=== PATIENT | male | born 1945 | race Caucasian/White ===

== ENCOUNTER → 2016-06-09 | Outpatient (CLI) | payer MEDICARE, BC ==
[2016-06-09 10:46] LABS: Basophils % (A) 1 %; CH 29.1; CHCM 32.8; Eosinophils # (A) 0.3 k/uL (0-0.7); Eosinophils % (A) 4 %; HDW 2.63; HGB 15.4 gm/dL (13.0-17.5); Luc # (Auto) 0.25; Luc % (Auto) 3; Lymphocytes # (A) 1.7 k/uL (1.0-4.8); Lymphocytes % (A) 23 %; MCH 29.8 pg (25.0-35.0); MCHC 33.5 g/dL (31.0-37.0); MCV 88.9 fL (80.0-100.0); Mean Platelet Volume 7.1; Monocytes # (A) 0.6 k/uL (0-1.0); Monocytes % (A) 8 %; Neutrophils # (A) 4.6 k/uL (1.3-7.7); Neutrophils % (A) 62 %; RBC 5.18 m/uL (4.30-5.90); RDW 13.2 % (11.5-15.5); WBC 7.5 k/uL (3.8-10.6); WBC (Perox) 7.36
[2016-06-09 11:51] LABS: ALT 25 U/L (21-72); AST 23 U/L (17-59); Alkaline Phosphatase 73 U/L (38-126); Anion Gap 11 mmol/L; Blood Urea Nitrogen 18 mg/dL (9-20); Calcium 9.8 mg/dL (8.4-10.2); Carbon Dioxide 30 mmol/L (22-30); Chloride 100 mmol/L (98-107); Cholesterol 130 mg/dL (<200); Glucose 130 mg/dL (74-99); HDL Cholesterol 42 mg/dL (40-60); Iron 40 ug/dL (49-181); Non-African American GFR(MDRD) >60 (>60 ml/min/1.73 sqM); Potassium 4.8 mmol/L (3.5-5.1); Sodium 141 mmol/L (137-145); Total Bilirubin 1.9 mg/dL (0.2-1.3); Triglycerides 79 mg/dL (<150)
[2016-06-09 12:02] LABS: % Iron Saturation 12.9 % (20-50); Total Iron Binding Capacity 310 ug/dL (261-462)
[2016-06-09 12:22] LABS: Prostate Specific Antigen 0.36 ng/mL (0.00-4.00)
[2016-06-09 12:58] LABS: Vitamin B12 607 pg/mL
== END | disposition home or self-care (01) ==
LOC: LABWHC1 10:13
PROVIDERS: ATTEND Internal Medicine Geriatric Medicine
DX: N40.0 Benign prostatic hyperplasia without lower urinary tract symptoms (principal); D64.9 Anemia, unspecified; N18.1 Chronic kidney disease, stage 1; E11.42 Type 2 diabetes mellitus with diabetic polyneuropathy; E78.00 Pure hypercholesterolemia, unspecified
CPT/HCPCS: 36415; 80053; 80061; 82607; 82746; 83036; 83540; 83550; 84153; 85025

== ENCOUNTER 2016-07-18 12:56 | Inpatient (IN) | payer MEDICARE, BC ==
[2016-07-18] MEDS ORDERED: AMPICILLIN-SULBACTAM 3 GM in SODIUM CHLORIDE 0.9% 100 ML IVPB STA (15:22)
[2016-07-18] MEDS ORDERED: SODIUM CHLORIDE 0.9% 1,000 ML IV STA (15:22)
[2016-07-18] MEDS ORDERED: IV VANCOMYCIN PER PHARMACY 1 EACH MISC MISCELLANE PRN (15:22)
[2016-07-18] MEDS ORDERED: VANCOMYCIN 2,000 MG in SODIUM CHLORIDE 0.9% 500 ML IVPB STA (15:30)
--- NOTE | 2016-07-18 15:35 | ED ---
General Adult HPI - General Chief complaint: Extremity Problem,Nontraumatic Stated complaint: L foot infection Time Seen by Provider: 07/18/16 15:07 Source: patient, RN notes reviewed, old records reviewed Mode of arrival: ambulatory Limitations: no limitations - History of Present Illness Initial comments: This is a 71-year-old male here for evaluation of foot pain, foot smell, left great toe pain and swelling. Patient has history of diabetes if history of amputation of the foot. Patient states he noticed a blister at the foot yesterday in the neck chemo brain and has since been smiling with discharge. No fevers. No significant pain although pain does have nephropathy. Patient denies any other complaints - Related Data Home Medications Medication Instructions Recorded Confirmed Aspirin 81 mg PO HS 12/27/15 01/03/16 Calcium Carbonate/Vitamin D3 1 tab PO AC-BID 12/27/15 01/03/16 [Calcium 600-Vit D3 800 Tab] Cholecalciferol [Vitamin D3] 1,000 unit PO BID 12/27/15 01/03/16 Cyanocobalamin [Vitamin B-12] 1,000 mcg PO AC-BRKFST 12/27/15 01/03/16 Docusate [Colace] 100 mg PO AC-TID 12/27/15 01/03/16 Glucosam/Magen-Msm1/C/Jimi/Bosw 1 tab PO BID 12/27/15 01/03/16 [Glucosamine-Chondroitin Tablet] Lisinopril [Prinivil] 10 mg PO DAILY 12/27/15 01/03/16 Multivitamins, Thera [Multivitamin 1 tab PO AC-BRKFST 12/27/15 01/03/16 (formulary)] [place]-3 Fatty Acids/Fish Oil [Fish 1 cap PO HS 12/27/15 01/03/16 Oil 1,000 mg Softgel] Tadalafil [Cialis] 25 mg PO DAILY PRN 12/27/15 01/03/16 Vitamin E 1,000 unit PO AC-BRKFST 12/27/15 01/03/16 glipiZIDE/METFORMIN HCL 1 tab PO DAILY@1200 12/27/15 01/03/16 [glipiZIDE/METFORMIN HCL 5-500 mg] Hydrocortisone Valerate 1 applic TOPICAL DAILY PRN 01/03/16 01/03/16 Previous Rx's Medication Instructions Recorded HYDROcodone/APAP 5-325MG [[place] 1 tab PO Q4HR PRN #20 tab 12/27/15 5-325] Ciprofloxacin HCl [Cipro] 500 mg PO Q12HR #14 tablet 01/09/16 Insulin Glargine [Lantus] 15 unit SQ HS vial 01/09/16 Insulin Glargine [Lantus] 25 unit SQ QAM vial 01/09/16 Allergies Allergy/AdvReac Type Severity Reaction Status Date / Time codeine AdvReac Hallucinati Verified 07/18/16 13:36 ons Review of Systems ROS Statement: Those systems with pertinent positive or pertinent negative responses have been documented in the HPI. ROS Other: All systems not noted in ROS Statement are negative. Past Medical History Past Medical History: Diabetes Mellitus, Pneumonia Additional Past Medical History / Comment(s): CATARACTS, SHINGLES 11 MONTHS AGO , MILD TREMORS LT HAND History of Any Multi-Drug Resistant Organisms: MRSA Date of last positivie culture/infection: 2009 MDRO Source:: LEFT FOOT Past Surgical History: Orthopedic Surgery, Tonsillectomy Additional Past Surgical History / Comment(s): HAMMER TOE SX LT FOOT, LEFT FOOT SURGERY GREAT TOE AMPUTATION/THEN 2ND SX TO REARRANGE THE BONES IN LT FOOT. right foot samll toe removed Past Anesthesia/Blood Transfusion Reactions: No Reported Reaction Additional Past Anesthesia/Blood Transfusion Reaction / Comment(s): CLAUSTERPHOBIC Past Psychological History: No Psychological Hx Reported Additional Psychological History / Comment(s): HAD SOME DEPRESSION WHEN PASSED WAY 4.5 YEARS AGO-NONE NOW Smoking Status: Former smoker Past Alcohol Use History: Occasional Additional Past Alcohol Use History / Comment(s): patient was a smoker of up- and cigarettes and quit in 1984. He denies any medical marijuana, marijuana, street drug use. He occasional has a glass of wine. 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 He lives alone as his . His daughter lives next door. Past Drug Use History: None Reported - Past Family History Mother Additional Family Medical History / Comment(s): AGE 91 FROM BRAIN HEMORRAGE Father Family Medical History: Cancer Additional Family Medical History / Comment(s): LUNG CANCER /METS TO BRAIN General Exam Limitations: no limitations General appearance: alert, in no apparent distress Head exam: Present: atraumatic, normocephalic, normal inspection Eye exam: Present: normal appearance, PERRL, EOMI. Absent: scleral icterus, conjunctival injection, periorbital swelling ENT exam: Present: normal exam, mucous membranes moist Neck exam: Present: normal inspection. Absent: tenderness, meningismus, lymphadenopathy Respiratory exam: Present: normal lung sounds bilaterally. Absent: respiratory distress, wheezes, rales, rhonchi, stridor Cardiovascular Exam: Present: regular rate, normal rhythm, normal heart sounds. Absent: systolic murmur, diastolic murmur, rubs, gallop, clicks GI/Abdominal exam: Present: soft, normal bowel sounds. Absent: distended, tenderness, guarding, rebound, rigid Extremities exam: Present: normal inspection, full ROM, normal capillary refill , other (Left toe cellulitis midfoot forefoot, large ulcer on the great toe). Absent: tenderness, pedal edema, joint swelling, calf tenderness Back exam: Present: normal inspection Neurological exam: Present: alert, oriented X3, CN II-XII intact Psychiatric exam: Present: normal affect, normal mood Skin exam: Present: warm, dry, intact, normal color. Absent: rash Course Vital Signs 07/18/16 13:33 Temperature 98.1 F Pulse Rate 79 Respiratory 18 Rate Blood Pressure 169/70 O2 Sat by Pulse 99 Oximetry - Reevaluation(s) Reevaluation #1: 07/18/16 15:53 Medical record is reviewed Reevaluation #2: 07/18/16 15:53 Patient's in no distress Medical Decision Making - Medical Decision Making 71 meowed ear with history of diabetes history of gangrene history of amputation coming in with ulcer and cellulitis spreading up the foot, smell, rule out osteomyelitis, patient be admitted for IV antibiotics at this time - Radiology Data Radiology results: report reviewed (X-ray of foot shows no changes, postsurgical ), image reviewed Disposition Clinical Impression: Diabetic ulcer of toe, Gangrene of toe, Cellulitis of left foot Disposition: ADMITTED IP TO THIS [facility] Condition: Fair Referrals: Clay Jones MD [Primary Care Provider] - 1-2 days
[2016-07-18] MEDS ORDERED: SODIUM CHLORIDE 0.9% 1,000 ML IV ONE (15:50)
--- NOTE | 2016-07-18 15:58 | XR ---
EXAMINATION TYPE: XR foot limited LT DATE OF EXAM: 07/18/2016 3:52 PM COMPARISON: NONE HISTORY: Pain TECHNIQUE: 2 views are submitted. FINDINGS: Postsurgical change involving the first digit with soft tissue edema and emphysema correlate for infe ction. Previous amputation noted with no destructive bony changes of the first digit. Calcaneal spurs noted. There are deformities involving the MTP joints of all remaining digits which appear to be chronic may been the basis of previous trauma, infection or fracture. Psoriatic arthritis less likely etiology. IMPRESSION: 1. Extensive soft tissue edema and emphysema correlate for cellulitis with infection. No destructive change of the first digit. 2. Chronic appearing deformities of the MTP joints and distal metatarsals of the second through fourt h digits have been the basis of previous trauma and/or infection. Correlate clinically.
[2016-07-18 16:21] LABS: Basophils % (A) 1 %; CH 29.3; CHCM 33.6; Eosinophils # (A) 0.2 k/uL (0-0.7); Eosinophils % (A) 2 %; HCT 41.9 % (39.0-53.0); HGB 14.1 gm/dL (13.0-17.5); Luc # (Auto) 0.21; Luc % (Auto) 3; Lymphocytes # (A) 1.9 k/uL (1.0-4.8); Lymphocytes % (A) 23 %; MCH 29.5 pg (25.0-35.0); MCHC 33.6 g/dL (31.0-37.0); MCV 87.7 fL (80.0-100.0); Mean Platelet Volume 7.2; Monocytes # (A) 0.5 k/uL (0-1.0); Monocytes % (A) 6 %; Neutrophils # (A) 5.4 k/uL (1.3-7.7); Neutrophils % (A) 66 %; RBC 4.78 m/uL (4.30-5.90); RDW 13.1 % (11.5-15.5); WBC 8.3 k/uL (3.8-10.6); WBC (Perox) 8.05
[2016-07-18 16:27] LABS: Appearance,Urine Clear (Clear); Bilirubin,Urine Negative (Negative); Glucose,Urine (UA) 3+ (Negative); Ketones,Urine Negative (Negative); Leukocyte Esterase,Urine Negative (Negative); Nitrite,Urine Negative (Negative); Protein,Urine Negative (Negative); Specific Gravity,Urine 1.006 (1.001-1.035); UA Billing (MACRO vs. MICRO) CHEM; Urobilinogen,Urine <2.0 mg/dL (<2.0)
[2016-07-18 16:29] LABS: INR 0.9 (<1.1); Partial Thromboplastin Time 24.7 sec (22.0-30.0); Prothrombin Time 9.7 sec (9.0-12.0)
[2016-07-18 16:48] LABS: ALT 24 U/L (21-72); AST 21 U/L (17-59); Alkaline Phosphatase 82 U/L (38-126); Anion Gap 12 mmol/L; Blood Urea Nitrogen 20 mg/dL (9-20); Calcium 9.3 mg/dL (8.4-10.2); Carbon Dioxide 27 mmol/L (22-30); Chloride 100 mmol/L (98-107); Glucose 198 mg/dL (74-99); Magnesium 2.3 mg/dL (1.6-2.3); Non-African American GFR(MDRD) >60 (>60 ml/min/1.73 sqM); Phosphorous 3.5 mg/dL (2.5-4.5); Potassium 4.6 mmol/L (3.5-5.1); Sodium 139 mmol/L (137-145); Total Bilirubin 1.6 mg/dL (0.2-1.3); Total Protein 7.8 g/dL (6.3-8.2)
[2016-07-18 16:53] LABS: Creatine Kinase MB 1.2 ng/mL (0.0-2.4)
[2016-07-18 20:08] LABS: Glucose,Whole Blood 222 mg/dL (75-99)
[2016-07-18] MEDS ORDERED: TADALAFIL PO PRN (21:03)
--- NOTE | 2016-07-18 21:21 | P.HPIM ---
History of Present Illness H&P Date: 07/18/16 Chief Complaint: left big toe stump ulceration drainage this is a 71-year-old male. His primary care physician is Dr. Jones. He has a past medical history of diabetes mellitus, cataracts, shingles, left hand tremor, left foot infection with MRSA status post amputation of the left great toe followed by nonhealing wound and was last admitted at this facility last december 2015. Patient underwent amputation on the left great toe in 2008 and developed wound that was nonhealing for an extended period of time this finally healed few weeks therafter. He followed with Dr. Levin as well as Dr. Quiñones , he has residual callus on the 3rd rgiht toe which is not open, non draining..He Has PAD worse on the right then the left, He present to the Emergency room when he had blister on the base of his left big toe stump that started draining clear fluid initially now collored yellow with increase foul smelling drainage prompting his er evaluation as the stum on the amputated toe is now red and tender and swollen. Patient was started on Ancef and vancomycin and admitted to the [facility] floor and consult requested with Dr. Quiñones and Dr. Levin. Review of Systems Constitutional: Reports as per HPI, Denies anorexia, Denies chills, Denies chronic headaches, Denies chronic pain, Denies daytime sleepiness, Denies fatigue, Denies fever, Denies lethargy, Denies malaise, Denies night sweats, Denies poor appetite, Denies sweats, Denies weakness, Denies weight gain, Denies weight loss Ears, nose, mouth and throat: Reports as per HPI, Denies ant. neck pain, Denies bleeding gums, Denies dental pain, Denies dysphagia, Denies epistaxis, Denies headache, Denies hoarseness, Denies mouth pain, Denies nasal congestion, Denies nasal discharge, Denies neck fullness/pressure, Denies neck lump, Denies nose pain, Denies odynophagia, Denies post-nasal drip, Denies sinus pain, Denies sinus pressure, Denies swelling in mouth, Denies swelling in throat, Denies sore throat, Denies vertigo, Denies voice changes Cardiovascular: Reports as per HPI, Reports leg edema, Denies chest pain, Denies claudication, Denies decreased exercise tolerance, Denies dyspnea on exertion, Denies edema, Denies high blood pressure, Denies irregular heart beat , Denies lightheadedness, Denies orthopnea, Denies palpitations, Denies paroxysmal nocturnal dyspnea, Denies phlebitis, Denies rapid heart beat, Denies shortness of breath, Denies syncope Respiratory: Reports as per HPI, Denies congestion, Denies cough, Denies cough with sputum, Denies dyspnea, Denies excessive sputum, Denies hemoptysis, Denies home oxygen, Denies pain, Denies pain on inspiration, Denies pleurisy, Denies respiratory infections, Denies sleep apnea, Denies snoring, Denies wheezing Gastrointestinal: Reports as per HPI, Denies abdominal pain, Denies belching, Denies bloating, Denies BRBPR, Denies change in bowel habits, Denies coffee ground emesis, Denies constipation, Denies diarrhea, Denies dyspepsia, Denies early satiety, Denies excessive gas, Denies heartburn, Denies hematemesis, Denies hematochezia, Denies indigestion, Denies jaundice, Denies lactose intolerance, Denies loss of appetite, Denies melena, Denies nausea, Denies vomiting Genitourinary: Reports as per HPI, Denies decreased libido, Denies difficulties fathering child, Denies discharge, Denies dysuria, Denies erectile dysfunction, Denies flank pain, Denies genital pain, Denies genital sores, Denies hematuria, Denies impotence, Denies incontinence, Denies kidney stones, Denies nocturia, Denies polyuria, Denies testicular lump, Denies testicular pain, Denies urinary frequency, Denies urinary hesitancy, Denies urinary retention Musculoskeletal: Reports as per HPI, Reports shooting leg pain, Denies arm numbness/tingling, Denies atrophy, Denies fractures, Denies frequent falls, Denies gait dysfunction, Denies hot joints, Denies leg numbness/tingling, Denies limitation of motion, Denies loss of height, Denies low back pain, Denies morning stiffness, Denies muscle cramps, Denies muscle weakness, Denies myalgias, Denies neck pain, Denies neck stiffness, Denies prior amputations, Denies redness of joints, Denies shooting arm pain Integumentary: Reports as per HPI, Reports color changes, Reports lesions, Reports sores, Denies acne, Denies boils, Denies brittle nails, Denies change in hair/nails, Denies darkening of skin, Denies depigmentation, Denies dryness, Denies foot/leg ulcers, Denies growths, Denies hirsutism, Denies onychomycosis, Denies pruritus, Denies rash, Denies striae, Denies unusual bruising, Denies wounds Neurological: Reports as per HPI, Denies aphasia, Denies ataxia, Denies balance difficulties, Denies burning pain, Denies change in mentation, Denies change in smell/taste, Denies change in speech, Denies confusion, Denies convulsions, Denies double vision, Denies gait dysfunction, Denies head injury, Denies headaches, Denies hearing difficulties, Denies lack of coordination, Denies loss of vision, Denies memory loss, Denies migraines, Denies motor disturbance, Denies numbness, Denies paralysis, Denies paresthesias, Denies seizures, Denies sensory deficit, Denies spasticity, Denies syncope, Denies tic, Denies tingling , Denies transient paralysis, Denies tremors, Denies vertigo, Denies weakness, Denies visual changes Psychiatric: Reports as per HPI, Denies anhedonia, Denies anxiety, Denies anxiety attacks, Denies change in appetite, Denies change in libido, Denies change in sleep habits, Denies confusion, Denies depression, Denies difficulty concentrating, Denies disorientation, Denies hallucinations, Denies hopelessness , Denies hypersomnia, Denies insomnia, Denies irritability, Denies memory loss, Denies mood swings, Denies paranoia, Denies sadness/tearfulness, Denies sleep disturbances, Denies suicidal ideation Endocrine: Reports as per HPI, Denies cold intolerance, Denies deepening of the voice, Denies excessive sweating, Denies excessive thirst, Denies fatigue, Denies flushing, Denies heat intolerance, Denies high blood sugars, Denies increase in ring/shoe/hat size, Denies low blood sugars, Denies nocturia, Denies palpitations, Denies polydipsia, Denies polyphagia, Denies polyuria, Denies proptosis, Denies recent glucocorticoid use, Denies thyroid mass, Denies weight change Past Medical History Past Medical History: Diabetes Mellitus, Pneumonia Additional Past Medical History / Comment(s): CATARACTS, SHINGLES 11 MONTHS AGO , MILD TREMORS LT HAND, wet gangrene rt foot 5th toe(had amp done), cyst rt middle finger. History of Any Multi-Drug Resistant Organisms: MRSA Date of last positivie culture/infection: 1992(per pt) MDRO Source:: LEFT FOOT great toe Past Surgical History: Orthopedic Surgery, Tonsillectomy Additional Past Surgical History / Comment(s): HAMMER TOE SX LT FOOT, LEFT FOOT SURGERY GREAT TOE AMPUTATION/THEN 2ND SX TO REARRANGE THE BONES IN LT FOOT.01-03-16 right foot samll toe removed Past Anesthesia/Blood Transfusion Reactions: No Reported Reaction Additional Past Anesthesia/Blood Transfusion Reaction / Comment(s): CLAUSTERPHOBIC Past Psychological History: No Psychological Hx Reported Additional Psychological History / Comment(s): HAD SOME DEPRESSION WHEN PASSED WAY 4 YEARS AGO-sought counseling-NONE NOW. lives alone in own 2 story home(pt stays on 1st level) that has 4 steps to enter.daughter lives next door. Smoking Status: Former smoker Past Alcohol Use History: Occasional Additional Past Alcohol Use History / Comment(s): patient was a smoker of up- and cigarettes and quit in 1984. He denies any medical marijuana, marijuana, street drug use. He occasional has a glass of wine. no service. 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 He lives alone as his . His daughter lives next door. Past Drug Use History: None Reported - Past Family History Mother Additional Family Medical History / Comment(s): AGE 91 FROM BRAIN HEMORRAGE Father Family Medical History: Cancer Additional Family Medical History / Comment(s): LUNG CANCER /METS TO BRAIN Medications and Allergies Home Medications Medication Instructions Recorded Confirmed Type Aspirin 81 mg PO HS 12/27/15 07/18/16 History Calcium Carbonate/Vitamin D3 1 tab PO AC-BID 12/27/15 07/18/16 History [Calcium 600-Vit D3 800 Tab] Cholecalciferol [Vitamin D3] 1,000 unit PO BID 12/27/15 07/18/16 History Cyanocobalamin [Vitamin B-12] 1,000 mcg PO AC-BRKFST 12/27/15 07/18/16 History Docusate [Colace] 100 mg PO AC-TID 12/27/15 07/18/16 History Glucosam/Magen-Msm1/C/Jimi/Bosw 1 tab PO BID 12/27/15 07/18/16 History [Glucosamine-Chondroitin Tablet] Lisinopril [Prinivil] 10 mg PO DAILY 12/27/15 07/18/16 History Multivitamins, Thera [Multivitamin 1 tab PO AC-BRKFST 12/27/15 07/18/16 History (formulary)] [place]-3 Fatty Acids/Fish Oil [Fish 1 cap PO HS 12/27/15 07/18/16 History Oil 1,000 mg Softgel] Tadalafil [Cialis] 25 mg PO DAILY PRN 12/27/15 07/18/16 History Vitamin E 1,000 unit PO AC-BRKFST 12/27/15 07/18/16 History glipiZIDE/METFORMIN HCL 1 tab PO DAILY@1200 12/27/15 07/18/16 History [glipiZIDE/METFORMIN HCL 5-500 mg] Hydrocortisone Valerate 1 applic TOPICAL DAILY PRN 01/03/16 07/18/16 History Insulin Glargine,Hum.rec.anlog 45 units SQ DAILY 07/18/16 07/18/16 History [[place]] Allergies Allergy/AdvReac Type Severity Reaction Status Date / Time adhesive Allergy Itching Verified 07/18/16 19:00 codeine AdvReac Hallucinati Verified 07/18/16 16:13 ons Physical Exam Vitals: Vital Signs Temp Pulse Pulse Resp BP BP Pulse Ox 07/18/16 18:45 98.2 F 62 16 146/76 99 07/18/16 17:33 97.6 F 65 18 158/67 99 07/18/16 16:30 97.1 F L 66 18 153/69 99 07/18/16 13:33 98.1 F 79 18 169/70 99 Intake and Output 07/18/16 07/18/16 07/18/16 06:59 14:59 22:59 Intake Total 118 Balance 118 Intake: Oral 118 Other: Weight 92.986 kg Patient Weight 07/19/16 06:59 Weight 92.986 kg - Constitutional General appearance: cooperative, no acute distress - EENT Eyes: anicteric sclerae, PERRLA, dentition normal, normal appearance ENT: hearing grossly normal, NA/AT, normal oropharynx - Neck Neck: no lymphadenopathy, normal ROM, no other, no rigidity, no stridor, no thyromegaly Thyroid: bilateral: normal size - Respiratory Respiratory: negative: CTA, diminished, dullness, rales, rhonchi, wheezing, prolonged expiration - Cardiovascular Rhythm: regular Heart sounds: normal: S1, S2 Abnormal Heart Sounds: no systolic murmur, no diastolic murmur, no rub, no S3 Gallop, no S4 Gallop, no click, no other - Gastrointestinal General gastrointestinal: normal bowel sounds, soft - Integumentary Integumentary: normal, normal turgor - Neurologic Neurologic: CNII-XII intact - Musculoskeletal Musculoskeletal: gait normal - Psychiatric Psychiatric: A&O x's 3, appropriate affect Results CBC & Chem 7: 07/18/16 16:07 07/18/16 16:07 Labs: Abnormal Lab Results - Last 24 Hours (Table) 07/18/16 07/18/16 07/18/16 Range/Units 16:07 16:18 20:03 Glucose 198 H (74-99) mg/dL POC Glucose (mg/dL) 222 H (75-99) mg/dL Total Bilirubin 1.6 H (0.2-1.3) mg/dL Urine Glucose (UA) 3+ H (Negative) Laboratory Results WBC 8.3 k/uL (3.8-10.6) 07/18/16 16:07 RBC 4.78 m/uL (4.30-5.90) 07/18/16 16:07 Hgb 14.1 gm/dL (13.0-17.5) 07/18/16 16:07 Hct 41.9 % (39.0-53.0) 07/18/16 16:07 MCV 87.7 fL (80.0-100.0) 07/18/16 16:07 MCH 29.5 pg (25.0-35.0) 07/18/16 16:07 MCHC 33.6 g/dL (31.0-37.0) 07/18/16 16:07 RDW 13.1 % (11.5-15.5) 07/18/16 16:07 Plt Count 246 k/uL (150-450) 07/18/16 16:07 Neutrophils % 66 % 07/18/16 16:07 Lymphocytes % 23 % 07/18/16 16:07 Monocytes % 6 % 07/18/16 16:07 Eosinophils % 2 % 07/18/16 16:07 Basophils % 1 % 07/18/16 16:07 Neutrophils # 5.4 k/uL (1.3-7.7) 07/18/16 16:07 Lymphocytes # 1.9 k/uL (1.0-4.8) 07/18/16 16:07 Monocytes # 0.5 k/uL (0-1.0) 07/18/16 16:07 Eosinophils # 0.2 k/uL (0-0.7) 07/18/16 16:07 Basophils # 0.0 k/uL (0-0.2) 07/18/16 16:07 PT 9.7 sec (9.0-12.0) 07/18/16 16:07 INR 0.9 (<1.1) 07/18/16 16:07 APTT 24.7 sec (22.0-30.0) 07/18/16 16:07 Sodium 139 mmol/L (137-145) 07/18/16 16:07 Potassium 4.6 mmol/L (3.5-5.1) 07/18/16 16:07 Chloride 100 mmol/L (98-107) 07/18/16 16:07 Carbon Dioxide 27 mmol/L (22-30) 07/18/16 16:07 Anion Gap 12 mmol/L 07/18/16 16:07 BUN 20 mg/dL (9-20) 07/18/16 16:07 Creatinine 0.94 mg/dL (0.66-1.25) 07/18/16 16:07 Est GFR (MDRD) Af Amer >60 (>60 ml/min/1.73 sqM) 07/18/16 16:07 Est GFR (MDRD) Non-Af >60 (>60 ml/min/1.73 sqM) 07/18/16 16:07 Glucose 198 mg/dL (74-99) H 07/18/16 16:07 POC Glucose (mg/dL) 222 mg/dL (75-99) H 07/18/16 20:03 POC Glu Edi Developer ID Caryl Bush 07/18/16 20:03 Plasma Lactic Acid [place] 1.3 mmol/L (0.7-2.0) 07/18/16 16:07 Calcium 9.3 mg/dL (8.4-10.2) 07/18/16 16:07 Phosphorus 3.5 mg/dL (2.5-4.5) 07/18/16 16:07 Magnesium 2.3 mg/dL (1.6-2.3) 07/18/16 16:07 Total Bilirubin 1.6 mg/dL (0.2-1.3) H 07/18/16 16:07 AST 21 U/L (17-59) 07/18/16 16:07 ALT 24 U/L (21-72) 07/18/16 16:07 Alkaline Phosphatase 82 U/L (38-126) 07/18/16 16:07 Total Creatine Kinase 57 U/L (55-170) 07/18/16 16:07 CK-MB (CK-2) 1.2 ng/mL (0.0-2.4) 07/18/16 16:07 CK-MB (CK-2) Rel Index 2.1 07/18/16 16:07 Total Protein 7.8 g/dL (6.3-8.2) 07/18/16 16:07 Albumin 4.4 g/dL (3.5-5.0) 07/18/16 16:07 Urine Color Light Yellow 07/18/16 16:18 Urine Appearance Clear (Clear) 07/18/16 16:18 Urine pH 6.0 (5.0-8.0) 07/18/16 16:18 Ur Specific [place] 1.006 (1.001-1.035) 07/18/16 16:18 Urine Protein Negative (Negative) 07/18/16 16:18 Urine Glucose (UA) 3+ (Negative) H 07/18/16 16:18 Urine Ketones Negative (Negative) 07/18/16 16:18 Urine Blood Negative (Negative) 07/18/16 16:18 Urine Nitrite Negative (Negative) 05/26/17 16:18 Urine Bilirubin Negative (Negative) 07/18/16 16:18 Urine Urobilinogen <2.0 mg/dL (<2.0) 07/18/16 16:18 Ur Leukocyte Esterase Negative (Negative) 07/18/16 16:18 Assessment and Plan Plan: 1. stump cellulitis involiving left ist distal metatarsal region withknown PAD diabetic wound/ulcer . Patient has been started on vancomycin and unasyn added. Dr. Quiñones and Dr. Levin is on consult for vascular surgery infectious disease. wound cultures obtained. xrays to evaluate for osteomyelitis 2. prior right 5th toe amputation 12/2015 healed 3 Diabetes mellitus insulin requiring. Patient is continued on Tuojeo 45 units twice daily and Humalog scale before meals and at bedtime as well as metformin 500 mg daily' glypizide 5 mg daily. he was running high on his AIC last time it was checked, will acquire an updated aic this visit 4, Right 3rd distal toe chronic callus with dry necrosis/gangrene 4 PAD, will have dr quiñones follow the paitient, arterial doppers will be done 5. Hypertension. Continue lisinopril 10 mg daily. 6. Gastrointestinal prophylaxis. Heparin 5000 units subcu every 8 hours. 7. DVT prophylaxis. Pepcid 20 mg daily. 8. 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
[2016-07-18 21:38] LABS: Hemoglobin A1C 7.1 % (4.2-6.1)
[2016-07-18] MEDS: INSULIN LISPRO (humaLOG) 300 UNIT/3 ML VIAL SQ SCH (22:10)
[2016-07-19] MEDS: VANCOMYCIN 1,500 MG in SODIUM CHLORIDE 0.9% 250 ML IVPB SCH ×2 (05:56→18:07)
[2016-07-19 07:16] LABS: Basophils % (A) 0 %; CH 29.2; Eosinophils # (A) 0.2 k/uL (0-0.7); Eosinophils % (A) 2 %; HCT 40.4 % (39.0-53.0); HDW 2.82; HGB 13.6 gm/dL (13.0-17.5); Luc # (Auto) 0.17; Luc % (Auto) 2; Lymphocytes # (A) 1.3 k/uL (1.0-4.8); Lymphocytes % (A) 18 %; MCHC 33.7 g/dL (31.0-37.0); MCV 86.2 fL (80.0-100.0); Mean Platelet Volume 7.9; Monocytes # (A) 0.4 k/uL (0-1.0); Monocytes % (A) 6 %; Neutrophils # (A) 5.3 k/uL (1.3-7.7); Neutrophils % (A) 72 %; RBC 4.69 m/uL (4.30-5.90); RDW 12.9 % (11.5-15.5); WBC 7.3 k/uL (3.8-10.6); WBC (Perox) 7.25
[2016-07-19 07:23] LABS: Glucose,Whole Blood 73 mg/dL (75-99)
[2016-07-19 07:38] LABS: ALT 28 U/L (21-72); AST 21 U/L (17-59); Alkaline Phosphatase 63 U/L (38-126); Anion Gap 9 mmol/L; Blood Urea Nitrogen 17 mg/dL (9-20); Calcium 8.8 mg/dL (8.4-10.2); Carbon Dioxide 27 mmol/L (22-30); Chloride 106 mmol/L (98-107); Glucose 83 mg/dL (74-99); Non-African American GFR(MDRD) >60 (>60 ml/min/1.73 sqM); Potassium 4.7 mmol/L (3.5-5.1); Sodium 142 mmol/L (137-145); Total Bilirubin 1.6 mg/dL (0.2-1.3); Total Protein 6.9 g/dL (6.3-8.2)
[2016-07-19] MEDS: MULTIVITAMINS, THERA 1 EACH TAB PO SCH (07:48)
[2016-07-19] MEDS: ENOXAPARIN 40 MG/0.4 ML SYRINGE SQ SCH (07:48)
[2016-07-19] MEDS: CYANOCOBALAMIN 500 MCG TAB PO SCH (07:48)
[2016-07-19] MEDS: DOCUSATE 100 MG CAP PO SCH ×3 (07:48→18:06)
[2016-07-19] MEDS: CHOLECALCIFEROL 1,000 UNIT TAB PO SCH ×2 (07:48→20:17)
[2016-07-19] MEDS: LISINOPRIL 10 MG TAB PO SCH (07:48)
[2016-07-19] MEDS: CALCIUM CARB-VIT D 500MG-200UN 1 EACH TAB PO SCH ×2 (07:48→18:07)
[2016-07-19] MEDS: INSULIN LISPRO (humaLOG) 300 UNIT/3 ML VIAL SQ SCH ×4 (07:49→20:17)
[2016-07-19] MEDS: INSULIN GLARGINE 100 UNIT/ML 10 ML VIAL SQ SCH (08:19)
--- NOTE | 2016-07-19 09:48 | P.GSCN ---
History of Present Illness History of present illness: 71-year-old diabetic male, patient came to the emergency room with history of pain and blister formation noted on the left foot stump of the left big toe patient is known to me from the past he had a left big toe amputation done he was doing fine and I have been following him in my office on regular basis he notices this blister few days ago and patient has been put on IV antibiotic vancomycin Medical history history of diabetes Surgical history left big Sommers done in the past Neck examination neck is supple no bruit appreciated chest examination chest is clear first and second sound normal Abdomen soft nontender Vascular examination brachial radial femoral pulses are palpable dorsal pedis is palpable left foot has a callus at the stump site and a blister formation Plan is we will do MRI of the left foot rule out osteo-mellitus and patient and IV vancomycin patient will need wound debridement after reviewing the MRI of the left foot. Follow with you thank you Past Medical History Past Medical History: Diabetes Mellitus, Pneumonia Additional Past Medical History / Comment(s): CATARACTS, SHINGLES 11 MONTHS AGO , MILD TREMORS LT HAND, wet gangrene rt foot 5th toe(had amp done), cyst rt middle finger. History of Any Multi-Drug Resistant Organisms: MRSA Year Discovered:: 1992(per pt) MDRO Source:: LEFT FOOT great toe Past Surgical History: Orthopedic Surgery, Tonsillectomy Additional Past Surgical History / Comment(s): HAMMER TOE SX LT FOOT, LEFT FOOT SURGERY GREAT TOE AMPUTATION/THEN 2ND SX TO REARRANGE THE BONES IN LT FOOT.01-03-16 right foot samll toe removed Past Anesthesia/Blood Transfusion Reactions: No Reported Reaction Additional Past Anesthesia/Blood Transfusion Reaction / Comm: CLAUSTERPHOBIC Past Psychological History: No Psychological Hx Reported Additional Psychological History / Comment(s): HAD SOME DEPRESSION WHEN PASSED WAY 4 YEARS AGO-sought counseling-NONE NOW. lives alone in own 2 story home(pt stays on 1st level) that has 4 steps to enter.daughter lives next door. Smoking Status: Former smoker Past Alcohol Use History: Occasional Additional Past Alcohol Use History / Comment(s): patient was a smoker of up- and cigarettes and quit in 1984. He denies any medical marijuana, marijuana, street drug use. He occasional has a glass of wine. no service. 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 He lives alone as his . His daughter lives next door. Past Drug Use History: None Reported - Past Family History Mother Additional Family Medical History / Comment(s): AGE 91 FROM BRAIN HEMORRAGE Father Family Medical History: Cancer Additional Family Medical History / Comment(s): LUNG CANCER /METS TO BRAIN Medications and Allergies Home Medications Medication Instructions Recorded Confirmed Type Aspirin 81 mg PO HS 12/27/15 07/18/16 History Calcium Carbonate/Vitamin D3 1 tab PO AC-BID 12/27/15 07/18/16 History [Calcium 600-Vit D3 800 Tab] Cholecalciferol [Vitamin D3] 1,000 unit PO BID 12/27/15 07/18/16 History Cyanocobalamin [Vitamin B-12] 1,000 mcg PO AC-BRKFST 12/27/15 07/18/16 History Docusate [Colace] 100 mg PO AC-TID 12/27/15 07/18/16 History Glucosam/Magen-Msm1/C/Jimi/Bosw 1 tab PO BID 12/27/15 07/18/16 History [Glucosamine-Chondroitin Tablet] Lisinopril [Prinivil] 10 mg PO DAILY 12/27/15 07/18/16 History Multivitamins, Thera [Multivitamin 1 tab PO AC-BRKFST 12/27/15 07/18/16 History (formulary)] [place]-3 Fatty Acids/Fish Oil [Fish 1 cap PO HS 12/27/15 07/18/16 History Oil 1,000 mg Softgel] Tadalafil [Cialis] 25 mg PO DAILY PRN 12/27/15 07/18/16 History Vitamin E 1,000 unit PO AC-BRKFST 12/27/15 07/18/16 History glipiZIDE/METFORMIN HCL 1 tab PO DAILY@1200 12/27/15 07/18/16 History [glipiZIDE/METFORMIN HCL 5-500 mg] Hydrocortisone Valerate 1 applic TOPICAL DAILY PRN 01/03/16 07/18/16 History Insulin Glargine,Hum.rec.anlog 45 units SQ DAILY 07/18/16 07/18/16 History [[place]] Allergies Allergy/AdvReac Type Severity Reaction Status Date / Time adhesive Allergy Itching Verified 07/18/16 19:00 codeine AdvReac Hallucinati Verified 07/18/16 16:13 ons Surgical - Exam Vital Signs Temp Pulse Resp BP Pulse Ox 98.1 F 79 18 169/70 99 07/18/16 13:33 07/18/16 13:33 07/18/16 13:33 07/18/16 13:33 07/18/16 13:33 Results - Labs 07/19/16 06:59 07/19/16 06:59 Abnormal Lab Results - Last 24 Hours (Table) 07/18/16 07/18/16 07/18/16 Range/Units 16:07 16:07 16:18 Glucose 198 H (74-99) mg/dL POC Glucose (mg/dL) (75-99) mg/dL Hemoglobin A1c 7.1 H (4.2-6.1) % Total Bilirubin 1.6 H (0.2-1.3) mg/dL Urine Glucose (UA) 3+ H (Negative) 07/18/16 07/19/16 07/19/16 Range/Units 20:03 06:59 07:19 Glucose (74-99) mg/dL POC Glucose (mg/dL) 222 H 73 L (75-99) mg/dL Hemoglobin A1c (4.2-6.1) % Total Bilirubin 1.6 H (0.2-1.3) mg/dL Urine Glucose (UA) (Negative) Microbiology - Last 24 Hours (Table) 07/18/16 16:18 Urine Culture - Preliminary Urine,Clean Catch Diabetes panel 07/18/16 07/18/16 07/19/16 Range/Units 16:07 16:07 06:59 Sodium 139 142 (137-145) mmol/L Potassium 4.6 4.7 (3.5-5.1) mmol/L Chloride 100 106 (98-107) mmol/L Carbon Dioxide 27 27 (22-30) mmol/L BUN 20 17 (9-20) mg/dL Creatinine 0.94 0.84 (0.66-1.25) mg/dL Glucose 198 H 83 (74-99) mg/dL Hemoglobin A1c 7.1 H (4.2-6.1) % Calcium 9.3 8.8 (8.4-10.2) mg/dL AST 21 21 (17-59) U/L ALT 24 28 (21-72) U/L Alkaline Phosphatase 82 63 (38-126) U/L Total Protein 7.8 6.9 (6.3-8.2) g/dL Albumin 4.4 3.8 (3.5-5.0) g/dL Calcium panel 07/18/16 07/19/16 Range/Units 16:07 06:59 Calcium 9.3 8.8 (8.4-10.2) mg/dL Phosphorus 3.5 (2.5-4.5) mg/dL Albumin 4.4 3.8 (3.5-5.0) g/dL Pituitary panel 07/18/16 07/19/16 Range/Units 16:07 06:59 Sodium 139 142 (137-145) mmol/L Potassium 4.6 4.7 (3.5-5.1) mmol/L Chloride 100 106 (98-107) mmol/L Carbon Dioxide 27 27 (22-30) mmol/L BUN 20 17 (9-20) mg/dL Creatinine 0.94 0.84 (0.66-1.25) mg/dL Glucose 198 H 83 (74-99) mg/dL Calcium 9.3 8.8 (8.4-10.2) mg/dL Adrenal panel 07/18/16 07/19/16 Range/Units 16:07 06:59 Sodium 139 142 (137-145) mmol/L Potassium 4.6 4.7 (3.5-5.1) mmol/L Chloride 100 106 (98-107) mmol/L Carbon Dioxide 27 27 (22-30) mmol/L BUN 20 17 (9-20) mg/dL Creatinine 0.94 0.84 (0.66-1.25) mg/dL Glucose 198 H 83 (74-99) mg/dL Calcium 9.3 8.8 (8.4-10.2) mg/dL Total Bilirubin 1.6 H 1.6 H (0.2-1.3) mg/dL AST 21 21 (17-59) U/L ALT 24 28 (21-72) U/L Alkaline Phosphatase 82 63 (38-126) U/L Total Protein 7.8 6.9 (6.3-8.2) g/dL Albumin 4.4 3.8 (3.5-5.0) g/dL
[2016-07-19] MEDS ORDERED: METFORMIN HCL PO SCH (12:00)
[2016-07-19] MEDS ORDERED: GLIPIZIDE PO SCH (12:00)
[2016-07-19 12:18] LABS: Glucose,Whole Blood 161 mg/dL (75-99)
[2016-07-19] MEDS: metFORMIN 500 MG TAB PO SCH (12:39)
[2016-07-19] MEDS: glipiZIDE 5 MG TAB PO SCH (12:39)
[2016-07-19 14:08] LABS: Hemoglobin A1C 7.1 % (4.2-6.1)
--- NOTE | 2016-07-19 14:52 | P.PN ---
Subjective Principal diagnosis: left big toe stump ulceration infection, diabetic foot, severe PAD, diabetes, hypertension, hyperlipidemia, severe neuropathy. this is a 71-year-old male. His primary care physician is Dr. Jones. He has a past medical history of diabetes mellitus, cataracts, shingles, left hand tremor, left foot infection with MRSA status post amputation of the left great toe followed by nonhealing wound and was last admitted at this facility last december 2015. Patient underwent amputation on the left great toe in 2008 and developed wound that was nonhealing for an extended period of time this finally healed few weeks therafter. He followed with Dr. Levin as well as Dr. Souza , he has residual callus on the 3rd rgiht toe which is not open, non draining..He Has PAD worse on the right then the left, He present to the Emergency room when he had blister on the base of his left big toe stump that started draining clear fluid initially now collored yellow with increase foul smelling drainage prompting his er evaluation as the stum on the amputated toe is now red and tender and swollen. Patient was started on Ancef and vancomycin and admitted to the [facility] floor and consult requested with Dr. Souza and Dr. Levin. Patient was seen Dr. Souza who agree with the current antibiotics, has not seen Dr. Levin yet continue Vanco and Ancef till Dr. Levin seen him. Patient was scheduled for bone scan of the left foot for further decision of the length of his treatment. Will order [facility] and local care as well. Objective - Vital Signs Vital signs: Vital Signs Temp 97.8 F 07/19/16 07:00 Pulse 52 L 07/19/16 08:00 Resp 18 07/19/16 08:00 BP 131/72 07/19/16 07:00 Pulse Ox 100 07/19/16 07:00 Intake & Output 07/18/16 07/19/16 07/19/16 18:59 06:59 18:59 Intake Total 1218 Balance 1218 Weight 92.986 kg 92.986 kg Intake: Intake, IV Titration 1100 Amount Sodium Chloride 0.9% 1, 1100 000 ml @ 100 mls/hr IV . Q10H ONE Rx#:[id number] Oral 118 Other: Voiding Method Toilet Toilet # Voids 1 1 - Constitutional General appearance: Present: cooperative, no acute distress. Absent: average body habitus, disheveled, mild distress, morbidly obese, obese, severe distress , thin - EENT Eyes: Present: normal appearance. Absent: abnormal pupil, anicteric sclerae, disc margins sharp, edentulous, EOMI, PERRLA, fundus normal, photophobia, dentition normal, poor dentition, ptosis, scleral icterus ENT: Present: normal oropharynx, pharyngeal erythema. Absent: hard of hearing, hearing grossly normal, NA/AT, other, thrush, tonsillar exudates, tonsillar swelling Ears: bilateral: normal - Neck Neck: Present: normal ROM. Absent: lymphadenopathy, other, rigidity, stridor, thyromegaly Carotids: bilateral: upstroke normal Thyroid: bilateral: normal size - Respiratory Respiratory: bilateral: CTA, diminished - Cardiovascular Rhythm: regular Heart sounds: normal: S1, S2 Abnormal Heart Sounds: Present: systolic murmur, S3 Gallop. Absent: diastolic murmur, rub, S4 Gallop, click, other - Gastrointestinal General gastrointestinal: Present: decreased bowel sounds, soft. Absent: absent bowel sounds, distended, hepatomegaly, hyperactive bowel sounds, normal bowel sounds, organomegaly, rigid, scaphoid, splenomegaly, tenderness, umbilical hernia, ventral hernia - Integumentary Integumentary Comment(s): Right toe has healing of previous ulcerated and infected area. Left side had large toe with the stump had infection and cellulitis spreading to the base of the foot with slight swelling the soft tissue. Integumentary: Present: cellulitis, pale, ulcer. Absent: calor, cyanotic, decreased turgor, flushed, jaundiced, normal, normal turgor, rash - Neurologic Neurologic: Present: CNII-XII intact - Musculoskeletal Musculoskeletal: Present: gait normal, generalized weakness. Absent: strength equal bilaterally, right sided weakness, left sided weakness - Psychiatric Psychiatric: Present: A&O x's 3, appropriate affect - Labs CBC & Chem 7: 07/19/16 06:59 07/19/16 06:59 Labs: Abnormal Lab Results - Last 24 Hours (Table) 07/18/16 07/18/16 07/18/16 Range/Units 16:07 16:07 16:18 Glucose 198 H (74-99) mg/dL POC Glucose (mg/dL) (75-99) mg/dL Hemoglobin A1c 7.1 H (4.2-6.1) % Total Bilirubin 1.6 H (0.2-1.3) mg/dL Urine Glucose (UA) 3+ H (Negative) 07/18/16 07/19/16 07/19/16 Range/Units 20:03 06:59 06:59 Glucose (74-99) mg/dL POC Glucose (mg/dL) 222 H (75-99) mg/dL Hemoglobin A1c 7.1 H (4.2-6.1) % Total Bilirubin 1.6 H (0.2-1.3) mg/dL Urine Glucose (UA) (Negative) 07/19/16 07/19/16 Range/Units 07:19 12:16 Glucose (74-99) mg/dL POC Glucose (mg/dL) 73 L 161 H (75-99) mg/dL Hemoglobin A1c (4.2-6.1) % Total Bilirubin (0.2-1.3) mg/dL Urine Glucose (UA) (Negative) Microbiology - Last 24 Hours (Table) 07/18/16 16:18 Urine Culture - Preliminary Urine,Clean Catch Assessment and Plan Plan: 1. stump cellulitis involiving left 1st distal metatarsal region withknown PAD diabetic wound/ulcer Patient was started on vancomycin and unasyn added. Dr. Souza and Dr. Levin is on consult for vascular surgery infectious disease. wound cultures obtained. xrays to evaluate for osteomyelitis 2. prior right 5th toe amputation 12/2015 healed 3 Diabetes mellitus insulin requiring. Patient is continued on Tuojeo 45 units twice daily and Humalog scale before meals and at bedtime as well as metformin 500 mg daily' glypizide 5 mg daily. he was running high on his AIC last time it was checked, will acquire an updated aic this visit, blood sugars mildly low this morning his glipizide was held continue Lantus and place of surgery will continue Humalog with the slide and scale and if needed will add 2 units before each meals. 4 PAD, will have dr souza follow the paitient, arterial study will be done, Right 3rd distal toe chronic callus with dry necrosis/gangrene had been watch will continue topical care. 5. Hypertension. Continue lisinopril 10 mg daily. 6. Gastrointestinal prophylaxis. Heparin 5000 units subcu every 8 hours. 7. DVT prophylaxis. Pepcid 20 mg daily. 8. diabetic sensory neuropathy: Patient has been symptomatic treatment is limited at this point. 9 GI prophylaxis: We'll continue patient on Pepcid 20 mg daily. 10 DVT prophylaxis: Patient be continue on heparin subcutaneous. CODE STATUS: Full code.
[2016-07-19 17:53] LABS: Glucose,Whole Blood 46 mg/dL (75-99)
[2016-07-19 18:06] LABS: Glucose,Whole Blood 42 mg/dL (75-99)
[2016-07-19 18:37] LABS: Glucose,Whole Blood 66 mg/dL (75-99)
[2016-07-19 18:37] LABS: Glucose,Whole Blood 51 mg/dL (75-99)
[2016-07-19 19:59] LABS: Glucose,Whole Blood 134 mg/dL (75-99)
[2016-07-19] MEDS: ASPIRIN 81 MG CHEW PO SCH (20:17)
[2016-07-19] MEDS ORDERED: NON-FORMULARY DRUG (Omega-3 Fatty Acids/Fish Oil [Fish Oil 1,000 Mg Softgel] 1 CAP) PO SCH (21:00)
[2016-07-20] MEDS: VANCOMYCIN 1,500 MG in SODIUM CHLORIDE 0.9% 250 ML IVPB SCH ×2 (06:01→17:37)
[2016-07-20 07:18] LABS: Basophils % (A) 0 %; CH 28.7; CHCM 32.9; Eosinophils # (A) 0.2 k/uL (0-0.7); Eosinophils % (A) 3 %; HCT 43.6 % (39.0-53.0); HDW 2.69; HGB 14.4 gm/dL (13.0-17.5); Luc # (Auto) 0.19; Luc % (Auto) 3; Lymphocytes # (A) 1.6 k/uL (1.0-4.8); Lymphocytes % (A) 22 %; MCH 28.9 pg (25.0-35.0); MCV 87.7 fL (80.0-100.0); Monocytes # (A) 0.5 k/uL (0-1.0); Monocytes % (A) 6 %; Neutrophils # (A) 4.9 k/uL (1.3-7.7); Neutrophils % (A) 66 %; RBC 4.98 m/uL (4.30-5.90); RDW 13.1 % (11.5-15.5); WBC 7.4 k/uL (3.8-10.6); WBC (Perox) 6.97
[2016-07-20 07:48] LABS: ALT 23 U/L (21-72); AST 20 U/L (17-59); Alkaline Phosphatase 69 U/L (38-126); Anion Gap 8 mmol/L; Blood Urea Nitrogen 17 mg/dL (9-20); Calcium 9.3 mg/dL (8.4-10.2); Carbon Dioxide 30 mmol/L (22-30); Chloride 104 mmol/L (98-107); Glucose 54 mg/dL (74-99); Non-African American GFR(MDRD) >60 (>60 ml/min/1.73 sqM); Potassium 4.6 mmol/L (3.5-5.1); Sodium 142 mmol/L (137-145); Total Bilirubin 1.1 mg/dL (0.2-1.3); Total Protein 7.1 g/dL (6.3-8.2)
[2016-07-20] MEDS ORDERED: DEXTROSE 50%-WATER 50 ML SYRINGE IVP STA (08:13)
[2016-07-20 08:17] LABS: Glucose,Whole Blood 57 mg/dL (75-99)
[2016-07-20 08:33] LABS: Erythrocyte Sedimentation Rate 18 mm/hr (0-15)
[2016-07-20 08:55] LABS: Glucose,Whole Blood 99 mg/dL (75-99)
[2016-07-20 09:42] LABS: Glucose,Whole Blood 86 mg/dL (75-99)
[2016-07-20 10:32] LABS: Glucose,Whole Blood 99 mg/dL (75-99)
[2016-07-20] MEDS ORDERED: IV FLUID CONTINUATION 1,000 ML IV ONE (10:40)
[2016-07-20] MEDS ORDERED: MIDAZOLAM 2 MG/2 ML VIAL ONE (10:40)
[2016-07-20] MEDS ORDERED: PROPOFOL 10 MG/ML 20 ML VIAL IV ONE (10:40)
[2016-07-20] MEDS ORDERED: KETAMINE 10 MG/ML 20 ML VIAL ONE (10:40)
[2016-07-20] MEDS ORDERED: fentaNYL (PF) 50 MCG/ML 2 ML AMP ONE (10:40)
[2016-07-20] MEDS ORDERED: LIDOCAINE 1% INJ 10MG/ML (20 ML MDV) SQ ONE (10:59)
[2016-07-20 11:23] LABS: Glucose,Whole Blood 87 mg/dL (75-99)
[2016-07-20] MEDS: INSULIN GLARGINE 100 UNIT/ML 10 ML VIAL SQ SCH (13:24)
[2016-07-20] MEDS: DOCUSATE 100 MG CAP PO SCH ×2 (13:26→17:36)
[2016-07-20] MEDS: INSULIN LISPRO (humaLOG) 300 UNIT/3 ML VIAL SQ SCH ×4 (13:27→21:16)
[2016-07-20] MEDS: CALCIUM CARB-VIT D 500MG-200UN 1 EACH TAB PO SCH ×2 (13:29→17:37)
[2016-07-20] MEDS: ENOXAPARIN 40 MG/0.4 ML SYRINGE SQ SCH (13:29)
[2016-07-20] MEDS: glipiZIDE 5 MG TAB PO SCH (13:30)
[2016-07-20] MEDS: CYANOCOBALAMIN 500 MCG TAB PO SCH (13:30)
[2016-07-20] MEDS: CHOLECALCIFEROL 1,000 UNIT TAB PO SCH ×2 (13:31→21:15)
[2016-07-20] MEDS: MULTIVITAMINS, THERA 1 EACH TAB PO SCH (13:31)
[2016-07-20] MEDS: metFORMIN 500 MG TAB PO SCH (13:31)
[2016-07-20] MEDS: LISINOPRIL 10 MG TAB PO SCH (13:33)
--- NOTE | 2016-07-20 13:36 | CONS ---
DATE OF CONSULTATION: 07/19/2016. REASON FOR CONSULTATION: Left big toe wound infection. HISTORY OF PRESENT ILLNESS: The patient is a 71 -year-old male who is status post amputation of his left great toe back in 2008. The patient seems to have problems with nonhealing wound at that site, however, that has completely healed. The patient noticed to have swelling and redness and a blister formation to the left big toe area about a week or ten days ago. However, the patient has yet to finish his course with the same. The patient has been treating the area with peroxide and cleaning it up. However, the area becomes more swollen and red. The patient denies significant pain in that area with worsening swelling and redness. The patient presented to the [facility] ER where the patient has been evaluated and diagnosed with cellulitis and has been admitted to the hospital to the floor. ID was consulted for further recommendations regarding antibiotic therapy. Patient has been evaluated by Dr. Quiñones with MRI to further evaluate and to rule out osteomyelitis. Patient denies any high grade fever, rigors or chills though. REVIEW OF SYSTEMS: CONSTITUTIONAL: Positive for weakness, no high grade fever. EYES: No complaint. ENT: No complaint. RESPIRATORY: No complaint. CARDIOVASCULAR: No complaint. GASTROINTESTINAL: No complaint. CARDIOVASCULAR: No complaint. GENITOURINARY: No complaint. MUSCULOSKELETAL: As per HPI. INTEGUMENTARY: as per history of present illness. PSYCHOLOGIC: No complaint. ENDOCRINE: No complaint.. NEUROLOGICAL: No complaint. PAST MEDICAL HISTORY: Diabetes mellitus, pneumonia. Shingles. deformity of the left big toe. history of methicillin-resistant Staphylococcus aureus infection of the left big toe area. PAST SURGICAL HISTORY: Left big toe amputation, cataract surgery, cyst removed from middle finger. SOCIAL HISTORY: Remote history of smoking, socially drinking and no drug use. FAMILY HISTORY: Mother with history of brain hemorrhage at age of 91, father with history of lung cancer with METs to the brain. ALLERGY TO CODEINE. Medications currently include the patient is on: 1. Aspirin. 2. Os-Mario with D. 3. Vitamin B12. 4. Lovenox. 5. Glucotrol. 6. Lantus. 7. Humalog. 8. Zestril. 9. Glucophage. 10. Theragran. 11. Vancomycin. On examination, blood pressure is 139/77. Pulse of 56, temperature 98.2. He is 96% on room air. General description is an elderly male, lying in bed in no distress. No tachypnea. No accessory muscles of respiration use. HEENT examination shows no pallor or scleral icterus. Oral mucous membranes dry. NECK: Trachea central. There is no thyromegaly. LUNGS: Unlabored breathing. Clear to auscultation anteriorly. No wheeze or crackle. HEART: S1, S2. Regular rate and rhythm. ABDOMEN: Soft, no tenderness. No guarding or rigidity. EXTREMITIES: Examination of the left foot he did have swelling and redness at the amputated site with a big callous on the plantar aspect. The area was cleaned and cultures were obtained. NEUROLOGICAL: The patient is awake, alert, oriented x3. Mood and affect normal. LABS: Hemoglobin is 13.3, white count 7.3, BUN of 17, creatinine 0.84. Electrolytes have been normal. Urine has been negative. No culture was obtained. DIAGNOSTIC IMPRESSION AND PLAN: Patient with left big toe infection in a patient who did have previous history of Methicillin-resistant Staph aureus infection, could be more likely gram positive skin maricel with Methicillin-resistant Staph aureus to be top on the list. PLAN: 1. Would culture has been obtained to direct antibiotic therapy. Unfortunately, the patient already received antibiotic, hence doing a blood culture at this time is of no significant use. 2. Dry dressing to the area. 3. Await the MRI. 4. Vancomycin pharmacy to dose with a target of 15. 5. Will follow up on the clinical condition and cultures to further adjust the medication if needed. Thank you for this consultation. We will follow this patient along with you. SHMUEL
--- NOTE | 2016-07-20 13:38 | P.PN ---
Subjective Principal diagnosis: left big toe stump ulceration infection, diabetic foot, severe PAD, diabetes, hypertension, hyperlipidemia, severe neuropathy. this is a 71-year-old male. His primary care physician is Dr. Jones. He has a past medical history of diabetes mellitus, cataracts, shingles, left hand tremor, left foot infection with MRSA status post amputation of the left great toe followed by nonhealing wound and was last admitted at this facility last december 2015. Patient underwent amputation on the left great toe in 2008 and developed wound that was nonhealing for an extended period of time this finally healed few weeks therafter. He followed with Dr. Levin as well as Dr. Souza , he has residual callus on the 3rd rgiht toe which is not open, non draining..He Has PAD worse on the right then the left, He present to the Emergency room when he had blister on the base of his left big toe stump that started draining clear fluid initially now collored yellow with increase foul smelling drainage prompting his er evaluation as the stum on the amputated toe is now red and tender and swollen. Patient was started on Ancef and vancomycin and admitted to the [facility] floor and consult requested with Dr. Souza and Dr. Levin. Patient was seen Dr. Souza who agree with the current antibiotics, has not seen Dr. Levin yet continue Vanco and Ancef till Dr. Levin seen him. Patient was scheduled for bone scan of the left foot for further decision of the length of his treatment. Will order whirlpool and local care as well. Sed rate was done today and was normal. Patient is going to the OR today by Dr. Souza for debridement of the Harsh skin on the surface of the stump of the big toe. Objective - Vital Signs Vital signs: Vital Signs Temp 97 F L 07/20/16 11:15 Pulse 50 L 07/20/16 11:47 Resp 18 07/20/16 11:47 BP 129/69 07/20/16 11:47 Pulse Ox 94 L 07/20/16 11:47 Intake & Output 07/19/16 07/20/16 07/20/16 18:59 06:59 18:59 Intake Total 1150 250 600 Output Total 3 Balance 1150 250 597 Weight 92.986 kg 92.986 kg Intake: IV 600 Intake, IV Titration 750 250 Amount Sodium Chloride 0.9% 1, 750 000 ml @ 100 mls/hr IV . Q10H ONE Rx#:[id number] Vancomycin 1,500 mg In 250 Sodium Chloride 0.9% 250 ml @ 125 mls/hr IVPB Q12H IRAIDA Rx#:[id number] Oral 400 Output: Estimated Blood Loss 3 Other: Voiding Method Toilet Toilet # Voids 3 1 - Constitutional General appearance: Present: cooperative, no acute distress. Absent: average body habitus, disheveled, mild distress, morbidly obese, obese, severe distress , thin - EENT Eyes: Present: normal appearance. Absent: abnormal pupil, anicteric sclerae, disc margins sharp, edentulous, EOMI, PERRLA, fundus normal, photophobia, dentition normal, poor dentition, ptosis, scleral icterus ENT: Present: normal oropharynx. Absent: hard of hearing, hearing grossly normal, NA/AT, other, pharyngeal erythema, thrush, tonsillar exudates, tonsillar swelling - Neck Neck: Present: normal ROM. Absent: lymphadenopathy, other, rigidity, stridor, thyromegaly Carotids: bilateral: upstroke normal Thyroid: bilateral: normal size - Respiratory Respiratory: bilateral: CTA - Cardiovascular Rhythm: regular Heart sounds: normal: S1, S2 Abnormal Heart Sounds: Present: systolic murmur, S3 Gallop - Gastrointestinal General gastrointestinal: Present: decreased bowel sounds, soft. Absent: absent bowel sounds, distended, hepatomegaly, hyperactive bowel sounds, normal bowel sounds, organomegaly, rigid, scaphoid, splenomegaly, tenderness, umbilical hernia, ventral hernia - Integumentary Integumentary Comment(s): Left foot stump is still aching harsh with decreased redness and swelling today. Integumentary: Present: flushed, jaundiced, pale. Absent: calor, cellulitis, cyanotic, decreased turgor, normal, normal turgor, rash, ulcer - Neurologic Neurologic: Present: CNII-XII intact - Musculoskeletal Musculoskeletal: Present: gait normal, generalized weakness, strength equal bilaterally. Absent: right sided weakness, left sided weakness - Psychiatric Psychiatric: Present: A&O x's 3, appropriate affect - Labs CBC & Chem 7: 07/20/16 06:37 07/20/16 06:37 Labs: Abnormal Lab Results - Last 24 Hours (Table) 07/19/16 07/19/16 07/19/16 Range/Units 06:59 17:51 18:04 ESR (0-15) mm/hr Glucose (74-99) mg/dL POC Glucose (mg/dL) 46 L 42 L (75-99) mg/dL Hemoglobin A1c 7.1 H (4.2-6.1) % 07/19/16 07/19/16 07/19/16 Range/Units 18:22 18:35 19:57 ESR (0-15) mm/hr Glucose (74-99) mg/dL POC Glucose (mg/dL) 51 L 66 L 134 H (75-99) mg/dL Hemoglobin A1c (4.2-6.1) % 07/20/16 07/20/16 07/20/16 Range/Units 06:37 06:37 07:57 ESR 18 H (0-15) mm/hr Glucose 54 L (74-99) mg/dL POC Glucose (mg/dL) 57 L (75-99) mg/dL Hemoglobin A1c (4.2-6.1) % Microbiology - Last 24 Hours (Table) 07/19/16 15:35 Gram Stain - Preliminary Toe - Right First Wound Culture - Preliminary 07/18/16 16:18 Urine Culture - Final Urine,Clean Catch Assessment and Plan Plan: 1. stump cellulitis involiving left 1st distal metatarsal region withknown PAD diabetic wound/ulcer Patient was started on vancomycin and unasyn added. Dr. Souza and Dr. Levin is on consult for vascular surgery infectious disease. wound cultures obtained. xrays to evaluate for osteomyelitis. Patient is going to the OR for debridement. Still doing whirlpool and other management when this is recover. 2. prior right 5th toe amputation 12/2015 healed 3 Diabetes mellitus insulin requiring. Patient is continued on Tuojeo 45 units twice daily and Humalog scale before meals and at bedtime as well as metformin 500 mg daily' glypizide 5 mg daily. he was running high on his AIC last time it was checked, will acquire an updated aic this visit, blood sugars mildly low this morning his glipizide was held continue Lantus and place of surgery will continue Humalog with the slide and scale and if needed will add 2 units before each meals. 4 PAD, will have dr souza follow the paitient, arterial study will be done, Right 3rd distal toe chronic callus with dry necrosis/gangrene had been watch will continue topical care. 5. Hypertension. Continue lisinopril 10 mg daily. 6. Gastrointestinal prophylaxis. Heparin 5000 units subcu every 8 hours. 7. DVT prophylaxis. Pepcid 20 mg daily. 8. diabetic sensory neuropathy: Patient has been symptomatic treatment is limited at this point. 9 GI prophylaxis: We'll continue patient on Pepcid 20 mg daily. 10 DVT prophylaxis: Patient be continue on heparin subcutaneous. CODE STATUS: Full code.
[2016-07-20 13:43] VITALS: BMI 23.6
[2016-07-20 16:49] LABS: Glucose,Whole Blood 114 mg/dL (75-99)
[2016-07-20] MEDS ORDERED: oxyCODONE-APAP 5-325MG 1 EACH TAB PO PRN (17:02)
[2016-07-20 20:20] LABS: Glucose,Whole Blood 167 mg/dL (75-99)
[2016-07-20] MEDS: ASPIRIN 81 MG CHEW PO SCH (21:15)
--- NOTE | 2016-07-20 23:03 | OP ---
DATE OF SERVICE: SURGEON: MARIYA LOZADA MD PREOPERATIVE DIAGNOSIS: Infected callus left foot big toe stump. POSTOPERATIVE DIAGNOSIS: Infected callus left foot big toe stump. OPERATION: Selective debridement of left big toe stump. INDICATIONS: This patient had a left big toe be done in the past. He developed infected callus on the plantar aspect of the stump with some cellulitis on the dorsal aspect of the foot. The patient is on IV antibiotics. DESCRIPTION OF PROCEDURE: Patient was taken to the operating room. Under local and IV sedation, we excised the callus. Measurement of the wound is 5 x 4 cm. We excised the callus with sharp knife down into subcutaneous tissue. Some bleeding points were noted which was electrocoagulated. We took some deep culture from the wound. No bleeding was appreciated. Dressing was applied. PLAN: We will use Santyl cream for the wound. The patient is scheduled to have MRSA of left foot.
[2016-07-20 23:59] LABS: Glucose,Whole Blood 74 mg/dL (75-99)
[2016-07-21] MEDS: INSULIN LISPRO (humaLOG) 300 UNIT/3 ML VIAL SQ SCH ×6 (00:20→22:00)
[2016-07-21] MEDS ORDERED: VANCOMYCIN TROUGH DUE 1 EACH MISC MISCELLANE ONE (05:00)
[2016-07-21 05:11] LABS: Basophils # (A) 0.1 k/uL (0-0.2); Basophils % (A) 1 %; CHCM 33.3; Eosinophils # (A) 0.2 k/uL (0-0.7); Eosinophils % (A) 3 %; HCT 45.7 % (39.0-53.0); HDW 2.71; HGB 14.9 gm/dL (13.0-17.5); Luc # (Auto) 0.13; Luc % (Auto) 2; Lymphocytes # (A) 1.6 k/uL (1.0-4.8); Lymphocytes % (A) 21 %; MCH 28.6 pg (25.0-35.0); MCHC 32.7 g/dL (31.0-37.0); MCV 87.5 fL (80.0-100.0); Mean Platelet Volume 7.1; Monocytes # (A) 0.5 k/uL (0-1.0); Monocytes % (A) 7 %; Neutrophils # (A) 4.9 k/uL (1.3-7.7); Neutrophils % (A) 67 %; RBC 5.22 m/uL (4.30-5.90); RDW 13.2 % (11.5-15.5); WBC 7.4 k/uL (3.8-10.6); WBC (Perox) 7.33
[2016-07-21 05:22] LABS: Glucose,Whole Blood 81 mg/dL (75-99)
[2016-07-21] MEDS: VANCOMYCIN 1,500 MG in SODIUM CHLORIDE 0.9% 250 ML IVPB SCH ×2 (06:26→22:00)
[2016-07-21 07:49] LABS: Glucose,Whole Blood 67 mg/dL (75-99)
[2016-07-21 08:10] LABS: Glucose,Whole Blood 117 mg/dL (75-99)
[2016-07-21] MEDS: LISINOPRIL 10 MG TAB PO SCH (08:16)
[2016-07-21] MEDS: CHOLECALCIFEROL 1,000 UNIT TAB PO SCH ×2 (08:16→21:59)
[2016-07-21] MEDS: ENOXAPARIN 40 MG/0.4 ML SYRINGE SQ SCH (08:16)
[2016-07-21] MEDS: DOCUSATE 100 MG CAP PO SCH ×3 (08:16→17:20)
[2016-07-21] MEDS: MULTIVITAMINS, THERA 1 EACH TAB PO SCH (08:16)
[2016-07-21] MEDS: CYANOCOBALAMIN 500 MCG TAB PO SCH (08:16)
[2016-07-21] MEDS: CALCIUM CARB-VIT D 500MG-200UN 1 EACH TAB PO SCH ×2 (08:17→17:20)
[2016-07-21] MEDS: COLLAGENASE 250 UNIT/GM OINTMENT 30 GM TUBE TOPICAL SCH (08:18)
[2016-07-21] MEDS ORDERED: INSULIN GLARGINE 100 UNIT/ML 10 ML VIAL SQ SCH (09:00)
--- NOTE | 2016-07-21 11:23 | PN ---
DATE OF SERVICE: 07/20/2016 Reason for follow-up is left foot infection. INTERVAL HISTORY: The patient is afebrile. Has been taken to the OR by Dr. Quiñones. The patient did have debridement of the callus and necrotic tissue. Deep cultures have been obtained. The patient denies significant pain in the foot area. The patient denies significant chest pain, shortness of breath or cough. No abdominal pain. No diarrhea. On examination, blood pressure 127/76 with a pulse of 57, temperature 98. He is 96% on room air. General description is an elderly male, lying in bed in no distress. RESPIRATORY SYSTEM: Unlabored breathing. Clear to auscultation anteriorly. HEART: S1, S2, regular rate and rhythm. ABDOMEN: Soft, no tenderness. Left foot is currently dressed up. He did have some bloody drainage on the dressing. LABS: Hemoglobin is 14.4, white count 7.4 with a BUN of 17, creatinine 0.98. DIAGNOSTIC IMPRESSION AND PLAN: Patient with diabetic foot infection with infected callus status post debridement. Waiting for deep culture to finalize. The patient is currently on vancomycin which will be continued, adjusting it further on the basis of the culture report. Continue supportive care.
[2016-07-21 11:42] LABS: Glucose,Whole Blood 220 mg/dL (75-99)
[2016-07-21] MEDS: glipiZIDE 5 MG TAB PO SCH (12:48)
[2016-07-21] MEDS: metFORMIN 500 MG TAB PO SCH (12:48)
--- NOTE | 2016-07-21 13:01 | P.PN ---
Subjective Principal diagnosis: left big toe stump ulceration infection, diabetic foot, severe PAD, diabetes, hypertension, hyperlipidemia, severe neuropathy, post left foot debridement. this is a 71-year-old male. His primary care physician is Dr. Jones. He has a past medical history of diabetes mellitus, cataracts, shingles, left hand tremor, left foot infection with MRSA status post amputation of the left great toe followed by nonhealing wound and was last admitted at this facility last december 2015. Patient underwent amputation on the left great toe in 2008 and developed wound that was nonhealing for an extended period of time this finally healed few weeks therafter. He followed with Dr. Levin as well as Dr. Souza , he has residual callus on the 3rd rgiht toe which is not open, non draining..He Has PAD worse on the right then the left, He present to the Emergency room when he had blister on the base of his left big toe stump that started draining clear fluid initially now collored yellow with increase foul smelling drainage prompting his er evaluation as the stum on the amputated toe is now red and tender and swollen. Patient was started on Ancef and vancomycin and admitted to the [facility] floor and consult requested with Dr. Souza and Dr. Levin. Patient was seen Dr. Souza who agree with the current antibiotics, has not seen Dr. Levin yet continue Vanco and Ancef till Dr. Levin seen him. Patient was scheduled for bone scan of the left foot for further decision of the length of his treatment. Will order whirlpool and local care as well. Sed rate was done today and was normal. Patient is going to the OR today by Dr. Souza for debridement of the Harsh skin on the surface of the stump of the big toe. Patient had debridement with Dr. Souza yesterday the area looks better well circulated slight decreased swelling and redness at this point. Would hold off on whirlpool treatment at this point. Objective - Vital Signs Vital signs: Vital Signs Temp 97.8 F 07/21/16 07:00 Pulse 53 L 07/21/16 07:00 Resp 16 07/21/16 07:00 BP 130/66 07/21/16 07:00 Pulse Ox 99 07/21/16 07:00 Intake & Output 07/20/16 07/21/16 07/21/16 18:59 06:59 18:59 Intake Total 600 800 Output Total 103 Balance 497 800 Weight 92.986 kg 93 kg Intake: IV 600 Intake, IV Titration 800 Amount IV Fluid Continuation 1, 800 000 ml As IV .FoxyP2 ONE Rx#:[id number] Output: Urine 100 Estimated Blood Loss 3 Other: Voiding Method Toilet # Voids 1 - Constitutional General appearance: Present: cooperative, no acute distress. Absent: average body habitus, disheveled, mild distress, morbidly obese, obese, severe distress , thin - EENT Eyes: Present: normal appearance. Absent: abnormal pupil, anicteric sclerae, disc margins sharp, edentulous, EOMI, PERRLA, fundus normal, photophobia, dentition normal, poor dentition, ptosis, scleral icterus ENT: Present: normal oropharynx, pharyngeal erythema. Absent: hard of hearing, hearing grossly normal, NA/AT, other, thrush, tonsillar exudates, tonsillar swelling Ears: bilateral: normal - Neck Neck: Present: normal ROM Carotids: bilateral: upstroke normal Thyroid: bilateral: normal size - Respiratory Respiratory: bilateral: CTA, diminished - Cardiovascular Rhythm: regular Heart sounds: normal: S1, S2 Abnormal Heart Sounds: Present: systolic murmur - Gastrointestinal General gastrointestinal: Present: distended, normal bowel sounds, soft. Absent : absent bowel sounds, decreased bowel sounds, hepatomegaly, hyperactive bowel sounds, organomegaly, rigid, scaphoid, splenomegaly, tenderness, umbilical hernia, ventral hernia - Integumentary Integumentary Comment(s): Incision from debridement looks good had slightly bit of bleeding but the area around the scar tissue on the big toe on the left side has decreased swelling and redness able to feel pulses dorsalis pedis. Integumentary: Present: cellulitis, normal, pale, rash. Absent: calor, cyanotic , decreased turgor, flushed, jaundiced, normal turgor, ulcer - Neurologic Neurologic: Present: CNII-XII intact - Musculoskeletal Musculoskeletal: Present: gait normal, generalized weakness, strength equal bilaterally. Absent: right sided weakness, left sided weakness - Psychiatric Psychiatric: Present: A&O x's 3, appropriate affect. Absent: intact judgment & insight - Labs CBC & Chem 7: 07/21/16 05:00 07/20/16 06:37 Labs: Abnormal Lab Results - Last 24 Hours (Table) 07/20/16 07/20/16 07/20/16 Range/Units 16:45 20:18 23:58 POC Glucose (mg/dL) 114 H 167 H 74 L (75-99) mg/dL 07/21/16 07/21/16 07/21/16 Range/Units 07:31 08:08 11:36 POC Glucose (mg/dL) 67 L 117 H 220 H (75-99) mg/dL Microbiology - Last 24 Hours (Table) 07/20/16 11:06 Gram Stain - Preliminary Toe - Left First Wound Culture - Preliminary 07/20/16 11:06 Anaerobic Culture - Preliminary Toe - Left First Assessment and Plan Plan: 1. stump cellulitis involiving left 1st distal metatarsal region withknown PAD diabetic wound/ulcer Patient was started on vancomycin and unasyn added. Dr. Souza and Dr. Levin is on consult for vascular surgery infectious disease. wound cultures obtained. xrays to evaluate for osteomyelitis. Patient is going to the OR for debridement. Was done successfully patient is doing well following surgery continue topical care along with IV antibiotics for now. 2. prior right 5th toe amputation 12/2015 healed 3 Diabetes mellitus insulin requiring. Patient is continued on Tuojeo 45 units twice daily and Humalog scale before meals and at bedtime as well as metformin 500 mg daily' glypizide 5 mg daily. he was running high on his AIC last time it was checked, will acquire an updated aic this visit, blood sugars mildly low this morning his glipizide was held continue Lantus and place of surgery will continue Humalog with the slide and scale and if needed will add 2 units before each meals. 4 PAD, will have dr souza follow the paitient, arterial study will be done, Right 3rd distal toe chronic callus with dry necrosis/gangrene had been watch will continue topical care. 5. Hypertension. Continue lisinopril 10 mg daily. 6. Gastrointestinal prophylaxis. Heparin 5000 units subcu every 8 hours. 7. DVT prophylaxis. Pepcid 20 mg daily. 8. diabetic sensory neuropathy: Patient has been symptomatic treatment is limited at this point. 9 GI prophylaxis: We'll continue patient on Pepcid 20 mg daily. 10 DVT prophylaxis: Patient be continue on heparin subcutaneous. CODE STATUS: Full code.
[2016-07-21 16:13] LABS: Glucose,Whole Blood 112 mg/dL (75-99)
[2016-07-21 17:10] LABS: Glucose,Whole Blood 63 mg/dL (75-99)
[2016-07-21 17:29] LABS: Glucose,Whole Blood 62 mg/dL (75-99)
[2016-07-21 18:02] LABS: Glucose,Whole Blood 85 mg/dL (75-99)
[2016-07-21 19:14] LABS: Glucose,Whole Blood 140 mg/dL (75-99)
[2016-07-21 20:49] LABS: Glucose,Whole Blood 205 mg/dL (75-99)
[2016-07-21] MEDS: ASPIRIN 81 MG CHEW PO SCH (21:59)
[2016-07-22 02:39] LABS: Glucose,Whole Blood 50 mg/dL (75-99)
[2016-07-22 03:10] LABS: Glucose,Whole Blood 70 mg/dL (75-99)
[2016-07-22 03:36] LABS: Glucose,Whole Blood 115 mg/dL (75-99)
[2016-07-22] MEDS: INSULIN LISPRO (humaLOG) 300 UNIT/3 ML VIAL SQ SCH ×6 (03:41→21:36)
[2016-07-22 07:23] LABS: Glucose,Whole Blood 145 mg/dL (75-99)
[2016-07-22] MEDS: CYANOCOBALAMIN 500 MCG TAB PO SCH (07:40)
[2016-07-22] MEDS: MULTIVITAMINS, THERA 1 EACH TAB PO SCH (07:40)
[2016-07-22] MEDS: DOCUSATE 100 MG CAP PO SCH ×3 (07:40→18:03)
[2016-07-22] MEDS: CALCIUM CARB-VIT D 500MG-200UN 1 EACH TAB PO SCH ×2 (07:40→18:03)
[2016-07-22] MEDS: COLLAGENASE 250 UNIT/GM OINTMENT 30 GM TUBE TOPICAL SCH (07:41)
[2016-07-22] MEDS: CHOLECALCIFEROL 1,000 UNIT TAB PO SCH ×2 (07:41→21:04)
[2016-07-22] MEDS: ENOXAPARIN 40 MG/0.4 ML SYRINGE SQ SCH (07:41)
[2016-07-22] MEDS: LISINOPRIL 10 MG TAB PO SCH (07:47)
--- NOTE | 2016-07-22 09:50 | PN ---
DATE OF SERVICE: 07/21/2016 REASON FOR FOLLOW UP: Left foot infection. INTERVAL HISTORY: The patient is afebrile. Currently breathing comfortably. Denies significant pain in the left foot area. The patient denies significant chest pain, shortness of breath or cough. No abdominal pain or any diarrhea. On examination, blood pressure 147/59, pulse of 54, temperature 98.5. He is 95% on room air. GENERAL DESCRIPTION: An elderly male, lying in bed in no distress. RESPIRATORY SYSTEM: Unlabored breathing. Clear to auscultation. HEART: S1, S2. Regular rate and rhythm. ABDOMEN: Soft. No tenderness. EXTREMITIES: Left big toe amputation site wound looks clean after debridement of the callus. Does not seem to be probing down to bone. Did have some bleeding. LABS: Hemoglobin is 14, white count 7.4, BUN of 17, creatinine 0.98. Cultures are currently pending. DIAGNOSTIC IMPRESSION AND PLAN: Patient with left foot infection callus, status post debridement of the same. We are waiting for the cultures to finalize to determine his discharge antibiotics. Clinical suspicion for deep infection. Local wound care with Aquacel Silver, this should control the bleeding as well. Continue supportive care.
[2016-07-22] MEDS: INSULIN GLARGINE 100 UNIT/ML 10 ML VIAL SQ SCH (11:17)
[2016-07-22 11:35] LABS: Glucose,Whole Blood 153 mg/dL (75-99)
[2016-07-22] MEDS: metFORMIN 500 MG TAB PO SCH (13:36)
[2016-07-22] MEDS: glipiZIDE 5 MG TAB PO SCH (13:36)
--- NOTE | 2016-07-22 14:15 | P.PN ---
Progress Note - Text 71-year-old white male, patient had a infected callus left foot patient had a debridement and and we took the culture culture is pending patient is an IV antibiotic we ordered a MRI of the foot which has been done today report is pending dressing is changed we'll continue the local wound care we will wait for the MRI report and continue with local wound care and IV antibiotic
--- NOTE | 2016-07-22 15:36 | MR ---
MR left foot with and without contrast HISTORY: Cellulitis, pain Multiplanar multisequence and postcontrast images obtained through the left foot following 20 cc Mult iHance IV Correlation to prior foot MRI 15 April 2011, plain film 07/18/2016 Patient shows post amputation change to the first digit. Deformity of the distal second through fifth digits is again noted. Soft tissue edema changes are present. Degenerative change present at the tar sometatarsal joint of the fourth digit. Field inhomogeneity is suspected on several sequences and julian ges. Soft tissue enhancement is noted. No significant bone marrow signal changes are present to sharonda magallanes osteomyelitis. IMPRESSION: Findings thought likely represent cellulitis, follow-up as indicated.
[2016-07-22] MEDS: VANCOMYCIN 1,500 MG in SODIUM CHLORIDE 0.9% 250 ML IVPB SCH (15:39)
[2016-07-22 17:32] LABS: Glucose,Whole Blood 80 mg/dL (75-99)
[2016-07-22 21:03] LABS: Glucose,Whole Blood 130 mg/dL (75-99)
[2016-07-22] MEDS: ASPIRIN 81 MG CHEW PO SCH (21:04)
[2016-07-22 23:01] VITALS: RESP 18
--- NOTE | 2016-07-22 23:12 | P.PN ---
Subjective Principal diagnosis: Callus with abscess left foot Girish 71-year-old male with long-standing history of diabetes mellitus type 2 with some complications in the past including the amputation of the left great toe. He has a prosthesis for his shoe which was to be replaced about 6 months ago. 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 He restarted to move ahead and is starting to date which is helpful but also created some stress. He noticed that he was getting a callus on the foot but wasn't until it swelled and became problematic he sought care. As noted he's been seen by Dr. Burleson. Dr. Quiñones assaying the operating room for the incision and drainage. Certainly looking better at this time. The patient's denying fever chills or rigors and sweats. Overall feels better. Objective - Vital Signs Vital signs: Vital Signs Temp 98 F 07/22/16 23:00 Pulse 57 L 07/22/16 23:00 Resp 18 07/22/16 23:00 BP 126/71 07/22/16 23:00 Pulse Ox 99 07/22/16 23:00 Intake & Output 07/22/16 07/22/16 07/23/16 06:59 18:59 06:59 Intake Total 1190 250 Balance 1190 250 Weight 93 kg Intake: Intake, IV Titration 250 250 Amount Vancomycin 1,500 mg In 250 250 Sodium Chloride 0.9% 250 ml @ 125 mls/hr IVPB Q16H [facility] Rx#:[id number] Oral 940 Other: Voiding Method Toilet Toilet # Voids 1 1 - Exam Girish 71-year-old gentleman of a thin and fit build HEENT: Anicteric conjunctiva are pink and moist nasal mucosa grossly intact without significant lesions, there is no thrush. Neck: The neck is supple without significant lymphadenopathy or thyromegaly. Lungs: Good bilateral air entry without significant crackles or wheezing. There is no significant bronchial sounds. There is no egophony or dullness. Heart: Regular rate and rhythm with an audible S1-S2, no S3 no S4. There is no significant murmur click or rub, PMI was nondisplaced. Abdomen: Positive bowel sounds soft and nontender without palpable masses or organomegaly. There was no guarding or rebound. Extremities: The upper extremities have excellent pulses they are symmetric, no significant petechiae or telangiectasia. No splinter hemorrhages were noted. Right lower extremity no abnormalities. Left foot shows evidence of the prior amputation to the left great toe. There is no evidence of the ulceration status post incision and drainage. There is no purulent drainage at this time. No foul odor. Minimal ascending erythema. Neuro: Awake alert oriented to person place and time. There are no acute new gross focal sensory motor deficits. - Labs CBC & Chem 7: 07/21/16 05:00 07/20/16 06:37 Labs: Abnormal Lab Results - Last 24 Hours (Table) 07/22/16 07/22/16 07/22/16 Range/Units 02:35 03:07 03:32 POC Glucose (mg/dL) 50 L 70 L 115 H (75-99) mg/dL 07/22/16 07/22/16 07/22/16 Range/Units 07:20 11:33 21:02 POC Glucose (mg/dL) 145 H 153 H 130 H (75-99) mg/dL Microbiology - Last 24 Hours (Table) 07/20/16 11:06 Gram Stain - Final Toe - Left First Wound Culture - Final Laboratory Results WBC 7.4 k/uL (3.8-10.6) 07/21/16 05:00 RBC 5.22 m/uL (4.30-5.90) 07/21/16 05:00 Hgb 14.9 gm/dL (13.0-17.5) 07/21/16 05:00 Hct 45.7 % (39.0-53.0) 07/21/16 05:00 MCV 87.5 fL (80.0-100.0) 07/21/16 05:00 MCH 28.6 pg (25.0-35.0) 07/21/16 05:00 MCHC 32.7 g/dL (31.0-37.0) 07/21/16 05:00 RDW 13.2 % (11.5-15.5) 07/21/16 05:00 Plt Count 251 k/uL (150-450) 07/21/16 05:00 Neutrophils % 67 % 07/21/16 05:00 Lymphocytes % 21 % 07/21/16 05:00 Monocytes % 7 % 07/21/16 05:00 Eosinophils % 3 % 07/21/16 05:00 Basophils % 1 % 07/21/16 05:00 Neutrophils # 4.9 k/uL (1.3-7.7) 07/21/16 05:00 Lymphocytes # 1.6 k/uL (1.0-4.8) 07/21/16 05:00 Monocytes # 0.5 k/uL (0-1.0) 07/21/16 05:00 Eosinophils # 0.2 k/uL (0-0.7) 07/21/16 05:00 Basophils # 0.1 k/uL (0-0.2) 07/21/16 05:00 ESR 18 mm/hr (0-15) H 07/20/16 06:37 PT 9.7 sec (9.0-12.0) 07/18/16 16:07 INR 0.9 (<1.1) 07/18/16 16:07 APTT 24.7 sec (22.0-30.0) 07/18/16 16:07 Sodium 142 mmol/L (137-145) 07/20/16 06:37 Potassium 4.6 mmol/L (3.5-5.1) 07/20/16 06:37 Chloride 104 mmol/L (98-107) 07/20/16 06:37 Carbon Dioxide 30 mmol/L (22-30) 07/20/16 06:37 Anion Gap 8 mmol/L 07/20/16 06:37 BUN 17 mg/dL (9-20) 07/20/16 06:37 Creatinine 0.98 mg/dL (0.66-1.25) 07/20/16 06:37 Est GFR (MDRD) Af Amer >60 (>60 ml/min/1.73 sqM) 07/20/16 06:37 Est GFR (MDRD) Non-Af >60 (>60 ml/min/1.73 sqM) 07/20/16 06:37 Glucose 54 mg/dL (74-99) L 07/20/16 06:37 POC Glucose (mg/dL) 130 mg/dL (75-99) H 07/22/16 21:02 POC Glu Medical Office Clerk ID 07/22/16 21:[address] Glu mg/dL 157 mg/dL 07/19/16 06:59 Hemoglobin A1c 7.1 % (4.2-6.1) H 07/19/16 06:59 Plasma Lactic Acid Carlos 1.3 mmol/L (0.7-2.0) 07/18/16 16:07 Calcium 9.3 mg/dL (8.4-10.2) 07/20/16 06:37 Phosphorus 3.5 mg/dL (2.5-4.5) 07/18/16 16:07 Magnesium 2.3 mg/dL (1.6-2.3) 07/18/16 16:07 Total Bilirubin 1.1 mg/dL (0.2-1.3) 07/20/16 06:37 AST 20 U/L (17-59) 07/20/16 06:37 ALT 23 U/L (21-72) 07/20/16 06:37 Alkaline Phosphatase 69 U/L (38-126) 07/20/16 06:37 Total Creatine Kinase 57 U/L (55-170) 07/18/16 16:07 CK-MB (CK-2) 1.2 ng/mL (0.0-2.4) 07/18/16 16:07 CK-MB (CK-2) Rel Index 2.1 07/18/16 16:07 Total Protein 7.1 g/dL (6.3-8.2) 07/20/16 06:37 Albumin 3.9 g/dL (3.5-5.0) 07/20/16 06:37 Urine Color Light Yellow 07/18/16 16:18 Urine Appearance Clear (Clear) 07/18/16 16:18 Urine pH 6.0 (5.0-8.0) 07/18/16 16:18 Ur Specific [place] 1.006 (1.001-1.035) 07/18/16 16:18 Urine Protein Negative (Negative) 07/18/16 16:18 Urine Glucose (UA) 3+ (Negative) H 07/18/16 16:18 Urine Ketones Negative (Negative) 07/18/16 16:18 Urine Blood Negative (Negative) 07/18/16 16:18 Urine Nitrite Negative (Negative) 07/18/16 16:18 Urine Bilirubin Negative (Negative) 07/18/16 16:18 Urine Urobilinogen <2.0 mg/dL (<2.0) 07/18/16 16:18 Ur Leukocyte Esterase Negative (Negative) 07/18/16 16:18 Vancomycin Trough 19.9 ug/mL 07/21/16 05:00 Microbiology 07/20/16 11:06 Toe - Left First Gram Stain - Final 07/20/16 11:06 Toe - Left First Wound Culture - Final 07/19/16 15:35 Toe - Right First Gram Stain - Final 07/19/16 15:35 Toe - Right First Wound Culture - Final 07/20/16 11:06 Toe - Left First Anaerobic Culture - Preliminary 07/18/16 16:18 Urine,Clean Catch Urine Culture - Final Assessment and Plan (1) Cellulitis of left foot Status: Acute (2) Diabetic foot ulcer associated with type 2 diabetes mellitus, with fat layer exposed Narrative/Plan: Very pleasant 71-year-old male with a long-standing history of diabetes patti type II who is had the prior diabetic foot infection with the loss of the left great toe. Utilizes an insert into his shoe to help with the fit. It appears that the insert has worn an cause callusing to the foot. The callus finally and had some infection. This is now status post surgical debridement. Cultures are in process. MRI is in process also. There is a possibility of deep underlying infection but seems to be unlikely at this point in time. It is significantly vancomycin therapy for now until we have further data. Local wound care is with the Aquacel Silver. Elevate at rest. Continue with aggressive control of his diabetes. He is concerned because of his history of C. diff and is utilizing probiotic yogurt at this time. We'll monitor. Status: Acute
[2016-07-23 02:15] LABS: Glucose,Whole Blood 163 mg/dL (75-99)
[2016-07-23] MEDS: INSULIN LISPRO (humaLOG) 300 UNIT/3 ML VIAL SQ SCH ×5 (03:14→18:25)
[2016-07-23] MEDS: VANCOMYCIN 1,500 MG in SODIUM CHLORIDE 0.9% 250 ML IVPB SCH (06:16)
[2016-07-23 07:24] LABS: Glucose,Whole Blood 131 mg/dL (75-99)
[2016-07-23] MEDS: DOCUSATE 100 MG CAP PO SCH ×3 (07:35→18:26)
[2016-07-23] MEDS: CYANOCOBALAMIN 500 MCG TAB PO SCH (08:00)
[2016-07-23] MEDS: MULTIVITAMINS, THERA 1 EACH TAB PO SCH (08:00)
[2016-07-23] MEDS: CALCIUM CARB-VIT D 500MG-200UN 1 EACH TAB PO SCH ×2 (08:00→18:25)
[2016-07-23 08:32] LABS: Anion Gap 7 mmol/L; Blood Urea Nitrogen 19 mg/dL (9-20); Calcium 9.4 mg/dL (8.4-10.2); Carbon Dioxide 31 mmol/L (22-30); Chloride 103 mmol/L (98-107); Glucose 124 mg/dL (74-99); Non-African American GFR(MDRD) >60 (>60 ml/min/1.73 sqM); Potassium 4.8 mmol/L (3.5-5.1); Sodium 141 mmol/L (137-145)
[2016-07-23] MEDS: INSULIN GLARGINE 100 UNIT/ML 10 ML VIAL SQ SCH (10:12)
[2016-07-23] MEDS: ENOXAPARIN 40 MG/0.4 ML SYRINGE SQ SCH (10:13)
[2016-07-23] MEDS: CHOLECALCIFEROL 1,000 UNIT TAB PO SCH (10:14)
[2016-07-23] MEDS: LISINOPRIL 10 MG TAB PO SCH (10:16)
[2016-07-23] MEDS: COLLAGENASE 250 UNIT/GM OINTMENT 30 GM TUBE TOPICAL SCH (10:16)
[2016-07-23 10:57] LABS: Glucose,Whole Blood 240 mg/dL (75-99)
[2016-07-23] MEDS: glipiZIDE 5 MG TAB PO SCH (13:05)
[2016-07-23] MEDS: metFORMIN 500 MG TAB PO SCH (13:05)
--- NOTE | 2016-07-23 14:14 | P.PN ---
Subjective this is a 71-year-old male. His primary care physician is Dr. Jones. He has a past medical history of diabetes mellitus, cataracts, shingles, left hand tremor, left foot infection with MRSA status post amputation of the left great toe followed by nonhealing wound and was last admitted at this facility last december 2015. Patient underwent amputation on the left great toe in 2008 and developed wound that was nonhealing for an extended period of time this finally healed few weeks therafter. He followed with Dr. Levin as well as Dr. Quiñones , he has residual callus on the 3rd rgiht toe which is not open, non draining..He Has PAD worse on the right then the left, He present to the Emergency room when he had blister on the base of his left big toe stump that started draining clear fluid initially now collored yellow with increase foul smelling drainage prompting his er evaluation as the stum on the amputated toe is now red and tender and swollen. Patient was started on Ancef and vancomycin and admitted to the [facility] floor and consult requested with Dr. Quiñones and Dr. Levin. Patient was seen Dr. Quiñones who agree with the current antibiotics, has not seen Dr. Levin yet continue Vanco and Ancef till Dr. Levin seen him. Patient was scheduled for bone scan of the left foot for further decision of the length of his treatment. Will order whirlpool and local care as well. Sed rate was done today and was normal. Patient is going to the OR today by Dr. Quiñoens for debridement of the Harsh skin on the surface of the stump of the big toe. Patient had debridement with Dr. Quiñones yesterday the area looks better well circulated slight decreased swelling and redness at this point. Would hold off on whirlpool treatment at this point. 07/22: A Chin is scheduled for MRI of the foot. Dr. Quiñones continues to follow the patient. Dr. Levin is following. Cultures are currently pending. Patient is continued on IV antibiotics. Objective - Vital Signs Vital signs: Vital Signs Temp 97.3 F L 07/22/16 07:00 Pulse 60 07/22/16 08:00 Resp 17 07/22/16 08:00 BP 146/74 07/22/16 07:00 Pulse Ox 96 07/22/16 07:00 Intake & Output 07/21/16 07/22/16 07/22/16 18:59 06:59 18:59 Intake Total 1190 Balance 1190 Intake: Intake, IV Titration 250 Amount Vancomycin 1,500 mg In 250 Sodium Chloride 0.9% 250 ml @ 125 mls/hr IVPB Q16H [facility] Rx#:[id number] Oral 940 Other: Voiding Method Toilet Toilet # Voids 3 1 - Exam General appearance: Present: cooperative, no acute distress. Absent: average body habitus, disheveled, mild distress, morbidly obese, obese, severe distress , thin - EENT Eyes: Present: normal appearance. Absent: abnormal pupil, anicteric sclerae, disc margins sharp, edentulous, EOMI, PERRLA, fundus normal, photophobia, dentition normal, poor dentition, ptosis, scleral icterus ENT: Present: normal oropharynx, pharyngeal erythema. Absent: hard of hearing, hearing grossly normal, NA/AT, other, thrush, tonsillar exudates, tonsillar swelling Ears: bilateral: normal - Neck Neck: Present: normal ROM Carotids: bilateral: upstroke normal Thyroid: bilateral: normal size - Respiratory Respiratory: bilateral: CTA, diminished - Cardiovascular Rhythm: regular Heart sounds: normal: S1, S2 Abnormal Heart Sounds: Present: systolic murmur - Gastrointestinal General gastrointestinal: Present: distended, normal bowel sounds, soft. Absent : absent bowel sounds, decreased bowel sounds, hepatomegaly, hyperactive bowel sounds, organomegaly, rigid, scaphoid, splenomegaly, tenderness, umbilical hernia, ventral hernia - Integumentary Integumentary Comment(s): Incision from debridement looks good had slightly bit of bleeding but the area around the scar tissue on the big toe on the left side has decreased swelling and redness able to feel pulses dorsalis pedis. Integumentary: Present: cellulitis, normal, pale, rash. Absent: calor, cyanotic , decreased turgor, flushed, jaundiced, normal turgor, ulcer - Neurologic Neurologic: Present: CNII-XII intact - Musculoskeletal Musculoskeletal: Present: gait normal, generalized weakness, strength equal bilaterally. Absent: right sided weakness, left sided weakness - Psychiatric Psychiatric: Present: A&O x's 3, appropriate affect. Absent: intact judgment & insight - Labs CBC & Chem 7: 07/21/16 05:00 07/23/16 07:59 Labs: Abnormal Lab Results - Last 24 Hours (Table) 07/21/16 07/21/16 07/21/16 Range/Units 15:48 17:06 17:17 POC Glucose (mg/dL) 112 H 63 L 62 L (75-99) mg/dL 07/21/16 07/21/16 07/22/16 Range/Units 18:53 20:41 02:35 POC Glucose (mg/dL) 140 H 205 H 50 L (75-99) mg/dL 07/22/16 07/22/16 07/22/16 Range/Units 03:07 03:32 07:20 POC Glucose (mg/dL) 70 L 115 H 145 H (75-99) mg/dL 07/22/16 Range/Units 11:33 POC Glucose (mg/dL) 153 H (75-99) mg/dL Microbiology - Last 24 Hours (Table) 07/19/16 15:35 Gram Stain - Final Toe - Right First Wound Culture - Final Assessment and Plan Plan: 1. stump cellulitis involiving left 1st distal metatarsal region withknown PAD diabetic wound/ulcer Patient was started on vancomycin and unasyn added. Dr. Quiñones and Dr. Levin is on consult for vascular surgery infectious disease. wound cultures obtained. xrays to evaluate for osteomyelitis. Patient is going to the OR for debridement. Was done successfully patient is doing well following surgery continue topical care along with IV antibiotics for now. 2. prior right 5th toe amputation 12/2015 healed 3 Diabetes mellitus insulin requiring. Patient is continued on Tuojeo 45 units twice daily and Humalog scale before meals and at bedtime as well as metformin 500 mg daily' glypizide 5 mg daily. he was running high on his AIC last time it was checked, will acquire an updated aic this visit, blood sugars mildly low this morning his glipizide was held continue Lantus and place of surgery will continue Humalog with the slide and scale and if needed will add 2 units before each meals. 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 5. Hypertension. Continue lisinopril 10 mg daily. 6. Gastrointestinal prophylaxis. Heparin 5000 units subcu every 8 hours. 7. DVT prophylaxis. Pepcid 20 mg daily. 8. diabetic sensory neuropathy: Patient has been symptomatic treatment is limited at this point. 9 GI prophylaxis: We'll continue patient on Pepcid 20 mg daily. 10 DVT prophylaxis: Patient be continue on heparin subcutaneous. CODE STATUS: Full code. Discharge plan: Home Impression and plan of care have been directed as dictated by the signing physician. Saba Sun nurse practitioner acting as scribe for signing physician.
--- NOTE | 2016-07-23 14:21 | P.PN ---
Subjective this is a 71-year-old male. His primary care physician is Dr. Jones. He has a past medical history of diabetes mellitus, cataracts, shingles, left hand tremor, left foot infection with MRSA status post amputation of the left great toe followed by nonhealing wound and was last admitted at this facility last december 2015. Patient underwent amputation on the left great toe in 2008 and developed wound that was nonhealing for an extended period of time this finally healed few weeks therafter. He followed with Dr. Levin as well as Dr. Quiñones , he has residual callus on the 3rd rgiht toe which is not open, non draining..He Has PAD worse on the right then the left, He present to the Emergency room when he had blister on the base of his left big toe stump that started draining clear fluid initially now collored yellow with increase foul smelling drainage prompting his er evaluation as the stum on the amputated toe is now red and tender and swollen. Patient was started on Ancef and vancomycin and admitted to the [facility] floor and consult requested with Dr. Quiñones and Dr. Levin. Patient was seen Dr. Quiñones who agree with the current antibiotics, has not seen Dr. Levin yet continue Vanco and Ancef till Dr. Levin seen him. Patient was scheduled for bone scan of the left foot for further decision of the length of his treatment. Will order whirlpool and local care as well. Sed rate was done today and was normal. Patient is going to the OR today by Dr. Quiñones for debridement of the Harsh skin on the surface of the stump of the big toe. Patient had debridement with Dr. Quiñones yesterday the area looks better well circulated slight decreased swelling and redness at this point. Would hold off on whirlpool treatment at this point. 07/22: Patient is scheduled for MRI of the foot. Dr. Quiñones continues to follow the patient. Dr. Levin is following. Cultures are currently pending. Patient is continued on IV antibiotics. 07/23: MRI of the foot shows cellulitis. He is continued on vancomycin until further data is available. Local wound care as Aquasol Silver. Patient is followed by Dr. eLvin. Urine culture was finalized with no growth after 18 hours. Wound culture from July 19 is showing moderate normal skin maricel. Anaerobic wound culture is in progress. Repeat wound culture from July 20 is also showing moderate normal skin maricel. Anticipate discharge home tomorrow. Objective - Vital Signs Vital signs: Vital Signs Temp 98.0 F 07/23/16 07:00 Pulse 84 07/23/16 08:00 Resp 18 07/23/16 08:00 BP 126/81 07/23/16 07:00 Pulse Ox 97 07/23/16 07:00 Intake & Output 07/22/16 07/23/16 07/23/16 18:59 06:59 18:59 Intake Total 250 250 Balance 250 250 Weight 93 kg Intake: IV 250 Vancomycin 1,500 mg In 250 Sodium Chloride 0.9% 250 ml @ 125 mls/hr IVPB Q16H [facility] Rx#:[id number] Intake, IV Titration 250 Amount Vancomycin 1,500 mg In 250 Sodium Chloride 0.9% 250 ml @ 125 mls/hr IVPB Q16H [facility] Rx#:[id number] Other: Voiding Method Toilet Toilet Toilet # Voids 1 1 - Exam General appearance: Present: cooperative, no acute distress. Absent: average body habitus, disheveled, mild distress, morbidly obese, obese, severe distress , thin - EENT Eyes: Present: normal appearance. Absent: abnormal pupil, anicteric sclerae, disc margins sharp, edentulous, EOMI, PERRLA, fundus normal, photophobia, dentition normal, poor dentition, ptosis, scleral icterus ENT: Present: normal oropharynx, pharyngeal erythema. Absent: hard of hearing, hearing grossly normal, NA/AT, other, thrush, tonsillar exudates, tonsillar swelling Ears: bilateral: normal - Neck Neck: Present: normal ROM Carotids: bilateral: upstroke normal Thyroid: bilateral: normal size - Respiratory Respiratory: bilateral: CTA, diminished - Cardiovascular Rhythm: regular Heart sounds: normal: S1, S2 Abnormal Heart Sounds: Present: systolic murmur - Gastrointestinal General gastrointestinal: Present: distended, normal bowel sounds, soft. Absent : absent bowel sounds, decreased bowel sounds, hepatomegaly, hyperactive bowel sounds, organomegaly, rigid, scaphoid, splenomegaly, tenderness, umbilical hernia, ventral hernia - Integumentary Integumentary Comment(s): Incision from debridement looks good had slightly bit of bleeding but the area around the scar tissue on the big toe on the left side has decreased swelling and redness able to feel pulses dorsalis pedis. Integumentary: Present: cellulitis, normal, pale, rash. Absent: calor, cyanotic , decreased turgor, flushed, jaundiced, normal turgor, ulcer - Neurologic Neurologic: Present: CNII-XII intact - Musculoskeletal Musculoskeletal: Present: gait normal, generalized weakness, strength equal bilaterally. Absent: right sided weakness, left sided weakness - Psychiatric Psychiatric: Present: A&O x's 3, appropriate affect. Absent: intact judgment & insight - Labs CBC & Chem 7: 07/21/16 05:00 07/23/16 07:59 Labs: Abnormal Lab Results - Last 24 Hours (Table) 07/22/16 07/23/16 07/23/16 Range/Units 21:02 02:11 07:23 Carbon Dioxide (22-30) mmol/L Glucose (74-99) mg/dL POC Glucose (mg/dL) 130 H 163 H 131 H (75-99) mg/dL 07/23/16 07/23/16 Range/Units 07:59 10:56 Carbon Dioxide 31 H (22-30) mmol/L Glucose 124 H (74-99) mg/dL POC Glucose (mg/dL) 240 H (75-99) mg/dL Microbiology - Last 24 Hours (Table) 07/20/16 11:06 Gram Stain - Final Toe - Left First Wound Culture - Final Assessment and Plan Plan: 1. stump cellulitis involiving left 1st distal metatarsal region with known PAD and diabetic ulcer continue vancomycin. Patient is followed by Dr. Lvein and Dr. Quiñones. 2. prior right 5th toe amputation 12/2015 healed 3 Diabetes mellitus type 2 insulin requiring with hemoglobin A1c of 7.1. He is currently on Lantus 20 units daily, Humalog scale, metformin 500 mg at lunch, glipizide 5 mg daily at noon. 4 PAD, followed by Dr. Quiñones. 5. Hypertension. Continue lisinopril 10 mg daily. 6. Gastrointestinal prophylaxis. Heparin 5000 units subcu every 8 hours. 7. DVT prophylaxis. Pepcid 20 mg daily. 8. diabetic sensory neuropathy: Patient has been symptomatic treatment is limited at this point. 9 GI prophylaxis: We'll continue patient on Pepcid 20 mg daily. 10 DVT prophylaxis: Patient be continue on heparin subcutaneous. CODE STATUS: Full code. Discharge plan: Home Impression and plan of care have been directed as dictated by the signing physician. Saba Sun nurse practitioner acting as scribe for signing physician.
[2016-07-23 15:16] VITALS: BP 127/64; PULSE 56; TEMP 97.6
--- NOTE | 2016-07-23 16:20 | P.PN ---
Progress Note - Text 71-year-old gentleman history of diabetes, history of callus formation infected left foot toe patient had a debridement done patient had a MRI there is no evidence of osteomyelitis patient is growing staph aureus under care of Dr. Levin patient on Sentell cream daily basis Plan is patient can go home on surgical point of view central cream daily and I will follow in the wound clinic on Thursday
[2016-07-23 17:04] LABS: Glucose,Whole Blood 177 mg/dL (75-99)
--- NOTE | 2016-07-23 20:51 | P.PN ---
Subjective Principal diagnosis: Callus with abscess left foot Pleasant 71-year-old male with long-standing history of diabetes mellitus type 2 with some complications in the past including the amputation of the left great toe. He has a prosthesis for his shoe which was to be replaced about 6 months ago. 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 He restarted to move ahead and is starting to date which is helpful but also created some stress. He noticed that he was getting a callus on the foot but wasn't until it swelled and became problematic he sought care. As noted he's been seen by Dr. Burleson. Dr. Quiñones assaying the operating room for the incision and drainage. Certainly looking better at this time. The patient's denying fever chills or rigors and sweats. Overall feels better. MRI is now available. No evidence of any deep bony infection. No evidence of any muscular, tendon or ligamental infection. Only evidence of the cellulitis. Objective - Vital Signs Vital signs: Vital Signs Temp 97.6 F 07/23/16 15:00 Pulse 56 L 07/23/16 16:00 Resp 18 07/23/16 16:00 BP 127/64 07/23/16 15:00 Pulse Ox 99 07/23/16 15:00 Intake & Output 07/23/16 07/23/16 07/24/16 06:59 18:59 06:59 Intake Total 250 Output Total 100 Balance 250 -100 Weight 93 kg Intake: IV 250 Vancomycin 1,500 mg In 250 Sodium Chloride 0.9% 250 ml @ 125 mls/hr IVPB Q16H [facility] Rx#:[id number] Output: Urine 100 Other: Voiding Method Toilet Toilet # Voids 1 16 - Exam Girish 71-year-old gentleman of a thin and fit build HEENT: Anicteric conjunctiva are pink and moist nasal mucosa grossly intact without significant lesions, there is no thrush. Neck: The neck is supple without significant lymphadenopathy or thyromegaly. Lungs: Good bilateral air entry without significant crackles or wheezing. There is no significant bronchial sounds. There is no egophony or dullness. Heart: Regular rate and rhythm with an audible S1-S2, no S3 no S4. There is no significant murmur click or rub, PMI was nondisplaced. Abdomen: Positive bowel sounds soft and nontender without palpable masses or organomegaly. There was no guarding or rebound. Extremities: The upper extremities have excellent pulses they are symmetric, no significant petechiae or telangiectasia. No splinter hemorrhages were noted. Right lower extremity no abnormalities. Left foot shows evidence of the prior amputation to the left great toe. There is no evidence of the ulceration status post incision and drainage. There is no purulent drainage at this time. No foul odor. Minimal ascending erythema. Neuro: Awake alert oriented to person place and time. There are no acute new gross focal sensory motor deficits. - Labs CBC & Chem 7: 07/21/16 05:00 07/23/16 07:59 Labs: Abnormal Lab Results - Last 24 Hours (Table) 07/22/16 07/23/16 07/23/16 Range/Units 21:02 02:11 07:23 Carbon Dioxide (22-30) mmol/L Glucose (74-99) mg/dL POC Glucose (mg/dL) 130 H 163 H 131 H (75-99) mg/dL 07/23/16 07/23/16 07/23/16 Range/Units 07:59 10:56 17:02 Carbon Dioxide 31 H (22-30) mmol/L Glucose 124 H (74-99) mg/dL POC Glucose (mg/dL) 240 H 177 H (75-99) mg/dL Microbiology - Last 24 Hours (Table) 07/20/16 11:06 Anaerobic Culture - Preliminary Toe - Left First Peptostreptococcus species Laboratory Results WBC 7.4 k/uL (3.8-10.6) 07/21/16 05:00 RBC 5.22 m/uL (4.30-5.90) 07/21/16 05:00 Hgb 14.9 gm/dL (13.0-17.5) 07/21/16 05:00 Hct 45.7 % (39.0-53.0) 07/21/16 05:00 MCV 87.5 fL (80.0-100.0) 07/21/16 05:00 MCH 28.6 pg (25.0-35.0) 07/21/16 05:00 MCHC 32.7 g/dL (31.0-37.0) 07/21/16 05:00 RDW 13.2 % (11.5-15.5) 07/21/16 05:00 Plt Count 251 k/uL (150-450) 07/21/16 05:00 Neutrophils % 67 % 07/21/16 05:00 Lymphocytes % 21 % 07/21/16 05:00 Monocytes % 7 % 07/21/16 05:00 Eosinophils % 3 % 07/21/16 05:00 Basophils % 1 % 07/21/16 05:00 Neutrophils # 4.9 k/uL (1.3-7.7) 07/21/16 05:00 Lymphocytes # 1.6 k/uL (1.0-4.8) 07/21/16 05:00 Monocytes # 0.5 k/uL (0-1.0) 07/21/16 05:00 Eosinophils # 0.2 k/uL (0-0.7) 07/21/16 05:00 Basophils # 0.1 k/uL (0-0.2) 07/21/16 05:00 ESR 18 mm/hr (0-15) H 07/20/16 06:37 PT 9.7 sec (9.0-12.0) 07/18/16 16:07 INR 0.9 (<1.1) 07/18/16 16:07 APTT 24.7 sec (22.0-30.0) 07/18/16 16:07 Sodium 141 mmol/L (137-145) 07/23/16 07:59 Potassium 4.8 mmol/L (3.5-5.1) 07/23/16 07:59 Chloride 103 mmol/L (98-107) 07/23/16 07:59 Carbon Dioxide 31 mmol/L (22-30) H 07/23/16 07:59 Anion Gap 7 mmol/L 07/23/16 07:59 BUN 19 mg/dL (9-20) 07/23/16 07:59 Creatinine 1.00 mg/dL (0.66-1.25) 07/23/16 07:59 Est GFR (MDRD) Af Amer >60 (>60 ml/min/1.73 sqM) 07/23/16 07:59 Est GFR (MDRD) Non-Af >60 (>60 ml/min/1.73 sqM) 07/23/16 07:59 Glucose 124 mg/dL (74-99) H 07/23/16 07:59 POC Glucose (mg/dL) 177 mg/dL (75-99) H 07/23/16 17:02 POC Glu Master Technician ID Princess Mccurdy 07/23/16 17:[address] Glu mg/dL 157 mg/dL 07/19/16 06:59 Hemoglobin A1c 7.1 % (4.2-6.1) H 07/19/16 06:59 Plasma Lactic Acid Carlos 1.3 mmol/L (0.7-2.0) 07/18/16 16:07 Calcium 9.4 mg/dL (8.4-10.2) 07/23/16 07:59 Phosphorus 3.5 mg/dL (2.5-4.5) 07/18/16 16:07 Magnesium 2.3 mg/dL (1.6-2.3) 07/18/16 16:07 Total Bilirubin 1.1 mg/dL (0.2-1.3) 07/20/16 06:37 AST 20 U/L (17-59) 07/20/16 06:37 ALT 23 U/L (21-72) 07/20/16 06:37 Alkaline Phosphatase 69 U/L (38-126) 07/20/16 06:37 Total Creatine Kinase 57 U/L (55-170) 07/18/16 16:07 CK-MB (CK-2) 1.2 ng/mL (0.0-2.4) 07/18/16 16:07 CK-MB (CK-2) Rel Index 2.1 07/18/16 16:07 Total Protein 7.1 g/dL (6.3-8.2) 07/20/16 06:37 Albumin 3.9 g/dL (3.5-5.0) 07/20/16 06:37 Urine Color Light Yellow 07/18/16 16:18 Urine Appearance Clear (Clear) 07/18/16 16:18 Urine pH 6.0 (5.0-8.0) 07/18/16 16:18 Ur Specific [place] 1.006 (1.001-1.035) 07/18/16 16:18 Urine Protein Negative (Negative) 05/26/17 16:18 Urine Glucose (UA) 3+ (Negative) H 07/18/16 16:18 Urine Ketones Negative (Negative) 07/18/16 16:18 Urine Blood Negative (Negative) 07/18/16 16:18 Urine Nitrite Negative (Negative) 07/18/16 16:18 Urine Bilirubin Negative (Negative) 07/18/16 16:18 Urine Urobilinogen <2.0 mg/dL (<2.0) 07/18/16 16:18 Ur Leukocyte Esterase Negative (Negative) 07/18/16 16:18 Vancomycin Trough 19.9 ug/mL 07/21/16 05:00 Microbiology 07/20/16 11:06 Toe - Left First Anaerobic Culture - Preliminary Peptostreptococcus species 07/20/16 11:06 Toe - Left First Gram Stain - Final 07/20/16 11:06 Toe - Left First Wound Culture - Final 07/19/16 15:35 Toe - Right First Gram Stain - Final 07/19/16 15:35 Toe - Right First Wound Culture - Final 07/18/16 16:18 Urine,Clean Catch Urine Culture - Final - Imaging and Cardiology MRI of the foot shows evidence of cellulitis without evidence of deep infection. Assessment and Plan (1) Cellulitis of left foot Status: Acute (2) Diabetic foot ulcer associated with type 2 diabetes mellitus, with fat layer exposed Narrative/Plan: Very pleasant 71-year-old male with a long-standing history of diabetes patti type II who is had the prior diabetic foot infection with the loss of the left great toe. Utilizes an insert into his shoe to help with the fit. It appears that the insert has worn an cause callusing to the foot. The callus finally and had some infection. This is now status post surgical debridement. Cultures are in process. MRI is in process also. MRI now available. No evidence of any deep infection. patient constantly is ready for discharge to home. Oral antibiotic therapy with Augmentin 875/125 is given. If the next few weeks. Follow-up in the wound healing center on a weekly basis. Happy to see him on the second visit there. Local wound care is with the Aquacel Silver. Elevate at rest. Continue with aggressive control of his diabetes. He is concerned because of his history of C. diff and is utilizing probiotic yogurt at this time. We'll monitor. Status: Acute
[2016-07-24] MEDS ORDERED: VANCOMYCIN TROUGH DUE 1 EACH MISC MISCELLANE ONE (13:00)
--- NOTE | 2016-08-01 13:52 | P.DS ---
Providers Date of admission: 07/18/16 15:50 Expected date of discharge: 07/23/16 Attending physician: Clay Jones Consults: 07/18/16 15:50 Consult Physician Routine Consulting Provider: Clay Levin Consult Reason/Comments: known Do you want consulting provider notified?: Yes 07/18/16 21:06 Consult Physician Routine Consulting Provider: Charles Quiñones Consult Reason/Comments: PAD, diabetic ulcer Do you want consulting provider notified?: Yes, Notify in am 07/19/16 15:41 Consult Physician Routine Consulting Provider: Mckayla Burleson Consult Reason/Comments: foot ulcer Do you want consulting provider notified?: Already Contacted Primary care physician: [facility] Course: this is a 71-year-old male. His primary care physician is Dr. Jones. He has a past medical history of diabetes mellitus, cataracts, shingles, left hand tremor, left foot infection with MRSA status post amputation of the left great toe followed by nonhealing wound and was last admitted at this facility last december 2015. Patient underwent amputation on the left great toe in 2008 and developed wound that was nonhealing for an extended period of time this finally healed few weeks therafter. He followed with Dr. Levin as well as Dr. Quiñones , he has residual callus on the 3rd rgiht toe which is not open, non draining..He Has PAD worse on the right then the left, He present to the Emergency room when he had blister on the base of his left big toe stump that started draining clear fluid initially now collored yellow with increase foul smelling drainage prompting his er evaluation as the stum on the amputated toe is now red and tender and swollen. Patient was started on Ancef and vancomycin and admitted to the [facility] floor and consult requested with Dr. Quiñones and Dr. Levin. Patient was seen Dr. Quiñones who agree with the current antibiotics, has not seen Dr. Levin yet continue Vanco and Ancef till Dr. Levni seen him. Patient was scheduled for bone scan of the left foot for further decision of the length of his treatment. Will order whirlpool and local care as well. Sed rate was done today and was normal. Patient is going to the OR today by Dr. Quiñones for debridement of the Harsh skin on the surface of the stump of the big toe. Patient had debridement with Dr. Quiñones yesterday the area looks better well circulated slight decreased swelling and redness at this point. Would hold off on whirlpool treatment at this point. 07/22: Patient is scheduled for MRI of the foot. Dr. Quiñones continues to follow the patient. Dr. Levin is following. Cultures are currently pending. Patient is continued on IV antibiotics. 07/23: MRI of the foot shows cellulitis. He is continued on vancomycin until further data is available. Local wound care as Aquasol Silver. Patient is followed by Dr. Levin. Urine culture was finalized with no growth after 18 hours. Wound culture from July 19 is showing moderate normal skin marciel. Anaerobic wound culture is in progress. Repeat wound culture from July 20 is also showing moderate normal skin maricel. Anticipate discharge home tomorrow. Patient has been cleared by Dr. Levin and Dr. Quiñones for discharge. Patient will be discharged home today in stable condition. Discharge diagnoses: 1. stump cellulitis involiving left 1st distal metatarsal region with known PAD and diabetic ulcer continue vancomycin. 2. prior right 5th toe amputation 12/2015 healed 3 Diabetes mellitus type 2 insulin requiring with hemoglobin A1c of 7.1. 4 PAD, followed by Dr. Quiñones. 5. Hypertension. 6. diabetic sensory neuropathy Discharge plan: Home Impression and plan of care have been directed as dictated by the signing physician. Saba Sun nurse practitioner acting as scribe for signing physician. Patient Condition at Discharge: Good Plan - Discharge Summary New Discharge Prescriptions: New Amoxic-Pot Clav 875-125Mg [Augmentin 875-125] 1 tab PO Q12HR #28 tablet No Action glipiZIDE/METFORMIN HCL [glipiZIDE/METFORMIN HCL 5-500 mg] 1 tab PO DAILY@ 1200 Tadalafil [Cialis] 25 mg PO DAILY PRN PRN Reason: Per Protocol Aspirin 81 mg PO HS Calcium Carbonate/Vitamin D3 [Calcium 600-Vit D3 800 Tab] 1 tab PO AC-BID Multivitamins, Thera [Multivitamin (formulary)] 1 tab PO AC-BRKFST Cyanocobalamin [Vitamin B-12] 1,000 mcg PO AC-BRKFST Cholecalciferol [Vitamin D3] 1,000 unit PO BID [place]-3 Fatty Acids/Fish Oil [Fish Oil 1,000 mg Softgel] 1 cap PO HS Glucosam/Magen-Msm1/C/Jimi/Bosw [Glucosamine-Chondroitin Tablet] 1 tab PO BID Docusate [Colace] 100 mg PO AC-TID Vitamin E 1,000 unit PO AC-BRKFST Hydrocortisone Valerate 1 applic TOPICAL DAILY PRN PRN Reason: Itching Insulin Glargine,Hum.rec.anlog [[place]] 45 units SQ DAILY Discharge Medication List Aspirin 81 mg PO HS 12/27/15 [History] Calcium Carbonate/Vitamin D3 [Calcium 600-Vit D3 800 Tab] 1 tab PO AC-BID [History] Cholecalciferol [Vitamin D3] 1,000 unit PO BID 12/27/15 [History] Cyanocobalamin [Vitamin B-12] 1,000 mcg PO AC-BRKFST 12/27/15 [History] Docusate [Colace] 100 mg PO AC-TID 12/27/15 [History] Glucosam/Magen-Msm1/C/Jimi/Bosw [Glucosamine-Chondroitin Tablet] 1 tab PO BID 05/08 [History] Multivitamins, Thera [Multivitamin (formulary)] 1 tab PO AC-BRKFST 12/27/15 [ History] [place]-3 Fatty Acids/Fish Oil [Fish Oil 1,000 mg Softgel] 1 cap PO HS 12/27/15 [ History] Tadalafil [Cialis] 25 mg PO DAILY PRN 12/27/15 [History] Vitamin E 1,000 unit PO AC-BRKFST 12/27/15 [History] glipiZIDE/METFORMIN HCL [glipiZIDE/METFORMIN HCL 5-500 mg] 1 tab PO DAILY@1200 12/27/15 [History] Hydrocortisone Valerate 1 applic TOPICAL DAILY PRN 01/03/16 [History] Insulin Glargine,Hum.rec.anlog [[place]] 45 units SQ DAILY 07/18/16 [ History] Amoxic-Pot Clav 875-125Mg [Augmentin 875-125] 1 tab PO Q12HR #28 tablet [Rx] Follow up Appointment(s)/Referral(s): Clay Jones MD [Primary Care Provider] - [facility] [NON-STAFF] - 07/28/16 1:30 am Patient Instructions/Handouts: Amoxicillin/Clavulanate Potassium (By mouth), Cellulitis (DC), Diabetic Foot Ulcers (DC) Discharge Disposition: HOME SELF-CARE
== END 2016-07-23 19:30 | disposition home or self-care (01) | DRG 464 ==
LOC: EC 12:56 → 5MS5E 15:50
PROVIDERS: ADMIT Internal Medicine Geriatric Medicine; ATTEND Internal Medicine Geriatric Medicine
PROC: 0HBNXZZ Excision of Left Foot Skin, External Approach (ICD-10-PCS; principal; 2016-07-20 09:30)
DX: T87.44 Infection of amputation stump, left lower extremity (principal); E11.52 Type 2 diabetes mellitus with diabetic peripheral angiopathy with gangrene; E11.40 Type 2 diabetes mellitus with diabetic neuropathy, unspecified; L02.612 Cutaneous abscess of left foot; L03.116 Cellulitis of left lower limb; E11.621 Type 2 diabetes mellitus with foot ulcer; E11.628 Type 2 diabetes mellitus with other skin complications; E78.5 Hyperlipidemia, unspecified; I10 Essential (primary) hypertension; L97.529 Non-pressure chronic ulcer of other part of left foot with unspecified severity; Y83.5 Amputation of limb(s) as the cause of abnormal reaction of the patient, or of later complication, without mention of misadventure at the time of the procedure; Z79.4 Long term (current) use of insulin; Z79.82 Long term (current) use of aspirin; Z79.84 Long term (current) use of oral hypoglycemic drugs; Z79.899 Other long term (current) drug therapy; Z86.14 Personal history of Methicillin resistant Staphylococcus aureus infection; Z87.891 Personal history of nicotine dependence; Z89.412 Acquired absence of left great toe; Z89.421 Acquired absence of other right toe(s)
CPT/HCPCS: 80048; 80053; 80202; 81003; 82550; 82553; 83036; 83605; 83735; 84100; 85025; 85610; 85652; 85730; 87070; 87075; 87086; 87205; 93005

== ENCOUNTER → 2016-10-20 | Outpatient (CLI) | payer MEDICARE, BC ==
[2016-10-20 09:16] LABS: Basophils # (A) 0.1 k/uL (0-0.2); Basophils % (A) 1 %; CH 28.8; CHCM 33.3; Eosinophils # (A) 0.2 k/uL (0-0.7); Eosinophils % (A) 2 %; HCT 46.4 % (39.0-53.0); HDW 2.71; HGB 14.6 gm/dL (13.0-17.5); Luc % (Auto) 3; Lymphocytes # (A) 1.7 k/uL (1.0-4.8); Lymphocytes % (A) 21 %; MCH 27.3 pg (25.0-35.0); MCHC 31.4 g/dL (31.0-37.0); MCV 86.7 fL (80.0-100.0); Mean Platelet Volume 7.5; Monocytes # (A) 0.4 k/uL (0-1.0); Monocytes % (A) 5 %; Neutrophils # (A) 5.5 k/uL (1.3-7.7); Neutrophils % (A) 69 %; RBC 5.36 m/uL (4.30-5.90); RDW 14.3 % (11.5-15.5); WBC 7.9 k/uL (3.8-10.6); WBC (Perox) 7.79
[2016-10-20 09:49] LABS: ALT 32 U/L (21-72); AST 24 U/L (17-59); Alkaline Phosphatase 80 U/L (38-126); Anion Gap 10 mmol/L; Blood Urea Nitrogen 16 mg/dL (9-20); Calcium 9.4 mg/dL (8.4-10.2); Carbon Dioxide 30 mmol/L (22-30); Chloride 102 mmol/L (98-107); Cholesterol 125 mg/dL (<200); Glucose 112 mg/dL (74-99); HDL Cholesterol 39 mg/dL (40-60); Non-African American GFR(MDRD) >60 (>60 ml/min/1.73 sqM); Potassium 5.1 mmol/L (3.5-5.1); Sodium 142 mmol/L (137-145); Total Bilirubin 1.2 mg/dL (0.2-1.3); Total Protein 7.7 g/dL (6.3-8.2)
[2016-10-20 11:12] LABS: Erythrocyte Sedimentation Rate 13 mm/hr (0-15)
[2016-10-20 13:41] LABS: Hemoglobin A1C 7.7 % (4.2-6.1)
== END | disposition home or self-care (01) ==
LOC: LABWHC1 08:24
PROVIDERS: ATTEND Internal Medicine Geriatric Medicine
DX: E11.42 Type 2 diabetes mellitus with diabetic polyneuropathy (principal); N18.1 Chronic kidney disease, stage 1; L03.115 Cellulitis of right lower limb
CPT/HCPCS: 36415; 80053; 80061; 83036; 85025; 85652

== ENCOUNTER → 2017-01-13 | Outpatient (CLI) | payer MEDICARE, BC ==
[2017-01-13 08:11] LABS: Basophils % (A) 1 %; CH 28.2; CHCM 32.9; Eosinophils # (A) 0.2 k/uL (0-0.7); Eosinophils % (A) 2 %; HCT 43.8 % (39.0-53.0); HDW 2.84; HGB 14.3 gm/dL (13.0-17.5); Luc # (Auto) 0.17; Luc % (Auto) 3; Lymphocytes # (A) 1.5 k/uL (1.0-4.8); Lymphocytes % (A) 22 %; MCHC 32.5 g/dL (31.0-37.0); Mean Platelet Volume 6.9; Monocytes # (A) 0.4 k/uL (0-1.0); Monocytes % (A) 5 %; Neutrophils # (A) 4.7 k/uL (1.3-7.7); Neutrophils % (A) 68 %; RDW 13.6 % (11.5-15.5); WBC (Perox) 7.29
[2017-01-13 08:25] LABS: ALT 28 U/L (21-72); AST 28 U/L (17-59); Alkaline Phosphatase 76 U/L (38-126); Anion Gap 11 mmol/L; Blood Urea Nitrogen 19 mg/dL (9-20); Calcium 9.8 mg/dL (8.4-10.2); Carbon Dioxide 29 mmol/L (22-30); Chloride 103 mmol/L (98-107); Cholesterol 125 mg/dL (<200); Glucose 55 mg/dL (74-99); HDL Cholesterol 42 mg/dL (40-60); Non-African American GFR(MDRD) >60 (>60 ml/min/1.73 sqM); Potassium 4.3 mmol/L (3.5-5.1); Sodium 143 mmol/L (137-145); Total Bilirubin 1.1 mg/dL (0.2-1.3); Total Protein 7.7 g/dL (6.3-8.2)
== END | disposition home or self-care (01) ==
LOC: LABWHC1 07:02
PROVIDERS: ATTEND Internal Medicine Geriatric Medicine
DX: E78.00 Pure hypercholesterolemia, unspecified (principal); E11.42 Type 2 diabetes mellitus with diabetic polyneuropathy; I10 Essential (primary) hypertension
CPT/HCPCS: 36415; 80053; 80061; 83036; 84439; 84443; 85025

== ENCOUNTER → 2017-02-26 | Outpatient (CLI) | payer MEDICARE, BC ==
--- NOTE | 2017-02-26 23:18 | MR ---
EXAMINATION TYPE: MR foot LT wo/w con DATE OF EXAM: 02/26/2017 COMPARISON: 07/22/2016 HISTORY: Follow up for Left foot Ulcer, Gadavist 10ml, Previous scans on PACS CONTRAST: Standard multiplanar, multisequence MRI departmental protocol utilizing 10 mL intravenous Gadavist ga dolinium contrast. FINDINGS: There is amputation deformity of the big toe at the first MP joint. There is mild increased signal in the soft tissues around the first and second metatarsal heads. There is deformity of the s econd third fourth fifth distal metatarsals consistent with multiple hammertoe deformity and probably some erosion of the metatarsal heads. I see no fracture line. There is some soft tissue swelling and increased fluid signal on the dorsum of the forefoot at the fourth and fifth MP joints. I see no pat hologic enhancement. I do not see bone edema to suggest osteomyelitis. IMPRESSION: There is soft tissue swelling in the forefoot as above consistent with cellulitis. This appears not s ignificantly different than old MR scan of 07/22/2016. No definite sign of osteomyelitis. Soft tissue swelling on the plantar aspect of the first metatarsal is slightly increased.
== END | disposition home or self-care (01) ==
LOC: RADMRIMAIN 18:40
PROVIDERS: ATTEND Surgery Vascular Surgery
DX: M79.89 Other specified soft tissue disorders (principal)
CPT/HCPCS: 82565; 73720; A9581

== ENCOUNTER → 2017-05-19 | Outpatient (CLI) | payer MEDICARE, BC ==
[2017-05-19 07:52] LABS: Basophils # (A) 0.1 k/uL (0-0.2); Basophils % (A) 1 %; Eosinophils # (A) 0.1 k/uL (0-0.7); Eosinophils % (A) 2 %; HCT 42.1 % (39.0-53.0); HGB 14.7 gm/dL (13.0-17.5); Lymphocytes # (A) 1.8 k/uL (1.0-4.8); Lymphocytes % (A) 31 %; Monocytes # (A) 0.4 k/uL (0-1.0); Monocytes % (A) 7 %; Neutrophils # (A) 3.4 k/uL (1.3-7.7); Neutrophils % (A) 57 %; Platelet Count 219 k/uL (150-450); RBC 5.08 m/uL (4.30-5.90); RDW 13.3 % (11.5-15.5)
[2017-05-19 08:27] LABS: Albumin 4.3 g/dL (3.5-5.0); Calcium 9.4 mg/dL (8.4-10.2); Potassium 4.6 mmol/L (3.5-5.1); Total Bilirubin 1.2 mg/dL (0.2-1.3); Total Protein 7.1 g/dL (6.3-8.2)
[2017-05-19 17:54] LABS: Hemoglobin A1C 7.1 % (4.0-6.0)
[2017-05-19 18:10] LABS: Iron Saturation 17.01 (15.00-50.00)
[2017-05-19 19:13] LABS: Folate, Serum >24.0 ng/mL
== END | disposition home or self-care (01) ==
LOC: LABWHC1 07:02
PROVIDERS: ATTEND Internal Medicine Geriatric Medicine
DX: E11.22 Type 2 diabetes mellitus with diabetic chronic kidney disease (principal); N18.1 Chronic kidney disease, stage 1; D64.9 Anemia, unspecified; E11.42 Type 2 diabetes mellitus with diabetic polyneuropathy; E78.00 Pure hypercholesterolemia, unspecified
CPT/HCPCS: 36415; 80053; 80061; 82607; 82746; 83036; 83540; 83550; 85025

== ENCOUNTER → 2017-05-29 | Outpatient (CLI) | payer MEDICARE, BC ==
--- NOTE | 2017-05-29 13:38 | US ---
EXAMINATION TYPE: US venous doppler duplex LE LT DATE OF EXAM: 05/29/2017 12:56 PM COMPARISON: NONE CLINICAL HISTORY: left lower ex, pain and swelling M79.662. SIDE PERFORMED: Left TECHNIQUE: The lower extremity deep venous system is examined utilizing real time linear array sonog danielle with graded compression, doppler sonography and color-flow sonography. VESSELS IMAGED: External Iliac Vein (EIV) Common Femoral Vein Deep Femoral Vein Greater Saphenous Vein * Femoral Vein Popliteal Vein Proximal Calf Veins (* superficial vessels) Left Leg: Negative for DVT IMPRESSION: 1. Left lower extremity by ultrasound is negative for deep venous stenosis
== END | disposition home or self-care (01) ==
LOC: RADUSWWP 12:34
PROVIDERS: ATTEND Orthopaedic Surgery
DX: M79.672 Pain in left foot (principal); M79.662 Pain in left lower leg; E11.621 Type 2 diabetes mellitus with foot ulcer; R60.9 Edema, unspecified; Z48.89 Encounter for other specified surgical aftercare

== ENCOUNTER → 2018-02-12 | Outpatient (CLI) | payer MEDICARE, BC ==
[2018-02-12 08:48] LABS: Basophils % (A) 1 %; Eosinophils # (A) 0.2 k/uL (0-0.7); Eosinophils % (A) 3 %; HCT 44.4 % (39.0-53.0); HGB 14.7 gm/dL (13.0-17.5); Lymphocytes # (A) 1.7 k/uL (1.0-4.8); Lymphocytes % (A) 30 %; MCH 28.7 pg (25.0-35.0); MCHC 33.1 g/dL (31.0-37.0); MCV 86.7 fL (80.0-100.0); Monocytes # (A) 0.4 k/uL (0-1.0); Monocytes % (A) 7 %; Neutrophils # (A) 3.1 k/uL (1.3-7.7); Neutrophils % (A) 55 %; Platelet Count 206 k/uL (150-450); RBC 5.12 m/uL (4.30-5.90); RDW 13.2 % (11.5-15.5); WBC 5.6 k/uL (3.8-10.6)
[2018-02-12 16:14] LABS: Albumin 4.5 g/dL (3.80-4.90); Albumin/Globulin Ratio 1.96 (1.20-2.10); Anion Gap 5.3 mmol/L (4.00-12.00); Calcium 9.5 mg/dL (8.7-10.3); Carbon Dioxide 30.7 mmol/L (21.6-31.8); Globulin 2.3 g/dL (1.6-3.3); LDL Cholesterol,Calculated 68.8 mg/dL (0.0-131.0); Potassium 4.4 mmol/L (3.5-5.5); Total Bilirubin 1.3 mg/dL (0.3-1.2); Total Protein 6.8 g/dL (6.2-8.2); VLDL Calculation 13.2 mg/dL (5.00-40.00)
[2018-02-12 17:46] LABS: Hemoglobin A1C 6.9 % (4.0-6.0)
== END | disposition home or self-care (01) ==
LOC: LABWHC1 07:34
PROVIDERS: ATTEND Internal Medicine Geriatric Medicine
DX: E78.2 Mixed hyperlipidemia (principal); I10 Essential (primary) hypertension; E11.9 Type 2 diabetes mellitus without complications; D64.9 Anemia, unspecified
CPT/HCPCS: 36415; 80053; 80061; 83036; 85025

== ENCOUNTER → 2019-08-10 | Outpatient (CLI) | payer MEDICARE, BC ==
[2019-08-10 09:39] LABS: Basophils % (A) 0 %; Eosinophils # (A) 0.2 k/uL (0-0.7); Eosinophils % (A) 4 %; HGB 14.3 gm/dL (13.0-17.5); Lymphocytes # (A) 1.8 k/uL (1.0-4.8); Lymphocytes % (A) 36 %; MCH 28.8 pg (25.0-35.0); MCHC 33.3 g/dL (31.0-37.0); MCV 86.7 fL (80.0-100.0); Mean Platelet Volume 7.6; Monocytes # (A) 0.4 k/uL (0-1.0); Monocytes % (A) 7 %; Neutrophils # (A) 2.5 k/uL (1.3-7.7); Neutrophils % (A) 50 %; Platelet Count 215 k/uL (150-450); RBC 4.96 m/uL (4.30-5.90); RDW 14.2 % (11.5-15.5)
[2019-08-10 18:32] LABS: African American GFR (CKD) 69.1 (60.0-200.0); Albumin 4.3 g/dL (3.80-4.90); Albumin/Globulin Ratio 1.65 (1.60-3.17); Anion Gap 8.8 mmol/L (4.00-12.00); BUN/Creat Ratio 14.17 Ratio (12.00-20.00); Calcium 9.2 mg/dL (8.7-10.3); Carbon Dioxide 26.2 mmol/L (21.6-31.8); Chol/HDL Ratio 2.98; Globulin 2.6 g/dL (1.6-3.3); LDL Cholesterol,Calculated 75.6 mg/dL (0.0-131.0); Non-African American GFR(CKD) 59.6 (60.0-200.0); Potassium 4.7 mmol/L (3.5-5.5); Total Bilirubin 1.4 mg/dL (0.2-1.2); Total Protein 6.9 g/dL (6.2-8.2); VLDL Calculation 11.4 mg/dL (5.00-40.00)
[2019-08-10 19:18] LABS: Hemoglobin A1C 8.5 % (4.0-6.0)
== END | disposition home or self-care (01) ==
LOC: LABWHC1 08:25
PROVIDERS: ATTEND Internal Medicine Geriatric Medicine
DX: I12.9 Hypertensive chronic kidney disease with stage 1 through stage 4 chronic kidney disease, or unspecified chronic kidney disease (principal); N18.1 Chronic kidney disease, stage 1; E11.22 Type 2 diabetes mellitus with diabetic chronic kidney disease; E11.42 Type 2 diabetes mellitus with diabetic polyneuropathy; E78.2 Mixed hyperlipidemia
CPT/HCPCS: 36415; 80053; 80061; 83036; 84443; 85025

== ENCOUNTER → 2019-11-12 | Outpatient (CLI) | payer MEDICARE, BC ==
--- NOTE | 2019-11-12 14:59 | MR ---
"EXAMINATION TYPE: MR foot LT wo/w con DATE OF EXAM: 11/12/2019 COMPARISON: Prior MRI left foot February 26, 2017. HISTORY: Left foot/plantar aspect, open wound CONTRAST: Standard multiplanar, multisequence MRI departmental protocol utilizing 9.5 mL intravenous Gadavist g adolinium contrast. FINDINGS: Persisting amputation defect at level of first metatarsophalangeal joint right foot. There is new wound or ulceration along the plantar surface first metatarsal head extending to the inferior osseous margin of the first metatarsal head. There is abnormal low T1 and increased T2 signal involvi ng the first metatarsal from the proximal metaphysis through the metatarsal head with asymmetric soft tissue enlargement and surrounding soft tissue edema and enhancement noted. There is relative sparin g of base of first metatarsal. Edema change seen best on STIR axial sequence, for reference image 15. Finding new from 2018 study. There appears to be chronic subluxation at the metatarsophalangeal joints of the smaller toes with ma rked flexion in the toes redemonstrated. No abnormal edema or osseous enhancement at these levels not ed. Midfoot structures redemonstrate mild to moderate narrowing and spurring. Hindfoot structures maintai felicia. Normal sinus tarsi fat is seen. IMPRESSION: There is soft tissue infection or acute cellulitis with additional acute osteomyelitis in volving the majority of the first metatarsal. A Yellow level critical message alert has been initiated for Charles Quiñones MD via the [employer] 36 0 | Critical Results System on 11/12/2019 2:57 PM. This message alert has been sent to Charles Quiñones MD via the preferences provided by the clinician for the receipt of Radiology Critical Findings. [facility] ID [id number]."
== END | disposition home or self-care (01) ==
LOC: RADMRIMAIN 11:21
PROVIDERS: ATTEND Surgery Vascular Surgery
DX: M86.172 Other acute osteomyelitis, left ankle and foot (principal)
CPT/HCPCS: 73720; A9585

== ENCOUNTER → 2020-08-06 | Outpatient (CLI) | payer MEDICARE, BC ==
[2020-08-06 11:23] LABS: Appearance,Urine Clear (Clear); Color,Urine Yellow; Glucose,Urine (UA) Negative (Negative); Protein,Urine Negative (Negative); Specific Gravity,Urine 1.015 (1.001-1.035)
[2020-08-06 11:24] LABS: Bilirubin,Urine Negative (Negative); Blood,Urine Negative (Negative); Ketones,Urine Negative (Negative); Leukocyte Esterase,Urine Negative (Negative); Nitrite,Urine Negative (Negative); Urobilinogen,Urine <2.0 mg/dL (<2.0)
[2020-08-06 14:53] LABS: Basophils # (A) 0.05 X 10*3/uL (0.00-0.10); Basophils % (A) 0.6 %; Eosinophils # (A) 0.15 X 10*3/uL (0.04-0.35); Eosinophils % (A) 1.9 %; Lymphocytes # (A) 1.98 X 10*3/uL (0.90-5.00); Lymphocytes % (A) 25.3 %; MCH 28.2 pg (27.0-32.0); MCHC 32.6 g/dL (32.0-37.0); MCV 86.5 fL (80.0-97.0); Mean Platelet Volume 10.5 fL (9.5-12.2); Monocytes # (A) 0.62 X 10*3/uL (0.20-1.00); Monocytes % (A) 7.9 %; Neutrophils # (A) 5.02 X 10*3/uL (1.80-7.70); Platelet Count 175 X 10*3/uL (140-440); RBC 4.97 X 10*6/uL (4.40-5.60); RDW 13.1 % (11.5-14.5); WBC 7.84 X 10*3/uL (4.50-10.00)
[2020-08-06 15:15] LABS: African American GFR (CKD) 68.6 (60.0-200.0); Albumin 4.5 g/dL (3.80-4.90); Albumin/Globulin Ratio 1.67 (1.60-3.17); Anion Gap 4.1 mmol/L (4.00-12.00); BUN/Creat Ratio 21.67 Ratio (12.00-20.00); Calcium 9.6 mg/dL (8.7-10.3); Carbon Dioxide 29.9 mmol/L (21.6-31.8); Chol/HDL Ratio 3.6; Globulin 2.7 g/dL (1.6-3.3); LDL Cholesterol,Calculated 88.6 mg/dL (0.0-131.0); Non-African American GFR(CKD) 59.2 (60.0-200.0); Potassium 5.3 mmol/L (3.5-5.5); Total Bilirubin 1.1 mg/dL (0.3-1.2); Total Protein 7.2 g/dL (6.2-8.2); VLDL Calculation 15.4 mg/dL (5.00-40.00)
== END | disposition home or self-care (01) ==
LOC: LABWHC1 09:37
PROVIDERS: ATTEND Nurse Practitioner Family
DX: E11.40 Type 2 diabetes mellitus with diabetic neuropathy, unspecified (principal)
CPT/HCPCS: 36415; 80053; 80061; 81003; 82043; 82570; 83036; 84439; 84443; 85025

== ENCOUNTER 2022-08-25 10:46 | Inpatient (IN) | payer BC, MEDICARE ==
[2022-08-25 12:55] LABS: Basophils % (A) 0 %; Eosinophils # (A) 0.1 k/uL (0-0.7); Eosinophils % (A) 2 %; HCT 37.8 % (39.0-53.0); HGB 12.7 gm/dL (13.0-17.5); Lymphocytes # (A) 1.5 k/uL (1.0-4.8); Lymphocytes % (A) 22 %; MCH 29.6 pg (25.0-35.0); MCHC 33.7 g/dL (31.0-37.0); MCV 87.6 fL (80.0-100.0); Mean Platelet Volume 8.2; Monocytes # (A) 0.5 k/uL (0-1.0); Monocytes % (A) 8 %; Neutrophils # (A) 4.5 k/uL (1.3-7.7); Neutrophils % (A) 66 %; Platelet Count 210 k/uL (150-450); RBC 4.31 m/uL (4.30-5.90); WBC 6.8 k/uL (3.8-10.6)
--- NOTE | 2022-08-25 13:07 | ED ---
Wound/Laceration HPI - General Chief Complaint: Wound/Laceration Stated Complaint: R foot infection Time Seen by Provider: 08/25/22 12:17 Source: patient, RN notes reviewed Mode of arrival: ambulatory Limitations: no limitations - History of Present Illness Initial Comments: This is a 77-year-old male who presents to the emergency department for concerns of a right foot infection. States that he noticed a blister around the right 4th toe yesterday (No longer has 5th toe d/t prior amputation from gangrene). He has since started to develop redness and swelling going up the foot. States that this is painful when he walks. He is concerned that this is a diabetic foot ulcer, which he has had before. He has not had any fevers or chills. He has been managed by Dr. Quiñones at wound care before for prior ulcerations on his feet. He does have dark discoloration to the tips of his toes, and states that they have looked like that for a very long time and have not changed recently and are not painful. Denies any fevers, chills, sore throat, cough, dyspnea, chest pain, palpitations, abdominal pain, nausea, vomiting, diarrhea, back pain, or headaches. - Related Data Home Medications Medication Instructions Recorded Confirmed Aspirin 81 mg PO HS 12/27/15 08/25/22 Docusate [Colace] 100 mg PO BID-W/MEALS 12/27/15 08/25/22 Glucosam/Magen-Msm1/C/Jimi/Bosw 1 tab PO PC-BRKFST 12/27/15 08/25/22 [Glucosamine-Chondroitin Tablet] Multivitamins, Thera [Multivitamin 1 tab PO PC-BRKFST 12/27/15 08/25/22 (formulary)] Insulin Glargine,Hum.rec.anlog 32 units SQ AC-BRKFST 07/18/16 08/25/22 [Toujeo Solostar] Baclofen [Lioresal] 10 mg PO BID PRN 10/06/16 08/25/22 lisinopriL [Zestril] 10 mg PO PC-SUPPER 11/15/19 08/25/22 Diclofenac Sodium Gel [Voltaren 3 gm TOPICAL PC-BRKFST 08/25/22 08/25/22 Gel] Fish Oil/Dha/Epa [Fish Oil 1,200 1 cap PO PC-SUPPER 08/25/22 08/25/22 mg Fish Oil] L.acidoph,Paracasei, B.lactis 1 cap PO AC-BRKFST 08/25/22 08/25/22 [Probiotic] Tamsulosin [Flomax] 0.4 mg PO PC-SUPPER 08/25/22 08/25/22 rOPINIRole HCL [Requip] 1 mg PO PC-SUPPER 08/25/22 08/25/22 sitaGLIPtin PHOS/metFORMIN HCL 2 tab PO AC-BRKFST 08/25/22 08/25/22 [Janumet 50-500 mg Tablet] Allergies Allergy/AdvReac Type Severity Reaction Status Date / Time codeine Allergy Hallucinati Verified 08/25/22 14:01 ons/paranoi d adhesive AdvReac Itching/bruna Verified 08/25/22 14:01 h Review of Systems ROS Statement: Those systems with pertinent positive or pertinent negative responses have been documented in the HPI. ROS Other: All systems not noted in ROS Statement are negative. 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), recent high BP-no Rx, bone infection left foot, History of Any Multi-Drug Resistant Organisms: MRSA Date of last positivie culture/infection: 2015 MDRO Source:: foot Past Surgical History: Orthopedic Surgery, Tonsillectomy Additional Past Surgical History / Comment(s): HAMMER TOE SX LACEY FEET, LEFT FOOT SURGERY GREAT TOE AMPUTATION/THEN 2ND SX TO REARRANGE THE BONES IN LT FOOT, right foot little toe amputation, Tendon lengthening left foot, cyst removed from middle finger rt hand Past Anesthesia/Blood Transfusion Reactions: Family History of Problems w/ Anesthesia Additional Past Anesthesia/Blood Transfusion Reaction / Comment(s): father had confusion/loss of memory with anesthesia Past Psychological History: Depression Smoking Status: Former smoker Past Alcohol Use History: None Reported Past Drug Use History: None Reported - Past Family History Mother Additional Family Medical History / Comment(s): AGE 91 FROM BRAIN HEMORRAGE Father Family Medical History: Cancer Additional Family Medical History / Comment(s): LUNG CANCER General Exam Limitations: no limitations General appearance: alert, in no apparent distress Head exam: Present: atraumatic, normocephalic, normal inspection Respiratory exam: Present: normal lung sounds bilaterally. Absent: respiratory distress, wheezes, rales, rhonchi, stridor Cardiovascular Exam: Present: regular rate, normal rhythm, normal heart sounds. Absent: systolic murmur, diastolic murmur, rubs, gallop, clicks Extremities exam: Present: other (Open ulceration to the lateral aspect of the right fourth toe with surrounding maceration. The other toes have dark discoloration to the distal tips.) Neurological exam: Present: alert, oriented X3, CN II-XII intact Psychiatric exam: Present: normal affect, normal mood Course Vital Signs 08/25/22 08/25/22 11:27 16:11 Temperature 97.5 F L 97.7 F Pulse Rate 59 L 53 L Respiratory 16 18 Rate Blood Pressure 138/62 152/64 O2 Sat by Pulse 97 100 Oximetry Medical Decision Making - Medical Decision Making This is a 77-year-old male who presents to the emergency department for concerns of a right toe infection. Was pt. sent in by a medical professional or institution? @ -No Did you speak to anyone other than the patient for history? @ -No Did you review nursing and triage notes? @ -Yes, and I agree, it is accurate with regards to the patient's symptoms. Were old charts reviewed? @ -No Differential Diagnosis? @ -Differential Toe Ulceration: Cellulitis, abscess, osteomyelitis, injury, this is not meant to be an all- inclusive list. EKG interpreted by me (3pts min.)? @ -Not obtained X-rays interpreted by me (1pt min.)? @ -X-ray of the right foot obtained. My interpretation identifies no acute fractures. CT interpreted by me (1pt min.)? @ -Not obtained U/S interpreted by me (1pt. min.)? @ -Not obtained What testing was considered but not performed? (CT, X-rays, U/S, labs)? Why? @ -None What meds were considered but not given? Why? @ -None Did you discuss the management of the patient with other professionals? @ -Yes, Dr. Eckert, who accepts the patient for admission. Did you reconcile home meds? @ -No Was smoking cessation discussed for >3mins.? @ -No Was critical care preformed (if so, how long)? @ -No Were there social determinants of health that impacted care today? How? (Homelessness, low income, unemployed, alcoholism, drug addiction, transportation, low edu. Level, literacy, decrease access to med. care, skilled nursing, rehab)? @ -No Was there de-escalation of care discussed even if they declined? (Discuss DNR or withdrawal of care, Hospice)? @ -No What co-morbidities impacted this encounter? (DM, HTN, Smoking, COPD, CAD, Cancer, CVA, Hep., AIDS, mental health diagnosis, sleep apnea, morbid obesity)? @ -DM, HTN Was patient admitted / discharged? @ -Admitted. Lab work obtained revealing a minor CRP elevation and was otherwise found to be nonactionable. X-ray of the right foot obtained revealing concern for osteomyelitis in the right 4th toe with erosive and destructive change. There is also suspected osteomyelitis to toes 2-3 on the right foot. There does appear to be dark discoloration at the tips of those toes, however the patient states that this is chronic. Patient admitted to medicine for osteomyelitis. He was started on IV vancomycin with blood and wound cultures obtained prior. Consult placed for infectious disease and vascular surgery. Undiagnosed new problem with uncertain prognosis? @ -None Drug Therapy requiring intensive monitoring for toxicity (Heparin, Nitro, Insulin, Cardizem)? @ -None Were any procedures done? @ -None Diagnosis/symptom? @ -Osteomyelitis Acute, or Chronic, or Acute on Chronic? @ -Acute Uncomplicated (without systemic symptoms) or Complicated (systemic symptoms)? @ -Complicated Side effects of treatment? @ -None Exacerbation, Progression, or Severe Exacerbation] @ -Not applicable Poses a threat to life or bodily function? @ -Yes This case was discussed in detail with the attending ED physician, Dr. Shell. Presentation, findings, and treatment plan discussed in detail as well. - Lab Data Result diagrams: 08/25/22 12:39 08/25/22 12:39 Lab Results 08/25/22 08/25/22 08/25/22 Range/Units 12:39 12:39 12:39 WBC 6.8 (3.8-10.6) k/uL RBC 4.31 (4.30-5.90) m/uL Hgb 12.7 L (13.0-17.5) gm/dL Hct 37.8 L (39.0-53.0) % MCV 87.6 (80.0-100.0) fL MCH 29.6 (25.0-35.0) pg MCHC 33.7 (31.0-37.0) g/dL RDW 13.0 (11.5-15.5) % Plt Count 210 (150-450) k/uL MPV 8.2 Neutrophils % 66 % Lymphocytes % 22 % Monocytes % 8 % Eosinophils % 2 % Basophils % 0 % Neutrophils # 4.5 (1.3-7.7) k/uL Lymphocytes # 1.5 (1.0-4.8) k/uL Monocytes # 0.5 (0-1.0) k/uL Eosinophils # 0.1 (0-0.7) k/uL Basophils # 0.0 (0-0.2) k/uL Sodium 138 (137-145) mmol/L Potassium 4.3 (3.5-5.1) mmol/L Chloride 102 (98-107) mmol/L Carbon Dioxide 29 (22-30) mmol/L Anion Gap 7 mmol/L BUN 23 H (9-20) mg/dL Creatinine 1.13 (0.66-1.25) mg/dL Est GFR (CKD-EPI)AfAm 73 (>60 ml/min/1.73 sqM) Est GFR (CKD-EPI)NonAf 63 (>60 ml/min/1.73 sqM) Glucose 59 L (74-99) mg/dL Plasma Lactic Acid Carlos 0.7 (0.7-2.0) mmol/L Calcium 8.9 (8.4-10.2) mg/dL Total Bilirubin 1.1 (0.2-1.3) mg/dL AST 22 (17-59) U/L ALT 18 (4-49) U/L Alkaline Phosphatase 65 (38-126) U/L C-Reactive Protein 3.3 H (<1.0) mg/dL Total Protein 6.9 (6.3-8.2) g/dL Albumin 4.0 (3.5-5.0) g/dL - Radiology Data Radiology results: report reviewed, image reviewed Disposition Clinical Impression: Osteomyelitis of toe of right foot Disposition: ADMITTED IP TO THIS HOSP
[2022-08-25 13:24] LABS: Chloride 102 mmol/L (98-107); Glucose 59 mg/dL (74-99); Total Protein 6.9 g/dL (6.3-8.2)
[2022-08-25 13:29] LABS: ALT 18 U/L (4-49); AST 22 U/L (17-59); African American GFR (CKD) 73 (>60 ml/min/1.73 sqM); Alkaline Phosphatase 65 U/L (38-126); Anion Gap 7 mmol/L; Blood Urea Nitrogen 23 mg/dL (9-20); C Reactive Protein 3.3 mg/dL (<1.0); Calcium 8.9 mg/dL (8.4-10.2); Carbon Dioxide 29 mmol/L (22-30); Non-African American GFR(CKD) 63 (>60 ml/min/1.73 sqM); Potassium 4.3 mmol/L (3.5-5.1); Sodium 138 mmol/L (137-145); Total Bilirubin 1.1 mg/dL (0.2-1.3)
--- NOTE | 2022-08-25 13:34 | XR ---
EXAMINATION TYPE: XR foot complete RT DATE OF EXAM: 08/25/2022 COMPARISON: 01/03/2016 HISTORY: Infection of the foot TECHNIQUE: Three views are submitted. FINDINGS: There is a partial amputation of the fifth digit. There is destructive change involving the tuft dist al phalanx of the fourth digit. Erosive changes involving the tuft distal phalanx of the second and t hird digits. Severe arthropathy with complete loss of first MTP joint space and remodeling of the proximal phalanx and metatarsal head.. Postsurgical change involving the second digit stable. IMPRESSION: 1. Osteomyelitis of the distal phalanx fourth digit with erosive and destructive change. 2. Suspect osteomyelitis distal phalanx tuft second and third digits. 3. Postsurgical changes fifth digit.
[2022-08-25] MEDS ORDERED: VANCOMYCIN IV PER PHARMACY 1 EACH MISC MISCELLANE PRN (13:49)
[2022-08-25] MEDS ORDERED: VANCOMYCIN 1,500 MG in SODIUM CHLORIDE 0.9% 500 ML 500 ML IVPB STA (13:56)
[2022-08-25] MEDS ORDERED: ONDANSETRON 4 MG/2 ML VIAL IVP PRN (15:16)
[2022-08-25] MEDS ORDERED: NALOXONE 0.4 MG/ML 1 ML VIAL IV PRN (15:16)
[2022-08-25] MEDS ORDERED: ACETAMINOPHEN TAB 325 MG TAB PO PRN (15:16)
[2022-08-25] MEDS ORDERED: BACLOFEN 10 MG TAB PO PRN (15:44)
[2022-08-25] MEDS ORDERED: DEXTROSE 50% SYRINGE 50 ML IVP PRN (15:45)
[2022-08-25 16:08] LABS: Glucose,Whole Blood 115 mg/dL (70-110)
[2022-08-25] MEDS ORDERED: PIPERACILLIN-TAZOBACTAM 3.375 GM in SODIUM CHLORIDE 0.9% 100 ML IVPB SCH (16:15)
[2022-08-25] MEDS: INSULIN ASPART (NovoLOG) 100 UNIT/ML VIAL SQ SCH ×2 (18:12→20:32)
[2022-08-25] MEDS: DOCUSATE 100 MG CAP PO SCH (18:15)
[2022-08-25] MEDS: lisinopriL 10 MG TAB PO SCH (18:22)
[2022-08-25] MEDS: TAMSULOSIN 0.4 MG CAP.ER.24H PO SCH (18:23)
--- NOTE | 2022-08-25 19:11 | HP ---
HISTORY AND PHYSICAL CHIEF COMPLAINT: Infection of the right foot. HISTORY OF PRESENT ILLNESS: This is a 77-year-old gentleman with a past medical history of diabetes and hypertension, who was complaining of right foot infection, initially started as a blister, and subsequently, the patient applied some Neosporin with lack of improvement. The patient came to [facility], and an x-ray showed suspicion of osteomyelitis. The patient was admitted for further evaluation and treatment. The patient also had significant pain and also complained some erythema above the foot, which is starting to extent along the lower leg also. There is no history of any fever, rigor, or chills. PAST MEDICAL HISTORY: Reviewed including diabetes mellitus and hypertension. Rest of the history and rest of the chart are also reviewed. HOME MEDICATIONS: Reviewed include Janumet. Doses and rest of the medications are noted. ALLERGIES: Codeine. FAMILY HISTORY: History of cancer. SOCIAL HISTORY: Previous history of smoking. REVIEW OF SYSTEMS: Fourteen-point review is negative except as mentioned earlier. PHYSICAL EXAMINATION: VITAL SIGNS: Pulse is 59, blood pressure 138/60, respirations 16. HEENT: Conjunctivae are normal. NECK: No jugular venous distention. CARDIOVASCULAR: S1 and S2 muffled. RESPIRATORY: Breath sounds diminished at the bases. No rhonchi. No crackles. ABDOMEN: Soft and nontender. LEGS: Significant infection and pain of the right foot present. Cellulitis, foul- smelling also present. NERVOUS SYSTEM: No focal deficits. Some sensory changes present. JOINTS: No active deforming arthropathy. LABORATORY DATA: Reviewed. IMAGING STUDIES: X-ray reviewed personally. ASSESSMENT: 1. Diabetic foot infection on the right with failure of outpatient treatment and as well as possible osteomyelitis of the fourth digit. 2. Diabetes mellitus, type 2. 3. Hypertension. 4. History of shingles. 5. History of methicillin-resistant Staphylococcus aureus. 6. Multiple medical issues. RECOMMENDATIONS AND DISCUSSION: In this 77-year-old gentleman presented with multiple complex medical issues, we will monitor the patient closely. I would recommend to continue the current medications and symptomatic treatment. I would recommend a combination of vancomycin and Zosyn and Infectious Disease evaluation, obtain the cultures, symptomatic treatment. Bone scan to rule out the possibility of osteomyelitis. Vascular Surgery consultation. Prognosis is guarded because of multiple complex medical issues. Further recommendations to follow. See orders for details. MMODL / IJN: [id number] /
[2022-08-25] MEDS: ASPIRIN 81 MG PO SCH (20:33)
[2022-08-25] MEDS: HEPARIN SODIUM,PORCINE/PF 5,000 UNIT/0.5 ML SYRINGE SQ SCH (20:33)
--- NOTE | 2022-08-25 22:21 | P.CONS ---
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 Saenz patient noticed to having a blister around the right fourth toe with the patient has been treating however noticed to have significant swelling and redness and started having drainage patient did have a mild developing pain about 3 out of 10 especially when he walks on it no pain on rest and did have some drainage foul-smelling patient tells did have symptoms but denies high-grade fever with the symptoms the patient was in the hospital on arrival to the ER the patient was afebrile and no fever has been recorded subsequently patient did have normal white count kidney function has been normal liver enzymes are normal CRP was 3.3 patient did have a x-ray of the foot osteomyelitis of the distal phalanx fourth digit with erosive destructive changes and suspect osteomyelitis distal phalanx second and third digits local culture has been obtained patient was started on vancomycin and Zosyn has been added infectious disease was consulted for further management of antibiotic therapy 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), recent high BP-no Rx, bone infection left foot, History of Any Multi-Drug Resistant Organisms: MRSA Year Discovered:: 2016 MDRO Source:: foot Past Surgical History: Orthopedic Surgery, Tonsillectomy Additional Past Surgical History / Comment(s): HAMMER TOE SX LACEY FEET, LEFT FOOT SURGERY GREAT TOE AMPUTATION/THEN 2ND SX TO REARRANGE THE BONES IN LT FOOT, right foot little toe amputation, Tendon lengthening left foot, cyst removed from middle finger rt hand Past Anesthesia/Blood Transfusion Reactions: Family History of Problems w/ Anesthesia Additional Past Anesthesia/Blood Transfusion Reaction / Comm: father had confusion/loss of memory with anesthesia Past Psychological History: Depression Smoking Status: Former smoker Past Alcohol Use History: None Reported Past Drug Use History: None Reported - Past Family History Mother Additional Family Medical History / Comment(s): AGE 91 FROM BRAIN HEMORRAGE Father Family Medical History: Cancer Additional Family Medical History / Comment(s): LUNG CANCER Medications and Allergies Home Medications Medication Instructions Recorded Confirmed Type Aspirin 81 mg PO HS 12/27/15 08/25/22 History Docusate [Colace] 100 mg PO BID-W/MEALS 12/27/15 08/25/22 History Glucosam/Magen-Msm1/C/Jimi/Bosw 1 tab PO PC-BRKFST 12/27/15 08/25/22 History [Glucosamine-Chondroitin Tablet] Multivitamins, Thera [Multivitamin 1 tab PO PC-BRKFST 12/27/15 08/25/22 History (formulary)] Insulin Glargine,Hum.rec.anlog 32 units SQ AC-BRKFST 07/18/16 08/25/22 History [Toujeo Solostar] Baclofen [Lioresal] 10 mg PO BID PRN 10/06/16 08/25/22 History lisinopriL [Zestril] 10 mg PO PC-SUPPER 11/15/19 08/25/22 History Diclofenac Sodium Gel [Voltaren 3 gm TOPICAL PC-BRKFST 08/25/22 08/25/22 History Gel] Fish Oil/Dha/Epa [Fish Oil 1,200 1 cap PO PC-SUPPER 08/25/22 08/25/22 History mg Fish Oil] L.acidoph,Paracasei, B.lactis 1 cap PO AC-BRKFST 08/25/22 08/25/22 History [Probiotic] Tamsulosin [Flomax] 0.4 mg PO PC-SUPPER 08/25/22 08/25/22 History rOPINIRole HCL [Requip] 1 mg PO PC-SUPPER 08/25/22 08/25/22 History sitaGLIPtin PHOS/metFORMIN HCL 2 tab PO AC-BRKFST 08/25/22 08/25/22 History [Janumet 50-500 mg Tablet] Allergies Allergy/AdvReac Type Severity Reaction Status Date / Time codeine Allergy Hallucinati Verified 08/25/22 14:01 ons/paranoi d adhesive AdvReac Itching/bruna Verified 08/25/22 14:01 h Physical Exam Vitals: Vital Signs Temp Pulse Resp BP Pulse Ox 08/25/22 11:27 97.5 F L 59 L 16 138/62 97 Intake and Output 07/03/23 07/03/23 07/03/23 06:59 14:59 22:59 Other: Weight 92.986 kg Results CBC & Chem 7: 08/25/22 12:39 08/25/22 12:39 Labs: Abnormal Lab Results - Last 24 Hours (Table) 08/25/22 08/25/22 Range/Units 12:39 12:39 Hgb 12.7 L (13.0-17.5) gm/dL Hct 37.8 L (39.0-53.0) % BUN 23 H (9-20) mg/dL Glucose 59 L (74-99) mg/dL C-Reactive Protein 3.3 H (<1.0) mg/dL Assessment and Plan Plan: 1patient was hospitalized diabetic foot infection in this patient with an ulcer to the right fourth toe with a previous history of right fifth toe amputation with abnormality on the plain x-ray suggestive of bony destruction and possible osteomyelitis we will need to cover for the polymicrobial maricel usually associated with diabetic foot infection. 2patient to continue with the vancomycin however switch Zosyn to Unasyn to decrease risk of nephrotoxicity 3-check inflammatory markers 4-await vascular surgery valuation possible debridement versus amputation We will follow on clinical condition and cultures to further adjust medication if needed Thank you for this consultation we will follow the patient along with you Time with Patient: Greater than 30
[2022-08-25] MEDS: AMPICILLIN-SULBACTAM 3 GM in SODIUM CHLORIDE 0.9% 100 ML IVPB SCH (23:28)
[2022-08-26] MEDS ORDERED: VANCOMYCIN 1,500 MG in SODIUM CHLORIDE 0.9% 500 ML 500 ML IVPB SCH (06:00)
[2022-08-26] MEDS: AMPICILLIN-SULBACTAM 3 GM in SODIUM CHLORIDE 0.9% 100 ML IVPB SCH ×4 (06:11→23:10)
[2022-08-26] MEDS: INSULIN DETEMIR (LEVEMIR) 100 UNIT/ML SYR SQ SCH (06:56)
[2022-08-26 08:30] LABS: Glucose,Whole Blood 88 mg/dL (70-110)
--- NOTE | 2022-08-26 09:51 | P.GSCN ---
History of Present Illness History of present illness: 77-year-old gentleman well known to me from the past patient has history of diabetes hypertension patient had a an position the left big toe in the past by me patient has been admitted with history of 4 blister formation and right foot fifth toe open wound. Drainage and the there is some distended changes noted due to osteo-mellitus. Eschen is an IV antibiotic under care of infectious d sp. Medical history history of diabetes hypertension controlled with medication Neck examination neck is supple and graft chest examination chest is clear good and both lungs first second sound present Abdomen soft nontender Vascular femorals are 1+ bilateral PTDP not palpable there by present by Doppler Right foot fifth toe has a open wound with distal distraction for changes bone is exposed with the and drainage of pus and is amputation of the right fifth toe. The patient nothing by mouth and consent wound right foot fifth toe amputation 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), recent high BP-no Rx, bone infection left foot, History of Any Multi-Drug Resistant Organisms: MRSA Year Discovered:: 2016 MDRO Source:: foot Past Surgical History: Orthopedic Surgery, Tonsillectomy Additional Past Surgical History / Comment(s): HAMMER TOE SX LACEY FEET, LEFT FOOT SURGERY GREAT TOE AMPUTATION/THEN 2ND SX TO REARRANGE THE BONES IN LT FOOT, right foot little toe amputation, Tendon lengthening left foot, cyst removed from middle finger rt hand Past Anesthesia/Blood Transfusion Reactions: Family History of Problems w/ Anes thesia Additional Past Anesthesia/Blood Transfusion Reaction / Comm: father had confusion/loss of memory with anesthesia Past Psychological History: Depression Smoking Status: Former smoker Past Alcohol Use History: None Reported Past Drug Use History: None Reported - Past Family History Mother Additional Family Medical History / Comment(s): AGE 91 FROM BRAIN HEMORRAGE Father Family Medical History: Cancer Additional Family Medical History / Comment(s): LUNG CANCER Medications and Allergies Home Medications Medication Instructions Recorded Confirmed Type Aspirin 81 mg PO HS 12/27/15 08/25/22 History Docusate [Colace] 100 mg PO BID-W/MEALS 12/27/15 08/25/22 History Glucosam/Magen-Msm1/C/Jimi/Bosw 1 tab PO PC-BRKFST 12/27/15 08/25/22 History [Glucosamine-Chondroitin Tablet] Multivitamins, Thera [Multivitamin 1 tab PO PC-BRKFST 12/27/15 08/25/22 History (formulary)] Insulin Glargine,Hum.rec.anlog 32 units SQ AC-BRKFST 07/18/16 08/25/22 History [Toujeo Solostar] Baclofen [Lioresal] 10 mg PO BID PRN 10/06/16 08/25/22 History lisinopriL [Zestril] 10 mg PO PC-SUPPER 11/15/19 08/25/22 History Diclofenac Sodium Gel [Voltaren 3 gm TOPICAL PC-BRKFST 08/25/22 08/25/22 History Gel] Fish Oil/Dha/Epa [Fish Oil 1,200 1 cap PO PC-SUPPER 08/25/22 08/25/22 History mg Fish Oil] L.acidoph,Paracasei, B.lactis 1 cap PO AC-BRKFST 08/25/22 08/25/22 History [Probiotic] Tamsulosin [Flomax] 0.4 mg PO PC-SUPPER 08/25/22 08/25/22 History rOPINIRole HCL [Requip] 1 mg PO PC-SUPPER 08/25/22 08/25/22 History sitaGLIPtin PHOS/metFORMIN HCL 2 tab PO AC-BRKFST 08/25/22 08/25/22 History [Janumet 50-500 mg Tablet] Allergies Allergy/AdvReac Type Severity Reaction Status Date / Time codeine Allergy Hallucinati Verified 08/25/22 14:01 ons/paranoi d adhesive AdvReac Itching/bruna Verified 08/25/22 14:01 h Surgical - Exam Vital Signs Temp Pulse Resp BP Pulse Ox 97.5 F L 59 L 16 138/62 97 08/25/22 11:27 08/25/22 11:27 08/25/22 11:27 08/25/22 11:27 08/25/22 11:27 Results - Labs 08/25/22 12:39 08/25/22 12:39 Abnormal Lab Results - Last 24 Hours (Table) 08/25/22 08/25/22 08/25/22 Range/Units 12:39 12:39 16:05 Hgb 12.7 L (13.0-17.5) gm/dL Hct 37.8 L (39.0-53.0) % BUN 23 H (9-20) mg/dL Glucose 59 L (74-99) mg/dL POC Glucose (mg/dL) 115 H (70-110) mg/dL C-Reactive Protein 3.3 H (<1.0) mg/dL Microbiology - Last 24 Hours (Table) 08/25/22 14:09 Gram Stain - Preliminary Toe - Right Fifth Diabetes panel 08/25/22 Range/Units 12:39 Sodium 138 (137-145) mmol/L Potassium 4.3 (3.5-5.1) mmol/L Chloride 102 (98-107) mmol/L Carbon Dioxide 29 (22-30) mmol/L BUN 23 H (9-20) mg/dL Creatinine 1.13 (0.66-1.25) mg/dL Glucose 59 L (74-99) mg/dL Calcium 8.9 (8.4-10.2) mg/dL AST 22 (17-59) U/L ALT 18 (4-49) U/L Alkaline Phosphatase 65 (38-126) U/L Total Protein 6.9 (6.3-8.2) g/dL Albumin 4.0 (3.5-5.0) g/dL Calcium panel 08/25/22 Range/Units 12:39 Calcium 8.9 (8.4-10.2) mg/dL Albumin 4.0 (3.5-5.0) g/dL Pituitary panel 08/25/22 Range/Units 12:39 Sodium 138 (137-145) mmol/L Potassium 4.3 (3.5-5.1) mmol/L Chloride 102 (98-107) mmol/L Carbon Dioxide 29 (22-30) mmol/L BUN 23 H (9-20) mg/dL Creatinine 1.13 (0.66-1.25) mg/dL Glucose 59 L (74-99) mg/dL Calcium 8.9 (8.4-10.2) mg/dL Adrenal panel 08/25/22 Range/Units 12:39 Sodium 138 (137-145) mmol/L Potassium 4.3 (3.5-5.1) mmol/L Chloride 102 (98-107) mmol/L Carbon Dioxide 29 (22-30) mmol/L BUN 23 H (9-20) mg/dL Creatinine 1.13 (0.66-1.25) mg/dL Glucose 59 L (74-99) mg/dL Calcium 8.9 (8.4-10.2) mg/dL Total Bilirubin 1.1 (0.2-1.3) mg/dL AST 22 (17-59) U/L ALT 18 (4-49) U/L Alkaline Phosphatase 65 (38-126) U/L Total Protein 6.9 (6.3-8.2) g/dL Albumin 4.0 (3.5-5.0) g/dL
[2022-08-26] MEDS: DOCUSATE 100 MG CAP PO SCH ×2 (10:00→17:41)
[2022-08-26] MEDS: MULTIVITAMINS, THERA 1 EACH TAB PO SCH (10:01)
[2022-08-26] MEDS: INSULIN ASPART (NovoLOG) 100 UNIT/ML VIAL SQ SCH ×4 (10:01→22:26)
[2022-08-26] MEDS: metFORMIN 500 MG TAB PO SCH (10:02)
[2022-08-26] MEDS: HEPARIN SODIUM,PORCINE/PF 5,000 UNIT/0.5 ML SYRINGE SQ SCH ×2 (10:02→22:25)
[2022-08-26] MEDS: LACTOBACILLUS ACIDOPHILUS/PECT 1 EACH CAPSULE PO SCH (10:02)
[2022-08-26] MEDS: LINAGLIPTIN 5 MG TABLET PO SCH (10:02)
[2022-08-26 11:34] LABS: African American GFR (CKD) >90 (>60 ml/min/1.73 sqM); Anion Gap 9 mmol/L; Blood Urea Nitrogen 16 mg/dL (9-20); C Reactive Protein 3.9 mg/dL (<1.0); Calcium 8.9 mg/dL (8.4-10.2); Carbon Dioxide 25 mmol/L (22-30); Chloride 103 mmol/L (98-107); Glucose 234 mg/dL (74-99); Non-African American GFR(CKD) 81 (>60 ml/min/1.73 sqM); Potassium 4.5 mmol/L (3.5-5.1); Sodium 137 mmol/L (137-145)
[2022-08-26 12:05] LABS: Glucose,Whole Blood 171 mg/dL (70-110)
--- NOTE | 2022-08-26 12:51 | PN ---
PROGRESS NOTE DATE OF SERVICE: 08/26/2022 SUBJECTIVE: This is a 77-year-old gentleman who was admitted with diabetic foot infection, also had osteomyelitis of 4th digit. Dr. Quiñones is planning a surgery today. No chest pain, no palpitations, no fever. PHYSICAL EXAMINATION: VITAL SIGNS: Pulse is 73, blood pressure 135/60, respirations 16. CHEST: Few scattered rhonchi. ABDOMEN: Soft. NERVOUS SYSTEM: Nonfocal. LABORATORY DATA: Reviewed. ASSESSMENT: 1. Acute right diabetic foot infection with failure of outpatient treatment as well as possible osteomyelitis of the 4th digit. 2. Hypertension. 3. History of shingles. 4. History of MRSA. 5. Multiple medical issues. RECOMMENDATIONS: Recommended to continue current management and continue symptomatic treatment. Continue with antibiotics. Follow closely with Infectious Disease and also Dr. Quiñones. Guarded prognosis. Further recommendations to follow. MMODL / IJN: [id number] /
[2022-08-26 14:05] LABS: Glucose,Whole Blood 64 mg/dL (70-110)
[2022-08-26] MEDS: DEXTROSE 50% SYRINGE 50 ML IVP PRN ×2 (14:05→16:15)
[2022-08-26 14:38] LABS: Glucose,Whole Blood 79 mg/dL (70-110)
[2022-08-26] MEDS ORDERED: PROPOFOL 10 MG/ML 20 ML VIAL IV ONE (15:00)
[2022-08-26] MEDS ORDERED: DEXTROSE 50% SYRINGE 50 ML IVP ONE (15:00)
[2022-08-26] MEDS ORDERED: MIDAZOLAM 2 MG/2 ML VIAL ONE (15:00)
[2022-08-26] MEDS ORDERED: KETAMINE 10 MG/ML 20 ML VIAL ONE (15:00)
[2022-08-26] MEDS ORDERED: fentaNYL (PF) 50 MCG/ML 2 ML AMP ONE (15:00)
[2022-08-26] MEDS ORDERED: IV FLUID CONTINUATION 1,000 ML IV ONE ×2 (15:02→16:18)
[2022-08-26] MEDS ORDERED: LIDOCAINE 1% INJ 10MG/ML (20 ML MDV) SQ ONE (15:10)
--- NOTE | 2022-08-26 15:33 | P.PN ---
Subjective Progress Note Date: 08/26/22 Principal diagnosis: Right diabetic foot infection Patient is a 77-year-old male with a past medical history significant for diabetes mellitus patient did have a previous history of right fifth toe diabetic foot infection status post amputation patient did have a deformity to the right fourth toe and is being managed in the outpatient setting by his personal care service provider, presented to hospital with increasing swelling and drainage to the right fourth toe patient did have abnormal x-ray suggestive of osteomyelitis. on today's evaluation that is 08/26/2022, the patient denies having any fever or any chills patient is breathing comfortably no chest pain shortness of breath or cough no nausea no vomiting no abdominal pain or any worsening pain to the right fourth toe Objective - Vital Signs Vital signs: Vital Signs Temp 98.1 F 08/26/22 11:20 Pulse 51 L 08/26/22 11:20 Resp 16 08/26/22 11:20 BP 119/71 08/26/22 11:20 Pulse Ox 100 08/26/22 11:20 FiO2 Intake & Output 08/25/22 08/26/22 08/26/22 18:59 06:59 18:59 Intake Total 222 Balance 222 Weight 92.986 kg Intake: Oral 222 Other: # Voids 0 # Bowel Movements 0 - Exam GENERAL DESCRIPTION: An elderly male lying in bed in no distress RESPIRATORY SYSTEM: Unlabored breathing , decreased breath sounds at bases HEART: S1 S2 regular rate and rhythm , ABDOMEN: Soft , no tenderness EXTREMITIES: Right foot is currently dressed no drainage on the dressing - Labs CBC & Chem 7: 08/25/22 12:39 08/26/22 10:32 Labs: Abnormal Lab Results - Last 24 Hours (Table) 08/25/22 08/26/22 08/26/22 Range/Units 16:05 10:32 12:00 Glucose 234 H (74-99) mg/dL POC Glucose (mg/dL) 115 H 171 H (70-110) mg/dL C-Reactive Protein 3.9 H (<1.0) mg/dL 08/26/22 Range/Units 14:02 Glucose (74-99) mg/dL POC Glucose (mg/dL) 64 L (70-110) mg/dL C-Reactive Protein (<1.0) mg/dL Microbiology - Last 24 Hours (Table) 08/25/22 14:09 Gram Stain - Preliminary Toe - Right Fifth Assessment and Plan (1) Osteomyelitis of toe of right foot Current Visit: Yes Status: Acute Code(s): M86.9 - OSTEOMYELITIS, UNSPECIFIED SNOMED Code(s): 291674558 (2) Diabetic ulcer of toe Current Visit: No Status: Acute Code(s): E11.621 - TYPE 2 DIABETES MELLITUS WITH FOOT ULCER; L97.509 - NON-PRESSURE CHRONIC ULCER OTH PRT UNSP FOOT W UNSP SEVERITY SNOMED Code(s): 270567028 Plan: 1patient was hospitalized diabetic foot infection in this patient with an ulcer to the right fourth toe with a previous history of right fifth toe amputation with abnormality on the plain x-ray suggestive of bony destruction and possible osteomyelitis we will need to cover for the polymicrobial maricel usually associated with diabetic foot infection. 2patient has been evaluated by vascular surgery and possible amputation of the right fourth and this afternoon 3-patient to continue with the vancomycin and Unasyn Time with Patient: Less than 30
[2022-08-26 16:18] LABS: Glucose,Whole Blood 52 mg/dL (70-110)
[2022-08-26 17:34] LABS: Glucose,Whole Blood 114 mg/dL (70-110)
[2022-08-26] MEDS: lisinopriL 10 MG TAB PO SCH (17:47)
[2022-08-26] MEDS: TAMSULOSIN 0.4 MG CAP.ER.24H PO SCH (17:47)
[2022-08-26] MEDS: VANCOMYCIN 1,500 MG in SODIUM CHLORIDE 0.9% 500 ML 500 ML IVPB SCH (18:35)
[2022-08-26 20:33] LABS: Glucose,Whole Blood 116 mg/dL (70-110)
--- NOTE | 2022-08-26 22:03 | OP ---
OPERATIVE REPORT DATE OF SERVICE : PREOPERATIVE DIAGNOSIS: Infected and wet gangrene of the right foot fifth toe. POSTOPERATIVE DIAGNOSIS: Infected and wet gangrene of the right foot fifth toe. ANESTHESIA: Local and IV sedation. PROCEDURE PERFORMED: Amputation of the right foot fifth toe at metatarsophalangeal joint. DESCRIPTION OF PROCEDURE: This patient has a history of an infected open wound on the right foot fifth toe with drainage of pus and with exposed bone. An elliptical incision was made on the dorsal aspect of the foot, deepened through skin, fat, and fascia. The incision was extended down to the plantar aspect. Tendons were divided on the plantar and dorsal aspects of the foot. There was some bleeding point, which was electrocoagulated. The fifth toe was sent for deep culture. The wound was irrigated with hydrogen peroxide and saline. The incision was closed in 2 layers using 3-0 Vicryl with an interrupted suture and 3-0 nylon with an interrupted suture. Dressing was applied. The patient was transferred to recovery room in satisfactory condition. BLOOD LOSS: Less than 10 mL. MMODL / IJN: [id number] /
[2022-08-26] MEDS: ASPIRIN 81 MG PO SCH (22:25)
[2022-08-27] MEDS: AMPICILLIN-SULBACTAM 3 GM in SODIUM CHLORIDE 0.9% 100 ML IVPB SCH ×3 (06:26→17:57)
[2022-08-27] MEDS: VANCOMYCIN 1,500 MG in SODIUM CHLORIDE 0.9% 500 ML 500 ML IVPB SCH ×2 (06:59→18:47)
[2022-08-27 07:27] LABS: Glucose,Whole Blood 192 mg/dL (70-110)
[2022-08-27 07:45] LABS: African American GFR (CKD) 89 (>60 ml/min/1.73 sqM); Non-African American GFR(CKD) 77 (>60 ml/min/1.73 sqM)
[2022-08-27] MEDS: INSULIN DETEMIR (LEVEMIR) 100 UNIT/ML SYR SQ SCH (09:11)
[2022-08-27] MEDS: LINAGLIPTIN 5 MG TABLET PO SCH (09:17)
[2022-08-27] MEDS: DOCUSATE 100 MG CAP PO SCH ×2 (09:17→17:57)
[2022-08-27] MEDS: metFORMIN 500 MG TAB PO SCH (09:17)
[2022-08-27] MEDS: INSULIN ASPART (NovoLOG) 100 UNIT/ML VIAL SQ SCH ×4 (09:17→20:44)
[2022-08-27] MEDS: LACTOBACILLUS ACIDOPHILUS/PECT 1 EACH CAPSULE PO SCH (09:17)
[2022-08-27] MEDS: HEPARIN SODIUM,PORCINE/PF 5,000 UNIT/0.5 ML SYRINGE SQ SCH ×2 (09:18→20:44)
[2022-08-27] MEDS: MULTIVITAMINS, THERA 1 EACH TAB PO SCH (09:18)
[2022-08-27] MEDS: KETOROLAC 15 MG/ML 1 ML VIAL IVP PRN ×2 (09:26→16:26)
[2022-08-27 12:09] LABS: Glucose,Whole Blood 83 mg/dL (70-110)
[2022-08-27 13:38] VITALS: BMI 23.6
--- NOTE | 2022-08-27 15:00 | NM ---
EXAMINATION TYPE: NM bone 3 phase DATE OF EXAM: 08/27/2022 COMPARISON: X-ray 08/25/2022 CLINICAL INDICATION: Male, 77 years old with history of osteo rt foot; Triple phase bone scintigraphy was performed following the injection of 23.2 mCi Tc 99m MDP. Immedia te images and 5.5 hours post injection images acquired. FINDINGS: There is increased perfusion to the right foot. There is increased soft tissue uptake in the right foot. There is abnormal uptake involving the first MTP which is likely post arthritic. There is faint abnor mal uptake involving the distal phalanx second, third and fourth digits compatible with osteomyelitis . There is bilateral tarsal metatarsal uptake likely post arthritic. IMPRESSION: Cellulitis with findings compatible with osteomyelitis of the distal phalanx second, third and fourth digits.
--- NOTE | 2022-08-27 16:15 | P.PN ---
Progress Note - Text 77-year-old white male, patient had a left big toe amputation done yesterday toe sent for deep culture. Show up and Gram-Positive Bacilli Patient IV Antibiotic under Care Of Infectious Disease. Patient Has History of Diabetes Controlled with Medication. We've Changed the Dressing Today Incision Site Is Clean and His Stitches Are Intact Continue with IV Antibiotic and Nonweightbearing We'll Change Her Dressing on Thursday
[2022-08-27 17:06] LABS: Glucose,Whole Blood 141 mg/dL (70-110)
[2022-08-27] MEDS: lisinopriL 10 MG TAB PO SCH (17:57)
[2022-08-27] MEDS: TAMSULOSIN 0.4 MG CAP.ER.24H PO SCH (17:57)
[2022-08-27 20:19] LABS: Glucose,Whole Blood 166 mg/dL (70-110)
[2022-08-27] MEDS: ASPIRIN 81 MG PO SCH (20:45)
--- NOTE | 2022-08-27 21:39 | PN ---
PROGRESS NOTE DATE OF SERVICE: 08/27/2022 SUBJECTIVE: This is a 77-year-old gentleman who was admitted with acute right diabetic foot infection, had amputation of the right fifth toe at metatarsophalangeal joint by Dr. Quiñones. No chest pain. No palpitation. OBJECTIVE: VITAL SIGNS: Pulse is 52, blood pressure 159/73, respirations 18. CHEST: Clear to auscultation. CARDIOVASCULAR: S1, S2. ABDOMEN: Soft. MUSCULOSKELETAL: Foot, status post surgery. LABORATORY DATA: Labs are reviewed. ASSESSMENT: 1. Acute right diabetic foot infection with failure of outpatient treatment as well as possible osteomyelitis of fourth digit, status post amputation. 2. Osteomyelitis of the fifth toe, status post amputation. 3. Hypertension. 4. History of shingles. 5. History of MRSA. 6. Multiple medical issues. RECOMMENDATIONS: Recommend to continue current management. Continue symptomatic treatment. Otherwise, continue with antibiotics. Full bone scan report is awaited. Guarded prognosis. Further recommendations to follow. MMODL / IJN: [id number] /
--- NOTE | 2022-08-27 23:18 | P.PN ---
Subjective Progress Note Date: 08/27/22 Principal diagnosis: Right diabetic foot infection Patient is a 77-year-old male with a past medical history significant for diabetes mellitus patient did have a previous history of right fifth toe diabetic foot infection status post amputation patient did have a deformity to the right fourth toe and is being managed in the outpatient setting by his operating system designer, presented to hospital with increasing swelling and drainage to the right fourth toe patient did have abnormal x-ray suggestive of osteomyelitis.Patient is status post amputation of the right fourth toe by v ascular surgery on 08/26/2022. On today's evaluation that is 08/27/2022, the patient denies having any fever or any chills patient is breathing comfortably no chest pain shortness of the cough no nausea vomiting abdominal pain pain to right foot to amputation site is currently controlled Objective - Vital Signs Vital signs: Vital Signs Temp 98.0 F 08/27/22 11:40 Pulse 52 L 08/27/22 11:40 Resp 18 08/27/22 11:40 BP 159/73 08/27/22 11:40 Pulse Ox 99 08/27/22 11:40 FiO2 Intake & Output 08/26/22 08/27/22 08/27/22 18:59 06:59 18:59 Intake Total 900 Output Total 3 Balance 897 Intake: IV 300 Intake, IV Titration 600 Amount Ampicillin-Sulbactam 3 gm 100 In Sodium Chloride 0.9% 100 ml @ 200 mls/hr IVPB Q6HR IRA[facility] Rx#:[id number] Vancomycin 1,500 mg In 500 Sodium Chloride 0.9% 500 ml 500 ml @ 167 mls/hr IVPB Q12H [facility] Rx#: [id number] Output: Estimated Blood Loss 3 Other: # Voids 2 # Bowel Movements 1 - Exam GENERAL DESCRIPTION: An elderly male lying in bed in no distress RESPIRATORY SYSTEM: Unlabored breathing , decreased breath sounds at bases HEART: S1 S2 regular rate and rhythm , ABDOMEN: Soft , no tenderness EXTREMITIES: Right foot is currently dressed no drainage on the dressing - Labs CBC & Chem 7: 08/25/22 12:39 08/27/22 07:01 Labs: Abnormal Lab Results - Last 24 Hours (Table) 08/26/22 08/26/22 08/26/22 Range/Units 10:32 14:02 16:10 POC Glucose (mg/dL) 64 L 52 L (70-110) mg/dL Hemoglobin A1c 6.3 H (<=6.0) % 08/26/22 08/26/22 08/27/22 Range/Units 17:30 20:30 07:19 POC Glucose (mg/dL) 114 H 116 H 192 H (70-110) mg/dL Hemoglobin A1c (<=6.0) % Microbiology - Last 24 Hours (Table) 08/25/22 14:00 Blood Culture - Preliminary Blood 08/25/22 14:15 Blood Culture - Preliminary Blood 08/25/22 14:09 Gram Stain - Preliminary Toe - Right Fifth Wound Culture - Preliminary Gram Neg Bacilli Assessment and Plan (1) Osteomyelitis of toe of right foot Current Visit: Yes Status: Acute Code(s): M86.9 - OSTEOMYELITIS, UNSPECIFIED SNOMED Code(s): 268550772 (2) Diabetic ulcer of toe Current Visit: No Status: Acute Code(s): E11.621 - TYPE 2 DIABETES MELLITUS WITH FOOT ULCER; L97.509 - NON-PRESSURE CHRONIC ULCER OTH PRT UNSP FOOT W UNSP SEVERITY SNOMED Code(s): 153205842 Plan: 1patient was hospitalized diabetic foot infection in this patient with an ulcer to the right fourth toe with a previous history of right fifth toe amputation with abnormality on the plain x-ray suggestive of bony destruction and possible osteomyelitis we will need to cover for the polymicrobial maricel usually associated with diabetic foot infection. 2patient has been evaluated by vascular surgery and s/p amputation of the right fourth toe 3-Local cultures currently growing Morganella we will discontinue vancomycin and Unasyn start patient on Zosyn and monitor clinical course closely Time with Patient: Less than 30
[2022-08-28] MEDS: KETOROLAC 15 MG/ML 1 ML VIAL IVP PRN (00:26)
[2022-08-28] MEDS: PIPERACILLIN-TAZOBACTAM 3.375 GM in SODIUM CHLORIDE 0.9% 100 ML IVPB SCH ×4 (00:27→23:27)
[2022-08-28] MEDS ORDERED: VANCOMYCIN TROUGH DUE 1 EACH MISC MISCELLANE ONE (05:00)
[2022-08-28 06:13] LABS: African American GFR (CKD) 75 (>60 ml/min/1.73 sqM); Non-African American GFR(CKD) 65 (>60 ml/min/1.73 sqM)
[2022-08-28 07:43] LABS: Glucose,Whole Blood 178 mg/dL (70-110)
[2022-08-28] MEDS: INSULIN ASPART (NovoLOG) 100 UNIT/ML VIAL SQ SCH ×4 (08:43→22:04)
[2022-08-28] MEDS: INSULIN DETEMIR (LEVEMIR) 100 UNIT/ML SYR SQ SCH (08:47)
[2022-08-28] MEDS: DOCUSATE 100 MG CAP PO SCH ×2 (09:38→17:49)
[2022-08-28] MEDS: MULTIVITAMINS, THERA 1 EACH TAB PO SCH (09:38)
[2022-08-28] MEDS: LACTOBACILLUS ACIDOPHILUS/PECT 1 EACH CAPSULE PO SCH (09:38)
[2022-08-28] MEDS: metFORMIN 500 MG TAB PO SCH (09:38)
[2022-08-28] MEDS: LINAGLIPTIN 5 MG TABLET PO SCH (09:38)
[2022-08-28] MEDS: HEPARIN SODIUM,PORCINE/PF 5,000 UNIT/0.5 ML SYRINGE SQ SCH ×2 (09:38→20:24)
[2022-08-28 11:53] LABS: Glucose,Whole Blood 193 mg/dL (70-110)
[2022-08-28 13:11] LABS: Basophils % (A) 0 %; Eosinophils # (A) 0.3 k/uL (0-0.7); Eosinophils % (A) 5 %; HCT 35.4 % (39.0-53.0); HGB 11.5 gm/dL (13.0-17.5); Lymphocytes # (A) 1.1 k/uL (1.0-4.8); Lymphocytes % (A) 22 %; MCH 29.4 pg (25.0-35.0); MCHC 32.6 g/dL (31.0-37.0); MCV 90.3 fL (80.0-100.0); Mean Platelet Volume 8.9; Monocytes # (A) 0.5 k/uL (0-1.0); Monocytes % (A) 9 %; Neutrophils # (A) 3.2 k/uL (1.3-7.7); Neutrophils % (A) 63 %; Platelet Count 193 k/uL (150-450); RBC 3.92 m/uL (4.30-5.90); RDW 12.6 % (11.5-15.5); WBC 5.1 k/uL (3.8-10.6)
[2022-08-28 14:32] LABS: Erythrocyte Sedimentation Rate 11 mm/hr (0-15)
--- NOTE | 2022-08-28 15:55 | P.PN ---
Progress Note - Text Patient is post fifth toe amputation for chronic wound and exposed bone culture came [place] patient is on Unasyn dressing has been changed today incision site looks going Kiteva goes home tomorrow I'll follow-up in my office on Thursday
[2022-08-28 17:14] LABS: Glucose,Whole Blood 96 mg/dL (70-110)
[2022-08-28] MEDS: TAMSULOSIN 0.4 MG CAP.ER.24H PO SCH (17:49)
[2022-08-28] MEDS: lisinopriL 10 MG TAB PO SCH (17:49)
[2022-08-28 19:56] LABS: Glucose,Whole Blood 109 mg/dL (70-110)
[2022-08-28] MEDS: ASPIRIN 81 MG PO SCH (20:24)
[2022-08-29 00:04] LABS: Glucose,Whole Blood 73 mg/dL (70-110)
--- NOTE | 2022-08-29 06:17 | P.PN ---
Subjective Progress Note Date: 08/28/22 This is a very pleasant 77-year-old male who came in with worsening right foot pain and infection with failure of outpatient treatment. Patient is a known diabetic insulin-dependent and has had previous amputations. Patient is status post fifth toe amputation with Dr. Quiñones and maintained on antibiotics. Culture showing Morganella Wyatt I and will discuss further with infectious disease about discharge planning. Will likely go home on oral antibiotics and continue local wound care. Recommend close outpatient follow-up and likely seem to control. Patient is currently afebrile with no reports of chest pain or shortness of breath. Patient is tolerating diet with no reported nausea or vomi ting noted. Review of systems: Constitutional: No reports of fatigue, fever, or chills Cardiovascular: No reports of chest pain or palpitations Respiratory: No reports of shortness of breath or cough GI: no reports of nausea, no reports of vomiting, No diarrhea : No reports of dysuria or retention Neurovascular: reports of generalized weakness,Reports no right foot pain today All medications have been reviewed PHYSICAL EXAMINATION: GENERAL: The patient is alert and oriented x4, Well developed, well nourished. HEENT: Pupils are round and equally reacting to light. EOMI. no scleral icterus. No conjunctival pallor. Normocephalic, atraumatic. No pharyngeal erythema. No thyromegaly. CARDIOVASCULAR: S1 and S2 muffled PULMONARY: diminished breath sounds bilaterally with no wheezing or rhonchi noted. ABDOMEN: soft. Nontender on exam. obese. non-distended, normoactive bowel so unds. No palpable organomegaly. MUSCULOSKELETAL: No joint swelling or deformity. EXTREMITIES: No cyanosis, clubbing, or pedal edema. Right foot currently dressed with surgical dressing and dry and intact NEUROLOGICAL: Gross neurological examination did not reveal any focal deficits. Diffuse weakness SKIN: No rashes. Assessment: Acute right diabetic foot infection with failure of outpatient treatment as well as osteomyelitis of the fourth digit, status post amputation Osteomyelitis of the fifth digit, status post amputation on 08/27/2022 Hypertension history History of shingles History of MRSA previously Diabetes mellitus, type II, insulin-dependent GI prophylaxis DVT prophylaxis Full code Plan: Recommend to continue with current medications and management with vascular surgery and infectious disease following Patient is maintained on IV antibiotics in the form of Zosyn which has been transitioned an initial culture showing Morganella morganii and will likely discharge on oral antibiotics per ID recommendations Patient is status post amputation of the fifth toe on the right with Dr. Quiñones vascular surgery recommending monitoring another 24 hours with dressing changes and close outpatient follow-up on Thursday in the clinic. Recommend continue with Accu-Cheks before meals and at bedtime and close monitoring blood sugars and will continue with current regimen Recommend follow-up labs in the a.m. Possible discharge next 24-48 hours The impression and plan of care has been dictated by Yesenia Ward, nurse practitioner as directed. Dr. Toño JAVED I have performed a history and examination and MDM of this patient, discussed the same with the dictator, and agree with the dictator's assessment and plan as written ,documented as a scribe. Based on total visit time, I have performed more than 50% of the visit. Any additional findings or plans will be noted. Objective - Vital Signs Vital signs: Vital Signs Temp 97.7 F 08/28/22 07:30 Pulse 72 08/28/22 07:30 Resp 16 08/28/22 07:30 BP 137/67 08/28/22 07:30 Pulse Ox 96 08/28/22 07:25 FiO2 Intake & Output 08/27/22 08/28/22 08/28/22 18:59 06:59 18:59 Intake Total 700 Output Total 950 Balance 700 -950 Weight 92.986 kg Intake: Intake, IV Titration 700 Amount Ampicillin-Sulbactam 3 gm 200 In Sodium Chloride 0.9% 100 ml @ 200 mls/hr IVPB Q6HR IRAIDA Rx#:[id number] Vancomycin 1,500 mg In 500 Sodium Chloride 0.9% 500 ml 500 ml @ 167 mls/hr IVPB Q12H IRAIDA Rx#: [id number] Output: Urine 950 - Labs CBC & Chem 7: 08/28/22 05:39 08/28/22 05:39 Labs: Abnormal Lab Results - Last 24 Hours (Table) 08/27/22 08/27/22 08/28/22 Range/Units 17:04 20:17 07:42 POC Glucose (mg/dL) 141 H 166 H 178 H (70-110) mg/dL Microbiology - Last 24 Hours (Table) 08/26/22 15:15 Gram Stain - Preliminary Toe - Left Fourth 08/25/22 14:00 Blood Culture - Preliminary Blood 08/25/22 14:15 Blood Culture - Preliminary Blood 08/25/22 14:09 Gram Stain - Final Toe - Right Fifth Wound Culture - Final Morganella morganii
[2022-08-29 07:11] LABS: Glucose,Whole Blood 126 mg/dL (70-110)
[2022-08-29 08:51] LABS: Basophils # (A) 0.04 X 10*3/uL (0.00-0.10); Basophils % (A) 0.7 %; Eosinophils # (A) 0.28 X 10*3/uL (0.04-0.35); Eosinophils % (A) 4.6 %; HCT 38.7 % (39.6-50.0); HGB 12.9 d/dL (12.0-15.0); Lymphocytes # (A) 1.76 X 10*3/uL (0.90-5.00); Lymphocytes % (A) 28.7 %; MCHC 33.3 d/dL (32.0-37.0); Mean Platelet Volume 10.1 FL (9.5-12.2); Monocytes # (A) 0.56 X 10*3/uL (0.20-1.00); Monocytes % (A) 9.1 %; NRBC Per 100 WBC 0 X 10*3/uL (0.00-0.01); Neutrophils # (A) 3.47 X 10*3/uL (1.80-7.70); Neutrophils % (A) 56.6 %; Platelet Count 255 X 10*3/uL (140-440); RBC 4.45 X 10*6/uL (4.40-5.60); RDW 12.3 % (11.5-14.5); WBC 6.13 X 10*3/uL (4.50-10.00)
[2022-08-29] MEDS: INSULIN DETEMIR (LEVEMIR) 100 UNIT/ML SYR SQ SCH (09:09)
[2022-08-29] MEDS: HEPARIN SODIUM,PORCINE/PF 5,000 UNIT/0.5 ML SYRINGE SQ SCH ×2 (09:10→09:21)
[2022-08-29] MEDS: LACTOBACILLUS ACIDOPHILUS/PECT 1 EACH CAPSULE PO SCH (09:11)
[2022-08-29] MEDS: MULTIVITAMINS, THERA 1 EACH TAB PO SCH (09:11)
[2022-08-29] MEDS: DOCUSATE 100 MG CAP PO SCH (09:11)
[2022-08-29] MEDS: LINAGLIPTIN 5 MG TABLET PO SCH (09:11)
[2022-08-29] MEDS: metFORMIN 500 MG TAB PO SCH (09:11)
[2022-08-29] MEDS: INSULIN ASPART (NovoLOG) 100 UNIT/ML VIAL SQ SCH ×2 (09:39→14:54)
[2022-08-29 09:53] LABS: BUN/Creat Ratio 14.08 Ratio (12.00-20.00); Blood Urea Nitrogen 16.9 mg/dL (9.0-27.0); Carbon Dioxide 24.8 mmol/L (21.6-31.8); Chloride 106 mmol/L (96-109); Glucose 131 mg/dL (70-110); Potassium 4.6 mmol/L (3.5-5.5); Sodium 140 mmol/L (135-145)
[2022-08-29] MEDS: PIPERACILLIN-TAZOBACTAM 3.375 GM in SODIUM CHLORIDE 0.9% 100 ML IVPB SCH (10:24)
[2022-08-29 11:47] LABS: Glucose,Whole Blood 188 mg/dL (70-110)
[2022-08-29 13:29] VITALS: BP 146/56; PULSE 63; RESP 17; TEMP 98
--- NOTE | 2022-09-01 14:00 | P.DS ---
Providers Date of admission: 08/25/22 14:49 Expected date of discharge: 08/29/22 Attending physician: Hill Eckert Consults: 08/25/22 15:16 Consult Physician Urgent Consulting Provider: Charles Quiñones Consult Reason/Comments: Osteomyelitis of right toe Do you want consulting provider notified?: Yes Consult Physician Urgent Consulting Provider: Mckayla Burleson Consult Reason/Comments: Osteomyelitis right toe Do you want consulting provider notified?: Yes Primary care physician: Clay Jones [facility] Course: Final diagnosis Acute right diabetic foot infection with failure of outpatient treatment as well as osteomyelitis of the fourth digit, status post amputation Osteomyelitis of the fifth digit, status post amputation on 08/27/2022 Hypertension history History of shingles History of MRSA previously Diabetes mellitus, type II, insulin-dependent GI prophylaxis DVT prophylaxis Full code Discharge disposition Patient is being discharged in a stable condition with guarded prognosis to home. Patient will follow-up with Dr. Jones in the outpatient setting upon discharge. Patient is to continue with oral antibiotics and close outpatient follow-up with Dr. Quiñones vascular surgery as well as infectious disease as scheduled. Total time taken is greater than 35 minutes. Hospital course This is a 77-year-old male who was recently admitted with right diabetic foot infection with failure of outpatient treatment with osteomyelitis status post amputation of that fifth digit with Drs. Quiñones vascular surgery. Cultures growing MRSA and will continue on oral antibiotics with close outpatient follow- up with infectious disease. Patient to follow-up with vascular surgery this week Thursday as scheduled. Patient has been cleared by consultations. Please refer to consultation notes for further HPI. Currently no reports of chest pain, shortness of breath, or palpitations. Patient is afebrile. No reports of nausea or vomiting and patient is tolerating diet. Patient will be discharged home today. Physical exam: Gen: This is a 77-year-old male who is awake, alert and oriented 3, well- developed, well-nourished HEENT: Head is atraumatic, normocephalic. Pupils equal, round. Sclerae is anicteric. NECK: Supple. No JVD. No lymphadenopathy. No thyromegaly. LUNGS: Clear to auscultation. No wheezes or rhonchi. No intercostal retractions. HEART: Regular rate and rhythm. No murmur. ABDOMEN: Soft. Bowel sounds are present. No masses. No tenderness. EXTREMITIES: No pedal edema. No calf tenderness. Surgical site on the right foot is dry and intact and dressing was exchanged today. NEUROLOGICAL: Patient is awake, alert and oriented x3. Cranial nerves 2 through 12 are grossly intact. Please refer to medication reconciliation sheet for a list of medications. The impression and plan of care has been dictated by Yesenia Ward, Nurse Practitioner as directed. Dr. Toño MD I have performed a history and examination and MDM of this patient, discussed the same with the dictator, and agree with the dictator's assessment and plan as written ,documented as a scribe. Based on total visit time, I have performed more than 50% of the visit. Patient Condition at Discharge: Stable Plan - Discharge Summary Discharge Rx Participant: No New Discharge Prescriptions: New Ciprofloxacin HCl [Cipro] 500 mg PO Q12HR 10 Days #20 tab metroNIDAZOLE [Flagyl] 500 mg PO TID #30 tab Continue Aspirin 81 mg PO HS Multivitamins, Thera [Multivitamin (formulary)] 1 tab PO PC-BRKFST Glucosam/Magen-Msm1/C/Jimi/Bosw [Glucosamine-Chondroitin Tablet] 1 tab PO PC- BRKFST Docusate [Colace] 100 mg PO BID-W/MEALS Insulin Glargine,Hum.rec.anlog [Toujeo Solostar] 32 units SQ AC-BRKFST Baclofen [Lioresal] 10 mg PO BID PRN PRN Reason: leg cramps lisinopriL [Zestril] 10 mg PO PC-SUPPER sitaGLIPtin PHOS/metFORMIN HCL [Janumet 50-500 mg Tablet] 2 tab PO AC-BRKFST L.acidoph,Paracasei, B.lactis [Probiotic] 1 cap PO AC-BRKFST Diclofenac Sodium Gel [Voltaren Gel] 3 gm TOPICAL PC-BRKFST Fish Oil/Dha/Epa [Fish Oil 1,200 mg Fish Oil] 1 cap PO PC-SUPPER rOPINIRole HCL [Requip] 1 mg PO PC-SUPPER Tamsulosin [Flomax] 0.4 mg PO PC-SUPPER Discharge Medication List Aspirin 81 mg PO HS 12/27/15 [History] Docusate [Colace] 100 mg PO BID-W/MEALS 12/27/15 [History] Glucosam/Magen-Msm1/C/Jimi/Bosw [Glucosamine-Chondroitin Tablet] 1 tab PO PC- BRKFST 12/27/15 [History] Multivitamins, Thera [Multivitamin (formulary)] 1 tab PO PC-BRKFST 12/27/15 [History] Insulin Glargine,Hum.rec.anlog [Toujeo Solostar] 32 units SQ AC-BRKFST 07/18/16 [History] Baclofen [Lioresal] 10 mg PO BID PRN 10/06/16 [History] lisinopriL [Zestril] 10 mg PO PC-SUPPER 11/15/19 [History] Diclofenac Sodium Gel [Voltaren Gel] 3 gm TOPICAL PC-BRKFST 08/25/22 [History] Fish Oil/Dha/Epa [Fish Oil 1,200 mg Fish Oil] 1 cap PO PC-SUPPER 08/25/22 [History] L.acidoph,Paracasei, B.lactis [Probiotic] 1 cap PO AC-BRKFST 08/25/22 [History] Tamsulosin [Flomax] 0.4 mg PO PC-SUPPER 08/25/22 [History] rOPINIRole HCL [Requip] 1 mg PO PC-SUPPER 08/25/22 [History] sitaGLIPtin PHOS/metFORMIN HCL [Janumet 50-500 mg Tablet] 2 tab PO AC-BRKFST 08/25/22 [History] Ciprofloxacin HCl [Cipro] 500 mg PO Q12HR 10 Days #20 tab 08/29/22 [Rx] metroNIDAZOLE [Flagyl] 500 mg PO TID #30 tab 08/29/22 [Rx] Follow up Appointment(s)/Referral(s): Clay Jones MD [Primary Care Provider] - 09/03/22 11:45 am (Appointment with Meagan Guerrero NP) Charles Quiñones MD [STAFF PHYSICIAN] - 09/01/22 11:00 am (Call to make an appointment) Mckayla Burleson MD [STAFF PHYSICIAN] - 1 Week (Please call to schedule a follow up appointment. [phone]) Activity/Diet/Wound Care/Special Instructions: Activity Limited until follow-up Follow-up with primary care provider on discharge Follow-up with infectious disease in 1-2 weeks Follow-up with Dr. Quiñones this week Continue with local wound care as instructed Continue with antibiotics until finished Discharge Disposition: HOME SELF-CARE
== END 2022-08-29 15:15 | disposition home or self-care (01) | DRG 617 ==
LOC: EC 10:46 → 5NMEDONC 14:49
PROVIDERS: ADMIT Hospitalist; ATTEND Hospitalist
PROC: 0Y6X0Z0 Detachment at Right 5th Toe, Complete, Open Approach (ICD-10-PCS; principal; 2022-08-26 16:00)
DX: E11.69 Type 2 diabetes mellitus with other specified complication (principal); E11.52 Type 2 diabetes mellitus with diabetic peripheral angiopathy with gangrene; M86.9 Osteomyelitis, unspecified; L03.115 Cellulitis of right lower limb; E11.621 Type 2 diabetes mellitus with foot ulcer; E11.628 Type 2 diabetes mellitus with other skin complications; I10 Essential (primary) hypertension; L97.519 Non-pressure chronic ulcer of other part of right foot with unspecified severity; Z79.4 Long term (current) use of insulin; Z79.82 Long term (current) use of aspirin; Z86.14 Personal history of Methicillin resistant Staphylococcus aureus infection; Z86.19 Personal history of other infectious and parasitic diseases; Z87.891 Personal history of nicotine dependence; Z89.412 Acquired absence of left great toe; Z89.421 Acquired absence of other right toe(s); Z71.3 Dietary counseling and surveillance; Z88.5 Allergy status to narcotic agent; Z79.84 Long term (current) use of oral hypoglycemic drugs; Z79.899 Other long term (current) drug therapy
CPT/HCPCS: 36415; 78315; 80048; 80053; 80202; 82565; 83036; 83605; 85025; 85652; 86140; 87040; 87070; 87075; 87077; 87186; 87205; 96365; 96366; 99285

== ENCOUNTER 2022-10-20 10:22 | Observation (INO) | payer MEDICARE ==
[2022-10-20] MEDS ORDERED: SODIUM CHLORIDE 0.9% 500 ML 500 ML IV STA (10:30)
[2022-10-20 10:44] LABS: Glucose,Whole Blood 237 mg/dL (70-110)
--- NOTE | 2022-10-20 10:44 | ED ---
General Adult HPI - General Chief complaint: Weakness Stated complaint: Altered Mental Status Time Seen by Provider: 10/20/22 10:23 Source: patient, EMS, RN notes reviewed, old records reviewed Mode of arrival: EMS Limitations: no limitations - History of Present Illness Initial comments: 77-year-old male presenting for evaluation of confusion and hyperglycemia. Patient is alert and oriented 4. He states that paramedics had been called because he was more confused than normal. He denies headache. Denies focal numbness or weakness. Denies chest pain or abdominal pain. No fever. No vomiting. Patient believes he is here because of elevated blood sugar as well. - Related Data Home Medications Medication Instructions Recorded Confirmed Aspirin 81 mg PO HS 12/27/15 08/25/22 Docusate [Colace] 100 mg PO BID-W/MEALS 12/27/15 08/25/22 Glucosam/Magen-Msm1/C/Jimi/Bosw 1 tab PO PC-BRKFST 12/27/15 08/25/22 [Glucosamine-Chondroitin Tablet] Multivitamins, Thera [Multivitamin 1 tab PO PC-BRKFST 12/27/15 08/25/22 (formulary)] Insulin Glargine,Hum.rec.anlog 32 units SQ AC-BRKFST 07/18/16 08/25/22 [Toujeo Solostar] Baclofen [Lioresal] 10 mg PO BID PRN 10/06/16 08/25/22 lisinopriL [Zestril] 10 mg PO PC-SUPPER 11/15/19 08/25/22 Diclofenac Sodium Gel [Voltaren 3 gm TOPICAL PC-BRKFST 08/25/22 08/25/22 Gel] Fish Oil/Dha/Epa [Fish Oil 1,200 1 cap PO PC-SUPPER 08/25/22 08/25/22 mg Fish Oil] L.acidoph,Paracasei, B.lactis 1 cap PO AC-BRKFST 08/25/22 08/25/22 [Probiotic] Tamsulosin [Flomax] 0.4 mg PO PC-SUPPER 08/25/22 08/25/22 rOPINIRole HCL [Requip] 1 mg PO PC-SUPPER 08/25/22 08/25/22 sitaGLIPtin PHOS/metFORMIN HCL 2 tab PO AC-BRKFST 08/25/22 08/25/22 [Janumet 50-500 mg Tablet] Previous Rx's Medication Instructions Recorded Ciprofloxacin HCl [Cipro] 500 mg PO Q12HR 10 Days #20 tab 08/29/22 metroNIDAZOLE [Flagyl] 500 mg PO TID #30 tab 08/29/22 Allergies Allergy/AdvReac Type Severity Reaction Status Date / Time codeine Allergy Hallucinati Verified 10/20/22 10:30 ons/paranoi d adhesive AdvReac Itching/bruna Verified 10/20/22 10:30 h Review of Systems ROS Statement: Those systems with pertinent positive or pertinent negative responses have been documented in the HPI. ROS Other: All systems not noted in ROS Statement are negative. 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), recent high BP-no Rx, bone infection left foot, History of Any Multi-Drug Resistant Organisms: MRSA Date of last positivie culture/infection: 2015 MDRO Source:: foot Past Surgical History: Orthopedic Surgery, Tonsillectomy Additional Past Surgical History / Comment(s): HAMMER TOE SX LACEY FEET, LEFT FOOT SURGERY GREAT TOE AMPUTATION/THEN 2ND SX TO REARRANGE THE BONES IN LT FOOT, right foot little toe amputation, Tendon lengthening left foot, cyst removed from middle finger rt hand Past Anesthesia/Blood Transfusion Reactions: Family History of Problems w/ Anesthesia Additional Past Anesthesia/Blood Transfusion Reaction / Comment(s): father had confusion/loss of memory with anesthesia Past Psychological History: Depression Smoking Status: Former smoker Past Alcohol Use History: None Reported Past Drug Use History: None Reported - Past Family History Mother Additional Family Medical History / Comment(s): AGE 91 FROM BRAIN HEMORRAGE Father Family Medical History: Cancer Additional Family Medical History / Comment(s): LUNG CANCER General Exam Limitations: no limitations General appearance: alert, in no apparent distress Head exam: Present: atraumatic, normocephalic Eye exam: Present: normal appearance, PERRL Neck exam: Present: normal inspection. Absent: tenderness, meningismus Respiratory exam: Present: normal lung sounds bilaterally. Absent: respiratory distress, wheezes Cardiovascular Exam: Present: regular rate, normal rhythm GI/Abdominal exam: Present: soft. Absent: distended, tenderness Extremities exam: Present: normal inspection, normal capillary refill. Absent: pedal edema Neurological exam: Present: alert, oriented X3, CN II-XII intact. Absent: motor sensory deficit Psychiatric exam: Present: normal affect, normal mood Skin exam: Present: warm, dry, intact. Absent: cyanosis, diaphoretic Course Vital Signs 10/20/22 10/20/22 10/20/22 10:27 11:05 11:51 Temperature 97.3 F L Pulse Rate 69 67 Respiratory 18 18 18 Rate Blood Pressure 125/58 127/59 O2 Sat by Pulse 99 96 Oximetry Medical Decision Making - Medical Decision Making Was pt. sent in by a medical professional or institution (, PA, FIBER DESIGN ENGINEER, urgent care, hospital, or assisted...) When possible be specific @ -No Did you speak to anyone other than the patient for history (EMS, parent, family, police, friend...)? What history was obtained from this source @ -No Did you review nursing and triage notes (agree or disagree)? Why? @ -I reviewed and agree with nursing and triage notes Were old charts reviewed (outside hosp., previous admission, EMS record, old EKG, old radiological studies, urgent care reports/EKG's, assisted records)? Report findings @ -No old charts were reviewed Differential Diagnosis (chest pain, altered mental status, abdominal pain women, abdominal pain men, vaginal bleeding, weakness, fever, dyspnea, syncope, headache, dizziness, GI bleed, back pain, seizure, CVA, palpatations, mental health, musculoskeletal)? @ -[ Differential altered mental status EKG interpreted by me (3pts min.). @Sinus bradycardia with first-degree AV block, rate 49, DC interval 224, QRS duration 169, QTC 451, no ST segment elevation, left anterior fascicular block, right bundle branch block X-rays interpreted by me (1pt min.). @ -[No acute cardio port findings CT interpreted by me (1pt min.). @ -No intracranial hemorrhage on head CT U/S interpreted by me (1pt. min.). @ -None done What testing was considered but not performed or refused? (CT, X-rays, U/S, labs)? Why? @ -None What meds were considered but not given or refused? Why? @ -None Did you discuss the management of the patient with other professionals (miquel pricefessjessica i.e. , PA, FIBER DESIGN ENGINEER, lab, RT, psych nurse, social service liaison, elevator constructor electric, teacher, bomb squad officer, manager case management)? Give summary @ -[Dr. Jacobson Was smoking cessation discussed for >3mins.? @ -No Was critical care preformed (if so, how long)? @ -No Were there social determinants of health that impacted care today? How? (Homelessness, low income, unemployed, alcoholism, drug addiction, tr ansportation, low edu. Level, literacy, decrease access to med. care, intermediate, rehab)? @ -No Was there de-escalation of care discussed even if they declined (Discuss DNR or withdrawal of care, Hospice)? DNR status @ -No What co-morbidities impacted this encounter? (DM, HTN, Smoking, COPD, CAD, Cancer, CVA, ARF, Chemo, Hep., AIDS, mental health diagnosis, sleep apnea, morbid obesity)? @ -Diabetes, hypertension Was patient admitted / discharged? Hospital course, mention meds given and r oute, prescriptions, significant lab abnormalities, going to OR and other pertinent info. @ -77-year-old with some mild confusion, stable vitals, nonfocal neurologic exam. Patient does appear somewhat dehydrated, creatinine and BUN are mildly elevated. His potassium 5.5. Imaging is unremarkable. Patient will be observed overnight for IV hydration Undiagnosed new problem with uncertain prognosis? @ -No Drug Therapy requiring intensive monitoring for toxicity (Heparin, Nitro, Insulin, Cardizem)? @ -No Were any procedures done? @ -No Diagnosis/symptom? @ -[Confusion, HUONG, dehydration Acute, or Chronic, or Acute on Chronic? @ -Acute Uncomplicated (without systemic symptoms) or Complicated (systemic symptoms)? @ -default Side effects of treatment? @ -No Exacerbation, Progression, or Severe Exacerbation? @ -No Poses a threat to life or bodily function? How? (Chest pain, USA, OR, pneumonia, PE, COPD, DKA, ARF, appy, cholecystitis, CVA, Diverticulitis, Homicidal, Suicidal, threat to staff... and all critical care pts) @ -Low risk at this time - Lab Data Result diagrams: 10/20/22 10:39 10/20/22 10:39 Lab Results 10/20/22 10/20/22 10/20/22 Range/Units 10:39 10:39 10:39 WBC 10.0 (3.8-10.6) k/uL RBC 4.94 (4.30-5.90) m/uL Hgb 14.4 (13.0-17.5) gm/dL Hct 43.9 (39.0-53.0) % MCV 88.9 (80.0-100.0) fL MCH 29.2 (25.0-35.0) pg MCHC 32.8 (31.0-37.0) g/dL RDW 13.4 (11.5-15.5) % Plt Count 199 (150-450) k/uL MPV 7.8 Neutrophils % 86 % Lymphocytes % 9 % Monocytes % 3 % Eosinophils % 1 % Basophils % 0 % Neutrophils # 8.6 H (1.3-7.7) k/uL Lymphocytes # 0.9 L (1.0-4.8) k/uL Monocytes # 0.3 (0-1.0) k/uL Eosinophils # 0.1 (0-0.7) k/uL Basophils # 0.0 (0-0.2) k/uL PT 10.1 (9.0-12.0) sec INR 1.0 (<1.2) APTT 22.9 (22.0-30.0) sec Sodium 134 L (137-145) mmol/L Potassium 5.5 H (3.5-5.1) mmol/L Chloride 101 (98-107) mmol/L Carbon Dioxide 25 (22-30) mmol/L Anion Gap 8 mmol/L BUN 26 H (9-20) mg/dL Creatinine 1.46 H (0.66-1.25) mg/dL Est GFR (CKD-EPI)AfAm 53 (>60 ml/min/1.73 sqM) Est GFR (CKD-EPI)NonAf 46 (>60 ml/min/1.73 sqM) Glucose 268 H (74-99) mg/dL POC Glucose (mg/dL) (70-110) mg/dL POC Glu Generator Repairer ID Plasma Lactic Acid Carlos (0.7-2.0) mmol/L Calcium 9.2 (8.4-10.2) mg/dL Magnesium 2.4 H (1.6-2.3) mg/dL Total Bilirubin 1.5 H (0.2-1.3) mg/dL AST 28 (17-59) U/L ALT 20 (4-49) U/L Alkaline Phosphatase 68 (38-126) U/L Troponin I (0.000-0.034) ng/mL Total Protein 7.5 (6.3-8.2) g/dL Albumin 4.4 (3.5-5.0) g/dL 10/20/22 10/20/22 10/20/22 Range/Units 10:39 10:39 10:43 WBC (3.8-10.6) k/uL RBC (4.30-5.90) m/uL Hgb (13.0-17.5) gm/dL Hct (39.0-53.0) % MCV (80.0-100.0) fL MCH (25.0-35.0) pg MCHC (31.0-37.0) g/dL RDW (11.5-15.5) % Plt Count (150-450) k/uL MPV Neutrophils % % Lymphocytes % % Monocytes % % Eosinophils % % Basophils % % Neutrophils # (1.3-7.7) k/uL Lymphocytes # (1.0-4.8) k/uL Monocytes # (0-1.0) k/uL Eosinophils # (0-0.7) k/uL Basophils # (0-0.2) k/uL PT (9.0-12.0) sec INR (<1.2) APTT (22.0-30.0) sec Sodium (137-145) mmol/L Potassium (3.5-5.1) mmol/L Chloride (98-107) mmol/L Carbon Dioxide (22-30) mmol/L Anion Gap mmol/L BUN (9-20) mg/dL Creatinine (0.66-1.25) mg/dL Est GFR (CKD-EPI)AfAm (>60 ml/min/1.73 sqM) Est GFR (CKD-EPI)NonAf (>60 ml/min/1.73 sqM) Glucose (74-99) mg/dL POC Glucose (mg/dL) 237 H (70-110) mg/dL POC Glu Generator Repairer ID Clay Torre Plasma Lactic Acid Carlos 1.2 (0.7-2.0) mmol/L Calcium (8.4-10.2) mg/dL Magnesium (1.6-2.3) mg/dL Total Bilirubin (0.2-1.3) mg/dL AST (17-59) U/L ALT (4-49) U/L Alkaline Phosphatase (38-126) U/L Troponin I <0.012 (0.000-0.034) ng/mL Total Protein (6.3-8.2) g/dL Albumin (3.5-5.0) g/dL Disposition Clinical Impression: Dehydration, HUONG (acute kidney injury), AMS (altered mental status) Disposition: ADMITTED IP TO THIS [facility] Condition: Stable Is patient prescribed a controlled substance at d/c from ED?: No Referrals: Clay Jones MD [Primary Care Provider] - 1-2 days Time of Disposition: 12:36
--- NOTE | 2022-10-20 10:46 | XR ---
EXAMINATION TYPE: XR chest 2V DATE OF EXAM: 10/20/2022 10:42 AM COMPARISON: Chest radiographs from 09/03/2014. TECHNIQUE: XR chest 2V Frontal and lateral views of the chest. CLINICAL INDICATION:Male, 77 years old with history of Weakness; FINDINGS: Lungs/Pleura: There is no evidence of pleural effusion, focal consolidation, or pneumothorax. Pulmonary vascularity: Unremarkable. Heart/mediastinum: Cardiomediastinal silhouette is unremarkable. Musculoskeletal: No acute osseous pathology. IMPRESSION: No acute cardiopulmonary disease/process.
[2022-10-20 10:59] LABS: Basophils % (A) 0 %; Eosinophils # (A) 0.1 k/uL (0-0.7); Eosinophils % (A) 1 %; HCT 43.9 % (39.0-53.0); HGB 14.4 gm/dL (13.0-17.5); Lymphocytes # (A) 0.9 k/uL (1.0-4.8); Lymphocytes % (A) 9 %; MCH 29.2 pg (25.0-35.0); MCHC 32.8 g/dL (31.0-37.0); MCV 88.9 fL (80.0-100.0); Mean Platelet Volume 7.8; Monocytes # (A) 0.3 k/uL (0-1.0); Monocytes % (A) 3 %; Neutrophils # (A) 8.6 k/uL (1.3-7.7); Neutrophils % (A) 86 %; Platelet Count 199 k/uL (150-450); RBC 4.94 m/uL (4.30-5.90); RDW 13.4 % (11.5-15.5)
[2022-10-20 11:09] LABS: African American GFR (CKD) 53 (>60 ml/min/1.73 sqM); Albumin 4.4 g/dL (3.5-5.0); Anion Gap 8 mmol/L; Blood Urea Nitrogen 26 mg/dL (9-20); Calcium 9.2 mg/dL (8.4-10.2); Carbon Dioxide 25 mmol/L (22-30); Chloride 101 mmol/L (98-107); Glucose 268 mg/dL (74-99); Non-African American GFR(CKD) 46 (>60 ml/min/1.73 sqM); Potassium 5.5 mmol/L (3.5-5.1); Sodium 134 mmol/L (137-145); Total Protein 7.5 g/dL (6.3-8.2)
[2022-10-20 11:10] LABS: ALT 20 U/L (4-49); AST 28 U/L (17-59); Alkaline Phosphatase 68 U/L (38-126); Magnesium 2.4 mg/dL (1.6-2.3); Total Bilirubin 1.5 mg/dL (0.2-1.3)
[2022-10-20 11:32] LABS: Partial Thromboplastin Time 22.9 sec (22.0-30.0); Prothrombin Time 10.1 sec (9.0-12.0)
--- NOTE | 2022-10-20 11:46 | CT ---
EXAMINATION TYPE: CT brain wo con DATE OF EXAM: 10/20/2022 COMPARISON: None HISTORY: Weakness and altered mental status. CT DLP: 1150.4 mGycm Automated exposure control for dose reduction was used. FINDINGS: Mild generalized degenerative change with prominent CSF spaces along the frontal lobes bilaterally ma y represent asymmetric atrophy. Tiny subdural chronic hematoma or hygroma not excluded. Intracranial atherosclerotic changes. Orbits are symmetric. There is a nasal septal deviation. Changes of chronic sinusitis. No midline shift, mass effect or acute hemorrhage. IMPRESSION: 1. NO EVIDENCE OF ACUTE HEMORRHAGE OR MASS EFFECT. GENERALIZED DEGENERATIVE CHANGES ARE SEEN. NOTE D ABOVE PROMINENT CSF SPACES ALONG BOTH FRONTAL CEREBRAL CONVEXITIES MEASURING A MAXIMAL THICKNESS OF 7 MM MAY BE RELATED TO ASYMMETRIC ATROPHY. CHRONIC SMALL SUBDURAL HYGROMA OR HEMATOMA IN THE DIFFERE NTIAL DIAGNOSIS.
[2022-10-20] MEDS ORDERED: NALOXONE 0.4 MG/ML 1 ML VIAL IV PRN ×2 (12:32→14:43)
[2022-10-20] MEDS ORDERED: ACETAMINOPHEN TAB 325 MG TAB PO PRN (12:32)
[2022-10-20] MEDS: SODIUM CHLORIDE 0.9% 1,000 ML IV SCH (13:15)
[2022-10-20] MEDS ORDERED: MAG HYDROX/AL HYDROX/SIMETH 30 ML CUP PO PRN (14:43)
[2022-10-20] MEDS ORDERED: ONDANSETRON 4 MG/2 ML VIAL IVP PRN (14:43)
[2022-10-20] MEDS ORDERED: MELATONIN 3 MG TABLET PO PRN (14:43)
[2022-10-20] MEDS ORDERED: DEXTROSE 50% SYRINGE 50 ML IVP PRN ×2 (14:45)
--- NOTE | 2022-10-20 14:46 | P.HPIM ---
History of Present Illness H&P Date: 10/20/22 History of present illness; patient 77-year-old gentleman with past medical hist ory significant for diabetes mellitus who presented to The ER because of confusion. Patient daughter was at the bedside and according to her patient has been all right till this morning, when he noticed that the patient was more confused than normal. Patient's speech was also abnormal and they were not able to make any sense. They did not notice any weakness of any extremity. Denied any recent fever or chills. Denied any recent falls. There was any facial droop. patient blood sugars have been elevated in the outpatient setting for which he's was being managed by her pcp. Because of confusion, patient came to ER Initial lab work done in the ER showed WBC 10, hemoglobin 14.4, platelet count 19 and, sodium 134, potassium 5.5 BUN 26, bili 1.46, glucose 268, bilirubin 1.5, CT head done showed no evidence of acute hemorrhage or mass effect. Generalized degenerative changes are seen. Prominent CSF spaces along both frontal cerebral convexities Chest x-ray done in the ER showed no acute cardiopulmonary process Patient admitted to medicine service REVIEW OF SYSTEMS: CONSTITUTIONAL: No fever, no malaise, no fatigue. HEENT: No recent visual problems or hearing problems. Denied any sore throat. CARDIOVASCULAR: No chest pain, orthopnea, PND, no palpitations, no syncope. PULMONARY: No shortness of breath, no cough, no hemoptysis. GASTROINTESTINAL: No diarrhea, no nausea, no vomiting, no abdominal pain. NEUROLOGICAL: As mentioned in HPI HEMATOLOGICAL: Denies any bleeding or petechiae. GENITOURINARY: Denies any burning micturition, frequency, or urgency. MUSCULOSKELETAL/RHEUMATOLOGICAL: Denies any joint pain, swelling, or any muscle pain. ENDOCRINE: Denies any polyuria or polydipsia. The rest of the 14-point review of systems is negative. PHYSICAL EXAMINATION: GENERAL: The patient is alert and oriented x3, not in any acute distress. Well developed, well nourished. HEENT: Pupils are round and equally reacting to light. EOMI. No scleral icterus. No conjunctival pallor. Normocephalic, atraumatic. No pharyngeal erythema. No thyromegaly. CARDIOVASCULAR: S1 and S2 present. No murmurs, rubs, or gallops. PULMONARY: Chest is clear to auscultation, no wheezing or crackles. ABDOMEN: Soft, nontender, nondistended, normoactive bowel sounds. No palpable organomegaly. MUSCULOSKELETAL: No joint swelling or deformity. EXTREMITIES: No cyanosis, clubbing, or pedal edema. NEUROLOGICAL: Gross neurological examination did not reveal any focal deficits. SKIN: No rashes. Assessment and plan Acute metabolic encephalopathy Acute kidney injury Hyperkalemia Hypoglycemia Hyperbilirubinemia Insulin-dependent diabetes mellitus Monitor vital signs Monitor CBC Monitor CMP Continue telemetry monitoring Continue antiemetics Continue IV fluids Ordered orthostatics Ordered ultrasound of carotids Consult PT Consult OT Consult neurology Labs and medication were reviewed.. Continue same treatment. Continue with symptomatic treatment. Resume home medication. Monitor labs and vitals. DVT and GI prophylaxis. Further recommendations as per clinical course of the patient Dictation was produced using [employer] dictation software. please excuse any grammatical, word or spelling errors. 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), recent high BP-no Rx, bone infection left foot, History of Any Multi-Drug Resistant Organisms: MRSA Date of last positivie culture/infection: 2015 MDRO Source:: foot Past Surgical History: Orthopedic Surgery, Tonsillectomy Additional Past Surgical History / Comment(s): HAMMER TOE SX LACEY FEET, LEFT FOOT SURGERY GREAT TOE AMPUTATION/THEN 2ND SX TO REARRANGE THE BONES IN LT FOOT, right foot little toe amputation, Tendon lengthening left foot, cyst removed from middle finger rt hand Past Anesthesia/Blood Transfusion Reactions: Family History of Problems w/ Anesthesia Additional Past Anesthesia/Blood Transfusion Reaction / Comment(s): father had confusion/loss of memory with anesthesia Past Psychological History: Depression Smoking Status: Former smoker Past Alcohol Use History: None Reported Past Drug Use History: None Reported - Past Family History Mother Additional Family Medical History / Comment(s): AGE 91 FROM BRAIN HEMORRAGE Father Family Medical History: Cancer Additional Family Medical History / Comment(s): LUNG CANCER Medications and Allergies Home Medications Medication Instructions Recorded Confirmed Type Aspirin 81 mg PO HS 12/27/15 08/25/22 History Docusate [Colace] 100 mg PO BID-W/MEALS 12/27/15 08/25/22 History Glucosam/Magen-Msm1/C/Jimi/Bosw 1 tab PO PC-BRKFST 12/27/15 08/25/22 History [Glucosamine-Chondroitin Tablet] Multivitamins, Thera [Multivitamin 1 tab PO PC-BRKFST 12/27/15 08/25/22 History (formulary)] Insulin Glargine,Hum.rec.anlog 32 units SQ AC-BRKFST 07/18/16 08/25/22 History [Toujeo Solostar] Baclofen [Lioresal] 10 mg PO BID PRN 10/06/16 08/25/22 History lisinopriL [Zestril] 10 mg PO PC-SUPPER 11/15/19 08/25/22 History Diclofenac Sodium Gel [Voltaren 3 gm TOPICAL PC-BRKFST 08/25/22 08/25/22 History Gel] Fish Oil/Dha/Epa [Fish Oil 1,200 1 cap PO PC-SUPPER 08/25/22 08/25/22 History mg Fish Oil] L.acidoph,Paracasei, B.lactis 1 cap PO AC-BRKFST 08/25/22 08/25/22 History [Probiotic] Tamsulosin [Flomax] 0.4 mg PO PC-SUPPER 08/25/22 08/25/22 History rOPINIRole HCL [Requip] 1 mg PO PC-SUPPER 08/25/22 08/25/22 History sitaGLIPtin PHOS/metFORMIN HCL 2 tab PO AC-BRKFST 08/25/22 08/25/22 History [Janumet 50-500 mg Tablet] Ciprofloxacin HCl [Cipro] 500 mg PO Q12HR 10 Days #20 tab 08/29/22 Rx metroNIDAZOLE [Flagyl] 500 mg PO TID #30 tab 08/29/22 Rx Allergies Allergy/AdvReac Type Severity Reaction Status Date / Time codeine Allergy Hallucinati Verified 10/20/22 10:30 ons/paranoi d adhesive AdvReac Itching/bruna Verified 10/20/22 10:30 h Physical Exam Vitals: Vital Signs Temp Pulse Resp BP Pulse Ox 10/20/22 13:18 67 18 111/70 99 10/20/22 11:51 67 18 127/59 96 10/20/22 11:05 18 10/20/22 10:27 97.3 F L 69 18 125/58 99 Intake and Output 10/19/22 10/20/22 10/20/22 22:59 06:59 14:59 Other: Weight 90.718 kg Results CBC & Chem 7: 10/20/22 10:39 10/20/22 10:39 Labs: Abnormal Lab Results - Last 24 Hours (Table) 10/20/22 10/20/22 10/20/22 Range/Units 10:39 10:39 10:43 Neutrophils # 8.6 H (1.3-7.7) k/uL Lymphocytes # 0.9 L (1.0-4.8) k/uL Sodium 134 L (137-145) mmol/L Potassium 5.5 H (3.5-5.1) mmol/L BUN 26 H (9-20) mg/dL Creatinine 1.46 H (0.66-1.25) mg/dL Glucose 268 H (74-99) mg/dL POC Glucose (mg/dL) 237 H (70-110) mg/dL Magnesium 2.4 H (1.6-2.3) mg/dL Total Bilirubin 1.5 H (0.2-1.3) mg/dL
[2022-10-20 16:12] LABS: Appearance,Urine Clear (Clear); Bilirubin,Urine Negative (Negative); Blood,Urine Negative (Negative); Color,Urine Light Yellow; Glucose,Urine (UA) 1+ (Negative); Ketones,Urine 1+ (Negative); PH, Urine 6.5 (5.0-8.0); Protein,Urine Negative (Negative); Specific Gravity,Urine 1.015 (1.001-1.035)
[2022-10-20 16:13] LABS: Leukocyte Esterase,Urine Negative (Negative); Nitrite,Urine Negative (Negative); Urobilinogen,Urine <2.0 mg/dL (<2.0)
--- NOTE | 2022-10-20 16:22 | US ---
EXAMINATION TYPE: US carotid duplex BILAT DATE OF EXAM: 10/20/2022 COMPARISON: NONE CLINICAL INDICATION: Male, 77 years old with history of Slurred speech; TECHNIQUE: Carotid duplex ultrasound examination. Indirect Doppler criteria was utilized. FINDINGS: EXAM MEASUREMENTS: RIGHT: Peak Systolic Velocity (PSV) cm/sec ----- Right CCA: 71.4 ----- Right ICA: 114.0 ----- Right ECA: 110.0 ICA/CCA ratio: 1.6 RIGHT: End Diastole cm/sec ----- Right CCA: 7.0 ----- Right ICA: 18.5 ----- Right ECA: 0.6 LEFT: Peak Systolic Velocity (PSV) cm/sec ----- Left CCA: 99.5 ----- Left ICA: 97.4 ----- Left ECA: 131.0 ICA/CCA ratio: 1.0 LEFT: End Diastole cm/sec ----- Left CCA: 17.5 ----- Left ICA: 25.1 ----- Left ECA: 1.6 VERTEBRALS (direction of flow): Right Vertebral: Antegrade Left Vertebral: Antegrade Rhythm: Normal No significant stenosis IMPRESSION: No ultrasound evidence for hemodynamically significant stenosis of the visualized bilateral carotid a rterial systems. Criteria for Assigning % of Stenosis / Diameter reduction (Estimation based on the indirect measurements of the internal carotid artery velocities (ICA PSV). 1. Normal (no stenosis)=ICA PSV < 125 cm/s: ratio < 2.0: ICA EDV<40 cm/s. 2. Less than 50% stenosis=ICA PSV < 125 cm/s: ratio < 2.0: ICA EDV<40 cm/s. 3. 50 to 69% stenosis=ICA PSV of 125 to 230 cm/s: ration 2.0 ? 4.0: ICA EDV 40-100 cm/s. 4. Greater than 70% stenosis to near occlusion= ICA PSV > 230 cm/s: ratio > 4.0: ICA EDV > 100 cm/s. 5. Near occlusion= ICA PSV velocities may be low or undetectable: variable ratio and ICA EDV. 6. Total occlusion=unable to detect flow.
[2022-10-20 17:36] LABS: Glucose,Whole Blood 219 mg/dL (70-110)
[2022-10-20] MEDS: INSULIN ASPART (NovoLOG) 100 UNIT/ML VIAL SQ SCH ×2 (19:01→20:49)
[2022-10-20 20:48] LABS: Glucose,Whole Blood 194 mg/dL (70-110)
[2022-10-21] MEDS: SODIUM CHLORIDE 0.9% 1,000 ML IV SCH (03:02)
[2022-10-21 05:53] LABS: Glucose,Whole Blood 108 mg/dL (70-110)
[2022-10-21] MEDS: INSULIN ASPART (NovoLOG) 100 UNIT/ML VIAL SQ SCH ×4 (06:11→23:12)
[2022-10-21] MEDS ORDERED: BACLOFEN 10 MG TAB PO PRN (10:20)
[2022-10-21] MEDS ORDERED: DEXTROSE 50% SYRINGE 50 ML IVP PRN ×2 (10:21)
--- NOTE | 2022-10-21 11:00 | P.CNNES ---
History of Present Illness Consult date: 10/21/22 Requesting physician: Steve Jacobson Reason for Consult: altered mental status with abnormal CT History of Present Illness: This is a 77-year-old gentleman with medical history of DM, hypertension who presents to the emergency department because of altered mental status. He stated yesterday he was with his friend and he had breakfast in the morning then was told he was unresponsiveness and episode lasted for couple hours. He stated he was told his eyes were closed. Unsure if he had shaking of extremities. He denies any urinary or bowel incontinence or tongue bite. Denies history of seizures or any prior episodes like this. Denies syncopal episodes in the past. Denies any recent sick contacts. Denies any falls, headache, focal weakness, numbness. Denies history of stroke. Denies any history of brain bleed. Some of the work-up during this hospital visit consisted of. CT head is reported as no evidence of acute hemorrhage or mass effect. generalized changes are seen. Prominent CSF space along both fronal cerebral convexities measuring maximal thickness of 7mm maybe related to asymmetric atrophy. Chronic subdural hygroma or hematoma in the differential diagnosis. I personally reviewed it and felt possible hygroma predominately over the right than left. Carotid duplex: No ultrasound evidence for hemodynamically signficant stenosis of the visualized bilateral carotid arterial system. Review of Systems 10 point system is reviewed and the pertinent positive and negative as per HPI. 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), recent high BP-no Rx, bone infection left foot, History of Any Multi-Drug Resistant Organisms: MRSA Date of last positivie culture/infection: 2015 MDRO Source:: foot Past Surgical History: Orthopedic Surgery, Tonsillectomy Additional Past Surgical History / Comment(s): HAMMER TOE SX LACEY FEET, LEFT VESNA T SURGERY GREAT TOE AMPUTATION/THEN 2ND SX TO REARRANGE THE BONES IN LT FOOT, right foot little toe amputation, Tendon lengthening left foot, cyst removed from middle finger rt hand Past Anesthesia/Blood Transfusion Reactions: Family History of Problems w/ Anesthesia Additional Past Anesthesia/Blood Transfusion Reaction / Comment(s): father had confusion/loss of memory with anesthesia Past Psychological History: Depression Smoking Status: Former smoker Past Alcohol Use History: None Reported Past Drug Use History: None Reported - Past Family History Mother Additional Family Medical History / Comment(s): AGE 91 FROM BRAIN HEMORRAGE Father Family Medical History: Cancer Additional Family Medical History / Comment(s): LUNG CANCER Medications and Allergies Home Medications Medication Instructions Recorded Confirmed Type Aspirin 81 mg PO HS 12/27/15 10/20/22 History Docusate [Colace] 100 mg PO BID-W/MEALS 12/27/15 10/20/22 History Glucosam/Magen-Msm1/C/Jimi/Bosw 1 tab PO PC-BRKFST 12/27/15 10/20/22 History [Glucosamine-Chondroitin Tablet] Multivitamins, Thera [Multivitamin 1 tab PO PC-BRKFST 12/27/15 10/20/22 History (formulary)] Insulin Glargine,Hum.rec.anlog 28 units SQ AC-BRKFST 07/18/16 10/20/22 History [Toujeo Solostar] Baclofen [Lioresal] 10 mg PO BID PRN 10/06/16 10/20/22 History lisinopriL [Zestril] 10 mg PO PC-SUPPER 11/15/19 10/20/22 History Diclofenac Sodium Gel [Voltaren 3 gm TOPICAL PC-BRKFST 08/25/22 10/20/22 History Gel] Fish Oil/Dha/Epa [Fish Oil 1,200 1 cap PO PC-SUPPER 08/25/22 10/20/22 History mg Fish Oil] L.acidoph,Paracasei, B.lactis 1 cap PO AC-BRKFST 08/25/22 10/20/22 History [Probiotic] Tamsulosin [Flomax] 0.4 mg PO PC-SUPPER 08/25/22 10/20/22 History rOPINIRole HCL [Requip] 1 mg PO PC-SUPPER 08/25/22 10/20/22 History sitaGLIPtin PHOS/metFORMIN HCL 2 tab PO AC-BRKFST 08/25/22 10/20/22 History [Janumet 50-500 mg Tablet] rOPINIRole HCL [Requip] 0.5 mg PO DAILY PRN 10/20/22 10/20/22 History Allergies Allergy/AdvReac Type Severity Reaction Status Date / Time adhesive Allergy Itching/rbuna Verified 10/20/22 15:31 h codeine AdvReac Hallucinati Verified 10/20/22 15:31 ons/paranoi d Physical Examination - Vital Signs Vital Signs: Vital Signs Temp Pulse Pulse Resp BP BP Pulse Ox 10/21/22 07:00 97.6 F 61 16 113/73 100 10/21/22 03:05 97.9 F 46 L 16 135/68 100 10/20/22 19:28 97.4 F L 56 L 18 146/67 98 10/20/22 18:44 64 18 129/80 99 10/20/22 13:18 67 18 111/70 99 10/20/22 11:51 67 18 127/59 96 10/20/22 11:05 18 Intake and Output 10/20/22 10/21/22 10/21/22 22:59 06:59 14:59 Intake Total 118 Balance 118 Intake: Oral 118 Other: # Voids 1 2 General: The patient is sitting in a recliner chair and is not in acute distress. Neuro: The patient is awake, alert, oriented to self, place and time. Is following s imple commands. No aphasia or neglect. Pupils are round, equal and reactive to light. Pupils are 3mm bilaterally. Visual bhatt are full to confrontation throughout. EOM is intact and no nystagmus is noted. Normal facial sensation to touch. No facial weakness. No dysarthria. Tongue is midline and moves side to side without difficulty. Motor: Gait is normal. Strength is 5/5 throughout. Sensation is normal to touch. Cerebellar: Finger to nose is normal bilaterally. Results - Laboratory Findings CBC and BMP: 10/20/22 10:39 10/20/22 10:39 Abnormal Lab Findings: Abnormal Labs 10/20/22 10/20/22 10/20/22 10:39 10:39 10:39 Neutrophils # 8.6 H Lymphocytes # 0.9 L Sodium 134 L Potassium 5.5 H BUN 26 H Creatinine 1.46 H Glucose 268 H POC Glucose (mg/dL) Hemoglobin A1c Magnesium 2.4 H Total Bilirubin 1.5 H Urine Glucose (UA) 1+ H Urine Ketones 1+ H 10/20/22 10/20/22 10/20/22 10:43 17:35 20:46 Neutrophils # Lymphocytes # Sodium Potassium BUN Creatinine Glucose POC Glucose (mg/dL) 237 H 219 H 194 H Hemoglobin A1c Magnesium Total Bilirubin Urine Glucose (UA) Urine Ketones 10/21/22 05:52 Neutrophils # Lymphocytes # Sodium Potassium BUN Creatinine Glucose POC Glucose (mg/dL) Hemoglobin A1c 6.8 H Magnesium Total Bilirubin Urine Glucose (UA) Urine Ketones Assessment and Plan Assessment: This is a 77-year-old gentleman who presented because of witnessed unresponsiveness yesterday in the morning and lasted couple hours. CT head showed possible hygroma and I feel right > left. Patient denies any head trauma, falls. Denies history of seizures. Unresponsiveness with likely hygroma predominately right . Rule out seizure. DM Hypertension HUONG Hyperkalemia Plan: I ordered routine EEG. I ordered MRI Brain w/o and w/o seizure protocol. If patient has abnormality in above or any further clinical seizures then will start on antiepileptic drugs. Will defer the rest of medical management to the primary team. Upon discharge, recommend patient to follow-up with neurologist within 1-2 weeks. The plan is discussed with his nurse. Thank you for the consultation. Time with Patient: Greater than 30
[2022-10-21 11:47] LABS: HCT 44.6 % (39.0-53.0); HGB 14.8 gm/dL (13.0-17.5); MCH 29.3 pg (25.0-35.0); MCHC 33.1 g/dL (31.0-37.0); MCV 88.6 fL (80.0-100.0); Mean Platelet Volume 7.7; Platelet Count 209 k/uL (150-450); RBC 5.03 m/uL (4.30-5.90); RDW 13.5 % (11.5-15.5); WBC 6.8 k/uL (3.8-10.6)
[2022-10-21 12:00] LABS: ALT 20 U/L (4-49); AST 24 U/L (17-59); African American GFR (CKD) 79 (>60 ml/min/1.73 sqM); Albumin 4.5 g/dL (3.5-5.0); Albumin/Globulin Ratio 1.4; Alkaline Phosphatase 54 U/L (38-126); Anion Gap 9 mmol/L; Blood Urea Nitrogen 21 mg/dL (9-20); Calcium 9.4 mg/dL (8.4-10.2); Carbon Dioxide 30 mmol/L (22-30); Chloride 99 mmol/L (98-107); Globulin 3.2 g/dL; Glucose 202 mg/dL (74-99); Non-African American GFR(CKD) 68 (>60 ml/min/1.73 sqM); Potassium 4.6 mmol/L (3.5-5.1); Sodium 138 mmol/L (137-145); Total Bilirubin 1.8 mg/dL (0.2-1.3); Total Protein 7.7 g/dL (6.3-8.2)
[2022-10-21 13:47] LABS: Glucose,Whole Blood 184 mg/dL (70-110)
--- NOTE | 2022-10-21 14:26 | P.PN ---
Subjective Progress Note Date: 10/21/22 patient 77-year-old gentleman with past medical history significant for diabetes mellitus who presented to The ER because of confusion. Patient daughter was at the bedside and according to her patient has been all right till this morning, when he noticed that the patient was more confused than normal. Patient's speech was also abnormal and they were not able to make any sense. They did not notice any weakness of any extremity. Denied any recent fever or chills. Denied any recent falls. There was any facial droop. patient blood sugars have been elevated in the outpatient setting for which he's was being managed by her pcp. Because of confusion, patient came to ER Initial lab work done in the ER showed WBC 10, hemoglobin 14.4, platelet count 19 and, sodium 134, potassium 5.5 BUN 26, bili 1.46, glucose 268, bilirubin 1.5, CT head done showed no evidence of acute hemorrhage or mass effect. Generalized degenerative changes are seen. Prominent CSF spaces along both frontal cerebral convexities Chest x-ray done in the ER showed no acute cardiopulmonary process Patient admitted to medicine service 10/21. Patient seen and examined. States dizziness is improved. REVIEW OF SYSTEMS: CONSTITUTIONAL: No fever, no malaise,. CARDIOVASCULAR: No chest pain, no palpitations, no syncope. PULMONARY: No shortness of breath, no cough, GASTROINTESTINAL: No diarrhea, no nausea, no vomiting, no abdominal pain. NEUROLOGICAL: No headaches, no weakness, PHYSICAL EXAMINATION: GENERAL: The patient is alert and oriented x3, not in any acute distress. Well developed, well nourished. HEENT: Pupils are round and equally reacting to light. EOMI. No scleral icterus. No conjunctival pallor. Normocephalic, atraumatic. No pharyngeal erythema. No thyromegaly. CARDIOVASCULAR: S1 and S2 present. No murmurs, rubs, or gallops. PULMONARY: Chest is clear to auscultation, no wheezing or crackles. ABDOMEN: Soft, nontender, nondistended, normoactive bowel sounds. No palpable organomegaly. MUSCULOSKELETAL: No joint swelling or deformity. EXTREMITIES: No cyanosis, clubbing, or pedal edema. NEUROLOGICAL: Gross neurological examination did not reveal any focal deficits. SKIN: No rashes. Assessment and plan Acute metabolic encephalopathy Acute kidney injury Hyperkalemia Hypoglycemia Hyperbilirubinemia Insulin-dependent diabetes mellitus Monitor vital signs Monitor CBC Monitor CMP Continue telemetry monitoring Monitor blood sugar levels Ultrasound of carotids negative for any significant stenosis Resume home meds MRI brain ordered EEG ordered Neurology following Labs and medication were reviewed.. Continue same treatment. Continue with symptomatic treatment. Resume home medication. Monitor labs and vitals. DVT and GI prophylaxis. Further recommendations as per clinical course of the patient Dictation was produced using [employer] dictation software. please excuse any grammatical, word or spelling errors. Objective - Vital Signs Vital signs: Vital Signs Temp 97.6 F 10/21/22 07:00 Pulse 61 10/21/22 07:00 Resp 16 10/21/22 07:00 BP 113/73 10/21/22 07:00 Pulse Ox 100 10/21/22 07:00 FiO2 Intake & Output 10/20/22 10/21/22 10/21/22 18:59 06:59 18:59 Intake Total 118 Balance 118 Weight 90.718 kg Intake: Oral 118 Other: # Voids 2 - Labs CBC & Chem 7: 10/21/22 11:29 10/21/22 11:29 Labs: Abnormal Lab Results - Last 24 Hours (Table) 10/20/22 10/20/22 10/20/22 Range/Units 10:39 10:39 10:39 Neutrophils # 8.6 H (1.3-7.7) k/uL Lymphocytes # 0.9 L (1.0-4.8) k/uL Sodium 134 L (137-145) mmol/L Potassium 5.5 H (3.5-5.1) mmol/L BUN 26 H (9-20) mg/dL Creatinine 1.46 H (0.66-1.25) mg/dL Glucose 268 H (74-99) mg/dL POC Glucose (mg/dL) (70-110) mg/dL Hemoglobin A1c (<=6.0) % Magnesium 2.4 H (1.6-2.3) mg/dL Total Bilirubin 1.5 H (0.2-1.3) mg/dL Urine Glucose (UA) 1+ H (Negative) Urine Ketones 1+ H (Negative) 10/20/22 10/20/22 10/20/22 Range/Units 10:43 17:35 20:46 Neutrophils # (1.3-7.7) k/uL Lymphocytes # (1.0-4.8) k/uL Sodium (137-145) mmol/L Potassium (3.5-5.1) mmol/L BUN (9-20) mg/dL Creatinine (0.66-1.25) mg/dL Glucose (74-99) mg/dL POC Glucose (mg/dL) 237 H 219 H 194 H (70-110) mg/dL Hemoglobin A1c (<=6.0) % Magnesium (1.6-2.3) mg/dL Total Bilirubin (0.2-1.3) mg/dL Urine Glucose (UA) (Negative) Urine Ketones (Negative) 10/21/22 Range/Units 05:52 Neutrophils # (1.3-7.7) k/uL Lymphocytes # (1.0-4.8) k/uL Sodium (137-145) mmol/L Potassium (3.5-5.1) mmol/L BUN (9-20) mg/dL Creatinine (0.66-1.25) mg/dL Glucose (74-99) mg/dL POC Glucose (mg/dL) (70-110) mg/dL Hemoglobin A1c 6.8 H (<=6.0) % Magnesium (1.6-2.3) mg/dL Total Bilirubin (0.2-1.3) mg/dL Urine Glucose (UA) (Negative) Urine Ketones (Negative)
[2022-10-21 17:08] LABS: Glucose,Whole Blood 142 mg/dL (70-110)
[2022-10-21] MEDS ORDERED: lisinopriL 10 MG TAB PO SCH (18:30)
[2022-10-21] MEDS ORDERED: TAMSULOSIN 0.4 MG CAP.ER.24H PO SCH (18:30)
[2022-10-21] MEDS ORDERED: ASPIRIN 81 MG PO SCH (21:00)
--- NOTE | 2022-10-21 21:57 | MR ---
EXAMINATION TYPE: MR brain wo/w con DATE OF EXAM: 10/21/2022 9:51 PM COMPARISON: NONE HISTORY: Seizure CONTRAST: Patient received 9 mL intravenous Gadavist gadolinium contrast. Multiplanar and multispin-echo imaging of the brain was performed . Pre and post contrast enhanced i mages are obtained. The ventricles, basal cisterns and sulci overlying the cerebral convexities are mildly to moderately enlarged. There is evidence of mild periventricular white matter ischemic demyelination. Remote deep white matter insults are also noted. No acute edema is seen on diffusion weighted imaging. There is no evidence for midline shift or mass effect. Acute intracranial hemorrhage or extra-axial collection is not evident. No enhancing lesions are seen. The paranasal sinuses and mastoid air cells are well-aerated. Chronic pansinusitis. IMPRESSION: Age-related atrophic and chronic small vessel ischemic change. No acute intracranial process at this time. No enhancing lesions are seen.
[2022-10-21 23:08] LABS: Glucose,Whole Blood 208 mg/dL (70-110)
[2022-10-22] MEDS ORDERED: INSULIN DETEMIR (LEVEMIR) 100 UNIT/ML SYR SQ SCH (07:30)
[2022-10-22 07:43] LABS: Glucose,Whole Blood 147 mg/dL (70-110)
[2022-10-22] MEDS: INSULIN ASPART (NovoLOG) 100 UNIT/ML VIAL SQ SCH ×2 (08:26→12:37)
[2022-10-22 09:04] VITALS: BP 120/74; PULSE 80; RESP 16; TEMP 97.9
[2022-10-22 11:58] LABS: Glucose,Whole Blood 231 mg/dL (70-110)
--- NOTE | 2022-10-22 12:20 | P.DS ---
Providers Date of admission: 10/20/22 12:33 Expected date of discharge: 10/22/22 Attending physician: Hill Eckert Consults: 10/20/22 14:37 Consult Physician Routine Consulting Provider: Kota Delvalle Consult Reason/Comments: Altered mental status, abnormal CT head Do you want consulting provider notified?: Yes Primary care physician: [facility] Course: Discharge diagnoses; Acute metabolic encephalopathy Acute kidney injury Hyperkalemia Hypoglycemia Hyperbilirubinemia Insulin-dependent diabetes mellitus Hospital course; patient 77-year-old gentleman with past medical history significant for diabetes mellitus who presented to The ER because of confusion. Patient daughter was at the bedside and according to her patient has been all right till this morning, when he noticed that the patient was more confused than normal. Patient's speech was also abnormal and they were not able to make any sense. They did not notice any weakness of any extremity. Denied any recent fever or chills. Denied any recent falls. There was any facial droop. patient blood sugars have been elevated in the outpatient setting for which he's was being managed by her pcp. Because of confusion, patient came to ER Initial lab work done in the ER showed WBC 10, hemoglobin 14.4, platelet count 19 and, sodium 134, potassium 5.5 BUN 26, bili 1.46, glucose 268, bilirubin 1.5, CT head done showed no evidence of acute hemorrhage or mass effect. Generalized degenerative changes are seen. Prominent CSF spaces along both frontal cerebral convexities Chest x-ray done in the ER showed no acute cardiopulmonary process Patient admitted to medicine service 10/21. Patient seen and examined. States dizziness is improved. 10/22. Patient seen and examined. MRI brain negative for any acute intrarenal process. EEG also negative for any seizure-like activity. Neurology cleared the patient for discharge PHYSICAL EXAMINATION: GENERAL: The patient is alert and oriented x3, not in any acute distress. Well developed, well nourished. HEENT: Pupils are round and equally reacting to light. EOMI. No scleral icterus. No conjunctival pallor. Normocephalic, atraumatic. No pharyngeal erythema. No thyromegaly. CARDIOVASCULAR: S1 and S2 present. No murmurs, rubs, or gallops. PULMONARY: Chest is clear to auscultation, no wheezing or crackles. ABDOMEN: Soft, nontender, nondistended, normoactive bowel sounds. No palpable organomegaly. MUSCULOSKELETAL: No joint swelling or deformity. EXTREMITIES: No cyanosis, clubbing, or pedal edema. NEUROLOGICAL: Gross neurological examination did not reveal any focal deficits. SKIN: No rashes. Dictation was produced using [employer] dictation software. please excuse any grammatical, word or spelling errors. Patient Condition at Discharge: Stable Plan - Discharge Summary Discharge Rx Participant: No New Discharge Prescriptions: Continue Aspirin 81 mg PO HS Multivitamins, Thera [Multivitamin (formulary)] 1 tab PO PC-BRKFST Glucosam/Magen-Msm1/C/Jimi/Bosw [Glucosamine-Chondroitin Tablet] 1 tab PO PC- BRKFST Docusate [Colace] 100 mg PO BID-W/MEALS Insulin Glargine,Hum.rec.anlog [[place]] 28 units SQ AC-BRKFST Baclofen [Lioresal] 10 mg PO BID PRN PRN Reason: leg cramps lisinopriL [Zestril] 10 mg PO PC-SUPPER sitaGLIPtin PHOS/metFORMIN HCL [Janumet 50-500 mg Tablet] 2 tab PO AC-BRKFST rOPINIRole HCL [Requip] 0.5 mg PO DAILY PRN PRN Reason: RLS L.acidoph,Paracasei, B.lactis [Probiotic] 1 cap PO AC-BRKFST Diclofenac Sodium Gel [Voltaren Gel] 3 gm TOPICAL PC-BRKFST Fish Oil/Dha/Epa [Fish Oil 1,200 mg Fish Oil] 1 cap PO PC-SUPPER rOPINIRole HCL [Requip] 1 mg PO PC-SUPPER Tamsulosin [Flomax] 0.4 mg PO PC-SUPPER Discharge Medication List Aspirin 81 mg PO HS 12/27/15 [History] Docusate [Colace] 100 mg PO BID-W/MEALS 12/27/15 [History] Glucosam/Magen-Msm1/C/Jimi/Bosw [Glucosamine-Chondroitin Tablet] 1 tab PO PC- BRKFST 12/27/15 [History] Multivitamins, Thera [Multivitamin (formulary)] 1 tab PO PC-BRKFST 12/27/15 [History] Insulin Glargine,Hum.rec.anlog [May Marshostar] 28 units SQ AC-BRKFST 07/18/16 [History] Baclofen [Lioresal] 10 mg PO BID PRN 10/06/16 [History] lisinopriL [Zestril] 10 mg PO PC-SUPPER 11/15/19 [History] Diclofenac Sodium Gel [Voltaren Gel] 3 gm TOPICAL PC-BRKFST 08/25/22 [History] Fish Oil/Dha/Epa [Fish Oil 1,200 mg Fish Oil] 1 cap PO PC-SUPPER 08/25/22 [History] L.acidoph,Paracasei, B.lactis [Probiotic] 1 cap PO AC-BRKFST 08/25/22 [History] Tamsulosin [Flomax] 0.4 mg PO PC-SUPPER 08/25/22 [History] rOPINIRole HCL [Requip] 1 mg PO PC-SUPPER 08/25/22 [History] sitaGLIPtin PHOS/metFORMIN HCL [Janumet 50-500 mg Tablet] 2 tab PO AC-BRKFST 08/25/22 [History] rOPINIRole HCL [Requip] 0.5 mg PO DAILY PRN 10/20/22 [History] Follow up Appointment(s)/Referral(s): Clay Jones MD [Primary Care Provider] - 1-2 days Kota Coello MD [STAFF PHYSICIAN] - 1 Week Discharge Disposition: HOME SELF-CARE
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
--- NOTE | 2022-10-23 09:43 | EEG ---
ELECTROENCEPHALOGRAM REPORT CLINICAL HISTORY: This is a 77-year-old gentleman with a syncopal episode. The video EEG is obtained to evaluate for seizure epileptiform activity. EEG TYPE: A routine 21-channel EEG with video using the 10/20 electrode placement system. DESCRIPTION: Wakefulness and drowsiness are obtained. During awake state, the posterior- dominant rhythm consists of [id number] voltage of 9-10 hertz activity. There is no physiological stage 2 sleep architecture. There is no focal slowing. Interictal and ictal is none. ACTIVATION PROCEDURE: Photic stimulation did not evoke a posterior driving response. There is no abnormality during the photic stimulation. Hyperventilation is not performed. CLINICAL INTERPRETATION: This is a normal routine EEG. There is no focal slowing, epileptiform discharge, or seizure on the EEG. A normal routine EEG does not rule out underlying epilepsy. Clinical correlation is recommended. BRENDON / [place]: [id number] / MTDD
== END 2022-10-22 13:37 | disposition home or self-care (01) ==
LOC: EC 10:22 → 6NMEDSUR 12:33
PROVIDERS: ADMIT Hospitalist; ATTEND Hospitalist
DX: G93.41 Metabolic encephalopathy (principal); D18.1 Lymphangioma, any site; I10 Essential (primary) hypertension; E86.0 Dehydration; E87.5 Hyperkalemia; E11.649 Type 2 diabetes mellitus with hypoglycemia without coma; N17.9 Acute kidney failure, unspecified
CPT/HCPCS: 96360; 99285; 36415; 95819; 93005; 97161; 97165; 80053 ×2; 83605; 83735; 84484; 85025; 85027; 85610; 85730; 81003; 83036 ×2; 71046; 93880; 70450; 70553; G0378 ×3; A9585; 96361

== ENCOUNTER 2023-04-29 21:41 | Emergency (ER) | payer MEDICARE ==
[2023-04-29 21:58] VITALS: BP 149/84; PULSE 70; RESP 16; TEMP 97.6
--- NOTE | 2023-04-29 22:04 | ED ---
Extremity Problem HPI - General Chief complaint: Extremity Problem,Nontraumatic Stated complaint: bleeding Time Seen by Provider: 04/29/23 21:51 Source: patient, EMS, RN notes reviewed, old records reviewed Mode of arrival: EMS Limitations: no limitations - History of Present Illness Initial comments: This is a 77-year-old male to the ER for evaluation today. Patient [place] for evaluation of bleeding varicosity, bleeding varicose vein. Patient has significant bandage placed by EMS and presents by EMS for evaluation. Patient is on blood thinners and was concerned for amount of bleeding he is not lightheaded dizzy or weak and has no other complaints MD Complaint: other (Bleeding of left foot varicose vein) Location: left History of Same: Yes Radiation: none Severity scale (1-10): 1 Consistency: constant Improves with: nothing Worsens with: nothing Associated Symptoms: denies other symptoms - Related Data Home Medications Medication Instructions Recorded Confirmed Aspirin 81 mg PO HS 12/27/15 10/20/22 Docusate [Colace] 100 mg PO BID-W/MEALS 12/27/15 10/20/22 Glucosam/Magen-Msm1/C/Jimi/Bosw 1 tab PO PC-BRKFST 12/27/15 10/20/22 [Glucosamine-Chondroitin Tablet] Multivitamins, Thera [Multivitamin 1 tab PO PC-BRKFST 12/27/15 10/20/22 (formulary)] Insulin Glargine,Hum.rec.anlog 28 units SQ AC-BRKFST 07/18/16 10/20/22 [Toujeo Solostar] Baclofen [Lioresal] 10 mg PO BID PRN 10/06/16 10/20/22 lisinopriL [Zestril] 10 mg PO PC-SUPPER 11/15/19 10/20/22 Diclofenac Sodium Gel [Voltaren 1% 3 gm TOPICAL PC-BRKFST 08/25/22 10/20/22 Gel] Fish Oil/Dha/Epa [Fish Oil 1,200 1 cap PO PC-SUPPER 08/25/22 10/20/22 mg Fish Oil] L.acidoph,Paracasei, B.lactis 1 cap PO AC-BRKFST 08/25/22 10/20/22 [Probiotic] Tamsulosin [Flomax] 0.4 mg PO PC-SUPPER 08/25/22 10/20/22 rOPINIRole HCL [Requip] 1 mg PO PC-SUPPER 08/25/22 10/20/22 sitaGLIPtin PHOS/metFORMIN HCL 2 tab PO AC-BRKFST 08/25/22 10/20/22 [Janumet 50-500 mg Tablet] rOPINIRole HCL [Requip] 0.5 mg PO DAILY PRN 10/20/22 10/20/22 Allergies Allergy/AdvReac Type Severity Reaction Status Date / Time adhesive Allergy Itching/bruna Verified 10/20/22 15:31 h codeine AdvReac Hallucinati Verified 10/20/22 15:31 ons/paranoi d Review of Systems ROS Statement: Those systems with pertinent positive or pertinent negative responses have been documented in the HPI. ROS Other: All systems not noted in ROS Statement are negative. 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), recent high BP-no Rx, bone infection left foot, History of Any Multi-Drug Resistant Organisms: MRSA Date of last positivie culture/infection: 2015 MDRO Source:: foot Past Surgical History: Orthopedic Surgery, Tonsillectomy Additional Past Surgical History / Comment(s): HAMMER TOE SX LACEY FEET, LEFT FOOT SURGERY GREAT TOE AMPUTATION/THEN 2ND SX TO REARRANGE THE BONES IN LT FOOT, right foot little toe amputation, Tendon lengthening left foot, cyst removed from middle finger rt hand Past Anesthesia/Blood Transfusion Reactions: Family History of Problems w/ Anesthesia Additional Past Anesthesia/Blood Transfusion Reaction / Comment(s): father had confusion/loss of memory with anesthesia Past Psychological History: Depression Smoking Status: Former smoker Past Alcohol Use History: None Reported Past Drug Use History: None Reported - Past Family History Mother Additional Family Medical History / Comment(s): AGE 91 FROM BRAIN HEMORRAGE Father Family Medical History: Cancer Additional Family Medical History / Comment(s): LUNG CANCER General Exam - General Exam Comments Initial Comments: 1 cm bleeding varicose vein, puncture wound Limitations: no limitations General appearance: alert, in no apparent distress Head exam: Present: atraumatic, normocephalic, normal inspection Eye exam: Present: normal appearance, PERRL, EOMI. Absent: scleral icterus, conjunctival injection, periorbital swelling ENT exam: Present: normal exam, mucous membranes moist Neck exam: Present: normal inspection. Absent: tenderness, meningismus, lymphadenopathy Respiratory exam: Present: normal lung sounds bilaterally. Absent: respiratory distress, wheezes, rales, rhonchi, stridor Cardiovascular Exam: Present: regular rate, normal rhythm, normal heart sounds. Absent: systolic murmur, diastolic murmur, rubs, gallop, clicks GI/Abdominal exam: Present: soft, normal bowel sounds. Absent: distended, tenderness, guarding, rebound, rigid Extremities exam: Present: normal inspection, full ROM, normal capillary refill. Absent: tenderness, pedal edema, joint swelling, calf tenderness Back exam: Present: normal inspection Neurological exam: Present: alert, oriented X3, CN II-XII intact Psychiatric exam: Present: normal affect, normal mood Skin exam: Present: warm, dry, intact, normal color. Absent: rash Course Vital Signs 04/29/23 21:44 Temperature 97.6 F Pulse Rate 70 Respiratory 16 Rate Blood Pressure 149/84 O2 Sat by Pulse 97 Oximetry - Reevaluation(s) Reevaluation #1: Medical records reviewed Reevaluation #2: Patient symptoms resolved Reevaluation #3: Patient informed of results questions answered Reevaluation #4: 05/07/23 01:00 Was pt. sent in by a medical professional or institution (, PA, GENERATOR WORKER, urgent care, hospital, or halfway...) When possible be specific @ -no Did you speak to anyone other than the patient for history (EMS, parent, family, police, friend...)? What history was obtained from this source @ -no Did you review nursing and triage notes (agree or disagree)? Why? @ -agree Are old charts reviewed (outside hosp., previous admission, EMS record, old EKG, old radiological studies, urgent care reports/EKG's, halfway records)? Report findings @ -yes Differential Diagnosis (chest pain, altered mental status, abdominal pain women, abdominal pain men, vaginal bleeding, weakness, fever, dyspnea, syncope, headache, dizziness, GI bleed, back pain, seizure, CVA, palpatations, mental health, musculoskeletal)? @ -prior EKG interpreted by me (3pts min.). @ -no X-rays interpreted by me (1pt min.). @ -no CT interpreted by me (1pt min.). @ -no U/S interpreted by me (1pt. min.). @ -no What testing was considered but not performed or refused? (CT, X-rays, U/S, labs)? Why? @ -none What meds were considered but not given or refused? Why? @ -none Did you discuss the management of the patient with other professionals (professionals i.e. , PA, GENERATOR WORKER, lab, RT, psych nurse, group social worker, powder core tester, teacher, special weapons unit officer, manager rn case)? Give summary @ -no Was smoking cessation discussed for >3mins.? @ -no Was critical care preformed (if so, how long)? @ -no Were there social determinants of health that impacted care today? How? (Homelessness, low income, unemployed, alcoholism, drug addiction, transportation, low edu. Level, literacy, decrease access to med. care, penitentiary, rehab)? @ -none Was there de-escalation of care discussed even if they declined (Discuss DNR or withdrawal of care, Hospice)? DNR status @ -no What co-morbidities impacted this encounter? (DM, HTN, Smoking, COPD, CAD, Cancer, CVA, ARF, Chemo, Hep., AIDS, mental health diagnosis, sleep apnea, morbid obesity)? @ -none Was patient admitted / discharged? Hospital course, mention meds given and route, prescriptions, significant lab abnormalities, going to OR and other pertinent info. @ - 77 male to ER for evaluation of left bleeding varicose vein which was re paired here in the ER, patient has no active bleeding currently and can be discharged home feels well Undiagnosed new problem with uncertain prognosis? @ -no Drug Therapy requiring intensive monitoring for toxicity (Heparin, Nitro, Insulin, Cardizem)? @ -no Were any procedures done? @ -Yes [id number] suture for bleeding varicosity Diagnosis/symptom? @ -Bleeding varicose vein, puncture wound Acute, or Chronic, or Acute on Chronic? @ -Acute Uncomplicated (without systemic symptoms) or Complicated (systemic symptoms)? @ -Complicated Side effects of treatment? @ -no Exacerbation, Progression, or Severe Exacerbation? @ -exacerbation Poses a threat to life or bodily function? How? (Chest pain, [place], [place], pneumonia, PE, COPD, DKA, ARF, appy, cholecystitis, CVA, Diverticulitis, Homicidal, Suicidal, threat to staff... and all critical care pts) @ -yes bleeding on blood thinners Procedures - Laceration Laceration #1 Consent Obtained: verbal consent Indication: laceration Site: lower extremity Size (cm): 1 Description: linear Size of Sutures: 5-0 Technique: simple, interrupted (Figure 8) Complications: pain Patient Tolerated Procedure: well Medical Decision Making - Medical Decision Making 77 male to ER for evaluation of left bleeding varicose vein which was repaired here in the ER, patient has no active bleeding currently and can be discharged home feels well Disposition Clinical Impression: Bleeding from varicose veins of left lower extremity Disposition: HOME SELF-CARE Condition: Good Instructions (If sedation given, give patient instructions): Puncture Wound (ED) Is patient prescribed a controlled substance at d/c from ED?: No Referrals: Clay Jones MD [Primary Care Provider] - 1-2 days Time of Disposition: 22:00
== END 2023-04-29 22:27 | disposition home or self-care (01) ==
LOC: EC 21:41
DX: I83.892 Varicose veins of left lower extremity with other complications (principal); E11.9 Type 2 diabetes mellitus without complications; I10 Essential (primary) hypertension; Z86.59 Personal history of other mental and behavioral disorders; Z87.891 Personal history of nicotine dependence; Z79.82 Long term (current) use of aspirin; Z79.4 Long term (current) use of insulin; Z79.84 Long term (current) use of oral hypoglycemic drugs; Z79.899 Other long term (current) drug therapy; Z91.09 Other allergy status, other than to drugs and biological substances; Z88.5 Allergy status to narcotic agent
CPT/HCPCS: 12001; 99284

== ENCOUNTER 2023-08-11 16:56 | Emergency (ER) | payer MEDICARE ==
--- NOTE | 2023-08-11 17:15 | ED ---
General Adult HPI - General Source: patient, RN notes reviewed Limitations: no limitations <Sujatha Francis - Last Filed: 08/11/23 17:12> <Eldon Willis - Last Filed: 08/11/23 19:54> - General Chief complaint: Wound/Laceration Stated complaint: Abcess on L Foot Time Seen by Provider: 08/11/23 17:00 - History of Present Illness Initial comments: Quick note: 78-year-old male presents to the emergency department for evaluation of diabetic foot ulcer. He states that he first noticed this 2 days ago. He reports that it is on his fifth toe of the left foot. Denies fever. (Sujatha Francis) 78-year-old male with past medical history significant for type 2 diabetes requiring prior amputations of digits due to infections presenting to the ED with complaint of left toe infection. Reports 2 days ago started to notice pain and swelling of his fifth left toe. Since then reports symptoms have worsened. No fever or chills. No difficulties ambulating secondary to the pain. No chest pain shortness of breath. No other complaints at this time. (Eldon Willis) - Related Data Home Medications Medication Instructions Recorded Confirmed Aspirin 81 mg PO HS 12/27/15 10/20/22 Docusate [Colace] 100 mg PO BID-W/MEALS 12/27/15 10/20/22 Glucosam/Magen-Msm1/C/Jimi/Bosw 1 tab PO PC-BRKFST 12/27/15 10/20/22 [Glucosamine-Chondroitin Tablet] Multivitamins, Thera [Multivitamin 1 tab PO PC-BRKFST 12/27/15 10/20/22 (formulary)] Insulin Glargine,Hum.rec.anlog 28 units SQ AC-BRKFST 07/18/16 10/20/22 [Toujeo Solostar] Baclofen [Lioresal] 10 mg PO BID PRN 10/06/16 10/20/22 lisinopriL [Zestril] 10 mg PO PC-SUPPER 11/15/19 10/20/22 Diclofenac Sodium Gel [Voltaren 1% 3 gm TOPICAL PC-BRKFST 08/25/22 10/20/22 Gel] Fish Oil/Dha/Epa [Fish Oil 1,200 1 cap PO PC-SUPPER 08/25/22 10/20/22 mg Fish Oil] L.acidoph,Paracasei, B.lactis 1 cap PO AC-BRKFST 08/25/22 10/20/22 [Probiotic] Tamsulosin [Flomax] 0.4 mg PO PC-SUPPER 08/25/22 10/20/22 rOPINIRole HCL [Requip] 1 mg PO PC-SUPPER 08/25/22 10/20/22 sitaGLIPtin PHOS/metFORMIN HCL 2 tab PO AC-BRKFST 08/25/22 10/20/22 [Janumet 50-500 mg Tablet] rOPINIRole HCL [Requip] 0.5 mg PO DAILY PRN 10/20/22 10/20/22 Previous Rx's Medication Instructions Recorded Clindamycin [Cleocin] 450 mg PO Q6H #63 capsule 08/11/23 Allergies Allergy/AdvReac Type Severity Reaction Status Date / Time adhesive Allergy Itching/bruna Verified 08/11/23 17:00 h codeine AdvReac Hallucinati Verified 08/11/23 17:00 ons/paranoi d Review of Systems ROS Other: All systems not noted in ROS Statement are negative. <Sujatha Francis - Last Filed: 08/11/23 17:12> ROS Other: All systems not noted in ROS Statement are negative. <Eldon Willis - Last Filed: 08/11/23 19:54> ROS Statement: Those systems with pertinent positive or pertinent negative responses have been documented in the HPI. 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), recent high BP-no Rx, bone infection left foot, History of Any Multi-Drug Resistant Organisms: MRSA Date of last positivie culture/infection: 2015 MDRO Source:: foot Past Surgical History: Orthopedic Surgery, Tonsillectomy Additional Past Surgical History / Comment(s): HAMMER TOE SX LACEY FEET, LEFT FOOT SURGERY GREAT TOE AMPUTATION/THEN 2ND SX TO REARRANGE THE BONES IN LT FOOT, right foot little toe amputation, Tendon lengthening left foot, cyst removed from middle finger rt hand Past Anesthesia/Blood Transfusion Reactions: Family History of Problems w/ Anesthesia Additional Past Anesthesia/Blood Transfusion Reaction / Comment(s): father had confusion/loss of memory with anesthesia Past Psychological History: Depression Smoking Status: Former smoker Past Alcohol Use History: None Reported Past Drug Use History: None Reported - Past Family History Mother Additional Family Medical History / Comment(s): AGE 91 FROM BRAIN HEMORRAGE Father Family Medical History: Cancer Additional Family Medical History / Comment(s): LUNG CANCER <Sujatha Francis - Last Filed: 08/11/23 17:12> General Exam Limitations: no limitations <Sujatha Francis - Last Filed: 08/11/23 17:12> General appearance: alert, in no apparent distress Eye exam: Present: normal appearance Neck exam: Present: normal inspection Respiratory exam: Present: normal lung sounds bilaterally Cardiovascular Exam: Present: regular rate GI/Abdominal exam: Present: soft, normal bowel sounds. Absent: distended, tenderness, guarding, rebound, rigid Extremities exam: Present: other (Amputation of the left first toe. Left fifth toe does show some ulceration on the medial aspect with purulent drainage. On the lateral aspect of the left fourth toe there is minimal ulceration. Left fifth toe shows some minimal surrounding warmth and erythema however no ascending erythema.) Neurological exam: Present: alert, oriented X3 <Eldon Willis - Last Filed: 08/11/23 19:54> - General Exam Comments Initial Comments: Visual Physical Exam Vital signs reviewed General: Well-appearing, nontoxic, no acute distress. Head: Normocephalic, atraumatic Eyes: PERRLA, EOMI ENT: Airway patent Chest: Nonlabored breathing Skin: No visual rash, normal skin tone Neuro: Alert and oriented 3 Musculoskeletal: No gross abnormalities (Sujatha Francis) Course Vital Signs 08/11/23 16:58 Temperature 98.2 F Pulse Rate 77 Respiratory 16 Rate Blood Pressure 137/58 O2 Sat by Pulse 95 Oximetry Medical Decision Making <Sujatha Francis - Last Filed: 08/11/23 17:12> - Lab Data Result diagrams: 08/11/23 18:12 08/11/23 18:12 <Eldon Willis - Last Filed: 08/11/23 19:54> - Medical Decision Making Quick note preformed and electronically signed by Sujatha Francis PA-C (Sujatha Francis) Was pt. sent in by a medical professional or institution (GIANLUCA Godoy, LITERATURE TEACHER, urgent care, hospital, or residential...) When possible be specific @ -No Did you speak to anyone other than the patient for history (EMS, parent, family, police, friend...)? What history was obtained from this source @ -No Did you review nursing and triage notes (agree or disagree)? Why? @ -I reviewed and agree with nursing and triage notes Were old charts reviewed (outside hosp., previous admission, EMS record, old EKG, old radiological studies, urgent care reports/EKG's, residential records)? Report findings @ -No old charts were reviewed Differential Diagnosis (chest pain, altered mental status, abdominal pain women, abdominal pain men, vaginal bleeding, weakness, fever, dyspnea, syncope, headache, dizziness, GI bleed, back pain, seizure, CVA, palpatations, mental health, musculoskeletal)? @ -Differential Musculoskeletal Muscular strain, contusion, ligament sprain, fracture, arthritis, septic arthritis, bursitis, cellulitis, muscle spasm, nerve compression, DVT, arterial occlusion, herpes zoster, electrolyte abnormality, tumor.... This is not meant to be in all inclusive list EKG interpreted by me (3pts min.). @ -None X-rays interpreted by me (1pt min.). @ -X-ray interpreted me which reveals no evidence of osteomyelitis or other acute finding. CT interpreted by me (1pt min.). @ -None done U/S interpreted by me (1pt. min.). @ -None done What testing was considered but not performed or refused? (CT, X-rays, U/S, labs)? Why? @ -None What meds were considered but not given or refused? Why? @ -None Did you discuss the management of the patient with other professionals (professionals i.e. GIANLUCA Godoy, LITERATURE TEACHER, lab, RT, psych nurse, manager social responsibility, client care specialist, teacher, classification officer, patient case coordinator)? Give summary @ -No Was smoking cessation discussed for >3mins.? @ -No Was critical care preformed (if so, how long)? @ -No Were there social determinants of health that impacted care today? How? (H omelessness, low income, unemployed, alcoholism, drug addiction, transportation, low edu. Level, literacy, decrease access to med. care, longterm, rehab)? @ -No Was there de-escalation of care discussed even if they declined (Discuss DNR or withdrawal of care, Hospice)? DNR status @ -No What co-morbidities impacted this encounter? (DM, HTN, Smoking, COPD, CAD, Cancer, CVA, ARF, Chemo, Hep., AIDS, mental health diagnosis, sleep apnea, morbid obesity)? @ -Type 2 diabetes Was patient admitted / discharged? Hospital course, mention meds given and route, prescriptions, significant lab abnormalities, going to OR and other pertinent info. @ -Discharge 78-year-old male with past medical history significant for type 2 diabetes presenting to the ED with a chief complaint of left fifth digit wound. Noticed this 2 days ago. On examination there is some ulceration on the medial aspect of the left fifth toe with some purulent drainage. Culture was obtained. Laboratory studies reviewed. Labs clean CBC CMP largely unremarkable with no elevation white blood cell count. Vital stable, afebrile. Imaging shows no evidence of osteomyelitis. Patient provided dose of clindamycin here and discharged home with clindamycin. Advise close follow-up with his PCP. Discussed return precautions with patient who verbalized agreement. Undiagnosed new problem with uncertain prognosis? @ -No Drug Therapy requiring intensive monitoring for toxicity (Heparin, Nitro, Insulin, Cardizem)? @ -No Were any procedures done? @ -No Diagnosis/symptom? @ -Left fifth toe infection/wound Acute, or Chronic, or Acute on Chronic? @ -Acute Uncomplicated (without systemic symptoms) or Complicated (systemic symptoms)? @ -Uncomplicated Side effects of treatment? @ -No Exacerbation, Progression, or Severe Exacerbation? @ -No Poses a threat to life or bodily function? How? (Chest pain, [place], [place], pneumonia, PE, COPD, DKA, ARF, appy, cholecystitis, CVA, Diverticulitis, Homicidal, Suici vasile, threat to staff... and all critical care pts) @ -Possibly, however likely at this time. (Eldon Willis) - Lab Data Lab Results 08/11/23 08/11/23 08/11/23 Range/Units 18:12 18:12 18:12 WBC 7.1 (3.8-10.6) k/uL RBC 4.60 (4.30-5.90) m/uL Hgb 13.7 (13.0-17.5) gm/dL Hct 40.2 (39.0-53.0) % MCV 87.4 (80.0-100.0) fL MCH 29.9 (25.0-35.0) pg MCHC 34.2 (31.0-37.0) g/dL RDW 13.2 (11.5-15.5) % Plt Count 215 (150-450) k/uL MPV 7.7 Neutrophils % 63 % Lymphocytes % 24 % Monocytes % 7 % Eosinophils % 2 % Basophils % 1 % Neutrophils # 4.4 (1.3-7.7) k/uL Lymphocytes # 1.7 (1.0-4.8) k/uL Monocytes # 0.5 (0-1.0) k/uL Eosinophils # 0.2 (0-0.7) k/uL Basophils # 0.1 (0-0.2) k/uL Sodium 136 L (137-145) mmol/L Potassium 4.4 (3.5-5.1) mmol/L Chloride 101 (98-107) mmol/L Carbon Dioxide 26 (22-30) mmol/L Anion Gap 9 mmol/L BUN 38 H (9-20) mg/dL Creatinine 1.26 H (0.66-1.25) mg/dL Est GFR (CKD-EPI)AfAm 63 (>60 ml/min/1.73 sqM) Est GFR (CKD-EPI)NonAf 55 (>60 ml/min/1.73 sqM) Glucose 107 H (74-99) mg/dL Plasma Lactic Acid Carlos 0.7 (0.7-2.0) mmol/L Calcium 9.4 (8.4-10.2) mg/dL Total Bilirubin 1.5 H (0.2-1.3) mg/dL AST 27 (17-59) U/L ALT 22 (4-49) U/L Alkaline Phosphatase 71 (38-126) U/L Total Protein 7.1 (6.3-8.2) g/dL Albumin 4.4 (3.5-5.0) g/dL Disposition <Sujatha Francis - Last Filed: 08/11/23 17:12> Is patient prescribed a controlled substance at d/c from ED?: No Time of Disposition: 19:54 <Eldon Willis - Last Filed: 08/11/23 19:54> Clinical Impression: Toe infection Disposition: HOME SELF-CARE Condition: Good Instructions (If sedation given, give patient instructions): Cellulitis (ED) Additional Instructions: Please return to the Emergency Department if symptoms worsen or any other concerns. Please take antibiotics as prescribed. Follow-up with your primary care provider. Prescriptions: Clindamycin [Cleocin] 450 mg PO Q6H #63 capsule Referrals: Clay Jones MD [Primary Care Provider] - 1-2 days
[2023-08-11 18:32] LABS: Basophils # (A) 0.1 k/uL (0-0.2); Basophils % (A) 1 %; Eosinophils # (A) 0.2 k/uL (0-0.7); Eosinophils % (A) 2 %; HCT 40.2 % (39.0-53.0); HGB 13.7 gm/dL (13.0-17.5); Lymphocytes # (A) 1.7 k/uL (1.0-4.8); Lymphocytes % (A) 24 %; MCH 29.9 pg (25.0-35.0); MCHC 34.2 g/dL (31.0-37.0); MCV 87.4 fL (80.0-100.0); Mean Platelet Volume 7.7; Monocytes # (A) 0.5 k/uL (0-1.0); Monocytes % (A) 7 %; Neutrophils # (A) 4.4 k/uL (1.3-7.7); Neutrophils % (A) 63 %; Platelet Count 215 k/uL (150-450); RDW 13.2 % (11.5-15.5); WBC 7.1 k/uL (3.8-10.6)
[2023-08-11 18:41] LABS: ALT 22 U/L (4-49); AST 27 U/L (17-59); African American GFR (CKD) 63 (>60 ml/min/1.73 sqM); Albumin 4.4 g/dL (3.5-5.0); Alkaline Phosphatase 71 U/L (38-126); Anion Gap 9 mmol/L; Blood Urea Nitrogen 38 mg/dL (9-20); Calcium 9.4 mg/dL (8.4-10.2); Carbon Dioxide 26 mmol/L (22-30); Chloride 101 mmol/L (98-107); Glucose 107 mg/dL (74-99); Non-African American GFR(CKD) 55 (>60 ml/min/1.73 sqM); Potassium 4.4 mmol/L (3.5-5.1); Sodium 136 mmol/L (137-145); Total Bilirubin 1.5 mg/dL (0.2-1.3); Total Protein 7.1 g/dL (6.3-8.2)
--- NOTE | 2023-08-11 18:46 | XR ---
EXAMINATION TYPE: XR toes LT DATE OF EXAM: 08/11/2023 COMPARISON: 07/18/2016 HISTORY: Open wound TECHNIQUE: 3 view left fifth digit FINDINGS: Advanced degenerative changes at distal metatarsals at the junction with the proximal phala nges. No acute fractures are evident. There is preservation of the cortex. No suspicious cortical ero stacy identified. IMPRESSION: 1. No suspicious changes to suggest acute osteomyelitis radiographically apparent. Three-phase bone scan could be performed for sufficient clinical suspicion. 2. Advanced degenerative changes at the metatarsophalangeal joint spaces.
[2023-08-11] MEDS: CLINDAMYCIN 150 MG CAP PO STA (20:05)
[2023-08-11 20:16] VITALS: BP 130/68; PULSE 53; RESP 19; TEMP 97.6
== END 2023-08-11 20:15 | disposition home or self-care (01) ==
LOC: EC 16:56
DX: L08.9 Local infection of the skin and subcutaneous tissue, unspecified (principal); E11.9 Type 2 diabetes mellitus without complications; Z79.4 Long term (current) use of insulin; Z88.5 Allergy status to narcotic agent; Z91.048 Other nonmedicinal substance allergy status; Z87.891 Personal history of nicotine dependence
CPT/HCPCS: 36415; 80053; 83605; 85025; 87070; 87205; 99283

== ENCOUNTER 2023-11-28 14:52 | Inpatient (IN) | payer MEDICARE ==
--- NOTE | 2023-11-28 15:23 | ED ---
Skin/Abscess/FB HPI - General Chief complaint: Skin/Abscess/Foreign Body Stated complaint: foot infection Time Seen by Provider: 11/28/23 15:03 Source: patient, RN notes reviewed, old records reviewed Mode of arrival: ambulatory Limitations: no limitations - History of Present Illness Initial comments: 78 year old male presents to the emergency department with chief complaint of 2nd right toe infection that started 2 weeks ago. He states that he was visiting a friend in the hospital two weeks ago that he could not break away from when the infection started. His history is significant for multiple toe amputations including his left great toe, and his right fifth toe with Dr. Quiñones He also reports a long history of type 2 diabetes mellitus with most recent A1C of 6.2. He denies paresthesias outside of the usual bilaterally, does report warmth, drainage, and odor. Denies shortness of breath, chest pain, fevers, nausea, and vomiting. He reports that his personal glucose monitor is reading 190 at this time. - Related Data Home Medications Medication Instructions Recorded Confirmed Aspirin 81 mg PO HS 12/27/15 10/20/22 Docusate [Colace] 100 mg PO BID-W/MEALS 12/27/15 10/20/22 Glucosam/Magen-Msm1/C/Jimi/Bosw 1 tab PO PC-BRKFST 12/27/15 10/20/22 [Glucosamine-Chondroitin Tablet] Multivitamins, Thera [Multivitamin 1 tab PO PC-BRKFST 12/27/15 10/20/22 (formulary)] Insulin Glargine,Hum.rec.anlog 28 units SQ AC-BRKFST 07/18/16 10/20/22 [Toujeo Solostar] Baclofen [Lioresal] 10 mg PO BID PRN 10/06/16 10/20/22 lisinopriL [Zestril] 10 mg PO PC-SUPPER 11/15/19 10/20/22 Diclofenac Sodium Gel [Voltaren 1% 3 gm TOPICAL PC-BRKFST 08/25/22 10/20/22 Gel] Fish Oil/Dha/Epa [Fish Oil 1,200 1 cap PO PC-SUPPER 08/25/22 10/20/22 mg Fish Oil] L.acidoph,Paracasei, B.lactis 1 cap PO AC-BRKFST 08/25/22 10/20/22 [Probiotic] Tamsulosin [Flomax] 0.4 mg PO PC-SUPPER 08/25/22 10/20/22 rOPINIRole HCL [Requip] 1 mg PO PC-SUPPER 08/25/22 10/20/22 sitaGLIPtin PHOS/metFORMIN HCL 2 tab PO AC-BRKFST 08/25/22 10/20/22 [Janumet 50-500 mg Tablet] rOPINIRole HCL [Requip] 0.5 mg PO DAILY PRN 10/20/22 10/20/22 Previous Rx's Medication Instructions Recorded Clindamycin [Cleocin] 450 mg PO Q6H #63 capsule 08/11/23 Allergies Allergy/AdvReac Type Severity Reaction Status Date / Time adhesive Allergy Itching/bruna Verified 11/28/23 15:00 h codeine AdvReac Hallucinati Verified 11/28/23 15:00 ons/paranoi d Review of Systems ROS Statement: Those systems with pertinent positive or pertinent negative responses have been documented in the HPI. ROS Other: All systems not noted in ROS Statement are negative. 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), recent high BP-no Rx, bone infection left foot, History of Any Multi-Drug Resistant Organisms: MRSA Date of last positivie culture/infection: 2015 MDRO Source:: foot Past Surgical History: Orthopedic Surgery, Tonsillectomy Additional Past Surgical History / Comment(s): HAMMER TOE SX LACEY FEET, LEFT FOOT SURGERY GREAT TOE AMPUTATION/THEN 2ND SX TO REARRANGE THE BONES IN LT FOOT, right foot little toe amputation, Tendon lengthening left foot, cyst removed from middle finger rt hand Past Anesthesia/Blood Transfusion Reactions: Family History of Problems w/ Anesthesia Additional Past Anesthesia/Blood Transfusion Reaction / Comment(s): father had confusion/loss of memory with anesthesia Past Psychological History: Depression Smoking Status: Former smoker Past Alcohol Use History: None Reported Past Drug Use History: None Reported - Past Family History Mother Additional Family Medical History / Comment(s): AGE 91 FROM BRAIN HEMORRAGE Father Family Medical History: Cancer Additional Family Medical History / Comment(s): LUNG CANCER General Exam Limitations: no limitations General appearance: alert, in no apparent distress Head exam: Present: atraumatic, normocephalic, normal inspection Eye exam: Present: normal appearance, PERRL, EOMI. Absent: scleral icterus, conjunctival injection, periorbital swelling ENT exam: Present: normal exam, mucous membranes moist Neck exam: Present: normal inspection. Absent: tenderness, meningismus, lymphadenopathy Respiratory exam: Present: normal lung sounds bilaterally. Absent: respiratory distress, wheezes, rales, rhonchi, stridor Cardiovascular Exam: Present: regular rate, normal rhythm, normal heart sounds. Absent: systolic murmur, diastolic murmur, rubs, gallop, clicks GI/Abdominal exam: Present: soft, normal bowel sounds. Absent: distended, tenderness, guarding, rebound, rigid Extremities exam: Present: normal inspection, full ROM, normal capillary refill. Absent: tenderness, pedal edema, joint swelling, calf tenderness Left Foot/Toe exam: Present: tenderness, swelling, deformity (Right 2nd toe is pale and green with pungent odor, without drainage. Full ROM noted to toe and ankle, with redness to dorsum) Back exam: Present: normal inspection Neurological exam: Present: alert, oriented X3, CN II-XII intact Psychiatric exam: Present: normal affect, normal mood Skin exam: Present: warm, dry, intact, normal color. Absent: rash Course Vital Signs 11/28/23 11/28/23 14:56 15:25 Temperature 98.3 F Pulse Rate 75 70 Respiratory 18 20 Rate Blood Pressure 144/63 123/55 O2 Sat by Pulse 87 L 100 Oximetry Medical Decision Making - Medical Decision Making Was pt. sent in by a medical professional or institution (, PA, EPIC CADENCE ANALYST, urgent care, hospital, or alf...) When possible be specific @ -No Did you speak to anyone other than the patient for history (EMS, parent, family, police, friend...)? What history was obtained from this source @ -No Did you review nursing and triage notes (agree or disagree)? Why? @ -I reviewed and agree with nursing and triage notes Were old charts reviewed (outside hosp., previous admission, EMS record, old EKG, old radiological studies, urgent care reports/EKG's, alf records)? Report findings @ -No old charts were reviewed Differential Diagnosis (chest pain, altered mental status, abdominal pain women, abdominal pain men, vaginal bleeding, weakness, fever, dyspnea, syncope, headache, dizziness, GI bleed, back pain, seizure, CVA, palpatations, mental health, musculoskeletal)? @ -Cellulitis, osteomyelitis, diabetic foot infection EKG interpreted by me (3pts min.). @ -None X-rays interpreted by me (1pt min.). @ -X-ray right toes showing soft tissue swelling, osteomyelitis, old surgical changes CT interpreted by me (1pt min.). @ -None done U/S interpreted by me (1pt. min.). @ -None done What testing was considered but not performed or refused? (CT, X-rays, U/S, labs)? Why? @ -None What meds were considered but not given or refused? Why? @ -None Did you discuss the management of the patient with other professionals (professionals i.e. , PA, EPIC CADENCE ANALYST, lab, RT, psych nurse, psychiatric social worker, immigration lawyer, teacher, special technical operations officer, employment case manager)? Give summary @ -Dr. Jones for admission with consult to Dr. Quiñones Was smoking cessation discussed for >3mins.? @ -No Was critical care preformed (if so, how long)? @ -No Were there social determinants of health that impacted care today? How? (Homelessness, low income, unemployed, alcoholism, drug addiction, transportation, low edu. Level, literacy, decrease access to med. care, [place] [facility], rehab)? @ -No Was there de-escalation of care discussed even if they declined (Discuss DNR or withdrawal of care, Hospice)? DNR status @ -No What co-morbidities impacted this encounter? (DM, HTN, Smoking, COPD, CAD, Cancer, CVA, ARF, Chemo, Hep., AIDS, mental health diagnosis, sleep apnea, mo rbid obesity)? @ -Diabetes Was patient admitted / discharged? Hospital course, mention meds given and route, prescriptions, significant lab abnormalities, going to OR and other pertinent info. @ -Admitted Undiagnosed new problem with uncertain prognosis? @ -No Drug Therapy requiring intensive monitoring for toxicity (Heparin, Nitro, Insulin, Cardizem)? @ -No Were any procedures done? @ -No Diagnosis/symptom? @ -Diabetic foot infection osteomyelitis Acute, or Chronic, or Acute on Chronic? @ -Acute Uncomplicated (without systemic symptoms) or Complicated (systemic symptoms)? @ -Complicated Side effects of treatment? @ -No Exacerbation, Progression, or Severe Exacerbation? @ -No Poses a threat to life or bodily function? How? (Chest pain, [place], [place], pneumonia, PE, COPD, DKA, ARF, appy, cholecystitis, CVA, Diverticulitis, Homicidal, Suicidal, threat to staff... and all critical care pts) @ -[Yes sepsis, endorgan failure - Lab Data Result diagrams: 11/28/23 15:52 11/28/23 15:52 Lab Results 11/28/23 11/28/23 11/28/23 Range/Units 15:52 15:52 15:52 WBC 10.8 H (3.8-10.6) k/uL RBC 3.91 L (4.30-5.90) m/uL Hgb 11.7 L (13.0-17.5) gm/dL Hct 34.9 L (39.0-53.0) % MCV 89.1 (80.0-100.0) fL MCH 29.8 (25.0-35.0) pg MCHC 33.4 (31.0-37.0) g/dL RDW 12.2 (11.5-15.5) % Plt Count 308 (150-450) k/uL MPV 7.4 Neutrophils % 85 % Lymphocytes % 8 % Monocytes % 5 % Eosinophils % 1 % Basophils % 0 % Neutrophils # 9.2 H (1.3-7.7) k/uL Lymphocytes # 0.9 L (1.0-4.8) k/uL Monocytes # 0.5 (0-1.0) k/uL Eosinophils # 0.1 (0-0.7) k/uL Basophils # 0.0 (0-0.2) k/uL ESR Cancelled Sodium 133 L (137-145) mmol/L Potassium 4.7 (3.5-5.1) mmol/L Chloride 99 (98-107) mmol/L Carbon Dioxide 25 (22-30) mmol/L Anion Gap 9 mmol/L BUN 33 H (9-20) mg/dL Creatinine 1.27 H (0.66-1.25) mg/dL Est GFR (CKD-EPI)AfAm 63 (>60 ml/min/1.73 sqM) Est GFR (CKD-EPI)NonAf 54 (>60 ml/min/1.73 sqM) Glucose 252 H (74-99) mg/dL Plasma Lactic Acid Carlos 1.2 (0.7-2.0) mmol/L Calcium 9.0 (8.4-10.2) mg/dL Total Bilirubin 1.4 H (0.2-1.3) mg/dL AST 26 (17-59) U/L ALT 22 (4-49) U/L Alkaline Phosphatase 65 (38-126) U/L Total Protein 6.7 (6.3-8.2) g/dL Albumin 3.7 (3.5-5.0) g/dL Disposition Clinical Impression: Cellulitis of right foot, Diabetic infection of right foot, Osteomyelitis Disposition: ADMITTED IP TO THIS HOSP Condition: Fair Referrals: Clay Jones MD [Primary Care Provider] - 1-2 days Time of Disposition: 15:46
[2023-11-28] MEDS ORDERED: VANCOMYCIN IV PER PHARMACY 1 EACH MISC MISCELLANE PRN (15:44)
[2023-11-28 16:11] LABS: Basophils % (A) 0 %; Eosinophils # (A) 0.1 k/uL (0-0.7); Eosinophils % (A) 1 %; HCT 34.9 % (39.0-53.0); HGB 11.7 gm/dL (13.0-17.5); Lymphocytes # (A) 0.9 k/uL (1.0-4.8); Lymphocytes % (A) 8 %; MCH 29.8 pg (25.0-35.0); MCHC 33.4 g/dL (31.0-37.0); MCV 89.1 fL (80.0-100.0); Mean Platelet Volume 7.4; Monocytes # (A) 0.5 k/uL (0-1.0); Monocytes % (A) 5 %; Neutrophils # (A) 9.2 k/uL (1.3-7.7); Neutrophils % (A) 85 %; Platelet Count 308 k/uL (150-450); RBC 3.91 m/uL (4.30-5.90); RDW 12.2 % (11.5-15.5); WBC 10.8 k/uL (3.8-10.6)
[2023-11-28 16:13] LABS: ALT 22 U/L (4-49); AST 26 U/L (17-59); African American GFR (CKD) 63 (>60 ml/min/1.73 sqM); Albumin 3.7 g/dL (3.5-5.0); Alkaline Phosphatase 65 U/L (38-126); Anion Gap 9 mmol/L; Blood Urea Nitrogen 33 mg/dL (9-20); Carbon Dioxide 25 mmol/L (22-30); Chloride 99 mmol/L (98-107); Glucose 252 mg/dL (74-99); Non-African American GFR(CKD) 54 (>60 ml/min/1.73 sqM); Potassium 4.7 mmol/L (3.5-5.1); Sodium 133 mmol/L (137-145); Total Bilirubin 1.4 mg/dL (0.2-1.3); Total Protein 6.7 g/dL (6.3-8.2)
[2023-11-28] MEDS: PIPERACILLIN-TAZOBACTAM 3.375 GM in SODIUM CHLORIDE 0.9% 100 ML IVPB SCH (16:14)
[2023-11-28] MEDS ORDERED: ONDANSETRON 4 MG/2 ML VIAL IVP PRN (16:27)
[2023-11-28] MEDS ORDERED: NALOXONE 0.4 MG/ML 1 ML VIAL IV PRN (16:27)
[2023-11-28] MEDS ORDERED: HYDROcodone/APAP 5-325MG 1 EACH TAB PO PRN (16:27)
--- NOTE | 2023-11-28 16:31 | XR ---
EXAMINATION TYPE: XR toes RT DATE OF EXAM: 11/28/2023 3:55 PM CLINICAL INDICATION: Male, 78 years old with history of infection; COMPARISON: 08/26/2023 TECHNIQUE: XR toes RT examined in the AP, oblique, and lateral projections. FINDINGS/IMPRESSION: 1. Abnormal appearance of the second digit with middle and distal phalanx poorly visualized soft tis sabiha wound present correlate for osteomyelitis 2. Postsurgical changes of the foot involving the amputation at the fifth metatarsal. Amputation at the metatarsophalangeal joint of the fourth digit. 3. Severe degeneration changes of the first digit metatarsophalangeal joint with joints returning os teophyte formation. 4. Metallic linear body in the area of the second metatarsal head. Additional type density present n ear the fourth metatarsal head. [facility], Workstation: [id number], 11/28/2023 4:29 PM
[2023-11-28 17:05] LABS: C Reactive Protein 18.4 mg/dL (<1.0)
[2023-11-28] MEDS: VANCOMYCIN 1,500 MG in SODIUM CHLORIDE 0.9% 500 ML 500 ML IVPB STA (17:37)
--- NOTE | 2023-11-28 18:26 | P.GSCN ---
History of Present Illness History of present illness: 78-year-old gentleman well known to me from the past and had a right big toe amputation done by me in the past and left foot fifth toe amputation in the past he's been coming to the office on regular basis he developed right foot second toe wet gangrene according to patient possible couple of weeks he was wearing shoes attending his friend in the hospital Medical history history of diabetes hypertension Personal history nonsmoker ALLERGY to latex and and tape Neck examination no bruit appreciated Chest is clear good and both lungs first and second sound present graft abdomen soft nontender Vascular femorals are 1+ bilateral PTDP by the Doppler lright foot second toe wet gangrene possible involvement of the third and big toe changes on IV antibiotic Plan is improvement night consent for right foot second toe amputation possible third toe. With IV antibiotic 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), recent high BP-no Rx, bone infection left foot, History of Any Multi-Drug Resistant Organisms: MRSA Year Discovered:: 2016 MDRO Source:: foot Past Surgical History: Orthopedic Surgery, Tonsillectomy Additional Past Surgical History / Comment(s): HAMMER TOE SX LACEY FEET, LEFT FOOT SURGERY GREAT TOE AMPUTATION/THEN 2ND SX TO REARRANGE THE BONES IN LT FOOT, right foot little toe amputation, Tendon lengthening left foot, cyst removed f rom middle finger rt hand Past Anesthesia/Blood Transfusion Reactions: Family History of Problems w/ Anesthesia Additional Past Anesthesia/Blood Transfusion Reaction / Comm: father had confusion/loss of memory with anesthesia Past Psychological History: Depression Smoking Status: Former smoker Past Alcohol Use History: None Reported Past Drug Use History: None Reported - Past Family History Mother Additional Family Medical History / Comment(s): AGE 91 FROM BRAIN HEMORRAGE Father Family Medical History: Cancer Additional Family Medical History / Comment(s): LUNG CANCER Medications and Allergies Home Medications Medication Instructions Recorded Confirmed Type Aspirin 81 mg PO PC-SUPPER 12/27/15 11/28/23 History Multivitamins, Thera [Multivitamin 1 tab PO PC-BRKFST 12/27/15 11/28/23 History (formulary)] Insulin Glargine,Hum.rec.anlog 34 units SQ PC-BRKFST 07/18/16 11/28/23 History [[place]] Baclofen [Lioresal] 10 mg PO PC-SUPPER 10/06/16 11/28/23 History lisinopriL [Zestril] 10 mg PO PC-SUPPER 11/15/19 11/28/23 History Fish Oil/Dha/Epa [Fish Oil 1,200 1 cap PO PC-SUPPER 08/25/22 11/28/23 History mg Fish Oil] Tamsulosin [Flomax] 0.4 mg PO PC-SUPPER 08/25/22 11/28/23 History rOPINIRole HCL [Requip] 3 mg PO PC-SUPPER 08/25/22 11/28/23 History sitaGLIPtin PHOS/metFORMIN HCL 2 tab PO PC-BRKFST 08/25/22 11/28/23 History [Janumet 50-500 mg Tablet] Albuterol Sulfate [Albuterol 1 - 2 puff PO RT-Q6H PRN 11/28/23 11/28/23 History Sulfate Hfa] Calcium Phos/D3/Magnesium/Zinc 1 tab PO PC-BRKFST 11/28/23 11/28/23 History [Fytyhui-Scr-Emem-Vitamin D3] rOPINIRole HCL [Requip] 1 mg PO PC-BRKFST 11/28/23 11/28/23 History traZODone HCL [Desyrel] 50 mg PO PC-SUPPER 11/28/23 11/28/23 History Allergies Allergy/AdvReac Type Severity Reaction Status Date / Time adhesive Allergy Itching/bruna Verified 11/28/23 16:37 h codeine AdvReac Hallucinati Verified 11/28/23 16:37 ons/paranoi d Surgical - Exam Vital Signs Temp Pulse Resp BP Pulse Ox 98.3 F 75 18 144/63 87 L 11/28/23 14:56 11/28/23 14:56 11/28/23 14:56 11/28/23 14:56 11/28/23 14:56 Results - Labs 11/28/23 15:52 11/28/23 15:52 Abnormal Lab Results - Last 24 Hours (Table) 11/28/23 11/28/23 Range/Units 15:52 15:52 WBC 10.8 H (3.8-10.6) k/uL RBC 3.91 L (4.30-5.90) m/uL Hgb 11.7 L (13.0-17.5) gm/dL Hct 34.9 L (39.0-53.0) % Neutrophils # 9.2 H (1.3-7.7) k/uL Lymphocytes # 0.9 L (1.0-4.8) k/uL Sodium 133 L (137-145) mmol/L BUN 33 H (9-20) mg/dL Creatinine 1.27 H (0.66-1.25) mg/dL Glucose 252 H (74-99) mg/dL Total Bilirubin 1.4 H (0.2-1.3) mg/dL C-Reactive Protein 18.4 H (<1.0) mg/dL Diabetes panel 11/28/23 Range/Units 15:52 Sodium 133 L (137-145) mmol/L Potassium 4.7 (3.5-5.1) mmol/L Chloride 99 (98-107) mmol/L Carbon Dioxide 25 (22-30) mmol/L BUN 33 H (9-20) mg/dL Creatinine 1.27 H (0.66-1.25) mg/dL Glucose 252 H (74-99) mg/dL Calcium 9.0 (8.4-10.2) mg/dL AST 26 (17-59) U/L ALT 22 (4-49) U/L Alkaline Phosphatase 65 (38-126) U/L Total Protein 6.7 (6.3-8.2) g/dL Albumin 3.7 (3.5-5.0) g/dL Calcium panel 11/28/23 Range/Units 15:52 Calcium 9.0 (8.4-10.2) mg/dL Albumin 3.7 (3.5-5.0) g/dL Pituitary panel 11/28/23 Range/Units 15:52 Sodium 133 L (137-145) mmol/L Potassium 4.7 (3.5-5.1) mmol/L Chloride 99 (98-107) mmol/L Carbon Dioxide 25 (22-30) mmol/L BUN 33 H (9-20) mg/dL Creatinine 1.27 H (0.66-1.25) mg/dL Glucose 252 H (74-99) mg/dL Calcium 9.0 (8.4-10.2) mg/dL Adrenal panel 11/28/23 Range/Units 15:52 Sodium 133 L (137-145) mmol/L Potassium 4.7 (3.5-5.1) mmol/L Chloride 99 (98-107) mmol/L Carbon Dioxide 25 (22-30) mmol/L BUN 33 H (9-20) mg/dL Creatinine 1.27 H (0.66-1.25) mg/dL Glucose 252 H (74-99) mg/dL Calcium 9.0 (8.4-10.2) mg/dL Total Bilirubin 1.4 H (0.2-1.3) mg/dL AST 26 (17-59) U/L ALT 22 (4-49) U/L Alkaline Phosphatase 65 (38-126) U/L Total Protein 6.7 (6.3-8.2) g/dL Albumin 3.7 (3.5-5.0) g/dL
[2023-11-28] MEDS ORDERED: LIDOCAINE 1% (10MG/ML) FOR IV START INTRADERMA PRN (20:05)
[2023-11-28 20:12] LABS: Glucose,Whole Blood 141 mg/dL (70-110)
[2023-11-28] MEDS ORDERED: ALBUTEROL NEBULIZED 2.5 MG/3 ML INHALATION PRN (22:01)
[2023-11-28] MEDS: LACTATED RINGERS 1,000 ML IV SCH (22:15)
[2023-11-28 23:00] LABS: Glucose,Whole Blood 150 mg/dL (70-110)
[2023-11-29] MEDS ORDERED: ONDANSETRON 4 MG/2 ML VIAL IVP PRN (07:00)
[2023-11-29] MEDS ORDERED: HYDROmorphone 0.5 MG/0.5 ML SYRINGE IVP PRN (07:00)
[2023-11-29 07:23] LABS: Glucose,Whole Blood 87 mg/dL (70-110)
[2023-11-29] MEDS ORDERED: INSULIN ASPART (NovoLOG) 100 UNIT/ML VIAL SQ SCH (07:30)
[2023-11-29] MEDS: INSULIN DETEMIR (LEVEMIR) 100 UNIT/ML SYR SQ SCH (08:27)
[2023-11-29] MEDS: INSULIN ASPART (NovoLOG) 100 UNIT/ML VIAL SQ SCH (08:27)
[2023-11-29] MEDS: NON FORMULARY DRUG (Calcium Phos/D3/Magnesium/Zinc [Calcium-Mag-Zinc-Vitamin D3] 1 EACH Ta PO SCH (08:28)
[2023-11-29] MEDS: metFORMIN 500 MG TAB PO SCH (08:32)
[2023-11-29] MEDS: MULTIVITAMINS, THERA 1 EACH TAB PO SCH (08:33)
[2023-11-29] MEDS: LINAGLIPTIN 5 MG TABLET PO SCH (08:33)
[2023-11-29] MEDS ORDERED: VANCOMYCIN 1,500 MG in SODIUM CHLORIDE 0.9% 500 ML 500 ML IVPB SCH (10:00)
[2023-11-29] MEDS: PANTOPRAZOLE 40 MG TABLET PO SCH (10:22)
--- NOTE | 2023-11-29 10:27 | P.HPIM ---
History of Present Illness H&P Date: 11/29/23 HISTORY OF PRESENT ILLNESS: 78-year-old with active medical history of recurrent osteomyelitis post amputation of the left foot second toe with debridement right foot little toe as well and had many time concern with open sore area and diabetic foot has been dealing with it for a long time, he seen infectious disease on more regular basis. The patient has been or office patient for the last 20 years extremely compliant with medical management medication and instruction is known to have type 2 diabetes more brittle type up-and-down with his A1c is still around 7.0, known to have history of chronic kidney disease, acute kidney injury on and off, hypertension, chronic neuropathy, chronic depression, mild BPH, and again previous history of gangrenous change of the left foot require fifth toe amputation along with great toe amputation and some debridement on the right side as well with history of MRSA in the past. Patient was diagnosed with an open sore recently in the office seen vascular and ended up going wound care in the area had healed well with no complication. He has been taking care of his significant other lately apparently has been wearing his foot for longer time not watching it more carefully he developed to have significant right foot second toe wet gangrene according to him for the last 2 weeks become much worse ended up coming to the emergency department at [facility] where was seen and evaluated, his white blood cell was 10,800 left shifted creatinine 1.27 close to his baseline glucose was 252 his C-reactive protein was 18.4. X-ray of the toe shows abnormal appearing of second digit with middle and distal phalanx poorly visualized soft tissue wound present correlate with osteomyelitis. Also had postsurgical change of the foot involving the amputated site of the left fifth metatarsal amputation of the metatarsal phalangeal joint with joint returning osteophyte formation and there is a metallic liner body on the second metatarsal head. He was started on Zosyn and giving 1 dose of vancomycin eventually switched to daptomycin will be seen infectious disease along with vascular patient will be admitted to the hospital for intense medical management of his diabetes as well this osteomyelitis. REVIEW OF SYSTEMS: CONSTITUTIONAL: Well-developed no acute respiratory distress. EYES: No icterus sclerae, no conjunctivitis. EARS, NOSE, MOUTH, THROAT, and FACE: No sore throat, lymphadenopathy, carotid bruits or deformity. RESPIRATORY: No SOB cough or wheezes. CARDIOVASCULAR: No CP, Palpitation, PND, Orthopnea, or angina. GASTROINTESTINAL: No Abd pain, Nausea or vomiting, no Diarrhea or constipation, No GI Bleed, no distention or masses. GENITOURINARY: Negative for Hematuria or UTI, no kidney stones. INTEGUMENT/BREAST: Mild arthritis in the right foot second toe gangrenous change. HEMATOLOGIC/LYMPHATIC: Negative for bleed or purpura. MUSCULOSKELTAL: Arthralgia and myalgia with infection of the second toe and the right side NEURLOGICAL: No LOC, Sz or syncope, blurred vision dizziness or abnormality.. BEHAVIORAL/PSYCH: Negative. ENDOCRINE: Negative. PHYSICAL EXAMINATION: General Appearance: Alert, cooperative, no distress, appears stated age. Neck HEENT: Supple, no lymphadenopathy, no thyroid enlargement, no carotid bruits. Lungs: Clear to auscultation without crackles or wheezes no rhonchi, no deformity. Chest Wall: Chest wall normal expansion with deep inspiration no tenderness and no deformity was found on exam, no costochondral pain or discomfort. Heart: Regular rate and rhythm, S1, S2 normal, no murmur, rub or gallop. Back: Symmetric, no curvature, ROM normal, no CVA tenderness. Abdomen: Soft, non-tender, bowel sounds active all four quadrants, no masses, no organomegaly. Extremities: Mild arthritis in both knees. Right foot second toe has wet gangrenous change more involve in the toe than before with an open area decreased pulse in the dorsalis pedis and posterior tibial on both the right and the left. Left side has no change he had a previous amputation of the first and the third toe remain the same Pulses: 2+ and symmetric. Skin: Skin color, texture, tugor normal, no rashes or lesions. Neurologic: Alert oriented x3 cranial nerves II through XII intact, no motor deficit, no abnormal balance or gait. ASSESSMENT AND PLAN: _Osteomyelitis of the right second toe: Patient was started on Vanco and Zosyn switched to daptomycin and Zosyn will consult infectious disease and vascular probably patient will need some surgical debridement possibly amputation of the second toe. _Chronic recurrent osteomyelitis and diabetic foot both side has been doing well up till now patient seen vascular and wound care on more regular basis has been doing very well with diabetic shoes and orthotic he watch his feet. On more regular basis lately with his significant other been sick and has not been home regularly created more problem with his severe neuropathy make the possibility of having open area is much higher than expected. _Brittle type 2 diabetes: Will resume current medication he is on Toujeo 34 units, NovoLog per sliding scales, Janumet 50/500 twice a day and is on Tradjenta 10 mg a day. His last A1c has been around 7.1 we will continue aggressive management. _Acute kidney injury on chronic kidney disease with slight decline in GFR, he is remain on ZINA inhibitor for kidney prevention, continue hydration and treat infection for better management of chronic kidney disease. _Hypertension: Has been doing very well on lisinopril titrate dose higher if needed. _Hyperlipidemia: He is on statin to my knowledge atorvastatin 20 mg a day resume medication. _BPH: Watch for any urinary retention still on Flomax. _Severe GERD: Remain on pantoprazole 40 mg a day. _Mild depression: Continue trazodone 50 mg at bedtime will titrate dose higher if needed. _Restless leg syndrome: Remain on ropinirole 1 mg in the morning and 3 mg at bedtime. _GI prophylaxis: Remain on pantoprazole. _DVT prophylaxis: Will start patient on Lovenox 40 mg subcutaneous daily. CODE STATUS: Full code. Admit patient to the inpatient service for more than 2 night stay. 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), recent high BP-no Rx, bone infection left foot, History of Any Multi-Drug Resistant Organisms: MRSA Date of last positivie culture/infection: 2015 MDRO Source:: foot Past Surgical History: Orthopedic Surgery, Tonsillectomy Additional Past Surgical History / Comment(s): HAMMER TOE SX LACEY FEET, LEFT FOOT SURGERY GREAT TOE AMPUTATION/THEN 2ND SX TO REARRANGE THE BONES IN LT FOOT, right foot little toe amputation, Tendon lengthening left foot, cyst removed fr om middle finger rt hand Past Anesthesia/Blood Transfusion Reactions: Family History of Problems w/ Anesthesia Additional Past Anesthesia/Blood Transfusion Reaction / Comment(s): father had confusion/loss of memory with anesthesia Past Psychological History: Depression Smoking Status: Former smoker Past Alcohol Use History: None Reported Past Drug Use History: None Reported - Past Family History Mother Additional Family Medical History / Comment(s): AGE 91 FROM BRAIN HEMORRAGE Father Family Medical History: Cancer Additional Family Medical History / Comment(s): LUNG CANCER Medications and Allergies Home Medications Medication Instructions Recorded Confirmed Type Aspirin 81 mg PO PC-SUPPER 12/27/15 11/28/23 History Multivitamins, Thera [Multivitamin 1 tab PO PC-BRKFST 12/27/15 11/28/23 History (formulary)] Insulin Glargine,Hum.rec.anlog 34 units SQ PC-BRKFST 07/18/16 11/28/23 History [Toujeo Solostar] Baclofen [Lioresal] 10 mg PO PC-SUPPER 10/06/16 11/28/23 History lisinopriL [Zestril] 10 mg PO PC-SUPPER 11/15/19 11/28/23 History Fish Oil/Dha/Epa [Fish Oil 1,200 1 cap PO PC-SUPPER 08/25/22 11/28/23 History mg Fish Oil] Tamsulosin [Flomax] 0.4 mg PO PC-SUPPER 08/25/22 11/28/23 History rOPINIRole HCL [Requip] 3 mg PO PC-SUPPER 08/25/22 11/28/23 History sitaGLIPtin PHOS/metFORMIN HCL 2 tab PO PC-BRKFST 08/25/22 11/28/23 History [Janumet 50-500 mg Tablet] Albuterol Sulfate [Albuterol 1 - 2 puff PO RT-Q6H PRN 11/28/23 11/28/23 History Sulfate Hfa] Calcium Phos/D3/Magnesium/Zinc 1 tab PO PC-BRKFST 11/28/23 11/28/23 History [Bsvvogu-Yzg-Cfyv-Vitamin D3] rOPINIRole HCL [Requip] 1 mg PO PC-BRKFST 11/28/23 11/28/23 History traZODone HCL [Desyrel] 50 mg PO PC-SUPPER 11/28/23 11/28/23 History Allergies Allergy/AdvReac Type Severity Reaction Status Date / Time adhesive Allergy Itching/bruna Verified 11/28/23 16:37 h codeine AdvReac Hallucinati Verified 11/28/23 16:37 ons/paranoi d Physical Exam Vitals: Vital Signs Temp Pulse Pulse Resp BP BP Pulse Ox 11/28/23 19:29 97.8 F 59 L 12 127/69 98 11/28/23 18:26 65 18 118/73 99 11/28/23 17:31 98.5 F 61 20 132/70 100 11/28/23 15:25 70 20 123/55 100 11/28/23 14:56 98.3 F 75 18 144/63 87 L Intake and Output 11/28/23 11/28/23 11/28/23 06:59 14:59 22:59 Other: Weight 78.925 kg 78.925 kg Results CBC & Chem 7: 11/28/23 15:52 11/28/23 15:52 Labs: Abnormal Lab Results - Last 24 Hours (Table) 11/28/23 11/28/23 11/28/23 Range/Units 15:52 15:52 20:10 WBC 10.8 H (3.8-10.6) k/uL RBC 3.91 L (4.30-5.90) m/uL Hgb 11.7 L (13.0-17.5) gm/dL Hct 34.9 L (39.0-53.0) % Neutrophils # 9.2 H (1.3-7.7) k/uL Lymphocytes # 0.9 L (1.0-4.8) k/uL Sodium 133 L (137-145) mmol/L BUN 33 H (9-20) mg/dL Creatinine 1.27 H (0.66-1.25) mg/dL Glucose 252 H (74-99) mg/dL POC Glucose (mg/dL) 141 H (70-110) mg/dL Total Bilirubin 1.4 H (0.2-1.3) mg/dL C-Reactive Protein 18.4 H (<1.0) mg/dL Thrombosis Risk Factor Assmnt - Choose All That Apply Each Risk Factor Represents 3 Points: Age 75 years or older Thrombosis Risk Factor Assessment Total Risk Factor Score: 3 Thrombosis Risk Factor Assessment Level: Moderate Risk
[2023-11-29] MEDS: DAPTOmycin 500 MG in SODIUM CHLORIDE 0.9% 50 ML IVPB SCH (10:55)
[2023-11-29 12:26] LABS: Glucose,Whole Blood 77 mg/dL (70-110)
[2023-11-29] MEDS: IV FLUID CONTINUATION 1,000 ML IV ONE (14:15)
[2023-11-29] MEDS ORDERED: MIDAZOLAM 2 MG/2 ML VIAL ONE (14:37)
[2023-11-29] MEDS ORDERED: SODIUM CHLORIDE 0.9% (PF) 10 ML VIAL ONE (14:37)
[2023-11-29] MEDS ORDERED: KETAMINE HCL IN 0.9 % NACL 50 MG/5 ML SYRINGE ONE (14:37)
[2023-11-29] MEDS ORDERED: DEXAMETHASONE SOD PHOSPHATE 4 MG/ML 1 ML VIAL ONE (14:37)
[2023-11-29] MEDS ORDERED: fentaNYL (PF) 50 MCG/ML 2 ML AMP ONE (14:37)
[2023-11-29] MEDS ORDERED: PROPOFOL 10 MG/ML 20 ML VIAL IV ONE (14:37)
--- NOTE | 2023-11-29 14:49 | P.ANPRN ---
Procedure Note - Anesthesia - Nerve Block Performed Right Adductor Canal Single Time Out Performed: Yes Date of Procedure: 11/29/23 Procedure Start Time: 14:30 Procedure Stop Time: 14:35 Location of Patient: PreOp Indication: Acute Post-Operative Pain, Requested by Surgeon Sedation Type: Sedate with meaningful contact maintained Preparation: Sterile Prep, Sterile Dressing Position: Supine Catheter: None Needle Types: Facet Needle Gauge: 21 Ultrasound used to visualize needle placement: Yes Ultrasound used to observe medication spread: Yes Injectate: 0.5% Ropivacaine (see comment for volume) (10 ml + decadron 1 mg) Blood Aspirated: No Pain Paresthesia on Injection Noted: No Resistance on Injection: Normal Image Stored and Saved: Yes Events: Uneventful and Well Tolerated Right Popliteal Single Time Out Performed: Yes Date of Procedure: 11/29/23 Procedure Start Time: 14:36 Procedure Stop Time: 14:40 Location of Patient: PreOp Indication: Acute Post-Operative Pain, Requested by Surgeon Sedation Type: Sedate with meaningful contact maintained Preparation: Sterile Prep, Sterile Dressing Position: Left Lateral Catheter: None Needle Types: Facet Needle Gauge: 21 Ultrasound used to visualize needle placement: Yes Ultrasound used to observe medication spread: Yes Injectate: 0.5% Ropivacaine (see comment for volume) (20 ml + decadron 3 mg) Blood Aspirated: No Pain Paresthesia on Injection Noted: No Resistance on Injection: Normal Image Stored and Saved: Yes Events: Uneventful and Well Tolerated
[2023-11-29] MEDS: LIDOCAINE 1% INJ 10MG/ML (20 ML MDV) SQ ONE ×2 (14:52)
[2023-11-29] MEDS: NON FORMULARY DRUG (Fish Oil/Dha/Epa [Fish Oil 1,200 Mg Fish Oil] 1 EACH Capsule) PO SCH (16:27)
[2023-11-29 17:11] LABS: Glucose,Whole Blood 72 mg/dL (70-110)
[2023-11-29] MEDS: traZODone HCL 50 MG TAB PO SCH (17:39)
[2023-11-29] MEDS: BACLOFEN 10 MG TAB PO SCH (17:39)
[2023-11-29] MEDS: ASPIRIN 81 MG PO SCH (17:39)
[2023-11-29] MEDS: lisinopriL 10 MG TAB PO SCH (17:39)
[2023-11-29] MEDS: TAMSULOSIN 0.4 MG CAP.ER.24H PO SCH (17:39)
[2023-11-29 20:24] LABS: Glucose,Whole Blood 181 mg/dL (70-110)
--- NOTE | 2023-11-29 22:16 | OP ---
OPERATIVE REPORT DATE OF SERVICE : PREOPERATIVE DIAGNOSIS: Gangrene of the right foot second toe necrotic involving the second toe base. POSTOPERATIVE DIAGNOSIS: Gangrene of the right foot second toe necrotic involving the second toe base. PROCEDURE: Amputation of right foot second and third toe at the metatarsophalangeal joint. The second toe was necrotic. DESCRIPTION OF PROCEDURE: Incision was made on the dorsal aspect of the foot, deepened through skin, fat and fascia to reach the metatarsophalangeal joint. Then the incision extended on the plantar aspect, deepened through skin, fat, fascia and tendon on the plantar aspect were divided. The second and third toe were removed. There was a digital vessel which were suture ligated and wound was copiously irrigated with hydrogen peroxide and saline. Hemostasis was well controlled and we placed a wound VAC. Dressing applied. Patient tolerated the procedure well. MMODL / IJN: [id number] /
--- NOTE | 2023-11-29 22:21 | P.CONS ---
History of Present Illness - Reason for Consult Consult date: 11/29/23 Osteomyelitis Requesting physician: Clay Jones - Chief Complaint Right second toe swelling redness and pain x days - History of Present Illness Patient is a 78-year-old male with a past medical history significant for diabetes mellitus hypertension previous history of diabetic foot infection requiring amputation of the toe patient presenting to the hospital concerning for right second toe swelling redness and discoloration that apparently has been getting worse over the last 1 week patient denies any history of any trauma currently has been wearing his regular shoes for long time without checking on his feet and toes, patient denies high-grade fever or any chills he was complaining of pain to the right second toe which is swollen red and did have some bloodstained drainage pain was about 6 out of 10 sharp throbbing and is down to about 3 out of 10 with the pain medication patient on presentation to the hospital was afebrile and no fever have been recorded subsequently patient was not tachycardic hypotensive or hypoxic patient did have a white count of 10.8 BUN and creatinine has been mildly elevated liver enzymes are normal patient did have x-ray of the foot which did shows abnormal appearance of the second digit with middle and distal phalanx poorly visualized soft tissue correlate for osteomyelitis patient has been evaluated by vascular surgery planning for amputation of the toe he was started on vancomycin and Zosyn infectious disease was consulted for further management of antibiotic therapy Review of Systems Positive point and negatives has been mentioned in the HPI, complete review of systems was performed and all other systems are negative 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), recent high BP-no Rx, bone infection left foot, History of Any Multi-Drug Resistant Organisms: MRSA Year Discovered:: 2016 MDRO Source:: foot Past Surgical History: Orthopedic Surgery, Tonsillectomy Additional Past Surgical History / Comment(s): HAMMER TOE SX LACEY FEET, LEFT FOOT SURGERY GREAT TOE AMPUTATION/THEN 2ND SX TO REARRANGE THE BONES IN LT FOOT, right foot little toe amputation, Tendon lengthening left foot, cyst removed from middle finger rt hand Past Anesthesia/Blood Transfusion Reactions: Family History of Problems w/ Anesthesia Additional Past Anesthesia/Blood Transfusion Reaction / Comm: father had confusion/loss of memory with anesthesia Past Psychological History: Depression Smoking Status: Former smoker Past Alcohol Use History: None Reported Past Drug Use History: None Reported - Past Family History Mother Additional Family Medical History / Comment(s): AGE 91 FROM BRAIN HEMORRAGE Father Family Medical History: Cancer Additional Family Medical History / Comment(s): LUNG CANCER Medications and Allergies Home Medications Medication Instructions Recorded Confirmed Type Aspirin 81 mg PO PC-SUPPER 12/27/15 11/28/23 History Multivitamins, Thera [Multivitamin 1 tab PO PC-BRKFST 12/27/15 11/28/23 History (formulary)] Insulin Glargine,Hum.rec.anlog 34 units SQ PC-BRKFST 07/18/16 11/28/23 History [Toujanetto Solostar] Baclofen [Lioresal] 10 mg PO PC-SUPPER 10/06/16 11/28/23 History lisinopriL [Zestril] 10 mg PO PC-SUPPER 11/15/19 11/28/23 History Fish Oil/Dha/Epa [Fish Oil 1,200 1 cap PO PC-SUPPER 08/25/22 11/28/23 History mg Fish Oil] Tamsulosin [Flomax] 0.4 mg PO PC-SUPPER 08/25/22 11/28/23 History rOPINIRole HCL [Requip] 3 mg PO PC-SUPPER 08/25/22 11/28/23 History sitaGLIPtin PHOS/metFORMIN HCL 2 tab PO PC-BRKFST 08/25/22 11/28/23 History [Janumet 50-500 mg Tablet] Albuterol Sulfate [Albuterol 1 - 2 puff PO RT-Q6H PRN 11/28/23 11/28/23 History Sulfate Hfa] Calcium Phos/D3/Magnesium/Zinc 1 tab PO PC-BRKFST 11/28/23 11/28/23 History [Kwufulq-Dxy-Vkdr-Vitamin D3] rOPINIRole HCL [Requip] 1 mg PO PC-BRKFST 11/28/23 11/28/23 History traZODone HCL [Desyrel] 50 mg PO PC-SUPPER 11/28/23 11/28/23 History Allergies Allergy/AdvReac Type Severity Reaction Status Date / Time adhesive Allergy Itching/bruna Verified 11/28/23 16:37 h codeine AdvReac Hallucinati Verified 11/28/23 16:37 ons/paranoi d Physical Exam Vitals: Vital Signs Temp Pulse Pulse Resp BP BP Pulse Ox 11/29/23 07:54 98.7 F 63 18 127/64 95 11/29/23 02:00 98.8 F 64 12 129/67 99 11/28/23 19:29 97.8 F 59 L 12 127/69 98 11/28/23 18:26 65 18 118/73 99 11/28/23 17:31 98.5 F 61 20 132/70 100 11/28/23 15:25 70 20 123/55 100 11/28/23 14:56 98.3 F 75 18 144/63 87 L Intake and Output 11/28/23 11/29/23 11/29/23 22:59 06:59 14:59 Intake Total 440 Output Total 600 1100 Balance -600 -660 Intake: Intake, IV Titration 200 Amount Lactated Ringers 1,000 ml 100 @ 20 mls/hr IV .Q24H [facility] Rx#:[id number] Piperacillin-Tazobactam 3 100 .375 gm In Sodium Chloride 0.9% 100 ml @ 25 mls/hr IVPB Q8HR [facility] Rx# :[id number] Oral 240 Output: Urine 600 1100 Other: Voiding Method Urinal Weight 78.925 kg GENERAL DESCRIPTION: Elderly male lying in bed, no distress. No tachypnea or accessory muscle of respiration use. HEENT: Shows Pallor , no scleral icterus. Oral mucous membrane is dry. No pharyngeal erythema or thrush NECK: Trachea central, no thyromegaly. LUNGS: Unlabored breathing. Clear to auscultation anteriorly. No wheeze or crackle. HEART: S1, S2, regular rate and rhythm. No loud murmur ABDOMEN: Soft, no tenderness , guarding or rigidity, no organomegaly EXTREMITIES: Right second toe with significant swelling discoloration and bloodstained drainage SKIN: No rash, no masses palpable. NEUROLOGICAL: The patient is awake, alert, oriented x3, mood and affect normal. Results CBC & Chem 7: 11/28/23 15:52 11/28/23 15:52 Labs: Abnormal Lab Results - Last 24 Hours (Table) 11/28/23 11/28/23 11/28/23 Range/Units 15:52 15:52 16:25 WBC 10.8 H (3.8-10.6) k/uL RBC 3.91 L (4.30-5.90) m/uL Hgb 11.7 L (13.0-17.5) gm/dL Hct 34.9 L (39.0-53.0) % Neutrophils # 9.2 H (1.3-7.7) k/uL Lymphocytes # 0.9 L (1.0-4.8) k/uL ESR 74 H (0-20) mm/Hr Sodium 133 L (137-145) mmol/L BUN 33 H (9-20) mg/dL Creatinine 1.27 H (0.66-1.25) mg/dL Glucose 252 H (74-99) mg/dL POC Glucose (mg/dL) (70-110) mg/dL Total Bilirubin 1.4 H (0.2-1.3) mg/dL C-Reactive Protein 18.4 H (<1.0) mg/dL 11/28/23 11/28/23 Range/Units 20:10 22:57 WBC (3.8-10.6) k/uL RBC (4.30-5.90) m/uL Hgb (13.0-17.5) gm/dL Hct (39.0-53.0) % Neutrophils # (1.3-7.7) k/uL Lymphocytes # (1.0-4.8) k/uL ESR (0-20) mm/Hr Sodium (137-145) mmol/L BUN (9-20) mg/dL Creatinine (0.66-1.25) mg/dL Glucose (74-99) mg/dL POC Glucose (mg/dL) 141 H 150 H (70-110) mg/dL Total Bilirubin (0.2-1.3) mg/dL C-Reactive Protein (<1.0) mg/dL Assessment and Plan (1) Osteomyelitis of second toe of right foot Current Visit: Yes Status: Acute Code(s): M86.9 - OSTEOMYELITIS, UNSPECIFIED SNOMED Code(s): 468173293 (2) Diabetic infection of right foot Current Visit: Yes Status: Acute Code(s): E11.628 - TYPE 2 DIABETES MELLITUS WITH OTHER SKIN COMPLICATIONS; L08.9 - LOCAL INFECTION OF THE SKIN AND SUBCUTANEOUS TISSUE, UNSP SNOMED Code(s): 618115487 Plan: 1patient presented to hospital with right second toe discoloration ulceration as well as bloodstained drainage with abnormal x-ray suggestive of osteomyelitis concerning for wet gangrene of the right second toe in this patient with underlying diabetes and diabetic foot infection. 2patient did have borderline kidney function high risk of nephrotoxicity from vancomycin. 3we will continue patient on Zosyn however switch vancomycin to daptomycin to decrease risk of nephrotoxicity 4-discussed with the vascular surgeon who is planning for possible amputation to obtain deep culture to guide further antibiotic therapy We will follow on clinical condition and cultures to further adjust medication if needed Thank you for this consultation we will follow the patient along with you Dictation was produced using [employer] dictation software. please excuse any grammatical, word or spelling errors. Time with Patient: Greater than 30
[2023-11-30 06:43] LABS: ALT 16 U/L (4-49); AST 17 U/L (17-59); African American GFR (CKD) 74 (>60 ml/min/1.73 sqM); Albumin/Globulin Ratio 1.1; Alkaline Phosphatase 60 U/L (38-126); Anion Gap 9 mmol/L; Blood Urea Nitrogen 20 mg/dL (9-20); Calcium 8.7 mg/dL (8.4-10.2); Carbon Dioxide 22 mmol/L (22-30); Chloride 103 mmol/L (98-107); Globulin 2.7 g/dL; Glucose 218 mg/dL (74-99); Non-African American GFR(CKD) 64 (>60 ml/min/1.73 sqM); Potassium 4.7 mmol/L (3.5-5.1); Sodium 134 mmol/L (137-145); Total Bilirubin 1.1 mg/dL (0.2-1.3); Total Protein 5.7 g/dL (6.3-8.2)
[2023-11-30 07:25] LABS: Glucose,Whole Blood 234 mg/dL (70-110)
[2023-11-30] MEDS: INSULIN DETEMIR (LEVEMIR) 100 UNIT/ML SYR SQ SCH (07:40)
[2023-11-30] MEDS: MEGESTROL 400 MG/10 ML CUP PO SCH (07:40)
[2023-11-30 08:43] LABS: HCT 34.5 % (39.6-50.0); HGB 11.4 g/dL (13.0-17.0); MCH 28.9 pg (27.0-32.0); MCV 87.6 FL (80.0-97.0); Mean Platelet Volume 10.1 FL (9.5-12.2); NRBC Per 100 WBC 0 X 10*3/uL (0.00-0.01); Platelet Count 303 X 10*3/uL (140-440); RBC 3.94 X 10*6/uL (4.40-5.60); RDW 12.2 % (11.5-14.5); WBC 10.49 X 10*3/uL (4.50-10.00)
--- NOTE | 2023-11-30 12:12 | P.PN ---
Subjective Progress Note Date: 11/30/23 Principal diagnosis: Reason for follow-up is right diabetic foot infection with gangrene and osteomyelitis Patient is a 78-year-old male with a past medical history significant for diabetes mellitus hypertension previous history of diabetic foot infection requiring amputation of the toes presented to hospital with right gangrene of the right second toe and this patient who is status post right second and third toe amputation completed on 11/29/2023. On today's evaluation that is 11/30/2023,the patient remains to be afebrile, patient is on room air not requiring supplemental oxygen and denies any shortness of breath no chest pain or cough.Patient denies having any nausea or vomiting, no abdominal pain and no diarrhea has been reported, denies any worsening pain to the right foot 12 rotation side. Patient white count is 10.49, creatinine is 1.11 cultures are currently pending Objective - Vital Signs Vital signs: Vital Signs Temp 97.5 F L 11/30/23 08:00 Pulse 66 11/30/23 08:00 Resp 18 11/30/23 08:00 BP 106/71 11/30/23 08:00 Pulse Ox 100 11/30/23 08:00 FiO2 Intake & Output 11/29/23 11/30/23 11/30/23 18:59 06:59 18:59 Intake Total 740 780 Output Total 20 1825 Balance 720 -1045 Weight 78.925 kg Intake: IV 200 Intake, IV Titration 240 Amount IV Fluid Continuation 1, 140 000 ml @ 0 mls/hr IV .STK -[facility] Rx#:[id number] Piperacillin-Tazobactam 3 100 .375 gm In Sodium Chloride 0.9% 100 ml @ 25 mls/hr IVPB Q8HR [facility] Rx# :[id number] Oral 540 540 Output: Urine 1825 Estimated Blood Loss 20 Other: Voiding Method Urinal Urinal - Exam GENERAL DESCRIPTION: An elderly male lying in bed in no distress RESPIRATORY SYSTEM: Unlabored breathing , decreased breath sounds at bases HEART: S1 S2 regular rate and rhythm , ABDOMEN: Soft , no tenderness EXTREMITIES: Right second third toe amputation site wound is covered with a wound VAC - Labs CBC & Chem 7: 11/30/23 05:38 11/30/23 05:38 Labs: Abnormal Lab Results - Last 24 Hours (Table) 1011/30/23 11/30/23 Range/Units 20:22 05:38 05:38 WBC 10.49 H (4.50-10.00) X 10*3/uL RBC 3.94 L (4.40-5.60) X 10*6/uL Hgb 11.4 L (13.0-17.0) g/dL Hct 34.5 L (39.6-50.0) % Sodium 134 L (137-145) mmol/L Glucose 218 H (74-99) mg/dL POC Glucose (mg/dL) 181 H (70-110) mg/dL Total Protein 5.7 L (6.3-8.2) g/dL Albumin 3.0 L (3.5-5.0) g/dL 11/30/23 Range/Units 07:08 WBC (4.50-10.00) X 10*3/uL RBC (4.40-5.60) X 10*6/uL Hgb (13.0-17.0) g/dL Hct (39.6-50.0) % Sodium (137-145) mmol/L Glucose (74-99) mg/dL POC Glucose (mg/dL) 234 H (70-110) mg/dL Total Protein (6.3-8.2) g/dL Albumin (3.5-5.0) g/dL Microbiology - Last 24 Hours (Table) 11/28/23 15:52 Blood Culture - Preliminary Blood Assessment and Plan (1) Osteomyelitis of second toe of right foot Current Visit: Yes Status: Acute Code(s): M86.9 - OSTEOMYELITIS, UNSPECIFIED SNOMED Code(s): 147503739 (2) Diabetic infection of right foot Current Visit: Yes Status: Acute Code(s): E11.628 - TYPE 2 DIABETES MELLITUS WITH OTHER SKIN COMPLICATIONS; L08.9 - LOCAL INFECTION OF THE SKIN AND SUBCUTANEOUS TISSUE, UNSP SNOMED Code(s): 683898303 Plan: 1patient presented to hospital with right second toe discoloration ulceration as well as bloodstained drainage with abnormal x-ray suggestive of osteomyelitis concerning for wet gangrene of the right second toe in this patient with underlying diabetes and diabetic foot infection. 2patient did have borderline kidney function high risk of nephrotoxicity from vancomycin. 3patient is status post amputation of the right second and third toe open wound with a wound VAC application deep cultures are currently pending 4patient is currently being treated with Zosyn and daptomycin with the discharge antibiotic on the basis of final culture he will need a PICC line for outpatient IV antibiotics Dictation was produced using [employer] dictation software. please excuse any grammatical, word or spelling errors. Time with Patient: Less than 30
[2023-11-30 12:39] LABS: Glucose,Whole Blood 285 mg/dL (70-110)
--- NOTE | 2023-11-30 12:47 | P.PN ---
Progress Note - Text 78-year-old diabetic male patient had a right foot second and third toe ray amputation for wet gangrene of this of the toe patient is an IV antibiotic under care of infectious disease on VAC which is functioning tomorrow we will change the wound VAC and measurement of the wound Margareth has no fever or chill
[2023-11-30 17:23] LABS: Glucose,Whole Blood 199 mg/dL (70-110)
[2023-11-30 20:04] LABS: Glucose,Whole Blood 282 mg/dL (70-110)
--- NOTE | 2023-12-01 06:25 | P.PN ---
Subjective Progress Note Date: 11/30/23 HISTORY OF PRESENT ILLNESS: 78-year-old with active medical history of recurrent osteomyelitis post amputation of the left foot second toe with debridement right foot little toe as well and had many time concern with open sore area and diabetic foot has been dealing with it for a long time, he seen infectious disease on more regular basis. The patient has been or office patient for the last 20 years extremely compliant with medical management medication and instruction is known to have type 2 diabetes more brittle type up-and-down with his A1c is still around 7.0, known to have history of chronic kidney disease, acute kidney injury on and off, hypertension, chronic neuropathy, chronic depression, mild BPH, and again previous history of gangrenous change of the left foot require fifth toe amputation along with great toe amputation and some debridement on the right side as well with history of MRSA in the past. Patient was diagnosed with an open sore recently in the office seen vascular and ended up going wound care in the area had healed well with no complication. He has been taking care of his significant other lately apparently has been wearing his foot for longer time not watching it more carefully he developed to have significant right foot second toe wet gangrene according to him for the last 2 weeks become much worse ended up coming to the emergency department at [facility] where was seen and evaluated, his white blood cell was 10,800 left shifted creatinine 1.27 close to his baseline glucose was 252 his C-reactive protein was 18.4. X-ray of the toe shows abnormal appearing of second digit with middle and distal phalanx poorly visualized soft tissue wound present correlate with osteomyelitis. Also had postsurgical change of the foot involving the amputated site of the left fifth metatarsal amputation of the metatarsal phalangeal joint with joint returning osteophyte formation and there is a metallic liner body on the second metatarsal head. He was started on Zosyn and giving 1 dose of vancomycin eventually switched to daptomycin will be seen infectious disease along with vascular patient will be admitted to the hospital for intense medical management of his diabetes as well this osteomyelitis. 11/30/2023: Patient ended up going to the OR with Dr. Quiñones for amputation of the right second and third toe at the metatarsophalangeal joint second toe is necrotic. Had nerve block and did well with anesthesia. Also patient was seen infectious disease with Dr. Benjy who decided to switch vancomycin to daptomycin and continue Zosyn and agree with the surgical intervention patient had will continue wound care at this point and from here on will be probably just healing from the surgery and make a decision with the culture done from the surgical site how long IV antibiotic will need to be done. Patient pain management has been better so far blood sugar has been running in the low 100s had couple episode of slightly hypoglycemia we will try to adjust the long-acting insulin no more time. REVIEW OF SYSTEMS: CONSTITUTIONAL: Well-developed no acute respiratory distress. EYES: No icterus sclerae, no conjunctivitis. EARS, NOSE, MOUTH, THROAT, and FACE: No sore throat, lymphadenopathy, carotid bruits or deformity. RESPIRATORY: No SOB cough or wheezes. CARDIOVASCULAR: No CP, Palpitation, PND, Orthopnea, or angina. GASTROINTESTINAL: No Abd pain, Nausea or vomiting, no Diarrhea or constipation, No GI Bleed, no distention or masses. GENITOURINARY: Negative for Hematuria or UTI, no kidney stones. INTEGUMENT/BREAST: Mild arthritis in the right foot second toe gangrenous change. HEMATOLOGIC/LYMPHATIC: Negative for bleed or purpura. MUSCULOSKELTAL: Arthralgia and myalgia with infection of the second toe and the right side NEURLOGICAL: No LOC, Sz or syncope, blurred vision dizziness or abnormality.. BEHAVIORAL/PSYCH: Negative. ENDOCRINE: Negative. PHYSICAL EXAMINATION: General Appearance: Alert, cooperative, no distress, appears stated age. Neck HEENT: Supple, no lymphadenopathy, no thyroid enlargement, no carotid bruits. Lungs: Clear to auscultation without crackles or wheezes no rhonchi, no deformity. Chest Wall: Chest wall normal expansion with deep inspiration no tenderness and no deformity was found on exam, no costochondral pain or discomfort. Heart: Regular rate and rhythm, S1, S2 normal, no murmur, rub or gallop. Back: Symmetric, no curvature, ROM normal, no CVA tenderness. Abdomen: Soft, non-tender, bowel sounds active all four quadrants, no masses, no organomegaly. Extremities: Mild arthritis in both knees. Right foot second toe has wet gangrenous change more involve in the toe than before with an open area decre ased pulse in the dorsalis pedis and posterior tibial on both the right and the left. Left side has no change he had a previous amputation of the first and the third toe remain the same Pulses: 2+ and symmetric. Skin: Skin color, texture, tugor normal, no rashes or lesions. Neurologic: Alert oriented x3 cranial nerves II through XII intact, no motor deficit, no abnormal balance or gait. ASSESSMENT AND PLAN: _Osteomyelitis of the right second and third toes: Remain on Zosyn and daptomycin patient ended up going for surgical intervention for amputation of both right second and third toe. _Chronic recurrent osteomyelitis and diabetic foot both side has been doing well up till now he was on his feet for days taking care of his significant other with his neuropathy is probably aggravated the site of his second toe and the right side and made the area more open and more obvious for infection which is created osteomyelitis. _Brittle type 2 diabetes: History running slightly below sometimes his Toujeo was reduced to 25. But he still hypoglycemic today will probably reduce it again to 20 units today continue sliding scales continue Tradjenta one of the idea will be to cut down his Janumet 50/500 mg once a day instead of twice a day. Patient normally does continue glucose monitor and manage it well at home specially with his nutrition been increased. _Significant weight loss, patient had lost over the last 6-month close to 10 pounds plus most likely from being physically active and nutrition been decreased agreed to be on Megace his workup for finding any significant inflammation or cancer has been negative so far. _Acute kidney injury on chronic kidney disease with slight decline in GFR, he is remain on ZINA inhibitor for kidney prevention, continue hydration and treat infection for better management of chronic kidney disease. _Hypertension: Has been doing very well on lisinopril titrate dose higher if needed. _Hyperlipidemia: He is on statin to my knowledge atorvastatin 20 mg a day resume medication. _BPH: Watch for any urinary retention still on Flomax. _Severe GERD: Remain on pantoprazole 40 mg a day. _Mild depression: Continue trazodone 50 mg at bedtime will titrate dose higher if needed. _Restless leg syndrome: Remain on ropinirole 1 mg in the morning and 3 mg at bedtime. _Pain management: Will continue smaller dose of Dilaudid and hydrocodone in the next 24 hours and prepare for switching him to oral hydrocodone only within 24 hours. Discussion: Post surgery, still on IV antibiotic will continue management patient probably expected for discharge sometime late this week. Objective - Vital Signs Vital signs: Vital Signs Temp 98.7 F 11/29/23 07:54 Pulse 63 11/29/23 07:54 Resp 18 11/29/23 07:54 BP 127/64 11/29/23 07:54 Pulse Ox 95 11/29/23 07:54 FiO2 Intake & Output 11/28/23 11/29/23 11/29/23 18:59 06:59 18:59 Intake Total 440 Output Total 1700 Balance -1260 Weight 78.925 kg Intake: Intake, IV Titration 200 Amount Lactated Ringers 1,000 ml 100 @ 20 mls/hr IV .Q24H [facility] Rx#:[id number] Piperacillin-Tazobactam 3 100 .375 gm In Sodium Chloride 0.9% 100 ml @ 25 mls/hr IVPB Q8HR [facility] Rx# :[id number] Oral 240 Output: Urine 1700 Other: Voiding Method Urinal - Labs CBC & Chem 7: 11/28/23 15:52 11/28/23 15:52 Labs: Abnormal Lab Results - Last 24 Hours (Table) 11/28/23 11/28/23 11/28/23 Range/Units 15:52 15:52 16:25 WBC 10.8 H (3.8-10.6) k/uL RBC 3.91 L (4.30-5.90) m/uL Hgb 11.7 L (13.0-17.5) gm/dL Hct 34.9 L (39.0-53.0) % Neutrophils # 9.2 H (1.3-7.7) k/uL Lymphocytes # 0.9 L (1.0-4.8) k/uL ESR 74 H (0-20) mm/Hr Sodium 133 L (137-145) mmol/L BUN 33 H (9-20) mg/dL Creatinine 1.27 H (0.66-1.25) mg/dL Glucose 252 H (74-99) mg/dL POC Glucose (mg/dL) (70-110) mg/dL Total Bilirubin 1.4 H (0.2-1.3) mg/dL C-Reactive Protein 18.4 H (<1.0) mg/dL 11/28/23 11/28/23 Range/Units 20:10 22:57 WBC (3.8-10.6) k/uL RBC (4.30-5.90) m/uL Hgb (13.0-17.5) gm/dL Hct (39.0-53.0) % Neutrophils # (1.3-7.7) k/uL Lymphocytes # (1.0-4.8) k/uL ESR (0-20) mm/Hr Sodium (137-145) mmol/L BUN (9-20) mg/dL Creatinine (0.66-1.25) mg/dL Glucose (74-99) mg/dL POC Glucose (mg/dL) 141 H 150 H (70-110) mg/dL Total Bilirubin (0.2-1.3) mg/dL C-Reactive Protein (<1.0) mg/dL
[2023-12-01 07:39] LABS: Glucose,Whole Blood 227 mg/dL (70-110)
[2023-12-01 12:12] LABS: Glucose,Whole Blood 162 mg/dL (70-110)
--- NOTE | 2023-12-01 14:16 | P.PN ---
Subjective Progress Note Date: 12/01/23 Principal diagnosis: Reason for follow-up is right diabetic foot infection with gangrene and osteomyelitis Patient is a 78-year-old male with a past medical history significant for diabetes mellitus hypertension previous history of diabetic foot infection requiring amputation of the toes presented to hospital with right gangrene of the right second toe and this patient who is status post right second and third toe amputation completed on 11/29/2023. On today's evaluation that is 12/01/2023, the patient continues to be afebrile, the patient is on room air and breathing comfortably, the Pt denies having any chest pain or cough, the patient denies having any abdominal pain no vomiting or any diarrhea denies pain to the right foot wound area. No new lab has been obtained today local culture currently growing E. coli haemophilus and coagulase-negative staph with sensitivities pending Objective - Vital Signs Vital signs: Vital Signs Temp 98.1 F 12/01/23 07:55 Pulse 51 L 12/01/23 07:55 Resp 18 12/01/23 07:55 BP 134/66 12/01/23 07:55 Pulse Ox 99 12/01/23 07:55 FiO2 Intake & Output 11/30/23 12/01/23 12/01/23 18:59 06:59 18:59 Intake Total 1080 780 Output Total 1400 525 Balance -320 255 Intake: Intake, IV Titration 240 Amount IV Fluid Continuation 1, 140 000 ml @ 0 mls/hr IV .STK -[facility] ONE Rx#:[id number] Piperacillin-Tazobactam 3 100 .375 gm In Sodium Chloride 0.9% 100 ml @ 25 mls/hr IVPB Q8HR [facility] Rx# :[id number] Oral 1080 540 Output: Urine 1400 525 Other: Voiding Method Urinal Urinal - Exam GENERAL DESCRIPTION: An elderly male lying in bed in no distress RESPIRATORY SYSTEM: Unlabored breathing , decreased breath sounds at bases HEART: S1 S2 regular rate and rhythm , ABDOMEN: Soft , no tenderness EXTREMITIES: Right second third toe amputation site wound is covered with a wound VAC - Labs CBC & Chem 7: 11/30/23 05:38 11/30/23 05:38 Labs: Abnormal Lab Results - Last 24 Hours (Table) 11/30/23 11/30/23 12/01/23 Range/Units 17:13 20:03 07:28 POC Glucose (mg/dL) 199 H 282 H 227 H (70-110) mg/dL 12/01/23 Range/Units 12:00 POC Glucose (mg/dL) 162 H (70-110) mg/dL Microbiology - Last 24 Hours (Table) 11/28/23 15:52 Blood Culture - Preliminary Blood 11/29/23 15:30 Gram Stain - Preliminary Toe - Right Second Tissue Culture - Preliminary Escherichia coli Haemophilus parainfluenzae Coagulase Negative Staph Assessment and Plan (1) Osteomyelitis of second toe of right foot Current Visit: Yes Status: Acute Code(s): M86.9 - OSTEOMYELITIS, UNSPECIFIED SNOMED Code(s): 223407578 (2) Diabetic infection of right foot Current Visit: Yes Status: Acute Code(s): E11.628 - TYPE 2 DIABETES MELLITUS WITH OTHER SKIN COMPLICATIONS; L08.9 - LOCAL INFECTION OF THE SKIN AND SUBCUTANEOUS TISSUE, UNSP SNOMED Code(s): 822944161 Plan: 1patient presented to hospital with right second toe discoloration ulceration as well as bloodstained drainage with abnormal x-ray suggestive of osteomyelitis concerning for wet gangrene of the right second toe in this patient with underlying diabetes and diabetic foot infection. 2patient did have borderline kidney function high risk of nephrotoxicity from vancomycin. 3patient is status post amputation of the right second and third toe open wound with a wound VAC application deep cultures are currently growing E. coli haemophilus and coagulase-negative staph with sensitivities pending 4patient is currently being treated with Zosyn and daptomycin awaiting finalization of the cultures to determine discharge antibiotics PICC line will be ordered Dictation was produced using [employer] dictation software. please excuse any grammatical, word or spelling errors. Time with Patient: Less than 30
--- NOTE | 2023-12-01 16:24 | CDI ---
Documentation Clarification Form Date: 12/01/2023 04:01:44 PM From: Qiana Santos RN, CCDS Phone: [phone] Admit Date: 11/28/2023 06:09:00 PM Patient Name: Dwight Gilman Visit Number: [id number] Discharge Date: ATTENTION: The Clinical Documentation Specialists (CDI) and [facility] Coding Staff appreciate your assistance in clarifying documentation. Please respond to the clarification below the line at the bottom and electronically sign. The CDI & [facility] Coding staff will review the response and follow-up if needed. Please note: Queries are made part of the Legal Health Record. If you have any questions, please contact the author of this message via ITS. Doctor/Provider: Clay Jones Unspecified CKD is documented in the H/P and subsequent progress notes. Additional clarification regarding the stage of CKD is requested. History/Risk Factors: type 2 diabetes mellitus with most recent A1C of 6.2, Hypertension, Former smoker, prior amputation of toes, chronic kidney disease Patients Historical 08/25/22 BUN 23, Creatinine 1.13, GFR 63 11/28/23 BUN 33 Creatinine 1.27 GFR 54 Current: 11/30/23 BUN 20 Creatinine 1.11 GFR 64 Clinical Indicators: 78-year-old with active medical history of recurrent osteomyelitis post amputation of the left foot second toe with debridement right foot little toe as well. He has type 2 diabetes and history of chronic kidney disease, acute kidney injury on and off. Treatment: Lisinopril 10 MG PO PC-Supper Monitor renal function per orders Please clarify the stage of the CKD, if known: [ ] CKD Stage 1 [ XX ] CKD Stage 2 [ ] CKD Stage 3 [ ] CKD Stage 3a [ ] CKD Stage 3b [ ] CKD Stage 4 [ ] Other, please specify [ ] Unable to determine Reference: National [employer] Stage 1 eGFR = 90 and kidney damage for =3 months Stage 2 eGFR 60-89 and kidney damage for =3 months Stage 3a eGFR 45-59 and kidney damage for =3 months Stage 3b eGFR 30-44 and kidney damage for =3 months Stage 4 eGFR 15-29 r and kidney damage for =3 months Stage 5 eGFR <15 and kidney damage for =3 months (Template Last revised: February 2023) MTDD
[2023-12-01 17:23] LABS: Glucose,Whole Blood 107 mg/dL (70-110)
[2023-12-01 20:25] LABS: Glucose,Whole Blood 176 mg/dL (70-110)
--- NOTE | 2023-12-02 02:23 | PN ---
PROGRESS NOTE This is a 78-year-old gentleman who has history of gangrene of right foot 2nd toe. The patient had a ray amputation done and we placed a wound VAC. The patient is under care of Infectious Disease for IV antibiotic. Today, we have changed the wound VAC and the patient also had a PICC line for long-term antibiotic. The patient has no fever or chills. Wound VAC is working well. The patient is on Zosyn and daptomycin. MMODL / IJN: [id number] /
--- NOTE | 2023-12-02 06:24 | P.PN ---
Subjective Progress Note Date: 12/01/23 HISTORY OF PRESENT ILLNESS: 78-year-old with active medical history of recurrent osteomyelitis post amputation of the left foot second toe with debridement right foot little toe as well and had many time concern with open sore area and diabetic foot has been dealing with it for a long time, he seen infectious disease on more regular basis. The patient has been or office patient for the last 20 years extremely compliant with medical management medication and instruction is known to have type 2 diabetes more brittle type up-and-down with his A1c is still around 7.0, known to have history of chronic kidney disease, acute kidney injury on and off, hypertension, chronic neuropathy, chronic depression, mild BPH, and again previous history of gangrenous change of the left foot require fifth toe amputation along with great toe amputation and some debridement on the right side as well with history of MRSA in the past. Patient was diagnosed with an open sore recently in the office seen vascular and ended up going wound care in the area had healed well with no complication. He has been taking care of his significant other lately apparently has been wearing his foot for longer time not watching it more carefully he developed to have significant right foot second toe wet gangrene according to him for the last 2 weeks become much worse ended up coming to the emergency department at [facility] where was seen and evaluated, his white blood cell was 10,800 left shifted creatinine 1.27 close to his baseline glucose was 252 his C-reactive protein was 18.4. X-ray of the toe shows abnormal appearing of second digit with middle and distal phalanx poorly visualized soft tissue wound present correlate with osteomyelitis. Also had postsurgical change of the foot involving the amputated site of the left fifth metatarsal amputation of the metatarsal phalangeal joint with joint returning osteophyte formation and there is a metallic liner body on the second metatarsal head. He was started on Zosyn and giving 1 dose of vancomycin eventually switched to daptomycin will be seen infectious disease along with vascular patient will be admitted to the hospital for intense medical management of his diabetes as well this osteomyelitis. 11/30/2023: Patient ended up going to the OR with Dr. Quiñones for amputation of the right second and third toe at the metatarsophalangeal joint second toe is necrotic. Had nerve block and did well with anesthesia. Also patient was seen infectious disease with Dr. Benjy who decided to switch vancomycin to daptomycin and continue Zosyn and agree with the surgical intervention patient had will continue wound care at this point and from here on will be probably just healing from the surgery and make a decision with the culture done from the surgical site how long IV antibiotic will need to be done. Patient pain management has been better so far blood sugar has been running in the low 100s had couple episode of slightly hypoglycemia we will try to adjust the long-acting insulin no more time. 12/01/2023: Doing quite well vitals are stable at this point, pain is under control, microbiology from the culture showed E. coli and haemophilus parainfluenza coag negative staph. Running this by infectious disease received the need to change antibiotic patient remain on Zosyn and daptomycin which I believe is giving him good coverage at this point. Wound care continue with wound VAC at this point will be starting probably at the wound clinic by Dr. Quiñones after his discharge. The patient require to stay on IV antibiotic for little longer might require PICC line or midline to initiate this process and prepare hopefully for discharge in the next few days. REVIEW OF SYSTEMS: CONSTITUTIONAL: Well-developed no acute respiratory distress. EYES: No icterus sclerae, no conjunctivitis. EARS, NOSE, MOUTH, THROAT, and FACE: No sore throat, lymphadenopathy, carotid bruits or deformity. RESPIRATORY: No SOB cough or wheezes. CARDIOVASCULAR: No CP, Palpitation, PND, Orthopnea, or angina. GASTROINTESTINAL: No Abd pain, Nausea or vomiting, no Diarrhea or constipation, No GI Bleed, no distention or masses. GENITOURINARY: Negative for Hematuria or UTI, no kidney stones. INTEGUMENT/BREAST: Mild arthritis in the right foot second toe gangrenous change. HEMATOLOGIC/LYMPHATIC: Negative for bleed or purpura. MUSCULOSKELTAL: Arthralgia and myalgia with infection of the second toe and the right side NEURLOGICAL: No LOC, Sz or syncope, blurred vision dizziness or abnormality.. BEHAVIORAL/PSYCH: Negative. ENDOCRINE: Negative. PHYSICAL EXAMINATION: General Appearance: Alert, cooperative, no distress, appears stated age. Neck HEENT: Supple, no lymphadenopathy, no thyroid enlargement, no carotid bruits. Lungs: Clear to auscultation without crackles or wheezes no rhonchi, no deformity. Chest Wall: Chest wall normal expansion with deep inspiration no tenderness and no deformity was found on exam, no costochondral pain or discomfort. Heart: Regular rate and rhythm, S1, S2 normal, no murmur, rub or gallop. Back: Symmetric, no curvature, ROM normal, no CVA tenderness. Abdomen: Soft, non-tender, bowel sounds active all four quadrants, no masses, no organomegaly. Extremities: Mild arthritis in both knees. Right foot second toe has wet gangrenous change more involve in the toe than before with an open area decreased pulse in the dorsalis pedis and posterior tibial on both the right and the left. Left side has no change he had a previous amputation of the first and the third toe remain the same Pulses: 2+ and symmetric. Skin: Skin color, texture, tugor normal, no rashes or lesions. Neurologic: Alert oriented x3 cranial nerves II through XII intact, no motor deficit, no abnormal balance or gait. ASSESSMENT AND PLAN: _Osteomyelitis of the right second and third toes, post amputation, Remain on Zosyn and daptomycin culture was positive for haemophilus parainfluenza and E. coli which being covered with antibiotic currently. _Wound care post amputation of right second and third toe will continue wound VAC at this point continue topical care will require to go to the wound clinic afterward. _Chronic recurrent osteomyelitis and diabetic foot had affected the second and third toe on the right side post amputation with positive culture will continue topical and IV antibiotic for now. _Brittle type 2 diabetes: History running slightly below sometimes his Toujeo was reduced to 25. But he still hypoglycemic today will probably reduce it again to 20 units today continue sliding scales continue Tradjenta one of the idea will be to cut down his Janumet 50/500 mg once a day instead of twice a day. Patient normally does continue glucose monitor and manage it well at home specially with his nutrition been increased. _Significant weight loss, patient had lost over the last 6-month close to 10 pounds plus most likely from being physically active and nutrition been decreased agreed to be on Megace his workup for finding any significant inflammation or cancer has been negative so far. _Acute kidney injury on chronic kidney disease with slight decline in GFR, he is remain on ZINA inhibitor for kidney prevention, continue hydration and treat infection for better management of chronic kidney disease. _Hypertension: Has been doing very well on lisinopril titrate dose higher if needed. _Hyperlipidemia: He is on statin to my knowledge atorvastatin 20 mg a day resume medication. _BPH: Watch for any urinary retention still on Flomax. _Severe GERD: Remain on pantoprazole 40 mg a day. _Mild depression: Continue trazodone 50 mg at bedtime will titrate dose higher if needed. _Restless leg syndrome: Remain on ropinirole 1 mg in the morning and 3 mg at bedtime. _Pain management: Will continue smaller dose of Dilaudid and hydrocodone in the next 24 hours and prepare for switching him to oral hydrocodone only within 24 hours. Discussion: Continue IV antibiotic, continue wound care at this point, mobility still limited patient is better rested at this point will allow patient to start physical therapy and put pressure on the foot as soon as ID and vascular allows. Objective - Vital Signs Vital signs: Vital Signs Temp 97.7 F 12/01/23 01:52 Pulse 63 12/01/23 01:52 Resp 14 12/01/23 01:52 BP 122/51 12/01/23 01:52 Pulse Ox 96 12/01/23 01:52 FiO2 Intake & Output 11/30/23 11/30/23 12/01/23 06:59 18:59 06:59 Intake Total 780 1080 780 Output Total 1825 1400 525 Balance -1045 -320 255 Intake: Intake, IV Titration 240 240 Amount IV Fluid Continuation 1, 140 140 000 ml @ 0 mls/hr IV .STK -[facility] Rx#:[id number] Piperacillin-Tazobactam 3 100 100 .375 gm In Sodium Chloride 0.9% 100 ml @ 25 mls/hr IVPB Q8HR [facility] Rx# :[id number] Oral 540 1080 540 Output: Urine 1825 1400 525 Other: Voiding Method Urinal Urinal - Labs CBC & Chem 7: 11/30/23 05:38 11/30/23 05:38 Labs: Abnormal Lab Results - Last 24 Hours (Table) 11/30/23 11/30/23 11/30/23 Range/Units 05:38 05:38 07:08 WBC 10.49 H (4.50-10.00) X 10*3/uL RBC 3.94 L (4.40-5.60) X 10*6/uL Hgb 11.4 L (13.0-17.0) g/dL Hct 34.5 L (39.6-50.0) % Sodium 134 L (137-145) mmol/L Glucose 218 H (74-99) mg/dL POC Glucose (mg/dL) 234 H (70-110) mg/dL Total Protein 5.7 L (6.3-8.2) g/dL Albumin 3.0 L (3.5-5.0) g/dL 11/30/23 11/30/23 11/30/23 Range/Units 12:25 17:13 20:03 WBC (4.50-10.00) X 10*3/uL RBC (4.40-5.60) X 10*6/uL Hgb (13.0-17.0) g/dL Hct (39.6-50.0) % Sodium (137-145) mmol/L Glucose (74-99) mg/dL POC Glucose (mg/dL) 285 H 199 H 282 H (70-110) mg/dL Total Protein (6.3-8.2) g/dL Albumin (3.5-5.0) g/dL Microbiology - Last 24 Hours (Table) 11/28/23 15:52 Blood Culture - Preliminary Blood 11/29/23 15:30 Gram Stain - Preliminary Toe - Right Second Tissue Culture - Preliminary Escherichia coli Haemophilus parainfluenzae Coagulase Negative Staph
[2023-12-02 07:45] LABS: Glucose,Whole Blood 179 mg/dL (70-110)
[2023-12-02 12:39] LABS: Glucose,Whole Blood 188 mg/dL (70-110)
[2023-12-02 17:22] LABS: Glucose,Whole Blood 136 mg/dL (70-110)
[2023-12-02 20:01] LABS: Glucose,Whole Blood 200 mg/dL (70-110)
[2023-12-02 21:30] VITALS: RESP 16
[2023-12-03 07:12] LABS: Glucose,Whole Blood 245 mg/dL (70-110)
[2023-12-03] MEDS: ACETAMINOPHEN TAB 325 MG TAB PO PRN (08:20)
--- NOTE | 2023-12-03 09:09 | P.PN ---
Subjective Progress Note Date: 12/02/23 Principal diagnosis: Reason for follow-up is right diabetic foot infection with gangrene and osteomyelitis Patient is a 78-year-old male with a past medical history significant for diabetes mellitus hypertension previous history of diabetic foot infection requiring amputation of the toes presented to hospital with right gangrene of the right second toe and this patient who is status post right second and third toe amputation completed on 11/29/2023. On today's evaluation that is 12/02/2023, Patient is afebrile patient is currently on room air and denies having any shortness of breath, the patient denies any chest pain or cough, the patient denies any nausea vomiting did not have any abdominal pain and no diarrhea denies any worsening pain to the right foot. No new lab has been obtained today cultures with multiple pathogen sensitivities currently pending Objective - Vital Signs Vital signs: Vital Signs Temp 97.7 F 12/02/23 12:44 Pulse 61 12/02/23 12:44 Resp 17 12/02/23 12:44 BP 129/59 12/02/23 12:44 Pulse Ox 100 12/02/23 12:44 FiO2 Intake & Output 12/01/23 12/02/23 12/02/23 18:59 06:59 18:59 Intake Total 1200 540 Output Total 500 Balance 1200 40 Intake: Oral 1200 540 Output: Urine 500 Other: Voiding Method Urinal Toilet Toilet # Voids 3 - Exam GENERAL DESCRIPTION: An elderly male lying in bed in no distress RESPIRATORY SYSTEM: Unlabored breathing , decreased breath sounds at bases HEART: S1 S2 regular rate and rhythm , ABDOMEN: Soft , no tenderness EXTREMITIES: Right second third toe amputation site wound is covered with a wound VAC - Labs CBC & Chem 7: 11/30/23 05:38 11/30/23 05:38 Labs: Abnormal Lab Results - Last 24 Hours (Table) 12/01/23 12/02/23 12/02/23 Range/Units 20:24 07:43 12:38 POC Glucose (mg/dL) 176 H 179 H 188 H (70-110) mg/dL Microbiology - Last 24 Hours (Table) 11/28/23 15:52 Blood Culture - Preliminary Blood 11/29/23 15:30 Anaerobic Culture - Preliminary Toe - Right Second 11/29/23 15:30 Gram Stain - Preliminary Toe - Right Second Tissue Culture - Preliminary Escherichia coli Haemophilus parainfluenzae Staphylococcus epidermidis Morganella morganii Assessment and Plan (1) Osteomyelitis of second toe of right foot Current Visit: Yes Status: Acute Code(s): M86.9 - OSTEOMYELITIS, UNSPECIFIED SNOMED Code(s): 528515415 (2) Diabetic infection of right foot Current Visit: Yes Status: Acute Code(s): E11.628 - TYPE 2 DIABETES MELLITUS WITH OTHER SKIN COMPLICATIONS; L08.9 - LOCAL INFECTION OF THE SKIN AND SUBCUTANEOUS TISSUE, UNSP SNOMED Code(s): 632882383 Plan: 1patient presented to hospital with right second toe discoloration ulceration as well as bloodstained drainage with abnormal x-ray suggestive of osteomyelitis concerning for wet gangrene of the right second toe in this patient with underlying diabetes and diabetic foot infection. 2patient did have borderline kidney function high risk of nephrotoxicity from vancomycin. 3patient is status post amputation of the right second and third toe open wound with a wound VAC application deep cultures are currently growing E. coli haemophilus and coagulase-negative staph with sensitivities still pending 4patient is currently being treated with Zosyn and daptomycin while waiting for the culture to finalize determine discharge antibiotics Dictation was produced using [employer] dictation software. please excuse any grammatical, word or spelling errors. Time with Patient: Less than 30
[2023-12-03 12:27] LABS: Glucose,Whole Blood 242 mg/dL (70-110)
--- NOTE | 2023-12-03 14:55 | P.PN ---
Subjective Progress Note Date: 12/03/23 Principal diagnosis: Reason for follow-up is right diabetic foot infection with gangrene and osteomyelitis Patient is a 78-year-old male with a past medical history significant for diabetes mellitus hypertension previous history of diabetic foot infection requiring amputation of the toes presented to hospital with right gangrene of the right second toe and this patient who is status post right second and third toe amputation completed on 11/29/2023. On today's evaluation that is 12/03/2023, patient has been afebrile, patient is breathing comfortably and is currently on room air, patient denies having any significant cough no chest pain, patient denies nausea vomiting or diarrhea and no abdominal pain denies pain to the right foot wound area. No new lab was obtained today sensitivity on Morganella and another gram- negative still pending Objective - Vital Signs Vital signs: Vital Signs Temp 97.5 F L 12/03/23 07:06 Pulse 62 12/03/23 07:06 Resp 16 12/03/23 07:06 BP 122/70 12/03/23 07:06 Pulse Ox 100 12/03/23 07:06 FiO2 Intake & Output 12/02/23 12/03/23 12/03/23 18:59 06:59 18:59 Other: Voiding Method Toilet Toilet # Voids 2 3 - Exam GENERAL DESCRIPTION: An elderly male lying in bed in no distress RESPIRATORY SYSTEM: Unlabored breathing , decreased breath sounds at bases HEART: S1 S2 regular rate and rhythm , ABDOMEN: Soft , no tenderness EXTREMITIES: Right second third toe amputation site wound is covered with a wound VAC - Labs CBC & Chem 7: 11/30/23 05:38 11/30/23 05:38 Labs: Abnormal Lab Results - Last 24 Hours (Table) 12/02/23 12/02/23 12/02/23 Range/Units 12:38 17:21 19:59 POC Glucose (mg/dL) 188 H 136 H 200 H (70-110) mg/dL 12/03/23 Range/Units 07:11 POC Glucose (mg/dL) 245 H (70-110) mg/dL Microbiology - Last 24 Hours (Table) 11/29/23 15:30 Anaerobic Culture - Final Toe - Right Second Anaerobic Gram Positive Cocci Anaerobic Gram Positive Cocci#2 11/29/23 15:30 Gram Stain - Preliminary Toe - Right Second Tissue Culture - Preliminary Escherichia coli Haemophilus parainfluenzae Staphylococcus epidermidis Morganella morganii Gram Neg Bacilli Assessment and Plan (1) Osteomyelitis of second toe of right foot Current Visit: Yes Status: Acute Code(s): M86.9 - OSTEOMYELITIS, UNSPECIFIED SNOMED Code(s): 142672661 (2) Diabetic infection of right foot Current Visit: Yes Status: Acute Code(s): E11.628 - TYPE 2 DIABETES MELLITUS WITH OTHER SKIN COMPLICATIONS; L08.9 - LOCAL INFECTION OF THE SKIN AND SUBCUTANEOUS TISSUE, UNSP SNOMED Code(s): 393733022 Plan: 1patient presented to hospital with right second toe discoloration ulceration as well as bloodstained drainage with abnormal x-ray suggestive of osteomyelitis concerning for wet gangrene of the right second toe in this patient with underlying diabetes and diabetic foot infection. 2patient did have borderline kidney function high risk of nephrotoxicity from vancomycin. 3patient is status post amputation of the right second and third toe open wound with a wound VAC application deep cultures are currently growing E. coli haemophilus and coagulase-negative staph with sensitivities still pending on 2 gram-negative's 4patient is currently being treated with Zosyn and daptomycin still waiting on the final sensitivity on 2 gram-negative determine his discharge antibiotics Dictation was produced using [employer] dictation software. please excuse any gram matical, word or spelling errors. Time with Patient: Less than 30
[2023-12-03 17:17] LABS: Glucose,Whole Blood 217 mg/dL (70-110)
[2023-12-03 20:24] LABS: Glucose,Whole Blood 187 mg/dL (70-110)
[2023-12-04 07:15] LABS: Glucose,Whole Blood 302 mg/dL (70-110)
[2023-12-04 08:01] VITALS: BP 142/69; PULSE 49; TEMP 98.1
[2023-12-04 12:14] LABS: Glucose,Whole Blood 220 mg/dL (70-110)
--- NOTE | 2023-12-04 15:37 | P.PN ---
Subjective Progress Note Date: 12/04/23 Principal diagnosis: Reason for follow-up is right diabetic foot infection with gangrene and osteomyelitis Patient is a 78-year-old male with a past medical history significant for diabetes mellitus hypertension previous history of diabetic foot infection requiring amputation of the toes presented to hospital with right gangrene of the right second toe and this patient who is status post right second and third toe amputation completed on 11/29/2023. On today's evaluation that is 12/04/2023, Patient is afebrile this morning patient denies having any chest pain shortness of breath or cough, the patient is currently on room air, patient denies any abdominal pain no diarrhea no nausea no vomiting, denies pain to the right foot. No new lab has been obtained today culture has been finalized growing multiple pathogen including E. coli haemophilus Morganella providentia and Proteus along with anaerobes and staph epi Objective - Vital Signs Vital signs: Vital Signs Temp 98.1 F 12/04/23 07:16 Pulse 49 L 12/04/23 07:16 Resp 16 12/04/23 07:16 BP 142/69 12/04/23 07:16 Pulse Ox 100 12/04/23 07:16 FiO2 Intake & Output 12/03/23 12/04/23 12/04/23 18:59 06:59 18:59 Weight 78.925 kg Other: Voiding Method Toilet # Voids 2 3 - Exam GENERAL DESCRIPTION: An elderly male lying in bed in no distress RESPIRATORY SYSTEM: Unlabored breathing , decreased breath sounds at bases HEART: S1 S2 regular rate and rhythm , ABDOMEN: Soft , no tenderness EXTREMITIES: Right second third toe amputation site wound is covered with a wound VAC - Labs CBC & Chem 7: 11/30/23 05:38 11/30/23 05:38 Labs: Abnormal Lab Results - Last 24 Hours (Table) 12/03/23 12/03/23 12/03/23 Range/Units 12:26 17:16 20:22 POC Glucose (mg/dL) 242 H 217 H 187 H (70-110) mg/dL 12/04/23 Range/Units 07:14 POC Glucose (mg/dL) 302 H (70-110) mg/dL Microbiology - Last 24 Hours (Table) 11/28/23 15:52 Blood Culture - Final Blood 11/29/23 15:30 Gram Stain - Final Toe - Right Second Tissue Culture - Final Escherichia coli Haemophilus parainfluenzae Staphylococcus epidermidis Morganella morganii Providencia rettgeri Proteus mirabilis Assessment and Plan (1) Osteomyelitis of second toe of right foot Current Visit: Yes Status: Acute Code(s): M86.9 - OSTEOMYELITIS, UNSPECIFIED SNOMED Code(s): 914134441 (2) Diabetic infection of right foot Current Visit: Yes Status: Acute Code(s): E11.628 - TYPE 2 DIABETES MELLITUS WITH OTHER SKIN COMPLICATIONS; L08.9 - LOCAL INFECTION OF THE SKIN AND SUBCUTANEOUS TISSUE, UNSP SNOMED Code(s): 476723769 Plan: 1patient presented to hospital with right second toe discoloration ulceration as well as bloodstained drainage with abnormal x-ray suggestive of osteomyelitis concerning for wet gangrene of the right second toe in this patient with underl aaron diabetes and diabetic foot infection. 2patient did have borderline kidney function high risk of nephrotoxicity from vancomycin. 3patient is status post amputation of the right second and third toe open wound with a wound VAC application deep cultures are currently growing E. coli haemophilus and coagulase-negative staph 4on the basis of sensitivities patient has been advised Rocephin 2 g daily and daptomycin 6 mg per daily daily along with oral Flagyl to finish 6-week course of therapy and a close outpatient follow-up prescription has been provided Dictation was produced using [employer] software. please excuse any grammatical, word or spelling errors. Time with Patient: Less than 30
--- NOTE | 2023-12-04 22:40 | P.PN ---
Subjective Progress Note Date: 12/02/23 HISTORY OF PRESENT ILLNESS: 78-year-old with active medical history of recurrent osteomyelitis post amputation of the left foot second toe with debridement right foot little toe as well and had many time concern with open sore area and diabetic foot has been dealing with it for a long time, he seen infectious disease on more regular basis. The patient has been or office patient for the last 20 years extremely compliant with medical management medication and instruction is known to have type 2 diabetes more brittle type up-and-down with his A1c is still around 7.0, known to have history of chronic kidney disease, acute kidney injury on and off, hypertension, chronic neuropathy, chronic depression, mild BPH, and again previous history of gangrenous change of the left foot require fifth toe amputation along with great toe amputation and some debridement on the right side as well with history of MRSA in the past. Patient was diagnosed with an open sore recently in the office seen vascular and ended up going wound care in the area had healed well with no complication. He has been taking care of his significant other lately apparently has been wearing his foot for longer time not watching it more carefully he developed to have significant right foot second toe wet gangrene according to him for the last 2 weeks become much worse ended up coming to the emergency department at [facility] where was seen and evaluated, his white blood cell was 10,800 left shifted creatinine 1.27 close to his baseline glucose was 252 his C-reactive protein was 18.4. X-ray of the toe shows abnormal appearing of second digit with middle and distal phalanx poorly visualized soft tissue wound present correlate with osteomyelitis. Also had postsurgical change of the foot involving the amputated site of the left fifth metatarsal amputation of the metatarsal phalangeal joint with joint returning osteophyte formation and there is a metallic liner body on the second metatarsal head. He was started on Zosyn and giving 1 dose of vancomycin eventually switched to daptomycin will be seen infectious disease along with vascular patient will be admitted to the hospital for intense medical management of his diabetes as well this osteomyelitis. 11/30/2023: Patient ended up going to the OR with Dr. Quiñones for amputation of the right second and third toe at the metatarsophalangeal joint second toe is necrotic. Had nerve block and did well with anesthesia. Also patient was seen infectious disease with Dr. Benjy who decided to switch vancomycin to daptomycin and continue Zosyn and agree with the surgical intervention patient had will continue wound care at this point and from here on will be probably just healing from the surgery and make a decision with the culture done from the surgical site how long IV antibiotic will need to be done. Patient pain management has been better so far blood sugar has been running in the low 100s had couple episode of slightly hypoglycemia we will try to adjust the long-acting insulin no more time. 12/01/2023: Doing quite well vitals are stable at this point, pain is under control, microbiology from the culture showed E. coli and haemophilus parainfluenza coag negative staph. Running this by infectious disease received the need to change antibiotic patient remain on Zosyn and daptomycin which I believe is giving him good coverage at this point. Wound care continue with wound VAC at this point will be starting probably at the wound clinic by Dr. Quiñones after his discharge. The patient require to stay on IV antibiotic for little longer might require PICC line or midline to initiate this process and prepare hopefully for discharge in the next few days. 12/02/2023: Amputation side of the osteomyelitis gangrenous toes for right second and third looking much better still have wound VAC around it try to finalize the culture with 2 bacteria 1 is E. coli and the other 1 haemophilus parainfluenza but still have Staphylococcus epidermis and more bacteria has not been finalized yet according to the lab. Infectious disease decide to wait on the final antibiotic plan to any the lab to finalize the susceptibility to antibiotics. Still manageable probably to have patient go home with IV antibiotic arranged by home care. Blood sugar was slightly with higher today we will start her on little bit in the high 100 and low 200 level further adjustment will be made patient medication were changed early because he was having mild hypoglycemia. No other complication otherwise otherwise doing well pain is under well management and control. REVIEW OF SYSTEMS: CONSTITUTIONAL: Well-developed no acute respiratory distress. EYES: No icterus sclerae, no conjunctivitis. EARS, NOSE, MOUTH, THROAT, and FACE: No sore throat, lymphadenopathy, carotid bruits or deformity. RESPIRATORY: No SOB cough or wheezes. CARDIOVASCULAR: No CP, Palpitation, PND, Orthopnea, or angina. GASTROINTESTINAL: No Abd pain, Nausea or vomiting, no Diarrhea or constipation, No GI Bleed, no distention or masses. GENITOURINARY: Negative for Hematuria or UTI, no kidney stones. INTEGUMENT/BREAST: Mild arthritis in the right foot second toe gangrenous change. HEMATOLOGIC/LYMPHATIC: Negative for bleed or purpura. MUSCULOSKELTAL: Arthralgia and myalgia with infection of the second toe and the right side NEURLOGICAL: No LOC, Sz or syncope, blurred vision dizziness or abnormality.. BEHAVIORAL/PSYCH: Negative. ENDOCRINE: Negative. PHYSICAL EXAMINATION: General Appearance: Alert, cooperative, no distress, appears stated age. Neck HEENT: Supple, no lymphadenopathy, no thyroid enlargement, no carotid bruits. Lungs: Clear to auscultation without crackles or wheezes no rhonchi, no deformity. Chest Wall: Chest wall normal expansion with deep inspiration no tenderness and no deformity was found on exam, no costochondral pain or discomfort. Heart: Regular rate and rhythm, S1, S2 normal, no murmur, rub or gallop. Back: Symmetric, no curvature, ROM normal, no CVA tenderness. Abdomen: Soft, non-tender, bowel sounds active all four quadrants, no masses, no organomegaly. Extremities: Mild arthritis in both knees. Right foot second toe has wet gang renous change more involve in the toe than before with an open area decreased pulse in the dorsalis pedis and posterior tibial on both the right and the left. Left side has no change he had a previous amputation of the first and the third toe remain the same Pulses: 2+ and symmetric. Skin: Skin color, texture, tugor normal, no rashes or lesions. Neurologic: Alert oriented x3 cranial nerves II through XII intact, no motor deficit, no abnormal balance or gait. ASSESSMENT AND PLAN: _Osteomyelitis of the right second and third toes, post amputation, Remain on Zosyn and daptomycin culture was positive for haemophilus parainfluenza and E. coli which being covered with antibiotic currently. Still have apparently at least 2 more bugs not finalized beside staph epi, infectious disease want a wait for the final susceptibility before making the final decision. _Wound care post amputation of right second and third toe will continue wound VAC at this point continue topical care will require to go to the wound clinic afterward. _Chronic recurrent osteomyelitis and diabetic foot had affected the second and third toe on the right side post amputation with positive culture will continue topical and IV antibiotic for now. Will require probably 4 weeks of IV antibio tics. _Brittle type 2 diabetes: History running slightly below sometimes his Toujeo was reduced to 25. But he still hypoglycemic today will probably reduce it again to 20 units today continue sliding scales continue Tradjenta one of the idea will be to cut down his Janumet 50/500 mg once a day instead of twice a day. Patient normally does continue glucose monitor and manage it well at home specially with his nutrition been increased. Blood sugars start climbing up slightly his Toujeo initially was reduced we can go higher to his unit. _Significant weight loss, patient had lost over the last 6-month close to 10 pounds plus most likely from being physically active and nutrition been decreased agreed to be on Megace his workup for finding any significant inflammation or cancer has been negative so far. _Acute kidney injury on chronic kidney disease with slight decline in GFR, he is remain on ZINA inhibitor for kidney prevention, continue hydration and treat infection for better management of chronic kidney disease. _Hypertension: Has been doing very well on lisinopril titrate dose higher if needed. _Hyperlipidemia: He is on statin to my knowledge atorvastatin 20 mg a day resume medication. _BPH: Watch for any urinary retention still on Flomax. _Severe GERD: Remain on pantoprazole 40 mg a day. _Mild depression: Continue trazodone 50 mg at bedtime will titrate dose higher if needed. _Restless leg syndrome: Remain on ropinirole 1 mg in the morning and 3 mg at bedtime. _Pain management: Will continue smaller dose of Dilaudid and hydrocodone in the next 24 hours and prepare for switching him to oral hydrocodone only within 24 hours. Patient is not requiring much pain management. Discussion: Continue current IV antibiotics but waiting for the final culture to finalize a plan for his discharge. Objective - Vital Signs Vital signs: Vital Signs Temp 97.8 F 12/02/23 02:00 Pulse 53 L 12/02/23 02:00 Resp 12 12/02/23 02:00 BP 116/62 12/02/23 02:00 Pulse Ox 96 12/02/23 02:00 FiO2 Intake & Output 12/01/23 12/01/23 12/02/23 06:59 18:59 06:59 Intake Total 780 1200 540 Output Total 525 500 Balance 255 1200 40 Intake: Intake, IV Titration 240 Amount IV Fluid Continuation 1, 140 000 ml @ 0 mls/hr IV .STK -[facility] Rx#:[id number] Piperacillin-Tazobactam 3 100 .375 gm In Sodium Chloride 0.9% 100 ml @ 25 mls/hr IVPB Q8HR [facility] Rx# :[id number] Oral 540 1200 540 Output: Urine 525 500 Other: Voiding Method Urinal Urinal Toilet # Voids 3 - Labs CBC & Chem 7: 11/30/23 05:38 11/30/23 05:38 Labs: Abnormal Lab Results - Last 24 Hours (Table) 12/01/23 12/01/23 12/01/23 Range/Units 07:28 12:00 20:24 POC Glucose (mg/dL) 227 H 162 H 176 H (70-110) mg/dL Microbiology - Last 24 Hours (Table) 11/28/23 15:52 Blood Culture - Preliminary Blood 11/29/23 15:30 Anaerobic Culture - Preliminary Toe - Right Second 11/29/23 15:30 Gram Stain - Preliminary Toe - Right Second Tissue Culture - Preliminary Escherichia coli Haemophilus parainfluenzae Staphylococcus epidermidis Morganella morganii
--- NOTE | 2023-12-04 22:46 | P.PN ---
Subjective Progress Note Date: 12/03/23 HISTORY OF PRESENT ILLNESS: 78-year-old with active medical history of recurrent osteomyelitis post amputation of the left foot second toe with debridement right foot little toe as well and had many time concern with open sore area and diabetic foot has been dealing with it for a long time, he seen infectious disease on more regular basis. The patient has been or office patient for the last 20 years extremely compliant with medical management medication and instruction is known to have type 2 diabetes more brittle type up-and-down with his A1c is still around 7.0, known to have history of chronic kidney disease, acute kidney injury on and off, hypertension, chronic neuropathy, chronic depression, mild BPH, and again previous history of gangrenous change of the left foot require fifth toe amputation along with great toe amputation and some debridement on the right side as well with history of MRSA in the past. Patient was diagnosed with an open sore recently in the office seen vascular and ended up going wound care in the area had healed well with no complication. He has been taking care of his significant other lately apparently has been wearing his foot for longer time not watching it more carefully he developed to have significant right foot second toe wet gangrene according to him for the last 2 weeks become much worse ended up coming to the emergency department at [facility] where was seen and evaluated, his white blood cell was 10,800 left shifted creatinine 1.27 close to his baseline glucose was 252 his C-reactive protein was 18.4. X-ray of the toe shows abnormal appearing of second digit with middle and distal phalanx poorly visualized soft tissue wound present correlate with osteomyelitis. Also had postsurgical change of the foot involving the amputated site of the left fifth metatarsal amputation of the metatarsal phalangeal joint with joint returning osteophyte formation and there is a metallic liner body on the second metatarsal head. He was started on Zosyn and giving 1 dose of vancomycin eventually switched to daptomycin will be seen infectious disease along with vascular patient will be admitted to the hospital for intense medical management of his diabetes as well this osteomyelitis. 11/30/2023: Patient ended up going to the OR with Dr. Quiñones for amputation of the right second and third toe at the metatarsophalangeal joint second toe is necrotic. Had nerve block and did well with anesthesia. Also patient was seen infectious disease with Dr. Benjy who decided to switch vancomycin to daptomycin and continue Zosyn and agree with the surgical intervention patient had will continue wound care at this point and from here on will be probably just healing from the surgery and make a decision with the culture done from the surgical site how long IV antibiotic will need to be done. Patient pain management has been better so far blood sugar has been running in the low 100s had couple episode of slightly hypoglycemia we will try to adjust the long-acting insulin no more time. 12/01/2023: Doing quite well vitals are stable at this point, pain is under control, microbiology from the culture showed E. coli and haemophilus parainfluenza coag negative staph. Running this by infectious disease received the need to change antibiotic patient remain on Zosyn and daptomycin which I believe is giving him good coverage at this point. Wound care continue with wound VAC at this point will be starting probably at the wound clinic by Dr. Quiñones after his discharge. The patient require to stay on IV antibiotic for little longer might require PICC line or midline to initiate this process and prepare hopefully for discharge in the next few days. 12/02/2023: Amputation side of the osteomyelitis gangrenous toes for right second and third looking much better still have wound VAC around it try to finalize the culture with 2 bacteria 1 is E. coli and the other 1 haemophilus parainfluenza but still have Staphylococcus epidermis and more bacteria has not been finalized yet according to the lab. Infectious disease decide to wait on the final antibiotic plan to any the lab to finalize the susceptibility to antibiotics. Still manageable probably to have patient go home with IV antibiotic arranged by home care. Blood sugar was slightly with higher today we will start her on little bit in the high 100 and low 200 level further adjustment will be made patient medication were changed early because he was having mild hypoglycemia. No other complication otherwise otherwise doing well pain is under well management and control. 12/03/2023: Patient remained doing very well currently continue IV antibiotic along with wound care at this point his pain management is doing very well patient is hardly require much for pain, final arrangement for his IV antibiotics will be finalized by infectious disease after his final culture is done might take until tomorrow. Meanwhile patient mobility still slightly decreased but he is able to ambulate with air boot at this point with minimal pain. The final plan is still for him to go home with home care and wound care management at home if possible if not possibility of subacute rehab with IV antibiotic is all depend of what type of antibiotic and length of time so far infectious disease working hard to honor patient's wishes to have the possibility of him being discharged home with home care. REVIEW OF SYSTEMS: CONSTITUTIONAL: Well-developed no acute respiratory distress. EYES: No icterus sclerae, no conjunctivitis. EARS, NOSE, MOUTH, THROAT, and FACE: No sore throat, lymphadenopathy, carotid bruits or deformity. RESPIRATORY: No SOB cough or wheezes. CARDIOVASCULAR: No CP, Palpitation, PND, Orthopnea, or angina. GASTROINTESTINAL: No Abd pain, Nausea or vomiting, no Diarrhea or constipation, No GI Bleed, no distention or masses. GENITOURINARY: Negative for Hematuria or UTI, no kidney stones. INTEGUMENT/BREAST: Mild arthritis in the right foot second toe gangrenous change. HEMATOLOGIC/LYMPHATIC: Negative for bleed or purpura. MUSCULOSKELTAL: Arthralgia and myalgia with infection of the second toe and the right side NEURLOGICAL: No LOC, Sz or syncope, blurred vision dizziness or abnormality.. BEHAVIORAL/PSYCH: Negative. ENDOCRINE: Negative. PHYSICAL EXAMINATION: General Appearance: Alert, cooperative, no distress, appears stated age. Neck HEENT: Supple, no lymphadenopathy, no thyroid enlargement, no carotid bruits. Lungs: Clear to auscultation without crackles or wheezes no rhonchi, no deformity. Chest Wall: Chest wall normal expansion with deep inspiration no tenderness and no deformity was found on exam, no costochondral pain or discomfort. Heart: Regular rate and rhythm, S1, S2 normal, no murmur, rub or gallop. Back: Symmetric, no curvature, ROM normal, no CVA tenderness. Abdomen: Soft, non-tender, bowel sounds active all four quadrants, no masses, no organomegaly. Extremities: Mild arthritis in both knees. Right foot second toe has wet gangrenous change more involve in the toe than before with an open area decreased pulse in the dorsalis pedis and posterior tibial on both the right and the left. Left side has no change he had a previous amputation of the first and the third toe remain the same Pulses: 2+ and symmetric. Skin: Skin color, texture, tugor normal, no rashes or lesions. Neurologic: Alert oriented x3 cranial nerves II through XII intact, no motor deficit, no abnormal balance or gait. ASSESSMENT AND PLAN: _Osteomyelitis of the right second and third toes, post amputation, Remain on Zosyn and daptomycin culture was positive for haemophilus parainfluenza and E. coli which being covered with antibiotic currently. He has staph epi along with Morganella morganii still waiting for final susceptibility. _Wound care post amputation of right second and third toe will continue wound VAC at this point continue topical care will require to go to the wound clinic afterward. Patient be going to the wound clinic apparently at [facility] after his discharge. _Chronic recurrent osteomyelitis and diabetic foot had affected the second and third toe on the right side post amputation with positive culture will continue topical and IV antibiotic for now. Will require probably 4 weeks of IV antibiotics. _Brittle type 2 diabetes: Getting patient back on his home dose of diabetes that will include Janumet 50/500 mg twice a day, Toujeo 34 units daily, still on short acting insulin per sliding scales to keep his blood sugar less than 150. _Significant weight loss, his workup is negative, still can be related to sugar, physical activity, and his current infection will continue Megace for now and upon his discharge Megace will be sent to the pharmacy to stay on it for the next few months. _Acute kidney injury on chronic kidney disease with slight decline in GFR, he is remain on ZINA inhibitor for kidney prevention, continue hydration and treat infection for better management of chronic kidney disease. _Hypertension: Has been doing very well on lisinopril titrate dose higher if needed. _Hyperlipidemia: He is on statin to my knowledge atorvastatin 20 mg a day resume medication. _BPH: Watch for any urinary retention still on Flomax. _Severe GERD: Remain on pantoprazole 40 mg a day. _Mild depression: Continue trazodone 50 mg at bedtime will titrate dose higher if needed. _Restless leg syndrome: Remain on ropinirole 1 mg in the morning and 3 mg at bedtime. _Pain management: Will continue smaller dose of Dilaudid and hydrocodone in the next 24 hours and prepare for switching him to oral hydrocodone only within 24 hours. Patient is not requiring much pain management. Discussion: Again trying to finalize the antibiotics which might take up till 12/04/2023. Objective - Vital Signs Vital signs: Vital Signs Temp 98.1 F 12/04/23 07:16 Pulse 49 L 12/04/23 07:16 Resp 16 12/04/23 07:16 BP 142/69 12/04/23 07:16 Pulse Ox 100 12/04/23 07:16 FiO2 Intake & Output 12/03/23 12/04/23 12/04/23 18:59 06:59 18:59 Weight 78.925 kg Other: Voiding Method Toilet # Voids 2 3 - Labs CBC & Chem 7: 11/30/23 05:38 11/30/23 05:38 Labs: Abnormal Lab Results - Last 24 Hours (Table) 12/03/23 12/03/23 12/04/23 Range/Units 17:16 20:22 07:14 POC Glucose (mg/dL) 217 H 187 H 302 H (70-110) mg/dL 12/04/23 Range/Units 12:13 POC Glucose (mg/dL) 220 H (70-110) mg/dL Microbiology - Last 24 Hours (Table) 11/28/23 15:52 Blood Culture - Final Blood 11/29/23 15:30 Gram Stain - Final Toe - Right Second Tissue Culture - Final Escherichia coli Haemophilus parainfluenzae Staphylococcus epidermidis Morganella morganii Providencia rettgeri Proteus mirabilis
--- NOTE | 2023-12-04 22:56 | P.DS ---
Providers Date of admission: 11/28/23 18:09 Expected date of discharge: 12/04/23 Attending physician: Clay Jones Consults: 11/28/23 16:27 Consult Physician Urgent Consulting Provider: Charles Quiñones Consult Reason/Comments: Diabetic foot infection, osteomyelitis Do you want consulting provider notified?: Yes 11/28/23 22:05 Consult Physician Routine Consulting Provider: Mckayla Burleson Consult Reason/Comments: Osteomyelitis Do you want consulting provider notified?: Yes Primary care physician: [facility] Course: HISTORY OF PRESENT ILLNESS: 78-year-old with active medical history of recurrent osteomyelitis post amputation of the left foot second toe with debridement right foot little toe as well and had many time concern with open sore area and diabetic foot has been dealing with it for a long time, he seen infectious disease on more regular basis. The patient has been or office patient for the last 20 years extremely compliant with medical management medication and instruction is known to have type 2 diabetes more brittle type up-and-down with his A1c is still around 7.0, known to have history of chronic kidney disease, acute kidney injury on and off, hypertension, chronic neuropathy, chronic depression, mild BPH, and again previous history of gangrenous change of the left foot require fifth toe amputation along with great toe amputation and some debridement on the right side as well with history of MRSA in the past. Patient was diagnosed with an open sore recently in the office seen vascular and ended up going wound care in the area had healed well with no complication. He has been taking care of his significant other lately apparently has been wearing his foot for longer time not watching it more carefully he developed to have significant right foot second toe wet gangrene according to him for the last 2 weeks become much worse ended up coming to the emergency department at [facility] where was seen and evaluated, his white blood cell was 10,800 left shifted creatinine 1.27 close to his baseline glucose was 252 his C-reactive protein was 18.4. X-ray of the toe shows abnormal appearing of second digit with middle and distal phalanx poorly visualized soft tissue wound present correlate with osteomyelitis. Also had postsurgical change of the foot involving the amputated site of the left fifth metatarsal amputation of the metatarsal phalangeal joint with joint returning osteophyte formation and there is a metallic liner body on the second metatarsal head. He was started on Zosyn and giving 1 dose of vancomycin eventually switched to daptomycin will be seen infectious disease along with vascular patient will be admitted to the hospital for intense medical management of his diabetes as well this osteomyelitis. 11/30/2023: Patient ended up going to the OR with Dr. Quiñones for amputation of the right second and third toe at the metatarsophalangeal joint second toe is necrotic. Had nerve block and did well with anesthesia. Also patient was seen infectious disease with Dr. Burleson who decided to switch vancomycin to daptomycin and continue Zosyn and agree with the surgical intervention patient had will continue wound care at this point and from here on will be probably just healing from the surgery and make a decision with the culture done from the surgical site how long IV antibiotic will need to be done. Patient pain management has been better so far blood sugar has been running in the low 100s had couple episode of slightly hypoglycemia we will try to adjust the long-acting insulin no more time. 12/01/2023: Doing quite well vitals are stable at this point, pain is under control, microbiology from the culture showed E. coli and haemophilus parainfluenza coag negative staph. Running this by infectious disease received the need to change antibiotic patient remain on Zosyn and daptomycin which I believe is giving him good coverage at this point. Wound care continue with wound VAC at this point will be starting probably at the wound clinic by Dr. Quiñones after his discharge. The patient require to stay on IV antibiotic for little longer might require PICC line or midline to initiate this process and prepare hopefully for discharge in the next few days. 12/02/2023: Amputation side of the osteomyelitis gangrenous toes for right second and third looking much better still have wound VAC around it try to finalize the culture with 2 bacteria 1 is E. coli and the other 1 haemophilus parainfluenza but still have Staphylococcus epidermis and more bacteria has not been finalized yet according to the lab. Infectious disease decide to wait on the final antibiotic plan to any the lab to finalize the susceptibility to antibiotics. Still manageable probably to have patient go home with IV antibiotic arranged by home care. Blood sugar was slightly with higher today we will start her on little bit in the high 100 and low 200 level further adjustment will be made patient m edication were changed early because he was having mild hypoglycemia. No other complication otherwise otherwise doing well pain is under well management and control. 12/03/2023: Patient remained doing very well currently continue IV antibiotic along with wound care at this point his pain management is doing very well patient is hardly require much for pain, final arrangement for his IV antibiot ics will be finalized by infectious disease after his final culture is done might take until tomorrow. Meanwhile patient mobility still slightly decreased but he is able to ambulate with air boot at this point with minimal pain. The final plan is still for him to go home with home care and wound care management at home if possible if not possibility of subacute rehab with IV antibiotic is all depend of what type of antibiotic and length of time so far infectious disease working hard to honor patient's wishes to have the possibility of him being discharged home with home care. 12/04/2023 the culture was finalized today as total of 6 different bacteria including E. coli, haemophilus parainfluenza, Staphylococcus epidermis, Morganella morganii, procidentia Rettgeri and Proteus mirabilis, final antibiotic plan with infectious disease will be for doing daptomycin 500 mg IV daily along with Rocephin 2000 mg IV every 24 hours combined with Flagyl 500 mg 3 times a day and arrangement apparently was made through home care along with wound care at home and patient was seen before his discharge his vascular check on the wound and will follow-up at the wound care in the next few days. REVIEW OF SYSTEMS: CONSTITUTIONAL: Well-developed no acute respiratory distress. EYES: No icterus sclerae, no conjunctivitis. EARS, NOSE, MOUTH, THROAT, and FACE: No sore throat, lymphadenopathy, carotid bruits or deformity. RESPIRATORY: No SOB cough or wheezes. CARDIOVASCULAR: No CP, Palpitation, PND, Orthopnea, or angina. GASTROINTESTINAL: No Abd pain, Nausea or vomiting, no Diarrhea or constipation, No GI Bleed, no distention or masses. GENITOURINARY: Negative for Hematuria or UTI, no kidney stones. INTEGUMENT/BREAST: Mild arthritis in the right foot second toe gangrenous change. HEMATOLOGIC/LYMPHATIC: Negative for bleed or purpura. MUSCULOSKELTAL: Arthralgia and myalgia with infection of the second toe and the right side NEURLOGICAL: No LOC, Sz or syncope, blurred vision dizziness or abnormality.. BEHAVIORAL/PSYCH: Negative. ENDOCRINE: Negative. PHYSICAL EXAMINATION: General Appearance: Alert, cooperative, no distress, appears stated age. Neck HEENT: Supple, no lymphadenopathy, no thyroid enlargement, no carotid bruits. Lungs: Clear to auscultation without crackles or wheezes no rhonchi, no deformity. Chest Wall: Chest wall normal expansion with deep inspiration no tenderness and no deformity was found on exam, no costochondral pain or discomfort. Heart: Regular rate and rhythm, S1, S2 normal, no murmur, rub or gallop. Back: Symmetric, no curvature, ROM normal, no CVA tenderness. Abdomen: Soft, non-tender, bowel sounds active all four quadrants, no masses, no organomegaly. Extremities: Mild arthritis in both knees. Right foot second toe has wet gangrenous change more involve in the toe than before with an open area decreased pulse in the dorsalis pedis and posterior tibial on both the right and the left. Left side has no change he had a previous amputation of the first and the third toe remain the same Pulses: 2+ and symmetric. Skin: Skin color, texture, tugor normal, no rashes or lesions. Neurologic: Alert oriented x3 cranial nerves II through XII intact, no motor deficit, no abnormal balance or gait. ASSESSMENT AND PLAN: _Osteomyelitis of the right second and third toes, post amputation, Remain on Zosyn and daptomycin culture was positive for haemophilus parainfluenza and E. coli which being covered with antibiotic currently. He has staph epi along with Morganella morganii still waiting for final susceptibility. _Wound care post amputation of right second and third toe will continue wound VAC at this point continue topical care will require to go to the wound clinic afterward. Patient be going to the wound clinic apparently at [facility] after his discharge. _Chronic recurrent osteomyelitis and diabetic foot had affected the second and third toe on the right side post amputation with positive culture will continue topical and IV antibiotic for now. Will require probably 4 weeks of IV antibiotics. _Brittle type 2 diabetes: Getting patient back on his home dose of diabetes that will include Janumet 50/500 mg twice a day, Toujeo 34 units daily, still on short acting insulin per sliding scales to keep his blood sugar less than 150. _Significant weight loss, his workup is negative, still can be related to sugar, physical activity, and his current infection will continue Megace for now and upon his discharge Jacob will be sent to the pharmacy to stay on it for the next few months. _Acute kidney injury on chronic kidney disease with slight decline in GFR, he is remain on ZINA inhibitor for kidney prevention, continue hydration and treat infection for better management of chronic kidney disease. _Hypertension: Has been doing very well on lisinopril titrate dose higher if needed. _Hyperlipidemia: He is on statin to my knowledge atorvastatin 20 mg a day resume medication. _BPH: Watch for any urinary retention still on Flomax. _Severe GERD: Remain on pantoprazole 40 mg a day. _Mild depression: Continue trazodone 50 mg at bedtime will titrate dose higher if needed. _Restless leg syndrome: Remain on ropinirole 1 mg in the morning and 3 mg at bedtime. _Pain management: Will continue smaller dose of Dilaudid and hydrocodone in the next 24 hours and prepare for switching him to oral hydrocodone only within 24 hours. Patient is not requiring much pain management. Discussion: total of 6 different bacteria including E. coli, haemophilus parainfluenza, Staphylococcus epidermis, Morganella morganii, procidentia Rettgeri and Proteus mirabilis, final antibiotic plan with infectious disease will be for doing daptomycin 500 mg IV daily along with Rocephin 2000 mg IV every 24 hours combined with Flagyl 500 mg 3 times a day for total of 6 weeks with plan for follow-up by infectious disease every week and by wound care weekly as well. Hospital course: Patient was admitted to the hospital on 11/28/2023 with complaint of with infection and gangrene and second toe in the right side along with the third toe for the last 2 weeks apparently has been very busy taking care of his significant other and have issues all day on his feet with his severe neuropathy developed to have much worsening infection and short bit of time before finally realized was going on. Patient ended up coming to the emergency department where was seen and evaluated his white blood cell was 10,800 left shifted his creatinine was 1.27 close to his baseline his C-reactive protein was 18.4 x-ray of the toe show normal-appearing left second digit with middle and distal phalanx poorly visualized soft tissue wound present correlate with osteomyelitis, he was started on Zosyn and 1 dose of vancomycin initially then switched to daptomycin as soon as infectious disease was involved the patient and up seen Dr. Quiñones vascular who talked to him and decided to take him for second and third toe amputation at the metatarsophalangeal joint procedure done on 11/30/2023 successfully infectious disease kept him on daptomycin and Zosyn at that point awaiting for the final culture. Patient ended up having wound VAC on the incision site and has done very well with it obtain PICC line on the left forearm waiting for the final culture which took till 12/04/2023 to finalize it and it ended up showing 6 different bacteria total of 6 different bacteria including E. coli, haemophilus parainfluenza, Staphylococcus epidermis, Morganella morganii, procidentia Rettgeri and Proteus mirabilis, final antibiotic plan with infectious disease will be for doing daptomycin 500 mg IV daily along with Rocephin 2000 mg IV every 24 hours combined with Flagyl 500 mg 3 times a day. Patient was very for discharge on 12/04/2023 arrangement for wound care and IV antibiotic at home was done. Time spent on patient discharge was over 35 minutes. Patient Condition at Discharge: Fair Plan - Discharge Summary Discharge Rx Participant: No New Discharge Prescriptions: New Megestrol [Megace] 400 mg PO DAILY #400 ml Pantoprazole [Protonix] 40 mg PO AC-BRKFST #30 tab cefTRIAXone [Rocephin] 2,000 mg IVP Q24HR #35 each metroNIDAZOLE [Flagyl] 500 mg PO TID #90 tab DAPTOmycin [Cubicin] 500 mg IV DAILY #35 each Continue Aspirin 81 mg PO PC-SUPPER Multivitamins, Thera [Multivitamin (formulary)] 1 tab PO PC-BRKFST Insulin Glargine,Hum.rec.anlog [Toujanetto Solostar] 34 units SQ PC-BRKFST Baclofen [Lioresal] 10 mg PO PC-SUPPER lisinopriL [Zestril] 10 mg PO PC-SUPPER sitaGLIPtin PHOS/metFORMIN HCL [Janumet 50-500 mg Tablet] 2 tab PO PC-BRKFST Calcium Phos/D3/Magnesium/Zinc [Ghtoyqs-Ocu-Gelv-Vitamin D3] 1 tab PO PC- BRKFST Fish Oil/Dha/Epa [Fish Oil 1,200 mg Fish Oil] 1 cap PO PC-SUPPER rOPINIRole HCL [Requip] 3 mg PO PC-SUPPER Tamsulosin [Flomax] 0.4 mg PO PC-SUPPER rOPINIRole HCL [Requip] 1 mg PO PC-BRKFST traZODone HCL [Desyrel] 50 mg PO PC-SUPPER Albuterol Sulfate [Albuterol Sulfate Hfa] 1 - 2 puff PO RT-Q6H PRN PRN Reason: Shortness Of Breath Discharge Medication List Aspirin 81 mg PO PC-SUPPER 12/27/15 [History] Multivitamins, Thera [Multivitamin (formulary)] 1 tab PO PC-BRKFST 12/27/15 [History] Insulin Glargine,Hum.rec.anlog [Toujeo Solostar] 34 units SQ PC-BRKFST 07/18/16 [History] Baclofen [Lioresal] 10 mg PO PC-SUPPER 10/06/16 [History] lisinopriL [Zestril] 10 mg PO PC-SUPPER 11/15/19 [History] Fish Oil/Dha/Epa [Fish Oil 1,200 mg Fish Oil] 1 cap PO PC-SUPPER 08/25/22 [History] Tamsulosin [Flomax] 0.4 mg PO PC-SUPPER 08/25/22 [History] rOPINIRole HCL [Requip] 3 mg PO PC-SUPPER 08/25/22 [History] sitaGLIPtin PHOS/metFORMIN HCL [Janumet 50-500 mg Tablet] 2 tab PO PC-BRKFST 08/25/22 [History] Albuterol Sulfate [Albuterol Sulfate Hfa] 1 - 2 puff PO RT-Q6H PRN 11/28/23 [History] Calcium Phos/D3/Magnesium/Zinc [Eisewhg-Vyy-Mytw-Vitamin D3] 1 tab PO PC-BRKFST 11/28/23 [History] rOPINIRole HCL [Requip] 1 mg PO PC-BRKFST 11/28/23 [History] traZODone HCL [Desyrel] 50 mg PO PC-SUPPER 11/28/23 [History] Megestrol [Megace] 400 mg PO DAILY #400 ml 12/02/23 [Rx] Pantoprazole [Protonix] 40 mg PO AC-BRKFST #30 tab 12/02/23 [Rx] DAPTOmycin [Cubicin] 500 mg IV DAILY #35 each 12/04/23 [Rx] cefTRIAXone [Rocephin] 2,000 mg IVP Q24HR #35 each 12/04/23 [Rx] metroNIDAZOLE [Flagyl] 500 mg PO TID #90 tab 12/04/23 [Rx] Follow up Appointment(s)/Referral(s): [facility] [NON-STAFF] - 1 Week Clay Jones MD [Primary Care Provider] - 12/07/23 3:30 pm [facility],Infusion [NON-STAFF] - 1 Week Mckayla Burleson MD [STAFF PHYSICIAN] - 1 Week Ambulatory/Diagnostic Orders: Basic Metabolic Panel [LAB.AMB] Location: None Selected C Reactive Protein [LAB.AMB] Location: None Selected Complete Blood Count w/diff [LAB.AMB] Location: None Selected Erythrocyte Sedimentation Rate [LAB.AMB] Location: None Selected Patient Instructions/Handouts: Metronidazole (By mouth), Megestrol Acetate (By mouth), Ceftriaxone (By injection), Pantoprazole (By mouth), Daptomycin (By injection), Negative Pressure Wound Therapy (DC), How to Care for Your PICC (Peripherally Inserted Central Catheter) (DC), Acute Wounds (DC) Discharge Disposition: HOME WITH HOME HEALTH SERVICES
== END 2023-12-04 17:35 | disposition home health service (06) | DRG 617 ==
LOC: EC 14:52 → 5NMEDONC 18:09
PROVIDERS: ADMIT Internal Medicine Geriatric Medicine; ATTEND Internal Medicine Geriatric Medicine
PROC: 0Y6T0Z0 Detachment at Right 3rd Toe, Complete, Open Approach (ICD-10-PCS; 2023-11-29)
PROC: 0Y6R0Z0 Detachment at Right 2nd Toe, Complete, Open Approach (ICD-10-PCS; principal; 2023-11-29 10:00)
PROC: 02HV33Z Insertion of Infusion Device into Superior Vena Cava, Percutaneous Approach (ICD-10-PCS; 2023-12-01)
DX: E11.69 Type 2 diabetes mellitus with other specified complication (principal); E11.52 Type 2 diabetes mellitus with diabetic peripheral angiopathy with gangrene; L03.115 Cellulitis of right lower limb; M86.8X7 Other osteomyelitis, ankle and foot; E11.628 Type 2 diabetes mellitus with other skin complications; E11.22 Type 2 diabetes mellitus with diabetic chronic kidney disease; N18.1 Chronic kidney disease, stage 1; Z86.14 Personal history of Methicillin resistant Staphylococcus aureus infection; E11.40 Type 2 diabetes mellitus with diabetic neuropathy, unspecified; E78.5 Hyperlipidemia, unspecified; F32.A Depression, unspecified; G25.81 Restless legs syndrome; K21.9 Gastro-esophageal reflux disease without esophagitis; I10 Essential (primary) hypertension; N40.0 Benign prostatic hyperplasia without lower urinary tract symptoms; E11.649 Type 2 diabetes mellitus with hypoglycemia without coma; Z79.82 Long term (current) use of aspirin; Z79.4 Long term (current) use of insulin; Z79.84 Long term (current) use of oral hypoglycemic drugs; Z79.899 Other long term (current) drug therapy; Z91.040 Latex allergy status; Z87.891 Personal history of nicotine dependence
CPT/HCPCS: 36415; 36573; 64445; 64447; 80053; 83605; 85025; 85027; 85652; 86140; 87040; 87070; 87075; 87077; 87186; 87205; 96365; 99285

== ENCOUNTER 2024-07-25 14:14 | Inpatient (IN) | payer MEDICARE ==
[2024-07-25] MEDS ORDERED: VANCOMYCIN IV PER PHARMACY 1 EACH MISC MISCELLANE PRN (14:40)
--- NOTE | 2024-07-25 14:58 | XR ---
EXAMINATION TYPE: XR foot complete RT DATE OF EXAM: 07/25/2024 CLINICAL INDICATION: Male, 79 years old with history of Osteomyelitis, pain TECHNIQUE: Frontal, lateral, and oblique images of the right foot are obtained. COMPARISON: Prior right toe x-ray November 28, 2023 FINDINGS: There is redemonstration of amputation defect distal diaphysis fifth metatarsal. There is now amputation defect past the second through fourth metatarsal heads. There is new irregular lucency corresponding to soft tissue ulceration plantar surface with bony eros cecily changes centered at the first metatarsophalangeal joint with significant involvement of the dista l metaphysis of the first metatarsal. IMPRESSION: There is new radiographic evidence of acute osteomyelitis involving the base of the firs t proximal phalanx and the distal first metatarsal. [facility], , 07/25/2024 2:55 PM
--- NOTE | 2024-07-25 15:18 | ED ---
General Adult HPI - General Chief complaint: Recheck/Abnormal Lab/Rx Stated complaint: R foot wound Time Seen by Provider: 07/25/24 14:15 Source: patient, RN notes reviewed, old records reviewed Mode of arrival: ambulatory Limitations: no limitations - History of Present Illness Initial comments: This is a 79-year-old male who presents to the emergency department complaining that he has had a wound since November on his medial aspect of his right foot at the MTP joint. Patient states over the last 3 to 4 days the foot has become swollen as has the calf and the wound has become very smelly so he went to the wound care center and they diagnosed with wet gangrene and wanted the patient to be admitted with a consult to vascular surgery. Dr. Quiñones called prior to the patient's arrival to inform me of his diagnosis. Patient does state he has calf pain. Patient has no difficulty breathing. Patient states is long as he does not touch it it does not really hurt too bad. - Related Data Home Medications Medication Instructions Recorded Confirmed Aspirin 81 mg PO PC-SUPPER 12/27/15 04/10/24 Multivitamins, Thera [Multivitamin 1 tab PO PC-BRKFST 12/27/15 04/10/24 (formulary)] Insulin Glargine,Hum.rec.anlog 29 units SQ PC-BRKFST 07/18/16 04/10/24 [Toujeo Solostar] lisinopriL [Zestril] 10 mg PO PC-SUPPER 11/15/19 04/10/24 Tamsulosin [Flomax] 0.4 mg PO PC-SUPPER 08/25/22 04/10/24 sitaGLIPtin PHOS/metFORMIN HCL 1 tab PO PC-BID 08/25/22 04/10/24 [Janumet 50-500 mg Tablet] Albuterol Sulfate [Albuterol 2 puff INHALATION RT-TID PRN 11/28/23 04/10/24 Sulfate Hfa] Calcium Phos/D3/Magnesium/Zinc 1 tab PO PC-BRKFST 11/28/23 04/10/24 [Jdhtfyx-Yax-Ueat-Vitamin D3] rOPINIRole HCL [Requip] 2 mg PO PC-BID 11/28/23 04/10/24 traZODone HCL [Desyrel] 50 mg PO PC-SUPPER 11/28/23 04/10/24 Atorvastatin [Lipitor] 10 mg PO PC-SUPPER 04/10/24 04/10/24 Collagenase [Santyl Ointment] 1 applic TOPICAL DAILY 04/10/24 04/10/24 Fish Oil(Unknown Dose) 1 cap PO PC-SUPPER 04/10/24 04/10/24 Insulin Aspart [NovoLOG Flexpen] See Protocol SQ ACHS 04/10/24 04/10/24 Megestrol [Megace] 400 mg PO AC-BRKFST 04/10/24 04/10/24 Melatonin 20 mg PO PC-SUPPER 04/10/24 04/10/24 Previous Rx's Medication Instructions Recorded Pantoprazole [Protonix] 40 mg PO AC-BRKFST #30 tab 12/02/23 Cefepime [Maxipime] 2 gm IVPB Q8H #120 each 04/13/24 Baclofen [Lioresal] 10 mg PO BID PRN tab 04/14/24 HYDROcodone/APAP 5-325MG [[place] 1 each PO Q4HR PRN #6 tab 04/14/24 5-325] metroNIDAZOLE [Flagyl] 500 mg PO TID #90 tab 04/14/24 Allergies Allergy/AdvReac Type Severity Reaction Status Date / Time adhesive Allergy Itching/bruna Verified 07/25/24 14:21 h codeine AdvReac Hallucinati Verified 07/25/24 14:21 ons/paranoi d Review of Systems ROS Statement: Those systems with pertinent positive or pertinent negative responses have been documented in the HPI. ROS Other: All systems not noted in ROS Statement are negative. 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), recent high BP-no Rx, bone infection left foot, History of Any Multi-Drug Resistant Organisms: MRSA Date of last positivie culture/infection: 2015 MDRO Source:: foot Past Surgical History: Orthopedic Surgery, Tonsillectomy Additional Past Surgical History / Comment(s): HAMMER TOE SX LACEY FEET, LEFT FOOT SURGERY GREAT TOE AMPUTATION/THEN 2ND SX TO REARRANGE THE BONES IN LT FOOT, right foot little toe amputation, Tendon lengthening left foot, cyst removed from middle finger rt hand Past Anesthesia/Blood Transfusion Reactions: Family History of Problems w/ Anesthesia Additional Past Anesthesia/Blood Transfusion Reaction / Comment(s): father had confusion/loss of memory with anesthesia Past Psychological History: Depression Smoking Status: Former smoker Past Alcohol Use History: None Reported Past Drug Use History: None Reported - Past Family History Mother Additional Family Medical History / Comment(s): AGE 91 FROM BRAIN HEMORRAGE Father Family Medical History: Cancer Additional Family Medical History / Comment(s): LUNG CANCER General Exam - General Exam Comments Initial Comments: GENERAL: Patient is well-developed and well-nourished. Patient is nontoxic and well- hydrated and is in no acute distress. ENT: Neck is soft and supple. No significant lymphadenopathy is noted. Oropharynx is clear. Moist mucous membranes. Neck has full range of motion without eliciting any pain. EYES: The sclera were anicteric and conjunctiva were pink and moist. Extraocular movements were intact and pupils were equal round and reactive to light. Eyelids were unremarkable. SKIN: Skin is clear with no lesions or rashes and otherwise unremarkable. NEUROLOGIC: Patient is alert and oriented x3. Cranial nerves II through XII are grossly intact. Motor and sensory are also intact. Normal speech, volume and content. Symmetrical smile. MUSCULOSKELETAL: Patient has a wound on the medial first MTP joint and is very malodorous. Patient's calf is tender to palpation there is edema on the left leg and foot LYMPHATICS: No significant lymphadenopathy is noted PSYCHIATRIC: Normal psychiatric evaluation. Limitations: no limitations Course Vital Signs 07/25/24 14:15 Temperature 97.8 F Pulse Rate 104 H Respiratory 18 Rate Blood Pressure 122/48 O2 Sat by Pulse 99 Oximetry Medical Decision Making - Medical Decision Making Was pt. sent in by a medical professional or institution (, PA, GHOST WRITER, urgent care, hospital, or assisted...) When possible be specific @ -No Did you speak to anyone other than the patient for history (EMS, parent, family, police, friend...)? What history was obtained from this source @ -No Did you review nursing and triage notes (agree or disagree)? Why? @ -I reviewed and agree with nursing and triage notes Were old charts reviewed (outside hosp., previous admission, EMS record, old EKG, old radiological studies, urgent care reports/EKG's, assisted records)? Report findings @ -No old charts were reviewed Differential Diagnosis? @ -Infected wound, wet gangrene, osteomyelitis, this is not all-inclusive list EKG interpreted by me (3pts min.). @ -As above X-rays interpreted by me (1pt min.). @ -X-ray of the foot shows osteomyelitis CT interpreted by me (1pt min.). @ -None done U/S interpreted by me (1pt. min.). @ -None done What testing was considered but not performed or refused? (CT, X-rays, U/S, labs)? Why? @ -None What meds were considered but not given or refused? Why? @ -None Did you discuss the management of the patient with other professionals (professionals i.e. , PA, GHOST WRITER, lab, RT, psych nurse, social media specialist, new car make ready mechanic, teacher, credit risk officer, top case assembler)? Give summary @ -I spoke with [facility] hospitalist and they agreed to admit the patient Was smoking cessation discussed for >3mins.? @ -No Was critical care preformed (if so, how long)? @ -No Were there social determinants of health that impacted care today? How? (Homelessness, low income, unemployed, alcoholism, drug addiction, transportation, low edu. Level, literacy, decrease access to med. care, senior living, rehab)? @ -No Was there de-escalation of care discussed even if they declined (Discuss DNR or withdrawal of care, Hospice)? DNR status @ -No What co-morbidities impacted this encounter? (DM, HTN, Smoking, COPD, CAD, Cancer, CVA, ARF, Chemo, Hep., AIDS, mental health diagnosis, sleep apnea, morbid obesity)? @ -None Was patient admitted / discharged? Hospital course, mention meds given and route, prescriptions, significant lab abnormalities, going to OR and other pertinent info. @ -Patient will be admitted for osteomyelitis. Patient was started on vancomycin and Zosyn Undiagnosed new problem with uncertain prognosis? @ -No Drug Therapy requiring intensive monitoring for toxicity (Heparin, Nitro, Insulin, Cardizem)? @ -No Were any procedures done? @ -No Diagnosis/symptom? @ -Osteomyelitis Acute, or Chronic, or Acute on Chronic? @ -Acute Uncomplicated (without systemic symptoms) or Complicated (systemic symptoms)? @ -Complicated Side effects of treatment? @ -No Exacerbation, Progression, or Severe Exacerbation? @ -No Poses a threat to life or bodily function? How? (Chest pain, [place], [place], pneumonia, PE, COPD, DKA, ARF, appy, cholecystitis, CVA, Diverticulitis, Homicidal, Suicidal, threat to staff... and all critical care pts) @ -Yes this can lead to sepsis and endorgan dysfunction Disposition Clinical Impression: Osteomyelitis of foot Disposition: ADMITTED IP TO THIS HOSP Referrals: Clay Jones MD [Primary Care Provider] - 1-2 days Time of Disposition: 15:55
[2024-07-25] MEDS: PIPERACILLIN-TAZOBACTAM 3.375 GM in SODIUM CHLORIDE 0.9% 100 ML IVPB STA (15:46)
[2024-07-25 15:57] LABS: Basophils # (A) 0.03 10*3/uL (0.00-0.10); Basophils % (A) 0.2 %; Eosinophils # (A) 0.03 10*3/uL (0.04-0.35); Eosinophils % (A) 0.2 %; HCT 26.4 % (39.6-50.0); HGB 8.9 g/dL (13.0-17.0); Lymphocytes # (A) 1.14 10*3/uL (0.90-5.00); Lymphocytes % (A) 7.4 %; MCH 28.3 pg (27.0-32.0); MCHC 33.7 g/dL (32.0-37.0); MCV 83.8 fL (80.0-97.0); Mean Platelet Volume 9.9 fL (9.5-12.2); Monocytes % (A) 7.8 %; Neutrophils # (A) 12.99 10*3/uL (1.80-7.70); Neutrophils % (A) 83.8 %; Platelet Count 395 10*3/uL (140-440); RBC 3.15 10*6/uL (4.40-5.60); RDW 13.6 % (11.5-14.5); WBC 15.48 10*3/uL (4.50-10.00)
[2024-07-25 16:12] LABS: ALT 25 U/L (4-49); AST 27 U/L (17-59); African American GFR (CKD) 57 (>60 ml/min/1.73 sqM); Albumin 3.4 g/dL (3.5-5.0); Alkaline Phosphatase 100 U/L (38-126); Anion Gap 16 mmol/L; Blood Urea Nitrogen 28 mg/dL (9-20); Carbon Dioxide 16 mmol/L (22-30); Chloride 106 mmol/L (98-107); Glucose 282 mg/dL (74-99); Non-African American GFR(CKD) 49 (>60 ml/min/1.73 sqM); Potassium 3.2 mmol/L (3.5-5.1); Sodium 138 mmol/L (137-145); Total Bilirubin 1.3 mg/dL (0.2-1.3); Total Protein 6.9 g/dL (6.3-8.2)
--- NOTE | 2024-07-25 16:22 | US ---
EXAMINATION TYPE: US venous doppler duplex LE RT DATE OF EXAM: 07/25/2024 3:16 PM COMPARISON: NONE CLINICAL INDICATION: Male, 79 years old with history of Leg swelling calf tenderness; right leg pain and edema. , Pain TECHNIQUE: The lower extremity deep venous system is examined utilizing real time linear array sonog danielle with graded compression, color doppler sonography, and spectral doppler. SIDE PERFORMED: Right FINDINGS: VESSELS IMAGED: Common Femoral Vein Deep Femoral Vein Greater Saphenous Vein * Femoral Vein Popliteal Vein Small Saphenous Vein * Proximal Calf Veins (* superficial vessels) Right Leg: Negative for DVT, Color Doppler imaging shows patency of the vessels. Spectral waveforms are within normal limits. IMPRESSION: 1. Right lower extremity ultrasound negative for deep venous thrombosis. [facility], , 07/25/2024 4:20 PM
[2024-07-25] MEDS: VANCOMYCIN 1,500 MG in SODIUM CHLORIDE 0.9% 500 ML 500 ML IVPB ONE (16:28)
[2024-07-25] MEDS: SODIUM CHLORIDE 0.9% 1,000 ML IV ONE (16:33)
[2024-07-25] MEDS ORDERED: DEXTROSE 50% SYRINGE 50 ML IVP PRN ×2 (17:39)
[2024-07-25] MEDS: INSULIN GLARGINE (LANTUS) 100 UNIT/ML SYR SQ SCH (18:17)
[2024-07-25] MEDS: lisinopriL 10 MG TAB PO SCH (18:49)
[2024-07-25] MEDS: TAMSULOSIN 0.4 MG CAP.ER.24H PO SCH (18:49)
[2024-07-25 20:04] LABS: Glucose,Whole Blood 353 mg/dL (70-110)
[2024-07-25] MEDS: INSULIN LISPRO (HumaLOG) 100 UNIT/ML 10 mL VL SQ SCH (21:28)
[2024-07-25] MEDS: PIPERACILLIN-TAZOBACTAM 3.375 GM in SODIUM CHLORIDE 0.9% 100 ML IVPB SCH (23:23)
[2024-07-26 02:32] LABS: Glucose,Whole Blood 265 mg/dL (70-110)
[2024-07-26 04:16] LABS: African American GFR (CKD) 68 (>60 ml/min/1.73 sqM); Non-African American GFR(CKD) 59 (>60 ml/min/1.73 sqM)
[2024-07-26 05:55] LABS: Glucose,Whole Blood 284 mg/dL (70-110)
[2024-07-26] MEDS: VANCOMYCIN 1,500 MG in SODIUM CHLORIDE 0.9% 500 ML 500 ML IVPB SCH (08:27)
[2024-07-26] MEDS: INSULIN GLARGINE (LANTUS) 100 UNIT/ML SYR SQ SCH (08:30)
[2024-07-26] MEDS ORDERED: Potassium Replacement Protocol 1 EACH MISC MISCELLANE PRN (08:45)
--- NOTE | 2024-07-26 09:15 | P.GSCN ---
History of Present Illness Consult date: 07/26/24 Reason for Consult: Osteomyelitis Requesting physician: Irvin Blankenship History of present illness: This is a pleasant 79-year-old male with a medical history including diabetes mellitus, hypertension, and nonhealing wounds with previous right 4th through 5th toe amputation and left toe amputation who follows with Dr. Quiñones. Patient has been seeing Dr. Quiñones at the wound care clinic for management of his right great toe diabetic ulcer. States that he has not had any wound care treatment for the last 3 weeks duration at the wound center. He had seen Dr. Quiñones yesterday and was sent in for concerns for wet gangrene vascular surgery was asked to see the patient for osteomyelitis. Patient states started to get increased redness and drainage with foul odor starting last Thursday. X-ray of the foot shows osteomyelitis at the base of the first proximal phalanx and distal first metatarsal. He had a ultrasound of the right lower extremity that was negative for DVT. Patient's leukocytosis on admission. WBC 15.4 hemoglobin 8.9 platelet count 395,000 sodium 138 potassium 3.2 BUN 20 8 repeat creatinine today 1.18 hemoglobin A1c 10.5. Patient's been afebrile. He reports pain down the right lower extremity and at his foot with erythema and edema. Has had positive drainage and foul odor. Review of Systems A 14 point review systems was completed all pertinent positives and negatives as stated in the HPI. 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), recent high BP-no Rx, bone infection left foot, History of Any Multi-Drug Resistant Organisms: MRSA Year Discovered:: 2016 MDRO Source:: foot Past Surgical History: Orthopedic Surgery, Tonsillectomy Additional Past Surgical History / Comment(s): HAMMER TOE SX LACEY FEET, LEFT FOOT SURGERY GREAT TOE AMPUTATION/THEN 2ND SX TO REARRANGE THE BONES IN LT FOOT, right foot little toe amputation, Tendon lengthening left foot, cyst removed from middle finger rt hand Past Anesthesia/Blood Transfusion Reactions: Family History of Problems w/ Anesthesia Additional Past Anesthesia/Blood Transfusion Reaction / Comm: father had confusion/loss of memory with anesthesia Past Psychological History: Depression Additional Psychological History / Comment(s): fear of heights, depression since passed- Smoking Status: Former smoker Past Alcohol Use History: None Reported Additional Past Alcohol Use History / Comment(s): quit smoking in 1984. 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 He lives with SO. His daughter lives next door. 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 volunteers at his [employer] Past Drug Use History: None Reported - Past Family History Mother Additional Family Medical History / Comment(s): AGE 91 FROM BRAIN HEMORRAGE Father Family Medical History: Cancer Additional Family Medical History / Comment(s): LUNG CANCER Medications and Allergies Home Medications Medication Instructions Recorded Confirmed Type Aspirin 81 mg PO PC-SUPPER 12/27/15 07/25/24 History Insulin Glargine,Hum.rec.anlog 18 units SQ PC-BRKFST 07/18/16 07/25/24 History [Toujeo Solostar] lisinopriL [Zestril] 10 mg PO PC-SUPPER 11/15/19 07/25/24 History Tamsulosin [Flomax] 0.4 mg PO AC-SUPPER 08/25/22 07/25/24 History Calcium Phos/D3/Magnesium/Zinc 1 tab PO PC-BRKFST 11/28/23 07/25/24 History [Yurllod-Jkw-Nppm-Vitamin D3] rOPINIRole HCL [Requip] 1 mg PO PC-BRKFST 11/28/23 07/25/24 History Pantoprazole [Protonix] 40 mg PO AC-BRKFST #30 tab 12/02/23 07/25/24 Rx Atorvastatin [Lipitor] 10 mg PO PC-SUPPER 04/10/24 07/25/24 History Collagenase [Santyl Ointment] 1 applic TOPICAL DAILY 04/10/24 07/25/24 History Insulin Aspart [NovoLOG Flexpen] See Protocol SQ ACHS PRN 04/10/24 07/25/24 History Megestrol [Megace] 400 mg PO AC-BRKFST 04/10/24 07/25/24 History Melatonin 30 mg PO PC-SUPPER 04/10/24 07/25/24 History Baclofen [Lioresal] 10 mg PO PC-BID 07/25/24 07/25/24 History Dandelion Root 3000mg 9,000 mg PO AC-BRKFST 07/25/24 07/25/24 History Docusate [Colace] 100 mg PO PC-BID 07/25/24 07/25/24 History Ferrous Sulfate [Feosol] 325 mg PO PC-BRKFST 07/25/24 07/25/24 History Fish Oil/Dha/Epa [Fish Oil 1,200 1 cap PO PC-SUPPER 07/25/24 07/25/24 History mg Fish Oil] Insulin Glargine,Hum.rec.anlog 17 units SQ PC-SUPPER 07/25/24 07/25/24 History [Toujanetto Solostar] Mv-Min/Folic/K1/Lycopen/Lutein 1 tab PO PC-BRKFST 07/25/24 07/25/24 History [Centrum Silver Men Tablet] Thiamine [Vitamin B-1] 100 mg PO PC-BRKFST 07/25/24 07/25/24 History glipiZIDE/METFORMIN HCL 1 tab PO AC-BID 07/25/24 07/25/24 History [glipiZIDE/METFORMIN HCL 5-500 mg] rOPINIRole HCL [Requip] 3 mg PO HS 07/25/24 07/25/24 History Allergies Allergy/AdvReac Type Severity Reaction Status Date / Time adhesive Allergy Itching/bruna Verified 07/25/24 17:10 h codeine AdvReac Hallucinati Verified 07/25/24 17:10 ons/paranoi d Surgical - Exam Vital Signs Temp Pulse Resp BP Pulse Ox 97.8 F 104 H 18 122/48 99 07/25/24 14:15 07/25/24 14:15 07/25/24 14:15 07/25/24 14:15 07/25/24 14:15 General appearance: The patient is alert, oriented, appears in no acute distress. HET: Head is normocephalic and atraumatic. Pupils are equal and reactive. Neck: Supple. Heart: Regular. Lungs: Equal expansion, normal respiratory effort. Abdomen: Soft, nontender, nondistended. Extremities: Right lower extremity edema below the knee, with erythema, right great toe with diabetic ulcer with slough tissue, to the bone, with purulent dr aiconnie and foul odor. Nonpalpable DP and PT pulse. Neurological: No focal deficits. Alert and oriented. Results - Labs 07/25/24 15:46 07/26/24 03:12 Abnormal Lab Results - Last 24 Hours (Table) 07/25/24 07/25/24 07/25/24 Range/Units 15:46 15:46 20:02 WBC 15.48 H (4.50-10.00) 10*3/uL RBC 3.15 L (4.40-5.60) 10*6/uL Hgb 8.9 L (13.0-17.0) g/dL Hct 26.4 L (39.6-50.0) % Immature Gran # 0.09 H (0.00-0.04) 10*3/uL Neutrophils # 12.99 H (1.80-7.70) 10*3/uL Monocytes # 1.20 H (0.20-1.00) 10*3/uL Eosinophils # 0.03 L (0.04-0.35) 10*3/uL Potassium 3.2 L (3.5-5.1) mmol/L Carbon Dioxide 16 L (22-30) mmol/L BUN 28 H (9-20) mg/dL Creatinine 1.37 H (0.66-1.25) mg/dL Glucose 282 H (74-99) mg/dL POC Glucose (mg/dL) 353 H (70-110) mg/dL Albumin 3.4 L (3.5-5.0) g/dL 07/26/24 07/26/24 Range/Units 02:31 05:52 WBC (4.50-10.00) 10*3/uL RBC (4.40-5.60) 10*6/uL Hgb (13.0-17.0) g/dL Hct (39.6-50.0) % Immature Gran # (0.00-0.04) 10*3/uL Neutrophils # (1.80-7.70) 10*3/uL Monocytes # (0.20-1.00) 10*3/uL Eosinophils # (0.04-0.35) 10*3/uL Potassium (3.5-5.1) mmol/L Carbon Dioxide (22-30) mmol/L BUN (9-20) mg/dL Creatinine (0.66-1.25) mg/dL Glucose (74-99) mg/dL POC Glucose (mg/dL) 265 H 284 H (70-110) mg/dL Albumin (3.5-5.0) g/dL Diabetes panel 07/25/24 07/26/24 Range/Units 15:46 03:12 Sodium 138 (137-145) mmol/L Potassium 3.2 L (3.5-5.1) mmol/L Chloride 106 (98-107) mmol/L Carbon Dioxide 16 L (22-30) mmol/L BUN 28 H (9-20) mg/dL Creatinine 1.37 H 1.18 (0.66-1.25) mg/dL Glucose 282 H (74-99) mg/dL Calcium 9.0 (8.4-10.2) mg/dL AST 27 (17-59) U/L ALT 25 (4-49) U/L Alkaline Phosphatase 100 (38-126) U/L Total Protein 6.9 (6.3-8.2) g/dL Albumin 3.4 L (3.5-5.0) g/dL Calcium panel 07/25/24 Range/Units 15:46 Calcium 9.0 (8.4-10.2) mg/dL Albumin 3.4 L (3.5-5.0) g/dL Pituitary panel 07/25/24 07/26/24 Range/Units 15:46 03:12 Sodium 138 (137-145) mmol/L Potassium 3.2 L (3.5-5.1) mmol/L Chloride 106 (98-107) mmol/L Carbon Dioxide 16 L (22-30) mmol/L BUN 28 H (9-20) mg/dL Creatinine 1.37 H 1.18 (0.66-1.25) mg/dL Glucose 282 H (74-99) mg/dL Calcium 9.0 (8.4-10.2) mg/dL Adrenal panel 07/25/24 07/26/24 Range/Units 15:46 03:12 Sodium 138 (137-145) mmol/L Potassium 3.2 L (3.5-5.1) mmol/L Chloride 106 (98-107) mmol/L Carbon Dioxide 16 L (22-30) mmol/L BUN 28 H (9-20) mg/dL Creatinine 1.37 H 1.18 (0.66-1.25) mg/dL Glucose 282 H (74-99) mg/dL Calcium 9.0 (8.4-10.2) mg/dL Total Bilirubin 1.3 (0.2-1.3) mg/dL AST 27 (17-59) U/L ALT 25 (4-49) U/L Alkaline Phosphatase 100 (38-126) U/L Total Protein 6.9 (6.3-8.2) g/dL Albumin 3.4 L (3.5-5.0) g/dL Assessment and Plan Assessment: 1. Infected diabetic ulcer, wet gangrene 2. Osteomyelitis 3. Hypokalemia 4. Diabetes mellitus 5. Hypertension Plan: 1. Keep n.p.o. 2. Repeat CBC, BMP, get INR and type and screen 3. Replace potassium per protocol 4. Consult to infectious disease for antibiotic recommendations 5. CT angiogram abdomen aorta pelvis with runoff ordered 6. Patient scheduled for right great toe amputation with possible guillotine amputation with deep tissue cultures, tentatively scheduled for today. This was discussed with the patient who is agreeable to moving forward with plan. 7. Rest of medical management per primary medical team 8. Further recommendations forthcoming based on clinical course Thank you for this consultation, we will continue to follow. The impression and plan of care has been dictated as directed. Dr. Staley I performed a history and examination of this patient, discussed the same with the dictator. I agree with the dictator's note ,documented as a scribe. Any additional findings or plans will be noted.
[2024-07-26 11:12] LABS: Glucose,Whole Blood 131 mg/dL (70-110)
--- NOTE | 2024-07-26 11:28 | CT ---
EXAMINATION TYPE: CT angio abd aorta w/Runoff DATE OF EXAM: 07/26/2024 10:11 AM COMPARISON: None. CLINICAL INDICATION: Male, 79 years old with history of Nonhealing wound on foot, nonpalpable pulses; PHH, Nonhealing wound on foot, nonpalpable pulses TECHNIQUE: Multiple thin slice sub-millimeter images were obtained after administration of contrast. MIP reconstructed images and maximum intensity projection images were obtained. 3D reconstructed images and maximum intensity projection images were obtained. CT angio abd aorta w/Runoff CT Contrast: Contrast used:80 ml mL of Isovue 370 without and with IV Contrast, Oral contrast used: None CT DLP: 2162.1 mGycm, Automated exposure control for dose reduction was used. FINDINGS: CTA Abdomen and pelvis: Vascular calcifications within the abdominal aorta. No aneurysmal dilatation or dissection is evident. Calcifications within the common iliac vessels. Some narrowing may be prese nt especially noted in the distal right iliac artery. Internal and external iliac vessels are patent . Common femoral arteries are patent. Scattered calcifications are within the superficial femoral art eries with some focal areas of moderate narrowing more so on the right. Some focal narrowing of the d istal left superficial femoral artery. There is severe narrowing of the proximal left popliteal artery. The mid left popliteal artery narrow ing is present. Some severe narrowing of the mid right popliteal artery is present. Left posterior tibial artery appears to be occluded at its origin. Left anterior tibial artery appear s to be occluded within the proximal portion. Left peroneal artery extends to the distal calf. No def inite contrast-filled vessels cross the ankle on the left. Anterior and posterior tibial arteries appear to be included within the mid calf region. Peroneal art tiara extends to the mid calf region. Note is made of air extending from the right first metatarsophalangeal joint space. Extending through the plantar aspect of the foot. Air is present along the medial left ankle and into the posterior a nkle space. Gas forming infection should be considered. Diffuse soft tissue swelling is over the cath eter. CTA Lower extremities: Right: The common femoral and superficial femoral arteries are patent. The popliteal artery is patent . Anterior and posterior tibial arteries as well as the peroneal artery are patent. Anterior and post erior tibial arteries cross the ankle. Left: The common femoral and superficial femoral arteries are patent. The popliteal artery is patent. Anterior and posterior tibial arteries as well as the peroneal artery are patent. Anterior and poste rior tibial arteries cross the ankle. CT ABDOMEN: Liver: Normal Spleen: Normal Pancreas: Normal Adrenal glands: The adrenal glands are normal. Gallbladder: Normal Kidneys: No masses are evident. There is a marked hydronephrosis of the left kidney. No hydroureter i s evident. There is a 2.5 cm cyst on the posterior lateral right mid kidney. Delayed images were obt ained through the kidneys, which remain unremarkable. Aorta: Vascular calcification is within the aorta. Aorta is further discussed above. Inferior vena cava: Normal. CT PELVIS: Loops of bowel within the abdomen and pelvis are normal. Diverticulosis without acute diverticulitis is present. This study is without oral contrast limiting bowel evaluation. Appendix: Normal as visualized. Urinary bladder: Normal. Genitourinary structures: Prostate appears normal Osseous structures: No suspicious lytic or sclerotic lesions. Degenerative disc changes present L5-S1 . IMPRESSION: 1. There is present at the right first metatarsal region extending to the plantar aspect of the foot along the medial right ankle and posterior right ankle. Gas-forming infection should be considered. 2. Soft tissue swelling through the distal right calf. 3. Occlusion of vascular trifurcation vessels bilaterally. The left peroneal artery may extend to zhou rly the ankle. Contrast-filled trifurcation vessels at the ankle are not otherwise identified on eith er side. 4. Multiple focal areas of severe narrowing within the superficial femoral arteries bilateral poplite al arteries. 5. Diverticulosis without acute diverticulitis. 6. Severe left hydronephrosis. No hydroureter is present. Ureteropelvic stenosis may be present. [facility], , 07/26/2024 11:25 AM
[2024-07-26 11:31] LABS: Basophils # (A) 0.02 10*3/uL (0.00-0.10); Basophils % (A) 0.2 %; Eosinophils # (A) 0.05 10*3/uL (0.04-0.35); Eosinophils % (A) 0.4 %; HCT 24.1 % (39.6-50.0); HGB 7.9 g/dL (13.0-17.0); Lymphocytes # (A) 1.24 10*3/uL (0.90-5.00); Lymphocytes % (A) 10.5 %; MCH 27.8 pg (27.0-32.0); MCHC 32.8 g/dL (32.0-37.0); MCV 84.9 fL (80.0-97.0); Mean Platelet Volume 9.5 fL (9.5-12.2); Monocytes # (A) 1.04 10*3/uL (0.20-1.00); Monocytes % (A) 8.8 %; Neutrophils # (A) 9.41 10*3/uL (1.80-7.70); Neutrophils % (A) 79.4 %; Platelet Count 365 10*3/uL (140-440); RBC 2.84 10*6/uL (4.40-5.60); RDW 13.7 % (11.5-14.5); WBC 11.84 10*3/uL (4.50-10.00)
[2024-07-26 11:34] LABS: African American GFR (CKD) 75 (>60 ml/min/1.73 sqM); Anion Gap 13 mmol/L; Blood Urea Nitrogen 21 mg/dL (9-20); Calcium 8.7 mg/dL (8.4-10.2); Carbon Dioxide 19 mmol/L (22-30); Chloride 109 mmol/L (98-107); Glucose 111 mg/dL (74-99); Non-African American GFR(CKD) 65 (>60 ml/min/1.73 sqM); Potassium 2.9 mmol/L (3.5-5.1); Sodium 141 mmol/L (137-145)
[2024-07-26 11:36] LABS: Prothrombin Time 10.9 sec (10.0-12.5)
[2024-07-26] MEDS: POTASSIUM CHLORIDE 10 MEQ in WATER FOR INJECTION 1 100ML.BAG IVPB SCH (12:08)
[2024-07-26] MEDS: ACETAMINOPHEN IV (For NPO) 1,000 MG in EMPTY BAG 1 BAG IVPB ONE (13:20)
[2024-07-26] MEDS: IV FLUID CONTINUATION 1,000 ML IV ONE (14:01)
[2024-07-26 14:13] LABS: Glucose,Whole Blood 135 mg/dL (70-110)
[2024-07-26] MEDS: DEXAMETHASONE SOD PHOSPHATE 4 MG/ML 1 ML VIAL IVP STA (14:15)
[2024-07-26] MEDS: ONDANSETRON 4 MG/2 ML VIAL IVP STA (14:15)
[2024-07-26] MEDS ORDERED: GLYCOPYRROLATE 0.2 MG/ML 2 ML VIAL ONE (14:33)
[2024-07-26] MEDS ORDERED: LIDOCAINE 1% INJ 10MG/ML (20 ML MDV) ONE (14:33)
[2024-07-26] MEDS ORDERED: SUCCINYLCHOLINE CHLORIDE 200 MG/10 ML VIAL IV ONE (14:33)
[2024-07-26] MEDS ORDERED: PHENYLEPHRINE-0.9% NACL SYG 1,000 MCG/10 ML SYRINGE ONE (14:33)
[2024-07-26] MEDS ORDERED: PROPOFOL 10 MG/ML 20 ML VIAL IV ONE (14:33)
[2024-07-26] MEDS ORDERED: ROCURONIUM 10 MG/ML (5 ML VIAL) IV ONE (14:33)
[2024-07-26] MEDS ORDERED: fentaNYL (PF) 50 MCG/ML 2 ML AMP ONE (14:33)
[2024-07-26] MEDS ORDERED: NEOSTIGMINE 1 MG/ML 10 ML VIAL ONE (14:33)
[2024-07-26] MEDS: ceFAZolin 2 GM in SODIUM CHLORIDE 0.9% 500 ML 500 ML IRRIGATION ONE (15:20)
[2024-07-26] MEDS: LACTATED RINGERS 1,000 ML IV ONE (15:20)
--- NOTE | 2024-07-26 15:31 | P.OP ---
Date of Procedure: 07/26/24 Description of Procedure: Preoperative diagnosis: Nonhealing right lower extremity wound, infected wound Postoperative diagnosis: Same, foot abscess tracking to the heel Procedure: Exploration right lower extremity wound Guillotine below knee amputation, right lower extremity Surgeon: Hillary Miller D.O. EBL: 20 cc IV fluids: See records Urine output: Not measured Drains: None Complications: None immediately apparent Condition: Stable Operative indication and findings: Patient is a 79-year-old male with a wound of his right lower extremity since last fall that has been treated in wound care. Recently he had had worsening of his wound with significant purulent drainage. Risk and benefits were discussed and the plan is going forward with debridement with possible wound VAC and possible amputation. It was discussed that the goal at hand would be to take as little tissue as safely possible. He seemingly understood and was willing to proceed. He was okay with having an amputation should it be necessary due to the infectious process. Procedure in detail: Patient was brought to the operative suite and placed in supine position. The right lower extremity was prepped and draped in usual sterile fashion. A preprocedural timeout was performed, all parties were in agreement. Initially at the area of the wound, after evaluation there was obviously exposed and necrotic appearing bone. Out of this channel there was fibrinous exudate and copious amounts of purulent drainage. The area was probed digitally and the canal. Drainage tracked in all the way back to the level of the heel. Incision was made over this area to expose. There was still. And drainage with pressure to the surrounding areas before this time the decision was made that given the extent of the infectious process and the amount of tissue needed for appropriate and proper debridement that a an amputation would be the better option. At this point the decision was made to go forward with a guillotine amputation. An incision was made in circular fashion through the skin. A Gigli saw was utilized to transect the subcutaneous tissues and bone. Hemostasis was achieved with electrocautery. The area was then copiously irrigated. There is no further purulent drainage from this level. A pressure dressing was placed. The patient transferred recovery in stable condition having tolerated the procedure well.
[2024-07-26 15:32] VITALS: BMI 19.8
--- NOTE | 2024-07-26 15:59 | P.HPIM ---
History of Present Illness H&P Date: 07/26/24 This is a pleasant 79-year-old male who presented to the emergency department with increasing pain and drainage of the right foot and has been progressively becoming more swollen and follows with Dr. Quiñones outpatient at the wound care center. Apparently patient had gone to the wound care center and was diagnosed with wet gangrene and wanted the patient to come here for further vascular surgery consult. Dr. Quiñones is currently out of town and this was discussed with vascular surgery, Dr. Adame's group and will be undergoing surgical intervention including great toe amputation on the right today. Patient also with infectious disease consulted as patient follows with him outpatient as well and there was concerns of osteomyelitis. Patient did previously have right 4th and 5th toes removed as well. Patient reports he follows with Dr. 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 Labs reviewed from ER admission with a white count of 15.48, hemoglobin 8.9, platelets 395, sodium 138, potassium 3.2, creatinine 1.37, BUN 28, random glucose elevated at 282, lactic acid 1.6. Patient did report some swelling and pain up into the calf and did undergo venous Doppler which shows right lower extremity negative for DVT and patency within the vessels. CT angiography performed of the abdomen pelvis revealing a right first metatarsal region extending to the plantar aspect of the foot along the medial right ankle and posterior right ankle with gas-forming infection that should be considered along with soft tissue swelling through the distal right calf and an occlusion of the vascular trifurcation vessels bilaterally. 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 Incidental finding of the left hydronephrosis and will consult urology and appreciate input and recommendations. Patient reports he is voiding with no difficulties and creatinine is stable at 1.37. Will follow-up on repeat labs and resume diet once cleared by surgery. Recommend tight glycemic control for healing as hemoglobin A1c is noted to be uncontrolled and elevated at 10.5. REVIEW OF SYSTEMS: CONSTITUTIONAL: No fever, no malaise, no fatigue. HEENT: No recent visual problems or hearing problems. Denied any sore throat. CARDIOVASCULAR: No chest pain, orthopnea, PND, no palpitations, no syncope. PULMONARY: No shortness of breath, no cough, no hemoptysis. GASTROINTESTINAL: No diarrhea, no nausea, no vomiting, no abdominal pain. NEUROLOGICAL: No headaches, no weakness, no numbness. HEMATOLOGICAL: Denies any bleeding or petechiae. GENITOURINARY: Denies any burning micturition, frequency, or urgency. MUSCULOSKELETAL/RHEUMATOLOGICAL: Denies any joint pain, swelling, or any muscle pain. Reports right foot and calf pain ENDOCRINE: Denies any polyuria or polydipsia. The rest of the 14-point review of systems is negative. PHYSICAL EXAMINATION: GENERAL: The patient is alert and oriented x3, not in any acute distress. Well developed, well nourished. Elderly appearing, thin built HEENT: Pupils are round and equally reacting to light. EOMI. No scleral icterus. No conjunctival pallor. Normocephalic, atraumatic. No pharyngeal erythema. No thyromegaly. CARDIOVASCULAR: S1 and S2 present. No murmurs, rubs, or gallops. PULMONARY: Chest is clear to auscultation, no wheezing or crackles. ABDOMEN: Soft, thin, nontender, nondistended, normoactive bowel sounds. No p alpable organomegaly. MUSCULOSKELETAL: No joint swelling or deformity. Severe right foot pain with some drainage of the right great toe EXTREMITIES: No cyanosis, clubbing, or pedal edema. NEUROLOGICAL: Gross neurological examination did not reveal any focal deficits. Diffusely weak SKIN: No rashes. 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 Quiñones for further evaluation and possible amputation. Patient was evaluated by Dr. Rodriguez service as Dr. Quiñones is out of town and is scheduled for right great toe amputation due to gangrene today 07/26/[address] angio with some incidental findings also noted to have severe left hydronephrosis. Kidney functions relatively stable with a mild HUONG, will have urology consulted and appreciate input and recommendations Continue with home medications as appropriate Continue monitoring Accu-Cheks AC and at bedtime along with sliding scale and long-acting and will adjust accordingly. Diabetes education as patient's hemoglobin A1c is 10.5 Replace potassium per protocol and follow-up with repeat potassium this evening as well as a.m. labs Recommend incentive spirometer at least 10 times every hour while awake Will await vascular surgery and infectious disease recommendations postsurgery and will likely need to await cultures that will hopefully be obtained during surgery The impression and plan of care has been dictated by Yesenia Ward, Nurse Practitioner as directed. Dr. Gabby MD I have performed a history and examination and MDM of this patient, discussed the same with the dictator, and agree with the dictator's assessment and plan as written ,documented as a scribe. Based on total visit time, I have performed more than 50% of the visit. 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), recent high BP-no Rx, bone infection left foot, History of Any Multi-Drug Resistant Organisms: MRSA Date of last positivie culture/infection: 2015 MDRO Source:: foot Past Surgical History: Orthopedic Surgery, Tonsillectomy Additional Past Surgical History / Comment(s): HAMMER TOE SX LACEY FEET, LEFT FOOT SURGERY GREAT TOE AMPUTATION/THEN 2ND SX TO REARRANGE THE BONES IN LT FOOT, right foot little toe amputation, Tendon lengthening left foot, cyst removed f rom middle finger rt hand Past Anesthesia/Blood Transfusion Reactions: Family History of Problems w/ Anesthesia Additional Past Anesthesia/Blood Transfusion Reaction / Comment(s): father had confusion/loss of memory with anesthesia Past Psychological History: Depression Additional Psychological History / Comment(s): fear of heights, depression since passed- Smoking Status: Former smoker Past Alcohol Use History: None Reported Additional Past Alcohol Use History / Comment(s): quit smoking in 1984. 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 He lives with SO. His daughter lives next door. 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 volunteers at his hinduism Past Drug Use History: None Reported - Past Family History Mother Additional Family Medical History / Comment(s): AGE 91 FROM BRAIN HEMORRAGE Father Family Medical History: Cancer Additional Family Medical History / Comment(s): LUNG CANCER Medications and Allergies Home Medications Medication Instructions Recorded Confirmed Type Aspirin 81 mg PO PC-SUPPER 12/27/15 07/25/24 History Insulin Glargine,Hum.rec.anlog 18 units SQ PC-BRKFST 07/18/16 07/25/24 History [Toujeo Solostar] lisinopriL [Zestril] 10 mg PO PC-SUPPER 11/15/19 07/25/24 History Tamsulosin [Flomax] 0.4 mg PO AC-SUPPER 08/25/22 07/25/24 History Calcium Phos/D3/Magnesium/Zinc 1 tab PO PC-BRKFST 11/28/23 07/25/24 History [Dhyjkin-Bjm-Bbtx-Vitamin D3] rOPINIRole HCL [Requip] 1 mg PO PC-BRKFST 11/28/23 07/25/24 History Pantoprazole [Protonix] 40 mg PO AC-BRKFST #30 tab 12/02/23 07/25/24 Rx Atorvastatin [Lipitor] 10 mg PO PC-SUPPER 04/10/24 07/25/24 History Collagenase [Santyl Ointment] 1 applic TOPICAL DAILY 04/10/24 07/25/24 History Insulin Aspart [NovoLOG Flexpen] See Protocol SQ ACHS PRN 04/10/24 07/25/24 History Megestrol [Megace] 400 mg PO AC-BRKFST 04/10/24 07/25/24 History Melatonin 30 mg PO PC-SUPPER 04/10/24 07/25/24 History Baclofen [Lioresal] 10 mg PO PC-BID 07/25/24 07/25/24 History Dandelion Root 3000mg 9,000 mg PO AC-BRKFST 07/25/24 07/25/24 History Docusate [Colace] 100 mg PO PC-BID 07/25/24 07/25/24 History Ferrous Sulfate [Feosol] 325 mg PO PC-BRKFST 07/25/24 07/25/24 History Fish Oil/Dha/Epa [Fish Oil 1,200 1 cap PO PC-SUPPER 07/25/24 07/25/24 History mg Fish Oil] Insulin Glargine,Hum.rec.anlog 17 units SQ PC-SUPPER 07/25/24 07/25/24 History [Toujeo Solostar] Mv-Min/Folic/K1/Lycopen/Lutein 1 tab PO PC-BRKFST 07/25/24 07/25/24 History [Centrum Silver Men Tablet] Thiamine [Vitamin B-1] 100 mg PO PC-BRKFST 07/25/24 07/25/24 History glipiZIDE/METFORMIN HCL 1 tab PO AC-BID 07/25/24 07/25/24 History [glipiZIDE/METFORMIN HCL 5-500 mg] rOPINIRole HCL [Requip] 3 mg PO HS 07/25/24 07/25/24 History Allergies Allergy/AdvReac Type Severity Reaction Status Date / Time adhesive Allergy Itching/bruna Verified 07/25/24 17:10 h codeine AdvReac Hallucinati Verified 07/25/24 17:10 ons/paranoi d Physical Exam Vitals: Vital Signs Temp Pulse Pulse Resp BP BP Pulse Ox 07/26/24 07:06 99.1 F 71 18 147/63 97 07/26/24 01:00 99.3 F 73 20 128/53 99 07/25/24 18:55 97.9 F 75 18 144/78 99 07/25/24 17:23 98.1 F 85 18 157/64 100 07/25/24 17:13 98.7 F 78 18 140/63 98 07/25/24 16:19 79 18 130/53 98 07/25/24 14:15 97.8 F 104 H 18 122/48 99 Intake and Output 07/25/24 07/26/24 07/26/24 22:59 06:59 14:59 Other: # Voids 2 Weight 78.018 kg Results CBC & Chem 7: 07/26/24 10:38 07/26/24 10:38 Labs: Abnormal Lab Results - Last 24 Hours (Table) 07/25/24 07/25/24 07/25/24 Range/Units 15:46 15:46 20:02 WBC 15.48 H (4.50-10.00) 10*3/uL RBC 3.15 L (4.40-5.60) 10*6/uL Hgb 8.9 L (13.0-17.0) g/dL Hct 26.4 L (39.6-50.0) % Immature Gran # 0.09 H (0.00-0.04) 10*3/uL Neutrophils # 12.99 H (1.80-7.70) 10*3/uL Monocytes # 1.20 H (0.20-1.00) 10*3/uL Eosinophils # 0.03 L (0.04-0.35) 10*3/uL Potassium 3.2 L (3.5-5.1) mmol/L Carbon Dioxide 16 L (22-30) mmol/L BUN 28 H (9-20) mg/dL Creatinine 1.37 H (0.66-1.25) mg/dL Glucose 282 H (74-99) mg/dL POC Glucose (mg/dL) 353 H (70-110) mg/dL Hemoglobin A1c (<=6.0) % Albumin 3.4 L (3.5-5.0) g/dL 07/26/24 07/26/24 07/26/24 Range/Units 02:31 03:12 05:52 WBC (4.50-10.00) 10*3/uL RBC (4.40-5.60) 10*6/uL Hgb (13.0-17.0) g/dL Hct (39.6-50.0) % Immature Gran # (0.00-0.04) 10*3/uL Neutrophils # (1.80-7.70) 10*3/uL Monocytes # (0.20-1.00) 10*3/uL Eosinophils # (0.04-0.35) 10*3/uL Potassium (3.5-5.1) mmol/L Carbon Dioxide (22-30) mmol/L BUN (9-20) mg/dL Creatinine (0.66-1.25) mg/dL Glucose (74-99) mg/dL POC Glucose (mg/dL) 265 H 284 H (70-110) mg/dL Hemoglobin A1c 10.5 H (<=6.0) % Albumin (3.5-5.0) g/dL Thrombosis Risk Factor Assmnt - Choose All That Apply Any of the Below Risk Factors Present?: Yes Each Factor Represents 1 point: Minor surgery planned Other Risk Factors: Yes Each Risk Factor Represents 3 Points: Age 75 years or older Thrombosis Risk Factor Assessment Total Risk Factor Score: 4 Thrombosis Risk Factor Assessment Level: Moderate Risk
[2024-07-26 16:15] LABS: Glucose,Whole Blood 129 mg/dL (70-110)
[2024-07-26] MEDS: HYDROmorphone 0.5 MG/0.5 ML SYRINGE IVP STA (16:35)
[2024-07-26] MEDS: MELATONIN 5 MG TABLET PO SCH (17:27)
[2024-07-26] MEDS: DOCUSATE 100 MG CAP PO SCH (17:28)
[2024-07-26] MEDS: ATORVASTATIN 10 MG TAB PO SCH (17:28)
[2024-07-26] MEDS: BACLOFEN 10 MG TAB PO SCH (17:28)
[2024-07-26 17:32] LABS: Glucose,Whole Blood 160 mg/dL (70-110)
[2024-07-26] MEDS ORDERED: MELATONIN 5 MG TABLET PO SCH (18:30)
[2024-07-26 21:07] LABS: Glucose,Whole Blood 232 mg/dL (70-110)
--- NOTE | 2024-07-26 23:13 | P.CONS ---
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48 with a left shift BUN and creatinine mildly elevated her liver enzymes are normal patient did have x-ray of the foot we did shows new radiogra phic evidence of acute osteomyelitis involving the base of the first proximal phalanx and distal first metatarsal patient did have a CT angiogram which did show some air present to the right foot concerning for gas-forming infection soft tissue swelling through the distal right soft multiple areas of narrowing patient was started on vancomycin and Zosyn infectious disease was consulted for further management of antibiotic therapy Review of Systems Positive point and negatives has been mentioned in the HPI, complete review of systems was performed and all other systems are negative 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), recent high BP-no Rx, bone infection left foot, History of Any Multi-Drug Resistant Organisms: MRSA Year Discovered:: 2016 MDRO Source:: foot Past Surgical History: Orthopedic Surgery, Tonsillectomy Additional Past Surgical History / Comment(s): HAMMER TOE SX LACEY FEET, LEFT FOOT SURGERY GREAT TOE AMPUTATION/THEN 2ND SX TO REARRANGE THE BONES IN LT FOOT, right foot little toe amputation, Tendon lengthening left foot, cyst removed from middle finger rt hand Past Anesthesia/Blood Transfusion Reactions: Family History of Problems w/ Anesthesia Additional Past Anesthesia/Blood Transfusion Reaction / Comm: father had confusion/loss of memory with anesthesia Past Psychological History: Depression Additional Psychological History / Comment(s): fear of heights, depression since passed- Smoking Status: Former smoker Past Alcohol Use History: None Reported Additional Past Alcohol Use History / Comment(s): quit smoking in 1984. 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 He lives with SO. His daughter lives next door. 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 volunteers at his [employer] Past Drug Use History: None Reported - Past Family History Mother Additional Family Medical History / Comment(s): AGE 91 FROM BRAIN HEMORRAGE Father Family Medical History: Cancer Additional Family Medical History / Comment(s): LUNG CANCER Medications and Allergies Home Medications Medication Instructions Recorded Confirmed Type Aspirin 81 mg PO PC-SUPPER 12/27/15 07/25/24 History Insulin Glargine,Hum.rec.anlog 18 units SQ PC-BRKFST 07/18/16 07/25/24 History [Toujeo Solostar] lisinopriL [Zestril] 10 mg PO PC-SUPPER 11/15/19 07/25/24 History Tamsulosin [Flomax] 0.4 mg PO AC-SUPPER 08/25/22 07/25/24 History Calcium Phos/D3/Magnesium/Zinc 1 tab PO PC-BRKFST 11/28/23 07/25/24 History [Aaryeqx-Oal-Iiwy-Vitamin D3] rOPINIRole HCL [Requip] 1 mg PO PC-BRKFST 11/28/23 07/25/24 History Pantoprazole [Protonix] 40 mg PO AC-BRKFST #30 tab 12/02/23 07/25/24 Rx Atorvastatin [Lipitor] 10 mg PO PC-SUPPER 04/10/24 07/25/24 History Collagenase [Santyl Ointment] 1 applic TOPICAL DAILY 04/10/24 07/25/24 History Insulin Aspart [NovoLOG Flexpen] See Protocol SQ ACHS PRN 04/10/24 07/25/24 History Megestrol [Megace] 400 mg PO AC-BRKFST 04/10/24 07/25/24 History Melatonin 30 mg PO PC-SUPPER 04/10/24 07/25/24 History Baclofen [Lioresal] 10 mg PO PC-BID 07/25/24 07/25/24 History Dandelion Root 3000mg 9,000 mg PO AC-BRKFST 07/25/24 07/25/24 History Docusate [Colace] 100 mg PO PC-BID 07/25/24 07/25/24 History Ferrous Sulfate [Feosol] 325 mg PO PC-BRKFST 07/25/24 07/25/24 History Fish Oil/Dha/Epa [Fish Oil 1,200 1 cap PO PC-SUPPER 07/25/24 07/25/24 History mg Fish Oil] Insulin Glargine,Hum.rec.anlog 17 units SQ PC-SUPPER 07/25/24 07/25/24 History [Toujeo Solostar] Mv-Min/Folic/K1/Lycopen/Lutein 1 tab PO PC-BRKFST 07/25/24 07/25/24 History [Centrum Silver Men Tablet] Thiamine [Vitamin B-1] 100 mg PO PC-BRKFST 07/25/24 07/25/24 History glipiZIDE/METFORMIN HCL 1 tab PO AC-BID 07/25/24 07/25/24 History [glipiZIDE/METFORMIN HCL 5-500 mg] rOPINIRole HCL [Requip] 3 mg PO HS 07/25/24 07/25/24 History Allergies Allergy/AdvReac Type Severity Reaction Status Date / Time adhesive Allergy Itching/bruna Verified 07/25/24 17:10 h codeine AdvReac Hallucinati Verified 07/25/24 17:10 ons/paranoi d Physical Exam Vitals: Vital Signs Temp Pulse Pulse Resp BP BP Pulse Ox 07/26/24 07:06 99.1 F 71 18 147/63 97 07/26/24 01:00 99.3 F 73 20 128/53 99 07/25/24 18:55 97.9 F 75 18 144/78 99 07/25/24 17:23 98.1 F 85 18 157/64 100 07/25/24 17:13 98.7 F 78 18 140/63 98 07/25/24 16:19 79 18 130/53 98 07/25/24 14:15 97.8 F 104 H 18 122/48 99 Intake and Output 07/25/24 07/26/24 07/26/24 22:59 06:59 14:59 Other: # Voids 2 Weight 78.018 kg GENERAL DESCRIPTION: Elderly male lying in bed, no distress. No tachypnea or accessory muscle of respiration use. HEENT: Shows Pallor , no scleral icterus. Oral mucous membrane is dry. NECK: Trachea central, no thyromegaly. LUNGS: Unlabored breathing. Clear to auscultation anteriorly. No wheeze or crackle. HEART: S1, S2, regular rate and rhythm. No loud murmur ABDOMEN: Soft, no tenderness , guarding or rigidity, no organomegaly EXTREMITIES: Right lower extremity edema below the knee, with erythema, right great toe with diabetic ulcer with slough tissue, to the bone, with purulent drainage and foul odor. SKIN: No rash, no masses palpable. NEUROLOGICAL: The patient is awake, alert, oriented x3, mood and affect normal. Results CBC & Chem 7: 07/26/24 10:38 07/26/24 19:13 Labs: Abnormal Lab Results - Last 24 Hours (Table) 07/25/24 07/25/24 07/25/24 Range/Units 15:46 15:46 20:02 WBC 15.48 H (4.50-10.00) 10*3/uL RBC 3.15 L (4.40-5.60) 10*6/uL Hgb 8.9 L (13.0-17.0) g/dL Hct 26.4 L (39.6-50.0) % Immature Gran # 0.09 H (0.00-0.04) 10*3/uL Neutrophils # 12.99 H (1.80-7.70) 10*3/uL Monocytes # 1.20 H (0.20-1.00) 10*3/uL Eosinophils # 0.03 L (0.04-0.35) 10*3/uL Potassium 3.2 L (3.5-5.1) mmol/L Chloride (98-107) mmol/L Carbon Dioxide 16 L (22-30) mmol/L BUN 28 H (9-20) mg/dL Creatinine 1.37 H (0.66-1.25) mg/dL Glucose 282 H (74-99) mg/dL POC Glucose (mg/dL) 353 H (70-110) mg/dL Hemoglobin A1c (<=6.0) % Albumin 3.4 L (3.5-5.0) g/dL 07/26/24 07/26/24 07/26/24 Range/Units 02:31 03:12 05:52 WBC (4.50-10.00) 10*3/uL RBC (4.40-5.60) 10*6/uL Hgb (13.0-17.0) g/dL Hct (39.6-50.0) % Immature Gran # (0.00-0.04) 10*3/uL Neutrophils # (1.80-7.70) 10*3/uL Monocytes # (0.20-1.00) 10*3/uL Eosinophils # (0.04-0.35) 10*3/uL Potassium (3.5-5.1) mmol/L Chloride (98-107) mmol/L Carbon Dioxide (22-30) mmol/L BUN (9-20) mg/dL Creatinine (0.66-1.25) mg/dL Glucose (74-99) mg/dL POC Glucose (mg/dL) 265 H 284 H (70-110) mg/dL Hemoglobin A1c 10.5 H (<=6.0) % Albumin (3.5-5.0) g/dL 07/26/24 07/26/24 07/26/24 Range/Units 10:38 10:38 11:09 WBC 11.84 H (4.50-10.00) 10*3/uL RBC 2.84 L (4.40-5.60) 10*6/uL Hgb 7.9 L (13.0-17.0) g/dL Hct 24.1 L (39.6-50.0) % Immature Gran # 0.08 H (0.00-0.04) 10*3/uL Neutrophils # 9.41 H (1.80-7.70) 10*3/uL Monocytes # 1.04 H (0.20-1.00) 10*3/uL Eosinophils # (0.04-0.35) 10*3/uL Potassium 2.9 L (3.5-5.1) mmol/L Chloride 109 H (98-107) mmol/L Carbon Dioxide 19 L (22-30) mmol/L BUN 21 H (9-20) mg/dL Creatinine (0.66-1.25) mg/dL Glucose 111 H (74-99) mg/dL POC Glucose (mg/dL) 131 H (70-110) mg/dL Hemoglobin A1c (<=6.0) % Albumin (3.5-5.0) g/dL Assessment and Plan (1) Foot osteomyelitis, right Current Visit: Yes Status: Acute Code(s): M86.9 - OSTEOMYELITIS, UNSPECIFIED SNOMED Code(s): 5169137976902876 (2) Elevated serum creatinine Current Visit: Yes Status: Acute Code(s): R79.89 - OTHER SPECIFIED ABNORMAL FINDINGS OF BLOOD CHEMISTRY SNOMED Code(s): 218882250 (3) Diabetic infection of right foot Current Visit: No Status: Acute Code(s): E11.628 - TYPE 2 DIABETES MELLITUS WITH OTHER SKIN COMPLICATIONS; L08.9 - LOCAL INFECTION OF THE SKIN AND SUBCUTANEOUS TISSUE, UNSP SNOMED Code(s): 118809716 Plan: 1patient with a complicated history of multiple diabetic foot infection this patient did have previous amputation of the toes now presenting with extensive right diabetic foot infection with evidence of air on the CT concerning for gas- forming pathogen and will need to cover for the polymicrobial maricel associated with diabetic foot infection 2patient did have elevated creatinine high risk of nephrotoxicity from an Zosyn and vancomycin combination 3elevated white count likely related to right diabetic foot infection 4patient to be treated with Zosyn however discontinue vancomycin will start the patient on daptomycin pending OR culture finalization Question concern answered We will follow on clinical condition and cultures to further adjust medication if needed Thank you for this consultation we will follow the patient along with you Dictation was produced using [employer] dictation software. please excuse any grammatical, word or spelling errors. Time with Patient: Greater than 30
[2024-07-27] MEDS: ACETAMINOPHEN IV (For NPO) 1,000 MG in EMPTY BAG 1 BAG IVPB PRN (02:43)
[2024-07-27 04:51] LABS: ALT 21 U/L (4-49); AST 23 U/L (17-59); African American GFR (CKD) 76 (>60 ml/min/1.73 sqM); Albumin 2.7 g/dL (3.5-5.0); Albumin/Globulin Ratio 0.9; Alkaline Phosphatase 72 U/L (38-126); Anion Gap 12 mmol/L; Blood Urea Nitrogen 21 mg/dL (9-20); Calcium 8.7 mg/dL (8.4-10.2); Carbon Dioxide 21 mmol/L (22-30); Chloride 106 mmol/L (98-107); Globulin 2.9 g/dL; Glucose 222 mg/dL (74-99); Non-African American GFR(CKD) 65 (>60 ml/min/1.73 sqM); Potassium 3.5 mmol/L (3.5-5.1); Sodium 139 mmol/L (137-145); Total Bilirubin 0.9 mg/dL (0.2-1.3); Total Protein 5.6 g/dL (6.3-8.2)
[2024-07-27] MEDS ORDERED: Potassium Replacement Protocol 1 EACH MISC MISCELLANE PRN (06:01)
[2024-07-27 06:14] LABS: Glucose,Whole Blood 285 mg/dL (70-110)
[2024-07-27] MEDS: PANTOPRAZOLE 40 MG TABLET PO SCH (06:31)
[2024-07-27] MEDS: MEGESTROL 400 MG/10 ML CUP PO SCH (06:31)
[2024-07-27] MEDS: POTASSIUM CHLORIDE ER 20 MEQ TAB.ER PO SCH (06:31)
[2024-07-27 08:24] LABS: Basophils # (A) 0.01 X 10*3/uL (0.00-0.10); Basophils % (A) 0.1 %; Eosinophils # (A) 0 X 10*3/uL (0.04-0.35); Eosinophils % (A) 0 %; HCT 25.7 % (39.6-50.0); HGB 8.2 g/dL (13.0-17.0); Lymphocytes # (A) 0.98 X 10*3/uL (0.90-5.00); Lymphocytes % (A) 8.9 %; MCH 27.8 pg (27.0-32.0); MCHC 31.9 g/dL (32.0-37.0); MCV 87.1 FL (80.0-97.0); Mean Platelet Volume 9.7 FL (9.5-12.2); Monocytes % (A) 5.4 %; NRBC Per 100 WBC 0 X 10*3/uL (0.00-0.01); Neutrophils # (A) 9.36 X 10*3/uL (1.80-7.70); Neutrophils % (A) 84.9 %; Platelet Count 392 X 10*3/uL (140-440); RBC 2.95 X 10*6/uL (4.40-5.60); RDW 13.8 % (11.5-14.5); WBC 11.03 X 10*3/uL (4.50-10.00)
[2024-07-27] MEDS: FERROUS SULFATE 325 MG TAB PO SCH (09:37)
[2024-07-27] MEDS: DAPTOmycin 500 MG in SODIUM CHLORIDE 0.9% 50 ML IVPB SCH (09:37)
[2024-07-27] MEDS: MULTIVITAMINS, THERA 1 EACH TAB PO SCH (09:38)
[2024-07-27] MEDS: THIAMINE 100 MG TAB PO SCH (09:38)
[2024-07-27] MEDS: CALCIUM CARB-VIT D 500 MG-5 MCG TAB PO SCH (09:38)
[2024-07-27 11:17] LABS: Glucose,Whole Blood 381 mg/dL (70-110)
--- NOTE | 2024-07-27 11:34 | P.PN ---
Subjective Progress Note Date: 07/27/24 Principal diagnosis: Nonhealing infected right lower extremity wound Patient is seen and examined today as a follow-up. He is postop day #1 for exploration of the right lower extremity wound with guillotine below the knee amputation of the right lower extremity. He states his pain has been well- managed. Rates his pain a 1-2 out of 10. Hemoglobin stable at 8.2. He denies any shortness of breath or chest pain. States he does have some pain in his calf near the dressing. Objective - Vital Signs Vital signs: Vital Signs Temp 98.0 F 07/27/24 08:00 Pulse 65 07/27/24 08:00 Resp 15 07/27/24 08:00 BP 134/62 07/27/24 08:00 Pulse Ox 98 07/27/24 08:00 FiO2 Intake & Output 07/26/24 07/27/24 07/27/24 18:59 06:59 18:59 Intake Total 2000 Output Total Balance 1980 Weight 78.018 kg Intake: IV 301 Intake, IV Titration 1700 Amount ACETAMINOPHEN IV (For NPO 100 ) 1,000 mg In Empty Bag 1 bag @ 400 mls/hr IVPB Q6HR PRN Rx#:[id number] Piperacillin-Tazobactam 3 100 .375 gm In Sodium Chloride 0.9% 100 ml @ 25 mls/hr IVPB Q8HR IRAIDA Rx# :[id number] Potassium Chloride 10 meq 400 In Water For Injection 1 100ml.bag @ 100 mls/hr IVPB Q1HR IRAIDA Rx#: [id number] Sodium Chloride 0.9% 1, 600 000 ml @ 75 mls/hr IV . [id number] Rx#:[id number] Vancomycin 1,500 mg In 500 Sodium Chloride 0.9% 500 ml 500 ml @ 167 mls/hr IVPB Q16H IRAIDA Rx#: [id number] Output: Estimated Blood Loss 20 Other: Voiding Method Urinal # Voids 2 - Exam General appearance: The patient is alert, oriented, appears in no acute distress. HET: Head is normocephalic and atraumatic. Pupils are equal and reactive. Neck: Supple. Heart: Regular. Lungs: Equal expansion, normal respiratory effort. Abdomen: Soft, nontender, nondistended. Extremities: Normal skin color and turgor. Right lower extremity with dressing clean dry and intact. Good capillary refill warm to the touch. No erythema. Swelling improving. Neurological: No focal deficits. Alert and oriented. - Labs CBC & Chem 7: 07/27/24 02:39 07/27/24 02:39 Labs: Abnormal Lab Results - Last 24 Hours (Table) 07/26/24 07/26/24 07/26/24 Range/Units 10:38 10:38 11:09 WBC 11.84 H (4.50-10.00) 10*3/uL RBC 2.84 L (4.40-5.60) 10*6/uL Hgb 7.9 L (13.0-17.0) g/dL Hct 24.1 L (39.6-50.0) % MCHC (32.0-37.0) g/dL Immature Gran # 0.08 H (0.00-0.04) 10*3/uL Neutrophils # 9.41 H (1.80-7.70) 10*3/uL Monocytes # 1.04 H (0.20-1.00) 10*3/uL Eosinophils # (0.04-0.35) X 10*3/uL Potassium 2.9 L (3.5-5.1) mmol/L Chloride 109 H (98-107) mmol/L Carbon Dioxide 19 L (22-30) mmol/L BUN 21 H (9-20) mg/dL Glucose 111 H (74-99) mg/dL POC Glucose (mg/dL) 131 H (70-110) mg/dL Total Protein (6.3-8.2) g/dL Albumin (3.5-5.0) g/dL 07/26/24 07/26/24 07/26/24 Range/Units 14:10 16:09 17:30 WBC (4.50-10.00) 10*3/uL RBC (4.40-5.60) 10*6/uL Hgb (13.0-17.0) g/dL Hct (39.6-50.0) % MCHC (32.0-37.0) g/dL Immature Gran # (0.00-0.04) 10*3/uL Neutrophils # (1.80-7.70) 10*3/uL Monocytes # (0.20-1.00) 10*3/uL Eosinophils # (0.04-0.35) X 10*3/uL Potassium (3.5-5.1) mmol/L Chloride (98-107) mmol/L Carbon Dioxide (22-30) mmol/L BUN (9-20) mg/dL Glucose (74-99) mg/dL POC Glucose (mg/dL) 135 H 129 H 160 H (70-110) mg/dL Total Protein (6.3-8.2) g/dL Albumin (3.5-5.0) g/dL 07/26/24 07/26/24 07/27/24 Range/Units 19:13 21:06 02:39 WBC (4.50-10.00) 10*3/uL RBC (4.40-5.60) 10*6/uL Hgb (13.0-17.0) g/dL Hct (39.6-50.0) % MCHC (32.0-37.0) g/dL Immature Gran # (0.00-0.04) 10*3/uL Neutrophils # (1.80-7.70) 10*3/uL Monocytes # (0.20-1.00) 10*3/uL Eosinophils # (0.04-0.35) X 10*3/uL Potassium 3.3 L (3.5-5.1) mmol/L Chloride (98-107) mmol/L Carbon Dioxide 21 L (22-30) mmol/L BUN 21 H (9-20) mg/dL Glucose 222 H (74-99) mg/dL POC Glucose (mg/dL) 232 H (70-110) mg/dL Total Protein 5.6 L (6.3-8.2) g/dL Albumin 2.7 L (3.5-5.0) g/dL 07/27/24 07/27/24 Range/Units 02:39 06:13 WBC 11.03 H (4.50-10.00) 10*3/uL RBC 2.95 L (4.40-5.60) 10*6/uL Hgb 8.2 L (13.0-17.0) g/dL Hct 25.7 L (39.6-50.0) % MCHC 31.9 L (32.0-37.0) g/dL Immature Gran # 0.08 H (0.00-0.04) 10*3/uL Neutrophils # 9.36 H (1.80-7.70) 10*3/uL Monocytes # (0.20-1.00) 10*3/uL Eosinophils # 0 L (0.04-0.35) X 10*3/uL Potassium (3.5-5.1) mmol/L Chloride (98-107) mmol/L Carbon Dioxide (22-30) mmol/L BUN (9-20) mg/dL Glucose (74-99) mg/dL POC Glucose (mg/dL) 285 H (70-110) mg/dL Total Protein (6.3-8.2) g/dL Albumin (3.5-5.0) g/dL Microbiology - Last 24 Hours (Table) 07/26/24 15:22 Gram Stain - Preliminary Foot - Right 07/25/24 15:46 Blood Culture - Preliminary Blood Assessment and Plan Assessment: 1. Infected diabetic ulcer, wet gangrene with foot abscess tracking to the heel. 2. Osteomyelitis 3. Hypokalemia 4. Diabetes mellitus 5. Hypertension Plan: 1. Patient can have heart healthy diet 2. Continue with antibiotic recommendations from infectious disease 3. Daily dressing change with wet-to-dry dressing, wrap with Kerlix and then apply Coban 4. Nonweightbearing on right lower extremity 5. Physical therapy consultation, evaluate and treat. Plan for formal BKA on Thursday. 6. Patient scheduled for right below the knee amputation 07/29/2024 7. Rest of medical management per primary medical team Thank you for this consultation, we will continue to follow. The impression and plan of care has been dictated as directed. Dr. Alex Steele performed a history and examination of this patient, discussed the same with the dictator. I agree with the dictator's note ,documented as a scribe. Any additional findings or plans will be noted.
[2024-07-27] MEDS: HYDROcodone/APAP 5-325MG 1 EACH TAB PO PRN (13:00)
--- NOTE | 2024-07-27 14:18 | P.GSCN ---
History of Present Illness Consult date: 07/27/24 Reason for Consult: Left hyronephrosis History of present illness: this is a 79-year-old male admitted to the hospital with a right lower ext remity infection. Urology is consulted for incidental finding of left-sided hydronephrosis on his CT angiogram. Patient denies any flank pain, gross hematuria or any voiding dysfunction at baseline. No previous history of recurrent UTIs, kidney or kidney stones. No known family history of renal malignancies or kidney stones. Denies any previous urological surgeries. His creatinine is at 1.09 which is at his baseline. Review of Systems - Constitutional Denies fever, Denies weight loss - EENT Ears, nose, mouth and throat: Denies dysphagia - Cardiovascular Denies chest pain, Denies shortness of breath - Respiratory Denies cough, Denies 7 - Gastrointestinal Reports as per HPI 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), recent high BP-no Rx, bone infection left foot, History of Any Multi-Drug Resistant Organisms: MRSA Year Discovered:: 2016 MDRO Source:: foot Past Surgical History: Orthopedic Surgery, Tonsillectomy Additional Past Surgical History / Comment(s): HAMMER TOE SX LACEY FEET, LEFT FOOT SURGERY GREAT TOE AMPUTATION/THEN 2ND SX TO REARRANGE THE BONES IN LT FOOT, right foot little toe amputation, Tendon lengthening left foot, cyst removed from middle finger rt hand Past Anesthesia/Blood Transfusion Reactions: Family History of Problems w/ Ane sthesia Additional Past Anesthesia/Blood Transfusion Reaction / Comm: father had confusion/loss of memory with anesthesia Past Psychological History: Depression Additional Psychological History / Comment(s): fear of heights, depression since passed- Smoking Status: Former smoker Past Alcohol Use History: None Reported Additional Past Alcohol Use History / Comment(s): quit smoking in 1984. 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 He lives with . His daughter lives next door. 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 volunteers at his [employer] Past Drug Use History: None Reported - Past Family History Mother Additional Family Medical History / Comment(s): AGE 91 FROM BRAIN HEMORRAGE Father Family Medical History: Cancer Additional Family Medical History / Comment(s): LUNG CANCER Medications and Allergies Home Medications Medication Instructions Recorded Confirmed Type Aspirin 81 mg PO PC-SUPPER 12/27/15 07/25/24 History Insulin Glargine,Hum.rec.anlog 18 units SQ PC-BRKFST 07/18/16 07/25/24 History [Toujeo Solostar] lisinopriL [Zestril] 10 mg PO PC-SUPPER 11/15/19 07/25/24 History Tamsulosin [Flomax] 0.4 mg PO AC-SUPPER 08/25/22 07/25/24 History Calcium Phos/D3/Magnesium/Zinc 1 tab PO PC-BRKFST 11/28/23 07/25/24 History [Gwbpszp-Iaz-Ussg-Vitamin D3] rOPINIRole HCL [Requip] 1 mg PO PC-BRKFST 11/28/23 07/25/24 History Pantoprazole [Protonix] 40 mg PO AC-BRKFST #30 tab 12/02/23 07/25/24 Rx Atorvastatin [Lipitor] 10 mg PO PC-SUPPER 04/10/24 07/25/24 History Collagenase [Santyl Ointment] 1 applic TOPICAL DAILY 04/10/24 07/25/24 History Insulin Aspart [NovoLOG Flexpen] See Protocol SQ ACHS PRN 04/10/24 07/25/24 History Megestrol [Megace] 400 mg PO AC-BRKFST 04/10/24 07/25/24 History Melatonin 30 mg PO PC-SUPPER 04/10/24 07/25/24 History Baclofen [Lioresal] 10 mg PO PC-BID 07/25/24 07/25/24 History Dandelion Root 3000mg 9,000 mg PO AC-BRKFST 07/25/24 07/25/24 History Docusate [Colace] 100 mg PO PC-BID 07/25/24 07/25/24 History Ferrous Sulfate [Feosol] 325 mg PO PC-BRKFST 07/25/24 07/25/24 History Fish Oil/Dha/Epa [Fish Oil 1,200 1 cap PO PC-SUPPER 07/25/24 07/25/24 History mg Fish Oil] Insulin Glargine,Hum.rec.anlog 17 units SQ PC-SUPPER 07/25/24 07/25/24 History [Toudeandre Marshostar] Mv-Min/Folic/K1/Lycopen/Lutein 1 tab PO PC-BRKFST 07/25/24 07/25/24 History [Centrum Silver Men Tablet] Thiamine [Vitamin B-1] 100 mg PO PC-BRKFST 07/25/24 07/25/24 History glipiZIDE/METFORMIN HCL 1 tab PO AC-BID 07/25/24 07/25/24 History [glipiZIDE/METFORMIN HCL 5-500 mg] rOPINIRole HCL [Requip] 3 mg PO HS 07/25/24 07/25/24 History Allergies Allergy/AdvReac Type Severity Reaction Status Date / Time adhesive Allergy Itching/bruna Verified 07/25/24 17:10 h codeine AdvReac Hallucinati Verified 07/25/24 17:10 ons/paranoi d Surgical - Exam Vital Signs Temp Pulse Resp BP Pulse Ox 97.8 F 104 H 18 122/48 99 07/25/24 14:15 07/25/24 14:15 07/25/24 14:15 07/25/24 14:15 07/25/24 14:15 - General no distress, no pain - Eyes normal ocular movement, no pale - ENT normal nares, normal mucosa - Respiratory normal expansion, normal respiratory effort - Abdomen Abdomen: soft, non tender, no distended - Psychiatric oriented to time, oriented to person, oriented to place Results - Labs 07/27/24 02:39 07/27/24 02:39 Abnormal Lab Results - Last 24 Hours (Table) 07/26/24 07/26/24 07/26/24 Range/Units 16:09 17:30 19:13 WBC (4.50-10.00) X 10*3/uL RBC (4.40-5.60) X 10*6/uL Hgb (13.0-17.0) g/dL Hct (39.6-50.0) % MCHC (32.0-37.0) g/dL Immature Gran # (0.00-0.04) X 10*3/uL Neutrophils # (1.80-7.70) X 10*3/uL Eosinophils # (0.04-0.35) X 10*3/uL Potassium 3.3 L (3.5-5.1) mmol/L Carbon Dioxide (22-30) mmol/L BUN (9-20) mg/dL Glucose (74-99) mg/dL POC Glucose (mg/dL) 129 H 160 H (70-110) mg/dL Total Protein (6.3-8.2) g/dL Albumin (3.5-5.0) g/dL 07/26/24 07/27/24 07/27/24 Range/Units 21:06 02:39 02:39 WBC 11.03 H (4.50-10.00) X 10*3/uL RBC 2.95 L (4.40-5.60) X 10*6/uL Hgb 8.2 L (13.0-17.0) g/dL Hct 25.7 L (39.6-50.0) % MCHC 31.9 L (32.0-37.0) g/dL Immature Gran # 0.08 H (0.00-0.04) X 10*3/uL Neutrophils # 9.36 H (1.80-7.70) X 10*3/uL Eosinophils # 0 L (0.04-0.35) X 10*3/uL Potassium (3.5-5.1) mmol/L Carbon Dioxide 21 L (22-30) mmol/L BUN 21 H (9-20) mg/dL Glucose 222 H (74-99) mg/dL POC Glucose (mg/dL) 232 H (70-110) mg/dL Total Protein 5.6 L (6.3-8.2) g/dL Albumin 2.7 L (3.5-5.0) g/dL 07/27/24 07/27/24 Range/Units 06:13 11:16 WBC (4.50-10.00) X 10*3/uL RBC (4.40-5.60) X 10*6/uL Hgb (13.0-17.0) g/dL Hct (39.6-50.0) % MCHC (32.0-37.0) g/dL Immature Gran # (0.00-0.04) X 10*3/uL Neutrophils # (1.80-7.70) X 10*3/uL Eosinophils # (0.04-0.35) X 10*3/uL Potassium (3.5-5.1) mmol/L Carbon Dioxide (22-30) mmol/L BUN (9-20) mg/dL Glucose (74-99) mg/dL POC Glucose (mg/dL) 285 H 381 H (70-110) mg/dL Total Protein (6.3-8.2) g/dL Albumin (3.5-5.0) g/dL Microbiology - Last 24 Hours (Table) 07/26/24 15:22 Gram Stain - Preliminary Foot - Right 07/25/24 15:46 Blood Culture - Preliminary Blood Diabetes panel 07/26/24 07/27/24 Range/Units 19:13 02:39 Sodium 139 (137-145) mmol/L Potassium 3.3 L 3.5 (3.5-5.1) mmol/L Chloride 106 (98-107) mmol/L Carbon Dioxide 21 L (22-30) mmol/L BUN 21 H (9-20) mg/dL Creatinine 1.08 (0.66-1.25) mg/dL Glucose 222 H (74-99) mg/dL Calcium 8.7 (8.4-10.2) mg/dL AST 23 (17-59) U/L ALT 21 (4-49) U/L Alkaline Phosphatase 72 (38-126) U/L Total Protein 5.6 L (6.3-8.2) g/dL Albumin 2.7 L (3.5-5.0) g/dL Calcium panel 07/27/24 Range/Units 02:39 Calcium 8.7 (8.4-10.2) mg/dL Albumin 2.7 L (3.5-5.0) g/dL Pituitary panel 07/26/24 07/27/24 Range/Units 19:13 02:39 Sodium 139 (137-145) mmol/L Potassium 3.3 L 3.5 (3.5-5.1) mmol/L Chloride 106 (98-107) mmol/L Carbon Dioxide 21 L (22-30) mmol/L BUN 21 H (9-20) mg/dL Creatinine 1.08 (0.66-1.25) mg/dL Glucose 222 H (74-99) mg/dL Calcium 8.7 (8.4-10.2) mg/dL Adrenal panel 07/26/24 07/27/24 Range/Units 19:13 02:39 Sodium 139 (137-145) mmol/L Potassium 3.3 L 3.5 (3.5-5.1) mmol/L Chloride 106 (98-107) mmol/L Carbon Dioxide 21 L (22-30) mmol/L BUN 21 H (9-20) mg/dL Creatinine 1.08 (0.66-1.25) mg/dL Glucose 222 H (74-99) mg/dL Calcium 8.7 (8.4-10.2) mg/dL Total Bilirubin 0.9 (0.2-1.3) mg/dL AST 23 (17-59) U/L ALT 21 (4-49) U/L Alkaline Phosphatase 72 (38-126) U/L Total Protein 5.6 L (6.3-8.2) g/dL Albumin 2.7 L (3.5-5.0) g/dL Assessment and Plan Assessment: 79-year-old male with history of incidental finding of left-sided hydronephrosis. This was seen on the CT angiogram. Creat is at baseline, he is asymptomatic At this time we will go and obtain a CT urogram to further evaluate. -CT Urogram
--- NOTE | 2024-07-27 15:04 | P.PN ---
Subjective Progress Note Date: 07/27/24 This is a pleasant 79-year-old male who presented to the emergency department with increasing pain and drainage of the right foot and has been progressively becoming more swollen and follows with Dr. Quiñones outpatient at the wound care center. Apparently patient had gone to the wound care center and was diagnosed with wet gangrene and wanted the patient to come here for further vascular surgery consult. Dr. Quiñones is currently out of town and this was discussed with vascular surgery, Dr. Adame's group and will be undergoing surgical intervention including great toe amputation on the right today. Patient also with infectious disease consulted as patient follows with him outpatient as well and there was concerns of osteomyelitis. Patient did previously have right 4th and 5th toes removed as well. Patient reports he follows with Dr. 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 Labs reviewed from ER admission with a white count of 15.48, hemoglobin 8.9, platelets 395, sodium 138, potassium 3.2, creatinine 1.37, BUN 28, random glucose elevated at 282, lactic acid 1.6. Patient did report some swelling and pain up into the calf and did undergo venous Doppler which shows right lower extremity negative for DVT and patency within the vessels. CT angiography performed of the abdomen pelvis revealing a right first metatarsal region extending to the plantar aspect of the foot along the medial right ankle and posterior right ankle with gas-forming infection that should be considered along with soft tissue swelling through the distal right calf and an occlusion of the vascular trifurcation vessels bilaterally. 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 Incid ental finding of the left hydronephrosis and will consult urology and appreciate input and recommendations. Patient reports he is voiding with no difficulties and creatinine is stable at 1.37. Will follow-up on repeat labs and resume diet once cleared by surgery. Recommend tight glycemic control for healing as hemoglobin A1c is noted to be uncontrolled and elevated at 10.5. 07/27/2024 Patient is evaluated in follow-up with medical floor. He was still complaining of some mild pain of the right calf area however states that is nothing extensive and feels like he does not need any pain medication for this currently. He was complaining of some mild shortness of breath states that he uses albuterol inhaler at home and is requesting this. Patient is postoperative day 1 right lower foot amputation. He continues on antibiotics in the form of Daptomycin and Zosyn. Urology has evaluated patient for the incidental finding of the left sided hydronephrosis and planning to undergo CT urogram. His blood work today reveals a white blood cell count of 11.03, hemoglobin stable at 8.2, sodium 139, BUN of 21 creatinine 1.08. His blood glucose remains significantly elevated in the 300s. Patient will go for right BKA on 07/29. REVIEW OF SYSTEMS: CONSTITUTIONAL: No fever, no malaise, no fatigue. HEENT: No recent visual problems or hearing problems. Denied any sore throat. CARDIOVASCULAR: No chest pain, orthopnea, PND, no palpitations, no syncope. PULMONARY: No shortness of breath, no cough, no hemoptysis. GASTROINTESTINAL: No diarrhea, no nausea, no vomiting, no abdominal pain. NEUROLOGICAL: No headaches, no weakness, no numbness. PHYSICAL EXAMINATION: GENERAL: The patient is alert and oriented x3, not in any acute distress. Well developed, well nourished. Elderly appearing, thin built HEENT: Pupils are round and equally reacting to light. EOMI. No scleral icterus. No conjunctival pallor. Normocephalic, atraumatic. No pharyngeal erythema. No thyromegaly. CARDIOVASCULAR: S1 and S2 present. No murmurs, rubs, or gallops. PULMONARY: Chest is clear to auscultation, no wheezing or crackles. ABDOMEN: Soft, thin, nontender, nondistended, normoactive bowel sounds. No palpable organomegaly. MUSCULOSKELETAL: No joint swelling or deformity. Severe right foot pain with some drainage of the right great toe EXTREMITIES: No cyanosis, clubbing, or pedal edema. Status post right foot amputation NEUROLOGICAL: Gross neurological examination did not reveal any focal deficits. Diffusely weak SKIN: No rashes. 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 Quiñones for further evaluation and possible amputation. Patient was evaluated by Dr. Rodriguez service as Dr. Quiñones is out of town. Patient is status post right lower extremity guillotine amputation and will go for right below the knee amputation on July 29. Patient did undergo CT angio with some incidental findings also noted to have severe left hydronephrosis. Kidney functions relatively stable with a mild HUONG, will have urology consulted and appreciate input and recommendations Continue with home medications as appropriate Continue monitoring Accu-Cheks AC and at bedtime along with sliding scale and long-acting and will adjust accordingly. Diabetes education as patient's hemoglobin A1c is 10.5 Replace potassium per protocol and follow-up with repeat potassium this evening as well as a.m. labs Recommend incentive spirometer at least 10 times every hour while awake Will await vascular surgery and infectious disease recommendations postsurgery and will likely need to await cultures that will hopefully be obtained during surgery The impression and plan of care has been dictated by Dania Matthews, Nurse Practitioner as directed. Dr. Gabby MD I have performed a history and examination and MDM of this patient, discussed the same with the dictator, and agree with the dictator's assessment and plan as written ,documented as a scribe. Based on total visit time, I have performed more than 50% of the visit. Objective - Vital Signs Vital signs: Vital Signs Temp 98.0 F 07/27/24 08:00 Pulse 65 07/27/24 08:00 Resp 15 07/27/24 08:00 BP 134/62 07/27/24 08:00 Pulse Ox 98 07/27/24 08:00 FiO2 Intake & Output 07/26/24 07/27/24 07/27/24 18:59 06:59 18:59 Intake Total 2000 Output Total Balance 1980 Weight 78.018 kg Intake: IV 301 Intake, IV Titration 1700 Amount ACETAMINOPHEN IV (For NPO 100 ) 1,000 mg In Empty Bag 1 bag @ 400 mls/hr IVPB Q6HR PRN Rx#:[id number] Piperacillin-Tazobactam 3 100 .375 gm In Sodium Chloride 0.9% 100 ml @ 25 mls/hr IVPB Q8HR [facility] Rx# :[id number] Potassium Chloride 10 meq 400 In Water For Injection 1 100ml.bag @ 100 mls/hr IVPB Q1HR [facility] Rx#: [id number] Sodium Chloride 0.9% 1, 600 000 ml @ 75 mls/hr IV . [id number] ONE Rx#:[id number] Vancomycin 1,500 mg In 500 Sodium Chloride 0.9% 500 ml 500 ml @ 167 mls/hr IVPB Q16H [facility] Rx#: [id number] Output: Estimated Blood Loss 20 Other: Voiding Method Urinal # Voids 2 - Labs CBC & Chem 7: 07/27/24 02:39 07/27/24 02:39 Labs: Abnormal Lab Results - Last 24 Hours (Table) 07/26/24 07/26/24 07/26/24 Range/Units 10:38 10:38 11:09 WBC 11.84 H (4.50-10.00) 10*3/uL RBC 2.84 L (4.40-5.60) 10*6/uL Hgb 7.9 L (13.0-17.0) g/dL Hct 24.1 L (39.6-50.0) % MCHC (32.0-37.0) g/dL Immature Gran # 0.08 H (0.00-0.04) 10*3/uL Neutrophils # 9.41 H (1.80-7.70) 10*3/uL Monocytes # 1.04 H (0.20-1.00) 10*3/uL Eosinophils # (0.04-0.35) X 10*3/uL Potassium 2.9 L (3.5-5.1) mmol/L Chloride 109 H (98-107) mmol/L Carbon Dioxide 19 L (22-30) mmol/L BUN 21 H (9-20) mg/dL Glucose 111 H (74-99) mg/dL POC Glucose (mg/dL) 131 H (70-110) mg/dL Total Protein (6.3-8.2) g/dL Albumin (3.5-5.0) g/dL 07/26/24 07/26/24 07/26/24 Range/Units 14:10 16:09 17:30 WBC (4.50-10.00) 10*3/uL RBC (4.40-5.60) 10*6/uL Hgb (13.0-17.0) g/dL Hct (39.6-50.0) % MCHC (32.0-37.0) g/dL Immature Gran # (0.00-0.04) 10*3/uL Neutrophils # (1.80-7.70) 10*3/uL Monocytes # (0.20-1.00) 10*3/uL Eosinophils # (0.04-0.35) X 10*3/uL Potassium (3.5-5.1) mmol/L Chloride (98-107) mmol/L Carbon Dioxide (22-30) mmol/L BUN (9-20) mg/dL Glucose (74-99) mg/dL POC Glucose (mg/dL) 135 H 129 H 160 H (70-110) mg/dL Total Protein (6.3-8.2) g/dL Albumin (3.5-5.0) g/dL 07/26/24 07/26/24 07/27/24 Range/Units 19:13 21:06 02:39 WBC (4.50-10.00) 10*3/uL RBC (4.40-5.60) 10*6/uL Hgb (13.0-17.0) g/dL Hct (39.6-50.0) % MCHC (32.0-37.0) g/dL Immature Gran # (0.00-0.04) 10*3/uL Neutrophils # (1.80-7.70) 10*3/uL Monocytes # (0.20-1.00) 10*3/uL Eosinophils # (0.04-0.35) X 10*3/uL Potassium 3.3 L (3.5-5.1) mmol/L Chloride (98-107) mmol/L Carbon Dioxide 21 L (22-30) mmol/L BUN 21 H (9-20) mg/dL Glucose 222 H (74-99) mg/dL POC Glucose (mg/dL) 232 H (70-110) mg/dL Total Protein 5.6 L (6.3-8.2) g/dL Albumin 2.7 L (3.5-5.0) g/dL 07/27/24 07/27/24 Range/Units 02:39 06:13 WBC 11.03 H (4.50-10.00) 10*3/uL RBC 2.95 L (4.40-5.60) 10*6/uL Hgb 8.2 L (13.0-17.0) g/dL Hct 25.7 L (39.6-50.0) % MCHC 31.9 L (32.0-37.0) g/dL Immature Gran # 0.08 H (0.00-0.04) 10*3/uL Neutrophils # 9.36 H (1.80-7.70) 10*3/uL Monocytes # (0.20-1.00) 10*3/uL Eosinophils # 0 L (0.04-0.35) X 10*3/uL Potassium (3.5-5.1) mmol/L Chloride (98-107) mmol/L Carbon Dioxide (22-30) mmol/L BUN (9-20) mg/dL Glucose (74-99) mg/dL POC Glucose (mg/dL) 285 H (70-110) mg/dL Total Protein (6.3-8.2) g/dL Albumin (3.5-5.0) g/dL Microbiology - Last 24 Hours (Table) 07/26/24 15:22 Gram Stain - Preliminary Foot - Right 07/25/24 15:46 Blood Culture - Preliminary Blood Assessment and Plan Time with Patient: Less than 30
[2024-07-27] MEDS ORDERED: VANCOMYCIN TROUGH DUE 1 EACH MISC MISCELLANE ONE (16:00)
[2024-07-27 17:05] LABS: Glucose,Whole Blood 308 mg/dL (70-110)
[2024-07-27] MEDS: ALBUTEROL HFA INHALER INHALATION PRN (19:37)
[2024-07-27 21:07] LABS: Glucose,Whole Blood 152 mg/dL (70-110)
[2024-07-27] MEDS: MELATONIN 5 MG TABLET PO SCH (21:47)
--- NOTE | 2024-07-27 23:32 | CT ---
EXAMINATION TYPE: CT urogram wo/w con DATE OF EXAM: 07/27/2024 4:49 PM COMPARISON: None. CLINICAL INDICATION: Male, 79 years old with history of hydronephrosis, Hydronephrosis. TECHNIQUE: Axial images were obtained from above the diaphragm to the pubic rami in the axial plane a t 5 mm thick sections. Reconstructed images are reviewed on the computer in the coronal plane. Thre e-D reconstructed images through the renal collecting system and ureters and bladder are performed on a separate computer by the technologist. CONTRAST: 100 mL of Isovue 370. Study performed DLP: 2230 mGycm, Automated exposure control for dose reduction was used. FINDINGS: Limited CT sections are obtained the lung bases. Minimal left pleural fluid is present. CT ABDOMEN: Liver: Normal Spleen: Normal Pancreas: Atrophic Adrenal glands: Left adrenal gland may be thickened measuring 1.9 cm. Right adrenal gland is normal Gallbladder: Normal Kidneys: No masses are evident. No hydronephrosis. There is a 6.8 x 3.3 cm cyst at the inferior pole left kidney. There is a 0.9 cm nonobstructing renal calcification mid inferior pole left kidney Ther e is a 2.6 cm cyst on the posterior lateral mid right kidney. Renal calyces infundibula and renal pelves appear normal. Ureters are incompletely visualized. Proxim al left ureter appears normal. Urinary bladder with contrast appears normal Aorta: Vascular calcification is within the aorta. Inferior vena cava: Normal. CT PELVIS: Loops of bowel within the abdomen and pelvis are normal. Diverticular changes are within the sigmoid colon This study is without oral contrast limiting follow-up evaluation. Appendix: Normal as visualized. Urinary bladder: Normal. Genitourinary structures: Prostate is prominent Osseous structures: No suspicious lytic or sclerotic lesions. IMPRESSION: 1. No suspicious abnormality identified urographic reconstructed images. Ureters however are largely nondiagnostic. 2. Sigmoid diverticulosis without acute diverticulitis 3. Renal cysts. 4. 0.9 cm nonobstructing inferior pole left renal stone [facility], , 07/27/2024 11:30 PM
[2024-07-28 06:02] LABS: Glucose,Whole Blood 120 mg/dL (70-110)
[2024-07-28 08:51] LABS: Basophils # (A) 0.03 X 10*3/uL (0.00-0.10); Basophils % (A) 0.4 %; Eosinophils # (A) 0.18 X 10*3/uL (0.04-0.35); Eosinophils % (A) 2.4 %; HCT 23.9 % (39.6-50.0); HGB 7.6 g/dL (13.0-17.0); Lymphocytes # (A) 2.18 X 10*3/uL (0.90-5.00); Lymphocytes % (A) 29.6 %; MCH 27.8 pg (27.0-32.0); MCHC 31.8 g/dL (32.0-37.0); MCV 87.5 FL (80.0-97.0); Mean Platelet Volume 9.1 FL (9.5-12.2); Monocytes # (A) 0.53 X 10*3/uL (0.20-1.00); Monocytes % (A) 7.2 %; NRBC Per 100 WBC 0 X 10*3/uL (0.00-0.01); Neutrophils # (A) 4.39 X 10*3/uL (1.80-7.70); Neutrophils % (A) 59.6 %; Platelet Count 371 X 10*3/uL (140-440); RBC 2.73 X 10*6/uL (4.40-5.60); RDW 13.7 % (11.5-14.5); WBC 7.37 X 10*3/uL (4.50-10.00)
[2024-07-28 09:03] LABS: BUN/Creat Ratio 16.83 Ratio (12.00-20.00); Blood Urea Nitrogen 20.2 mg/dL (9.0-27.0); Carbon Dioxide 21.6 mmol/L (21.6-31.8); Chloride 109 mmol/L (96-109); Glucose 78 mg/dL (70-110); Potassium 3.6 mmol/L (3.5-5.5); Sodium 142 mmol/L (135-145)
[2024-07-28 09:07] LABS: Calcium 8.2 mg/dL (8.7-10.3)
[2024-07-28 11:11] LABS: Glucose,Whole Blood 262 mg/dL (70-110)
[2024-07-28 11:30] LABS: African American GFR (CKD) 80 (>60 ml/min/1.73 sqM); Anion Gap 12 mmol/L; Blood Urea Nitrogen 18 mg/dL (9-20); Calcium 8.8 mg/dL (8.4-10.2); Carbon Dioxide 22 mmol/L (22-30); Chloride 105 mmol/L (98-107); Glucose 179 mg/dL (74-99); Non-African American GFR(CKD) 69 (>60 ml/min/1.73 sqM); Potassium 3.7 mmol/L (3.5-5.1); Sodium 139 mmol/L (137-145)
--- NOTE | 2024-07-28 11:36 | P.PN ---
Subjective Progress Note Date: 07/28/24 No acute overnight event, on CT no evidence of hydronephrosis, but rather was a parapelvic cyst. Denies any flank pain. Objective - Vital Signs Vital signs: Vital Signs Temp 97.9 F 07/28/24 07:20 Pulse 64 07/28/24 07:20 Resp 17 07/28/24 07:20 BP 148/70 07/28/24 07:20 Pulse Ox 98 07/28/24 07:20 FiO2 Intake & Output 07/27/24 07/28/24 07/28/24 18:59 06:59 18:59 Other: Voiding Method Urinal # Voids 4 1 # Bowel Movements 1 - Constitutional General appearance: Present: no acute distress - Gastrointestinal General gastrointestinal: Present: soft. Absent: distended, tenderness - Psychiatric Psychiatric: Present: A&O x's 3 - Labs CBC & Chem 7: 07/28/24 02:46 07/28/24 09:24 Labs: Abnormal Lab Results - Last 24 Hours (Table) 07/27/24 07/27/24 07/28/24 Range/Units 17:03 21:05 02:46 RBC 2.73 L (4.40-5.60) X 10*6/uL Hgb 7.6 L (13.0-17.0) g/dL Hct 23.9 L (39.6-50.0) % MCHC 31.8 L (32.0-37.0) g/dL MPV 9.1 L (9.5-12.2) FL Immature Gran # 0.06 H (0.00-0.04) X 10*3/uL Glucose (74-99) mg/dL POC Glucose (mg/dL) 308 H 152 H (70-110) mg/dL Calcium (8.7-10.3) mg/dL 07/28/24 07/28/24 07/28/24 Range/Units 02:46 06:01 09:24 RBC (4.40-5.60) X 10*6/uL Hgb (13.0-17.0) g/dL Hct (39.6-50.0) % MCHC (32.0-37.0) g/dL MPV (9.5-12.2) FL Immature Gran # (0.00-0.04) X 10*3/uL Glucose 179 H (74-99) mg/dL POC Glucose (mg/dL) 120 H (70-110) mg/dL Calcium 8.2 L (8.7-10.3) mg/dL 07/28/24 Range/Units 11:10 RBC (4.40-5.60) X 10*6/uL Hgb (13.0-17.0) g/dL Hct (39.6-50.0) % MCHC (32.0-37.0) g/dL MPV (9.5-12.2) FL Immature Gran # (0.00-0.04) X 10*3/uL Glucose (74-99) mg/dL POC Glucose (mg/dL) 262 H (70-110) mg/dL Calcium (8.7-10.3) mg/dL Microbiology - Last 24 Hours (Table) 07/25/24 15:46 Blood Culture - Preliminary Blood 07/26/24 15:22 Gram Stain - Preliminary Foot - Right Wound Culture - Preliminary Assessment and Plan Assessment: 79-year-old male with history of incidental finding of left-sided hydronephrosis. This was seen on the CT angiogram. CT urogram showed no evidence of hydronephrosis, but rather a parapelvic cyst. Also evidence of a nonobstructing left renal stone, he is asymptomatic from it. Primary standpoint no further intervention is needed
--- NOTE | 2024-07-28 12:29 | P.PN ---
Subjective Progress Note Date: 07/28/24 Principal diagnosis: Nonhealing infected right lower extremity wound Patient is seen and examined today as a follow-up. He states he is having some pain of the right gupta. Pain is relieved with elevation using pillows. He has been afebrile. He is scheduled to undergo formal below the knee amputation tomorrow. Preliminary blood culture is no growth after 48 hours. Objective - Vital Signs Vital signs: Vital Signs Temp 97.9 F 07/28/24 07:20 Pulse 64 07/28/24 07:20 Resp 17 07/28/24 07:20 BP 148/70 07/28/24 07:20 Pulse Ox 98 07/28/24 07:20 FiO2 Intake & Output 07/27/24 07/28/24 07/28/24 18:59 06:59 18:59 Other: Voiding Method Urinal # Voids 4 1 # Bowel Movements 1 - Exam General appearance: The patient is alert, oriented, appears in no acute distress. HET: Head is normocephalic and atraumatic. Neck: Supple. Abdomen: Soft, nondistended. Extremities: Normal skin color and turgor. Right lower extremity with dressing clean dry and intact. Good capillary refill warm to the touch. No erythema. Swelling improving. Tender to palpation along gupta. Neurological: No focal deficits. Alert and oriented. - Labs CBC & Chem 7: 07/28/24 02:46 07/28/24 09:24 Labs: Abnormal Lab Results - Last 24 Hours (Table) 07/27/24 07/27/24 07/28/24 Range/Units 17:03 21:05 02:46 RBC 2.73 L (4.40-5.60) X 10*6/uL Hgb 7.6 L (13.0-17.0) g/dL Hct 23.9 L (39.6-50.0) % MCHC 31.8 L (32.0-37.0) g/dL MPV 9.1 L (9.5-12.2) FL Immature Gran # 0.06 H (0.00-0.04) X 10*3/uL Glucose (74-99) mg/dL POC Glucose (mg/dL) 308 H 152 H (70-110) mg/dL Calcium (8.7-10.3) mg/dL 07/28/24 07/28/24 07/28/24 Range/Units 02:46 06:01 09:24 RBC (4.40-5.60) X 10*6/uL Hgb (13.0-17.0) g/dL Hct (39.6-50.0) % MCHC (32.0-37.0) g/dL MPV (9.5-12.2) FL Immature Gran # (0.00-0.04) X 10*3/uL Glucose 179 H (74-99) mg/dL POC Glucose (mg/dL) 120 H (70-110) mg/dL Calcium 8.2 L (8.7-10.3) mg/dL 07/28/24 Range/Units 11:10 RBC (4.40-5.60) X 10*6/uL Hgb (13.0-17.0) g/dL Hct (39.6-50.0) % MCHC (32.0-37.0) g/dL MPV (9.5-12.2) FL Immature Gran # (0.00-0.04) X 10*3/uL Glucose (74-99) mg/dL POC Glucose (mg/dL) 262 H (70-110) mg/dL Calcium (8.7-10.3) mg/dL Microbiology - Last 24 Hours (Table) 07/25/24 15:46 Blood Culture - Preliminary Blood 07/26/24 15:22 Gram Stain - Preliminary Foot - Right Wound Culture - Preliminary Assessment and Plan Assessment: 1. Infected diabetic ulcer, wet gangrene with foot abscess tracking to the heel status post guillotine amputation 2. Osteomyelitis 3. Hypokalemia 4. Diabetes mellitus 5. Hypertension Plan: 1. N.p.o. after midnight 2. Continue with antibiotic recommendations from infectious disease 3. Daily dressing change with wet-to-dry dressing, wrap with Kerlix and then apply Coban 4. Nonweightbearing on right lower extremity 5. Physical therapy consultation, evaluate and treat. Plan for formal BKA on Thursday. 6. Patient scheduled for right below the knee amputation 07/29/2024 7. Rest of medical management per primary medical team Thank you for this consultation, we will continue to follow. The impression and plan of care has been dictated as directed. Dr. Giliberto I performed a history and examination of this patient, discussed the same with the dictator. I agree with the dictator's note ,documented as a scribe. Any additional findings or plans will be noted.
--- NOTE | 2024-07-28 15:41 | P.PN ---
Subjective Progress Note Date: 07/27/24 Principal diagnosis: Reason for follow-up is right diabetic foot infection/osteomyelitis Patient is 79-year-old male with a past medical history significant for diabetes mellitus hypertension history of diabetic foot infection and previous right 4th and 5th amputation patient presented to [facility] ER concerning for worsening swelling redness and drainage to the right foot, patient was noticed to have extensive infection needing disarticulation at the ankle joint by vascular surgery. On today's evaluation that is 07/27/2024,the patient denies any fever or any chills, patient is breathing comfortably on room air, the patient denies chest pain shortness of breath and no significant cough, patient denies abdominal pain, no nausea vomiting or diarrhea. Pain to the right leg is currently controlled Patient white count is down to 11.03, creatinine 1.08 cultures currently pending Objective - Vital Signs Vital signs: Vital Signs Temp 98.0 F 07/27/24 08:00 Pulse 65 07/27/24 08:00 Resp 15 07/27/24 08:00 BP 134/62 07/27/24 08:00 Pulse Ox 98 07/27/24 08:00 FiO2 Intake & Output 07/26/24 07/27/24 07/27/24 18:59 06:59 18:59 Intake Total 2000 Output Total 1980 Weight 78.018 kg Intake: IV 301 Intake, IV Titration 1700 Amount ACETAMINOPHEN IV (For NPO 100 ) 1,000 mg In Empty Bag 1 bag @ 400 mls/hr IVPB Q6HR PRN Rx#:[id number] Piperacillin-Tazobactam 3 100 .375 gm In Sodium Chloride 0.9% 100 ml @ 25 mls/hr IVPB Q8HR [facility] Rx# :[id number] Potassium Chloride 10 meq 400 In Water For Injection 1 100ml.bag @ 100 mls/hr IVPB Q1HR [facility] Rx#: [id number] Sodium Chloride 0.9% 1, 600 000 ml @ 75 mls/hr IV . [id number] [facility] Rx#:[id number] Vancomycin 1,500 mg In 500 Sodium Chloride 0.9% 500 ml 500 ml @ 167 mls/hr IVPB Q16H [facility] Rx#: [id number] Output: Estimated Blood Loss 20 Other: Voiding Method Urinal # Voids 2 - Exam GENERAL DESCRIPTION: An elderly male lying in bed in no distress RESPIRATORY SYSTEM: Unlabored breathing , decreased breath sounds at bases HEART: S1 S2 regular rate and rhythm , ABDOMEN: Soft , no tenderness EXTREMITIES: Right lower leg disarticulation site is currently dressed - Labs CBC & Chem 7: 07/28/24 02:46 07/28/24 09:24 Labs: Abnormal Lab Results - Last 24 Hours (Table) 07/26/24 07/26/24 07/26/24 Range/Units 16:09 17:30 19:13 WBC (4.50-10.00) X 10*3/uL RBC (4.40-5.60) X 10*6/uL Hgb (13.0-17.0) g/dL Hct (39.6-50.0) % MCHC (32.0-37.0) g/dL Immature Gran # (0.00-0.04) X 10*3/uL Neutrophils # (1.80-7.70) X 10*3/uL Eosinophils # (0.04-0.35) X 10*3/uL Potassium 3.3 L (3.5-5.1) mmol/L Carbon Dioxide (22-30) mmol/L BUN (9-20) mg/dL Glucose (74-99) mg/dL POC Glucose (mg/dL) 129 H 160 H (70-110) mg/dL Total Protein (6.3-8.2) g/dL Albumin (3.5-5.0) g/dL 07/26/24 07/27/24 07/27/24 Range/Units 21:06 02:39 02:39 WBC 11.03 H (4.50-10.00) X 10*3/uL RBC 2.95 L (4.40-5.60) X 10*6/uL Hgb 8.2 L (13.0-17.0) g/dL Hct 25.7 L (39.6-50.0) % MCHC 31.9 L (32.0-37.0) g/dL Immature Gran # 0.08 H (0.00-0.04) X 10*3/uL Neutrophils # 9.36 H (1.80-7.70) X 10*3/uL Eosinophils # 0 L (0.04-0.35) X 10*3/uL Potassium (3.5-5.1) mmol/L Carbon Dioxide 21 L (22-30) mmol/L BUN 21 H (9-20) mg/dL Glucose 222 H (74-99) mg/dL POC Glucose (mg/dL) 232 H (70-110) mg/dL Total Protein 5.6 L (6.3-8.2) g/dL Albumin 2.7 L (3.5-5.0) g/dL 07/27/24 07/27/24 Range/Units 06:13 11:16 WBC (4.50-10.00) X 10*3/uL RBC (4.40-5.60) X 10*6/uL Hgb (13.0-17.0) g/dL Hct (39.6-50.0) % MCHC (32.0-37.0) g/dL Immature Gran # (0.00-0.04) X 10*3/uL Neutrophils # (1.80-7.70) X 10*3/uL Eosinophils # (0.04-0.35) X 10*3/uL Potassium (3.5-5.1) mmol/L Carbon Dioxide (22-30) mmol/L BUN (9-20) mg/dL Glucose (74-99) mg/dL POC Glucose (mg/dL) 285 H 381 H (70-110) mg/dL Total Protein (6.3-8.2) g/dL Albumin (3.5-5.0) g/dL Microbiology - Last 24 Hours (Table) 07/26/24 15:22 Gram Stain - Preliminary Foot - Right 07/25/24 15:46 Blood Culture - Preliminary Blood Assessment and Plan (1) Foot osteomyelitis, right Current Visit: Yes Status: Acute Code(s): M86.9 - OSTEOMYELITIS, UNSPECIFIED SNOMED Code(s): 3673955013964350 (2) Elevated serum creatinine Current Visit: Yes Status: Acute Code(s): R79.89 - OTHER SPECIFIED ABNORMAL FINDINGS OF BLOOD CHEMISTRY SNOMED Code(s): 874386366 (3) Diabetic infection of right foot Current Visit: No Status: Acute Code(s): E11.628 - TYPE 2 DIABETES MELLITUS WITH OTHER SKIN COMPLICATIONS; L08.9 - LOCAL INFECTION OF THE SKIN AND SUBCUTANEOUS TISSUE, UNSP SNOMED Code(s): 710239498 Plan: 1patient with a complicated history of multiple diabetic foot infection this patient did have previous amputation of the toes now presenting with extensive right diabetic foot infection with evidence of air on the CT concerning for gas- forming pathogen and will need to cover for the polymicrobial maricel associated with diabetic foot infection 2patient is status post disarticulation of the right ankle because of extensive infection involving the foot and plan is for BKA as per discussion with the vascular surgery 4patient currently being treated with Zosyn and daptomycin while waiting for the culture to finalize Dictation was produced using [employer] dictation software. please excuse any grammatical, word or spelling errors. Time with Patient: Less than 30
--- NOTE | 2024-07-28 15:41 | P.PN ---
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 On today's evaluation that is 07/28/2024,the patient remains to be afebrile, patient is on room air not requiring supplemental oxygen and denies any shortness of breath no chest pain or cough.Patient denies having any nausea or vomiting, no abdominal pain and no diarrhea, pain to the lower extremities currently controlled. Patient white count normalized to 7.37 creatinine 1.04 cultures currently pending Objective - Vital Signs Vital signs: Vital Signs Temp 97.9 F 07/28/24 07:20 Pulse 64 07/28/24 07:20 Resp 17 07/28/24 07:20 BP 148/70 07/28/24 07:20 Pulse Ox 98 07/28/24 07:20 FiO2 Intake & Output 07/27/24 07/28/24 07/28/24 18:59 06:59 18:59 Other: Voiding Method Urinal # Voids 4 1 # Bowel Movements 1 - Exam GENERAL DESCRIPTION: An elderly male lying in bed in no distress RESPIRATORY SYSTEM: Unlabored breathing , decreased breath sounds at bases HEART: S1 S2 regular rate and rhythm , ABDOMEN: Soft , no tenderness EXTREMITIES: Right lower leg disarticulation site is currently dressed - Labs CBC & Chem 7: 07/28/24 02:46 07/28/24 09:24 Labs: Abnormal Lab Results - Last 24 Hours (Table) 07/27/24 07/27/24 07/28/24 Range/Units 17:03 21:05 02:46 RBC 2.73 L (4.40-5.60) X 10*6/uL Hgb 7.6 L (13.0-17.0) g/dL Hct 23.9 L (39.6-50.0) % MCHC 31.8 L (32.0-37.0) g/dL MPV 9.1 L (9.5-12.2) FL Immature Gran # 0.06 H (0.00-0.04) X 10*3/uL Glucose (74-99) mg/dL POC Glucose (mg/dL) 308 H 152 H (70-110) mg/dL Calcium (8.7-10.3) mg/dL 07/28/24 07/28/24 07/28/24 Range/Units 02:46 06:01 09:24 RBC (4.40-5.60) X 10*6/uL Hgb (13.0-17.0) g/dL Hct (39.6-50.0) % MCHC (32.0-37.0) g/dL MPV (9.5-12.2) FL Immature Gran # (0.00-0.04) X 10*3/uL Glucose 179 H (74-99) mg/dL POC Glucose (mg/dL) 120 H (70-110) mg/dL Calcium 8.2 L (8.7-10.3) mg/dL 07/28/24 Range/Units 11:10 RBC (4.40-5.60) X 10*6/uL Hgb (13.0-17.0) g/dL Hct (39.6-50.0) % MCHC (32.0-37.0) g/dL MPV (9.5-12.2) FL Immature Gran # (0.00-0.04) X 10*3/uL Glucose (74-99) mg/dL POC Glucose (mg/dL) 262 H (70-110) mg/dL Calcium (8.7-10.3) mg/dL Microbiology - Last 24 Hours (Table) 07/25/24 15:46 Blood Culture - Preliminary Blood 07/26/24 15:22 Gram Stain - Preliminary Foot - Right Wound Culture - Preliminary Assessment and Plan (1) Foot osteomyelitis, right Current Visit: Yes Status: Acute Code(s): M86.9 - OSTEOMYELITIS, UNSPECIFIED SNOMED Code(s): 9861225590625294 (2) Elevated serum creatinine Current Visit: Yes Status: Acute Code(s): R79.89 - OTHER SPECIFIED ABNORMAL FINDINGS OF BLOOD CHEMISTRY SNOMED Code(s): 219873062 (3) Diabetic infection of right foot Current Visit: No Status: Acute Code(s): E11.628 - TYPE 2 DIABETES MELLITUS WITH OTHER SKIN COMPLICATIONS; L08.9 - LOCAL INFECTION OF THE SKIN AND SUBCUTANEOUS TISSUE, UNSP SNOMED Code(s): 831246547 Plan: 1patient with a complicated history of multiple diabetic foot infection this patient did have previous amputation of the toes now presenting with extensive r ight diabetic foot infection with evidence of air on the CT concerning for gas- forming pathogen and will need to cover for the polymicrobial maricel associated with diabetic foot infection 2patient is status post disarticulation of the right ankle because of extensive infection involving the foot and plan is for BKA as per discussion with the vascular surgery 4patient currently being treated with Zosyn and daptomycin while waiting for the culture to finalize however if the blood culture remains to be negative patient will not need to be on any IV antibiotic on discharge Dictation was produced using [employer] dictation software. please excuse any grammatical, word or spelling errors. Time with Patient: Less than 30
[2024-07-28 16:47] LABS: Glucose,Whole Blood 333 mg/dL (70-110)
[2024-07-28] MEDS: POTASSIUM CHLORIDE ER 20 MEQ TAB.ER PO STA (17:04)
[2024-07-28 20:41] LABS: Glucose,Whole Blood 152 mg/dL (70-110)
[2024-07-28 21:48] LABS: Glucose,Whole Blood 160 mg/dL (70-110)
[2024-07-28] MEDS: SENNOSIDES 8.6 MG TAB PO PRN (21:56)
[2024-07-28] MEDS: SODIUM CHLORIDE 0.9% 1,000 ML IV SCH (21:59)
[2024-07-29 02:20] LABS: Glucose,Whole Blood 104 mg/dL (70-110)
--- NOTE | 2024-07-29 05:02 | P.PN ---
Subjective Progress Note Date: 07/28/24 This is a pleasant 79-year-old male who presented to the emergency department with increasing pain and drainage of the right foot and has been progressively becoming more swollen and follows with Dr. Quiñones outpatient at the wound care center. Apparently patient had gone to the wound care center and was diagnosed with wet gangrene and wanted the patient to come here for further vascular surgery consult. Dr. Quiñones is currently out of town and this was discussed with vascular surgery, Dr. Adame's group and will be undergoing surgical intervention including great toe amputation on the right today. Patient also with infectious disease consulted as patient follows with him outpatient as well and there was concerns of osteomyelitis. Patient did previously have right 4th and 5th toes removed as well. Patient reports he follows with Dr. 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 Labs reviewed from ER admission with a white count of 15.48, hemoglobin 8.9, platelets 395, sodium 138, potassium 3.2, creatinine 1.37, BUN 28, random glucose elevated at 282, lactic acid 1.6. Patient did report some swelling and pain up into the calf and did undergo venous Doppler which shows right lower extremity negative for DVT and patency within the vessels. CT angiography performed of the abdomen pelvis revealing a right first metatarsal region extending to the plantar aspect of the foot along the medial right ankle and posterior right ankle with gas-forming infection that should be considered along with soft tissue swelling through the distal right calf and an occlusion of the vascular trifurcation vessels bilaterally. 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 In cidental finding of the left hydronephrosis and will consult urology and appreciate input and recommendations. Patient reports he is voiding with no difficulties and creatinine is stable at 1.37. Will follow-up on repeat labs and resume diet once cleared by surgery. Recommend tight glycemic control for healing as hemoglobin A1c is noted to be uncontrolled and elevated at 10.5. 07/27/2024 Patient is evaluated in follow-up with medical floor. He was still complaining of some mild pain of the right calf area however states that is nothing extensive and feels like he does not need any pain medication for this currently. He was complaining of some mild shortness of breath states that he uses albuterol inhaler at home and is requesting this. Patient is postoperative day 1 right lower foot amputation. He continues on antibiotics in the form of Daptomycin and Zosyn. Urology has evaluated patient for the incidental finding of the left sided hydronephrosis and planning to undergo CT urogram. His blood work today reveals a white blood cell count of 11.03, hemoglobin stable at 8.2, sodium 139, BUN of 21 creatinine 1.08. His blood glucose remains significantly elevated in the 300s. Patient will go for right BKA on 07/29. 07/28/2024 Patient is seen and evaluated in follow-up this morning currently sitting up in the chair with lower extremities elevated. Right surgical dressing is dry and intact and patient is scheduled to undergo BKA tomorrow with vascular surgery. Patient is continued on IV antibiotics with infectious disease following. Continue monitoring Accu-Cheks closely including 2 AMS patient will be n.p.o. at midnight and patient is a diabetic. Monitor for any concerns of hypoglycemia and continue with dextrose per protocol. Will follow-up on repeat labs and monitor kidney functions and electrolytes closely. Patient's potassium was 3.6 and will give 40 mEq today. REVIEW OF SYSTEMS: CONSTITUTIONAL: No fever, no malaise, no fatigue. HEENT: No recent visual problems or hearing problems. Denied any sore throat. CARDIOVASCULAR: No chest pain, orthopnea, PND, no palpitations, no syncope. PULMONARY: No shortness of breath, no cough, no hemoptysis. GASTROINTESTINAL: No diarrhea, no nausea, no vomiting, no abdominal pain. NEUROLOGICAL: No headaches, reports of generalized weakness, no numbness. PHYSICAL EXAMINATION: GENERAL: The patient is alert and oriented x3, not in any acute distress. Well developed, well nourished. Elderly appearing, thin built HEENT: Pupils are round and equally reacting to light. EOMI. No scleral icterus. No conjunctival pallor. Normocephalic, atraumatic. No pharyngeal erythema. No thyromegaly. CARDIOVASCULAR: S1 and S2 present. No murmurs, rubs, or gallops. PULMONARY: Chest is clear to auscultation, no wheezing or crackles. ABDOMEN: Soft, thin, nontender, nondistended, normoactive bowel sounds. No palpable organomegaly. MUSCULOSKELETAL: No joint swelling or deformity. Surgical dressing is dry and intact of the right lower extremity EXTREMITIES: No cyanosis, clubbing, or pedal edema. Status post right foot amputation NEUROLOGICAL: Gross neurological examination did not reveal any focal deficits. Diffusely weak SKIN: No rashes. Assessment: Right foot pain with nonhealing wounds and an infected diabetic ulcer, wet gangrene Status post right lower extremity guillotine amputation. 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 Quiñones for further evaluation and possible amputation. Patient was evaluated by Dr. Rodriguez service as Dr. Quiñones is out of town. And is status post right lower extremity guillotine amputation and will go for right below the knee amputation on July 29. Patient did undergo CT angio with some incidental findings also noted to have severe left hydronephrosis. Kidney functions relatively stable with a mild HUONG, will have urology consulted and appreciate input and recommendations Continue with home medications as appropriate Continue monitoring Accu-Cheks AC and at bedtime along with sliding scale and long-acting and will adjust accordingly. Diabetes education as patient's hemoglobin A1c is 10.5. Monitor blood sugars closely as patient will be n.p.o. after midnight for surgical intervention in the morning. Dextrose as needed for any hypoglycemia Replace potassium per protocol and follow-up with repeat labs. Recommend incentive spirometer at least 10 times every hour while awake The impression and plan of care has been dictated by Yesenia Ward, Nurse Practitioner as directed. Dr. Gabby MD I have performed a history and examination and MDM of this patient, discussed the same with the dictator, and agree with the dictator's assessment and plan as written ,documented as a scribe. Based on total visit time, I have performed more than 50% of the visit. Objective - Vital Signs Vital signs: Vital Signs Temp 97.9 F 07/28/24 07:20 Pulse 64 07/28/24 07:20 Resp 17 07/28/24 07:20 BP 148/70 07/28/24 07:20 Pulse Ox 98 07/28/24 07:20 FiO2 Intake & Output 07/27/24 07/28/24 07/28/24 18:59 06:59 18:59 Other: Voiding Method Urinal # Voids 4 1 # Bowel Movements 1 - Labs CBC & Chem 7: 07/28/24 02:46 07/28/24 09:24 Labs: Abnormal Lab Results - Last 24 Hours (Table) 07/27/24 07/27/24 07/27/24 Range/Units 11:16 17:03 21:05 RBC (4.40-5.60) X 10*6/uL Hgb (13.0-17.0) g/dL Hct (39.6-50.0) % MCHC (32.0-37.0) g/dL MPV (9.5-12.2) FL Immature Gran # (0.00-0.04) X 10*3/uL POC Glucose (mg/dL) 381 H 308 H 152 H (70-110) mg/dL Calcium (8.7-10.3) mg/dL 07/28/24 07/28/24 07/28/24 Range/Units 02:46 02:46 06:01 RBC 2.73 L (4.40-5.60) X 10*6/uL Hgb 7.6 L (13.0-17.0) g/dL Hct 23.9 L (39.6-50.0) % MCHC 31.8 L (32.0-37.0) g/dL MPV 9.1 L (9.5-12.2) FL Immature Gran # 0.06 H (0.00-0.04) X 10*3/uL POC Glucose (mg/dL) 120 H (70-110) mg/dL Calcium 8.2 L (8.7-10.3) mg/dL Microbiology - Last 24 Hours (Table) 07/25/24 15:46 Blood Culture - Preliminary Blood 07/26/24 15:22 Gram Stain - Preliminary Foot - Right Wound Culture - Preliminary
[2024-07-29 05:32] LABS: Basophils # (A) 0.06 10*3/uL (0.00-0.10); Basophils % (A) 0.8 %; Eosinophils # (A) 0.23 10*3/uL (0.04-0.35); HCT 25.2 % (39.6-50.0); HGB 8.2 g/dL (13.0-17.0); Lymphocytes # (A) 1.96 10*3/uL (0.90-5.00); Lymphocytes % (A) 25.7 %; MCH 28.2 pg (27.0-32.0); MCHC 32.5 g/dL (32.0-37.0); MCV 86.6 fL (80.0-97.0); Monocytes # (A) 0.67 10*3/uL (0.20-1.00); Monocytes % (A) 8.8 %; Neutrophils # (A) 4.62 10*3/uL (1.80-7.70); Neutrophils % (A) 60.7 %; Platelet Count 410 10*3/uL (140-440); RBC 2.91 10*6/uL (4.40-5.60); RDW 13.5 % (11.5-14.5); WBC 7.62 10*3/uL (4.50-10.00)
[2024-07-29 06:07] LABS: Glucose,Whole Blood 97 mg/dL (70-110)
[2024-07-29 08:30] LABS: BUN/Creat Ratio 14.45 Ratio (12.00-20.00); Blood Urea Nitrogen 15.9 mg/dL (9.0-27.0); Calcium 8.2 mg/dL (8.7-10.3); Carbon Dioxide 23.2 mmol/L (21.6-31.8); Chloride 110 mmol/L (96-109); Glucose 73 mg/dL (70-110); Potassium 4.1 mmol/L (3.5-5.5); Sodium 142 mmol/L (135-145)
[2024-07-29 11:19] LABS: Glucose,Whole Blood 98 mg/dL (70-110)
[2024-07-29 12:13] LABS: Glucose,Whole Blood 86 mg/dL (70-110)
[2024-07-29] MEDS: ONDANSETRON 4 MG/2 ML VIAL IVP STA (12:19)
[2024-07-29] MEDS: DEXAMETHASONE SOD PHOSPHATE 4 MG/ML 1 ML VIAL IVP STA (12:20)
[2024-07-29] MEDS: MIDAZOLAM 2 MG/2 ML VIAL IV ONE (12:26)
[2024-07-29] MEDS ORDERED: PROPOFOL 10 MG/ML 20 ML VIAL IV ONE (12:28)
[2024-07-29] MEDS ORDERED: DEXAMETHASONE SOD PHOSPHATE 4 MG/ML 1 ML VIAL ONE (12:28)
[2024-07-29] MEDS ORDERED: ROPIVACAINE 5 MG/ML 30 ML VIAL ONE (12:28)
[2024-07-29] MEDS ORDERED: PHENYLEPHRINE 10 MG/ML VIAL ONE (12:28)
[2024-07-29] MEDS ORDERED: fentaNYL (PF) 50 MCG/ML 2 ML AMP ONE (12:28)
[2024-07-29] MEDS: SODIUM CHLORIDE 0.9% 1,000 ML IV ONE ×2 (12:41→13:23)
--- NOTE | 2024-07-29 12:53 | P.ANPRN ---
Procedure Note - Anesthesia - Nerve Block Performed Right Adductor Canal Single Time Out Performed: Yes Date of Procedure: 07/29/24 Procedure Start Time: 12:26 Procedure Stop Time: 12:34 Location of Patient: PreOp Indication: Acute Post-Operative Pain, Requested by Surgeon Sedation Type: Sedate with meaningful contact maintained Preparation: Sterile Prep, Sterile Dressing Position: Supine Catheter: None Needle Types: Facet Needle Gauge: 20 Ultrasound used to visualize needle placement: Yes Ultrasound used to observe medication spread: Yes Injectate: 0.5% Ropivacaine (see comment for volume) (12 ml + decadron 2 mg) Blood Aspirated: No Pain Paresthesia on Injection Noted: No Resistance on Injection: Normal Image Stored and Saved: Yes Events: Uneventful and Well Tolerated Right Other (see comment) Single Time Out Performed: Yes (Sciatic) Date of Procedure: 07/29/24 Procedure Start Time: 12:35 Procedure Stop Time: 12:42 Location of Patient: PreOp Indication: Acute Post-Operative Pain, Requested by Surgeon Sedation Type: Sedate with meaningful contact maintained Preparation: Sterile Prep, Sterile Dressing Position: Left Lateral Catheter: None Needle Types: Facet Needle Gauge: 20 Ultrasound used to visualize needle placement: Yes Ultrasound used to observe medication spread: Yes Injectate: 0.5% Ropivacaine (see comment for volume) (18 ml + decadron 2 mg) Blood Aspirated: No Pain Paresthesia on Injection Noted: No Resistance on Injection: Normal Image Stored and Saved: Yes Events: Uneventful and Well Tolerated
[2024-07-29] MEDS: ceFAZolin 2 GM in SODIUM CHLORIDE 0.9% 500 ML 500 ML IRRIGATION ONE (13:03)
--- NOTE | 2024-07-29 14:17 | P.OP ---
Date of Procedure: 07/29/24 Description of Procedure: PREOPERATIVE DIAGNOSIS: Gas-forming infection right lower extremity with previous guillotine amputation. POSTOPERATIVE DIAGNOSIS: Same. OPERATION: Right below-knee amputation SURGEON: Hillary Miller DO ANESTHESIA: General LMA with regional block ESTIMATED BLOOD LOSS: 100 cc SPECIMENS REMOVED: Right lower extremity COMPLICATIONS: None CONDITION: Stable to recovery FINDINGS AND INDICATIONS: Patient is a 79-year-old male who earlier this week came in with significant infection to his right foot and ever subsequent evaluation to the operating room there was determined that the area of disease and wound infection was too extensive along with gas formation with the abscess running to the heel. Due to this a QT amputation performed at that time. He is here today for completion amputation. Risk and benefits were discussed. He seemingly understood and would like to proceed. PROCEDURE IN DETAIL: The patient was brought to the operating room, the operative leg was prepped and draped in the usual sterile manner. 10 cm below the tibial plateau was marked. The calf circumference was measured. Two thirds was utilized for the anterior incision, one third was utilized to create the flap. The incision was marked. The incision was deepened through the subcutaneous tissue and fascia to the level of the bone. The fascia was transected around the level of the incision. Anterior compartment muscles were divided and visualized to the tibial vessels which were suture ligated with 2-0 silk. Then the lateral compartment muscles were divided. Dissection was carried down to the level of the bone. The periosteal elevator was used and the tibia was freed from its periosteal tissues. The tibia was divided with an oscillating saw. The same was done of the fibula, approximately 1-1/2-2 cm more proximal to the tibia itself. The posterior flap was created with an amputation knife. Bleeding was controlled with suture ligation of the vessels. Electrocautery was also used for hemostasis. The specimen was removed. The wound was copiously irrigated. The tibia and fibula were smoothed with a rasp. 2-0 and 3-0 Vicryl was utilized to approximate the fascia. The skin was reapproximated with maddi. The incsion was cleansed and a dressing was placed. The patient was extubated and transferred to PACU in stable condition having tolerated the procedure well
[2024-07-29 14:38] LABS: Glucose,Whole Blood 104 mg/dL (70-110)
--- NOTE | 2024-07-29 15:24 | P.CONS ---
History of Present Illness - Reason for Consult Consult date: 07/29/24 rehab recommendations - Chief Complaint right BKA - History of Present Illness Mr Gilman is a 79 y/o right handed male who lives with his significant other, Diamond, in a 2 story home with ramp entry, resides on 1st floor. Prior to admission, patient was independent with mobility and ADLs. He does have a knee scooter that he started using the week prior due to right leg wound. He drives. His s/o is supportive and his daughter lives next door. Patient presented to the hospital on 07/25/24 with complaints of worsening right foot wound. Patient has had a right foot wound since Fall 2023. He has been following with wound care. He went to an appointment with Dr Quiñones and it was determined that he had wet gangrene and he was directed to present to the hospital. 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 Doppler of RLE was negative for DVT. Vascular surgery was consulted. 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 He is planned to go for complete BKA later this afternoon. PM&R consulted for rehab recommendations. Patient was seen by therapy on 07/28 and was found to be min A with bathing, Mod assist with LB dressing, mod assist with toileting, Min assist for a couple of hop steps with RW. 07/29: Patient laying in bed this morning, going for his complete BKA later today. He reports overall he is feeling pretty good. He has been doing exercises in his bed that therapy taught him. He denies CP, SOB, and abdominal pain. He denies is sues with bowel and bladder. He reports pain is controlled. He is highly motivated to get better and wants to pursue a prosthesis. Review of Systems reviewed, as above in HPI 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), recent high BP-no Rx, bone infection left foot, History of Any Multi-Drug Resistant Organisms: MRSA Year Discovered:: 2015 MDRO Source:: foot Past Surgical History: Orthopedic Surgery, Tonsillectomy Additional Past Surgical History / Comment(s): HAMMER TOE SX LACEY FEET, LEFT FOOT SURGERY GREAT TOE AMPUTATION/THEN 2ND SX TO REARRANGE THE BONES IN LT FOOT, right foot little toe amputation, Tendon lengthening left foot, cyst removed from middle finger rt hand Past Anesthesia/Blood Transfusion Reactions: Family History of Problems w/ Anesthesia Additional Past Anesthesia/Blood Transfusion Reaction / Comm: father had confusion/loss of memory with anesthesia Past Psychological History: Depression Additional Psychological History / Comment(s): fear of heights, depression since passed- Smoking Status: Former smoker Past Alcohol Use History: None Reported Additional Past Alcohol Use History / Comment(s): quit smoking in 1984. 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 He lives with SO. His daughter lives next door. 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 volunteers at his [employer] Past Drug Use History: None Reported - Past Family History Mother Additional Family Medical History / Comment(s): AGE 91 FROM BRAIN HEMORRAGE Father Family Medical History: Cancer Additional Family Medical History / Comment(s): LUNG CANCER Medications and Allergies Home Medications Medication Instructions Recorded Confirmed Type Aspirin 81 mg PO PC-SUPPER 12/27/15 07/25/24 History Insulin Glargine,Hum.rec.anlog 18 units SQ PC-BRKFST 07/18/16 07/25/24 History [Toujeo Solostar] lisinopriL [Zestril] 10 mg PO PC-SUPPER 11/15/19 07/25/24 History Tamsulosin [Flomax] 0.4 mg PO AC-SUPPER 08/25/22 07/25/24 History Calcium Phos/D3/Magnesium/Zinc 1 tab PO PC-BRKFST 11/28/23 07/25/24 History [Coyzajl-Vct-Jrem-Vitamin D3] rOPINIRole HCL [Requip] 1 mg PO PC-BRKFST 11/28/23 07/25/24 History Pantoprazole [Protonix] 40 mg PO AC-BRKFST #30 tab 12/02/23 07/25/24 Rx Atorvastatin [Lipitor] 10 mg PO PC-SUPPER 04/10/24 07/25/24 History Collagenase [Santyl Ointment] 1 applic TOPICAL DAILY 04/10/24 07/25/24 History Insulin Aspart [NovoLOG Flexpen] See Protocol SQ ACHS PRN 04/10/24 07/25/24 History Megestrol [Megace] 400 mg PO AC-BRKFST 04/10/24 07/25/24 History Melatonin 30 mg PO PC-SUPPER 04/10/24 07/25/24 History Baclofen [Lioresal] 10 mg PO PC-BID 07/25/24 07/25/24 History Dandelion Root 3000mg 9,000 mg PO AC-BRKFST 07/25/24 07/25/24 History Docusate [Colace] 100 mg PO PC-BID 07/25/24 07/25/24 History Ferrous Sulfate [Feosol] 325 mg PO PC-BRKFST 07/25/24 07/25/24 History Fish Oil/Dha/Epa [Fish Oil 1,200 1 cap PO PC-SUPPER 07/25/24 07/25/24 History mg Fish Oil] Insulin Glargine,Hum.rec.anlog 17 units SQ PC-SUPPER 07/25/24 07/25/24 History [Toudeandre Solostar] Mv-Min/Folic/K1/Lycopen/Lutein 1 tab PO PC-BRKFST 07/25/24 07/25/24 History [Centrum Silver Men Tablet] Thiamine [Vitamin B-1] 100 mg PO PC-BRKFST 07/25/24 07/25/24 History glipiZIDE/METFORMIN HCL 1 tab PO AC-BID 07/25/24 07/25/24 History [glipiZIDE/METFORMIN HCL 5-500 mg] rOPINIRole HCL [Requip] 3 mg PO HS 07/25/24 07/25/24 History Allergies Allergy/AdvReac Type Severity Reaction Status Date / Time adhesive Allergy Itching/bruna Verified 07/29/24 12:08 h codeine AdvReac Hallucinati Verified 07/29/24 12:08 ons/paranoi d Physical Exam Vitals: Vital Signs Temp Pulse Pulse Resp BP BP Pulse Ox 07/29/24 15:02 56 L 16 161/81 98 07/29/24 14:52 66 16 168/81 98 07/29/24 14:40 60 16 156/71 98 07/29/24 14:22 56 L 16 173/68 100 07/29/24 14:16 97.6 F 70 16 160/61 100 07/29/24 14:07 97.6 F 70 16 160/71 100 07/29/24 13:48 98.0 F 67 16 107/57 07/29/24 12:31 57 L 16 143/52 95 07/29/24 12:10 98 F 57 L 16 154/61 99 07/29/24 09:12 59 L 16 07/29/24 07:04 98.2 F 59 L 16 155/70 99 07/29/24 01:03 98.2 F 68 17 134/55 97 07/28/24 21:00 68 130/66 07/28/24 19:02 98.3 F 73 18 173/61 99 Intake and Output 07/29/24 07/29/24 07/29/24 06:59 14:59 22:59 Intake Total 1211 Output Total 950 Balance 261 Intake: IV 901 Blood Product 310 Rc As-1 Unit 310 [id number] Output: Urine 850 Estimated Blood Loss 100 Other: Voiding Method Bedside Commode Urinal # Voids 2 # Bowel Movements 1 2 General: WDWN elderly male laying in bed, alert, NAD HEENT: head normocephalic, atraumatic; moist mucous membranes, external ears intact with hearing intact to conversational speech CV: No acute cardiac distress Lungs: even and non labored respirations on RA Abdomen: soft, NT, ND MSK: full ROM bilateral UE and LEs, right lower extremity guillotine amputation MMT: B/L SABD/EF/EE/HG/SABD 5/5 LLE HF,KE,DF,EHL 5/5; Right HF and KE 5/5 Neuro: MSR: 2/4 bilateral biceps, triceps, brachioradialis CN 2-12 grossly intact Sensation intact to light touch bilateral UE and LEs Psych: mood calm, affect appropriate, A&O x 4 Extremities: calves supple, non tender, right LE trace edema Skin: intact where exposed except IV, right LE stump wrapped Results CBC & Chem 7: 07/29/24 04:32 07/29/24 04:32 Labs: Abnormal Lab Results - Last 24 Hours (Table) 07/26/24 07/28/24 07/28/24 Range/Units 10:38 16:45 20:40 RBC (4.40-5.60) 10*6/uL Hgb (13.0-17.0) g/dL Hct (39.6-50.0) % MPV (9.5-12.2) fL Immature Gran # (0.00-0.04) 10*3/uL Chloride (96-109) mmol/L POC Glucose (mg/dL) 333 H 152 H (70-110) mg/dL Calcium (8.7-10.3) mg/dL Crossmatch See Detail 07/28/24 07/29/24 07/29/24 Range/Units 21:46 04:32 04:32 RBC 2.91 L (4.40-5.60) 10*6/uL Hgb 8.2 L (13.0-17.0) g/dL Hct 25.2 L (39.6-50.0) % MPV 9.0 L (9.5-12.2) fL Immature Gran # 0.08 H (0.00-0.04) 10*3/uL Chloride 110 H (96-109) mmol/L POC Glucose (mg/dL) 160 H (70-110) mg/dL Calcium 8.2 L (8.7-10.3) mg/dL Crossmatch Microbiology - Last 24 Hours (Table) 07/25/24 15:46 Blood Culture - Preliminary Blood 07/26/24 15:22 Anaerobic Culture - Preliminary Foot - Right 07/26/24 15:22 Gram Stain - Final Foot - Right Wound Culture - Final Assessment and Plan Assessment: #Impaired gait and ADLs secondary to 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 #Pain secondary to above #Diabetes Mellitus -insulin per APR #Pain Management -Baclofen 10 mg BID, [place] 5/325 mg Q 6 hrs prn, Requip #Diet -Regular #DVT proph -per surgical recs #Comorbidities: history of shingles, HTN #Your medical dx and management Dispo: Patient is noted to be below baseline function, would benefit from a structured Inpatient rehabilitation stay with 3 hrs of therapy a day, 6-7 days a week with Physical Therapy, Occupational Therapy and Speech Therapy (if indicated). Patient has medical complexity requiring nursing services, close physician medical management, and interdisciplinary team approach for rehab. Patient is motivated and has good social support. Patient WILL need insurance authorization. [facility] IPR checking into insurance coverage. patient, if [facility] not able to accept would recommend IPR at [facility] or [facility]. Patient is agreeable to those referrals. DW Case Management Patient will need updated therapy notes Thursday for insurance approval. Thank you for consulting our services. Patient seen and examined in collaboration with Dr Rosenthal
--- NOTE | 2024-07-29 15:26 | P.PN ---
Subjective Progress Note Date: 07/29/24 Principal diagnosis: Reason for follow-up is right diabetic foot infection/osteomyelitis Patient is 79-year-old male with a past medical history significant for diabetes mellitus hypertension history of diabetic foot infection and previous right 4th and 5th amputation patient presented to [facility] ER concerning for worsening swelling redness and drainage to the right foot, patient was noticed to have extensive infection needing disarticulation at the ankle joint by vascular surgery. On today's evaluation that is 07/29/2024, the patient continues to be afebrile, the patient is on room air and breathing comfortably, the Pt denies having any chest pain or cough, the patient denies having any abdominal pain no vomiting or any diarrhea pain to the right lower leg disarticulation site is controlled. Patient white count 7.62, creatinine 1.1 culture negative so far Objective - Vital Signs Vital signs: Vital Signs Temp 98.2 F 07/29/24 07:04 Pulse 59 L 07/29/24 09:12 Resp 16 07/29/24 09:12 BP 155/70 07/29/24 07:04 Pulse Ox 99 07/29/24 07:04 FiO2 Intake & Output 07/28/24 07/29/24 07/29/24 18:59 06:59 18:59 Output Total 500 Balance -500 Weight 78.018 kg Output: Urine 500 Other: Voiding Method Bedside Commode Bedside Commode Urinal Urinal # Voids 5 2 # Bowel Movements 1 2 - Exam GENERAL DESCRIPTION: An elderly male lying in bed in no distress RESPIRATORY SYSTEM: Unlabored breathing , decreased breath sounds at bases HEART: S1 S2 regular rate and rhythm , ABDOMEN: Soft , no tenderness EXTREMITIES: Right lower leg disarticulation site is currently dressed - Labs CBC & Chem 7: 07/29/24 04:32 07/29/24 04:32 Labs: Abnormal Lab Results - Last 24 Hours (Table) 07/28/24 07/28/24 07/28/24 Range/Units 09:24 11:10 16:45 RBC (4.40-5.60) 10*6/uL Hgb (13.0-17.0) g/dL Hct (39.6-50.0) % MPV (9.5-12.2) fL Immature Gran # (0.00-0.04) 10*3/uL Chloride (96-109) mmol/L Glucose 179 H (74-99) mg/dL POC Glucose (mg/dL) 262 H 333 H (70-110) mg/dL Calcium (8.7-10.3) mg/dL 07/28/24 07/28/24 07/29/24 Range/Units 20:40 21:46 04:32 RBC 2.91 L (4.40-5.60) 10*6/uL Hgb 8.2 L (13.0-17.0) g/dL Hct 25.2 L (39.6-50.0) % MPV 9.0 L (9.5-12.2) fL Immature Gran # 0.08 H (0.00-0.04) 10*3/uL Chloride (96-109) mmol/L Glucose (74-99) mg/dL POC Glucose (mg/dL) 152 H 160 H (70-110) mg/dL Calcium (8.7-10.3) mg/dL 07/29/24 Range/Units 04:32 RBC (4.40-5.60) 10*6/uL Hgb (13.0-17.0) g/dL Hct (39.6-50.0) % MPV (9.5-12.2) fL Immature Gran # (0.00-0.04) 10*3/uL Chloride 110 H (96-109) mmol/L Glucose (74-99) mg/dL POC Glucose (mg/dL) (70-110) mg/dL Calcium 8.2 L (8.7-10.3) mg/dL Microbiology - Last 24 Hours (Table) 07/25/24 15:46 Blood Culture - Preliminary Blood 07/26/24 15:22 Anaerobic Culture - Preliminary Foot - Right 07/26/24 15:22 Gram Stain - Final Foot - Right Wound Culture - Final Assessment and Plan (1) Foot osteomyelitis, right Current Visit: Yes Status: Acute Code(s): M86.9 - OSTEOMYELITIS, UNSPECIFIED SNOMED Code(s): 0438843004693603 (2) Elevated serum creatinine Current Visit: Yes Status: Acute Code(s): R79.89 - OTHER SPECIFIED ABNORMAL FINDINGS OF BLOOD CHEMISTRY SNOMED Code(s): 262810051 (3) Diabetic infection of right foot Current Visit: No Status: Acute Code(s): E11.628 - TYPE 2 DIABETES MELLITUS WITH OTHER SKIN COMPLICATIONS; L08.9 - LOCAL INFECTION OF THE SKIN AND SUBCUTANEOUS TISSUE, UNSP SNOMED Code(s): 517137233 Plan: 1patient with a complicated history of multiple diabetic foot infection this patient did have previous amputation of the toes now presenting with extensive right diabetic foot infection with evidence of air on the CT concerning for gas- forming pathogen and will need to cover for the polymicrobial maricel associated with diabetic foot infection 2patient is status post disarticulation of the right ankle because of extensive infection involving the foot and plan is for BKA this afternoon 4patient to continue with with Zosyn and daptomycin however if the blood culture remains to be negative patient will not need to be on any IV antibiotic on discharge Dictation was produced using [employer] dictation software. please excuse any grammatical, word or spelling errors. Time with Patient: Less than 30
[2024-07-29] MEDS: diazePAM 2 MG TAB PO PRN (16:13)
[2024-07-29 16:17] LABS: Glucose,Whole Blood 170 mg/dL (70-110)
[2024-07-29 21:59] LABS: Glucose,Whole Blood 339 mg/dL (70-110)
[2024-07-30 02:11] LABS: Glucose,Whole Blood 220 mg/dL (70-110)
[2024-07-30 06:30] LABS: Glucose,Whole Blood 216 mg/dL (70-110)
[2024-07-30 08:07] LABS: Basophils # (A) 0.06 10*3/uL (0.00-0.10); Basophils % (A) 0.5 %; Eosinophils # (A) 0.12 10*3/uL (0.04-0.35); HCT 25.5 % (39.6-50.0); HGB 8.3 g/dL (13.0-17.0); Lymphocytes % (A) 18.4 %; MCH 27.9 pg (27.0-32.0); MCHC 32.5 g/dL (32.0-37.0); MCV 85.9 fL (80.0-97.0); Mean Platelet Volume 9.1 fL (9.5-12.2); Monocytes # (A) 1.03 10*3/uL (0.20-1.00); Monocytes % (A) 8.6 %; Neutrophils # (A) 8.38 10*3/uL (1.80-7.70); Neutrophils % (A) 70.2 %; Platelet Count 386 10*3/uL (140-440); RBC 2.97 10*6/uL (4.40-5.60); RDW 14.5 % (11.5-14.5); WBC 11.94 10*3/uL (4.50-10.00)
[2024-07-30 08:21] LABS: African American GFR (CKD) 83 (>60 ml/min/1.73 sqM); Anion Gap 6 mmol/L; Blood Urea Nitrogen 17 mg/dL (9-20); Calcium 7.9 mg/dL (8.4-10.2); Carbon Dioxide 24 mmol/L (22-30); Chloride 106 mmol/L (98-107); Glucose 189 mg/dL (74-99); Magnesium 1.8 mg/dL (1.6-2.3); Non-African American GFR(CKD) 72 (>60 ml/min/1.73 sqM); Potassium 3.9 mmol/L (3.5-5.1); Sodium 136 mmol/L (137-145)
--- NOTE | 2024-07-30 08:24 | P.PN ---
Subjective Progress Note Date: 07/29/24 This is a pleasant 79-year-old male who presented to the emergency department with increasing pain and drainage of the right foot and has been progressively becoming more swollen and follows with Dr. Quiñones outpatient at the wound care center. Apparently patient had gone to the wound care center and was diagnosed with wet gangrene and wanted the patient to come here for further vascular surgery consult. Dr. Quiñones is currently out of town and this was discussed with vascular surgery, Dr. Adame's group and will be undergoing surgical intervention including great toe amputation on the right today. Patient also with infectious disease consulted as patient follows with him outpatient as well and there was concerns of osteomyelitis. Patient did previously have right 4th and 5th toes removed as well. Patient reports he follows with Dr. 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 Labs reviewed from ER admission with a white count of 15.48, hemoglobin 8.9, platelets 395, sodium 138, potassium 3.2, creatinine 1.37, BUN 28, random glucose elevated at 282, lactic acid 1.6. Patient did report some swelling and pain up into the calf and did undergo venous Doppler which shows right lower extremity negative for DVT and patency within the vessels. CT angiography performed of the abdomen pelvis revealing a right first metatarsal region extending to the plantar aspect of the foot along the medial right ankle and posterior right ankle with gas-forming infection that should be considered along with soft tissue swelling through the distal right calf and an occlusion of the vascular trifurcation vessels bilaterally. 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 In cidental finding of the left hydronephrosis and will consult urology and appreciate input and recommendations. Patient reports he is voiding with no difficulties and creatinine is stable at 1.37. Will follow-up on repeat labs and resume diet once cleared by surgery. Recommend tight glycemic control for healing as hemoglobin A1c is noted to be uncontrolled and elevated at 10.5. 07/27/2024 Patient is evaluated in follow-up with medical floor. He was still complaining of some mild pain of the right calf area however states that is nothing extensive and feels like he does not need any pain medication for this currently. He was complaining of some mild shortness of breath states that he uses albuterol inhaler at home and is requesting this. Patient is postoperative day 1 right lower foot amputation. He continues on antibiotics in the form of Daptomycin and Zosyn. Urology has evaluated patient for the incidental finding of the left sided hydronephrosis and planning to undergo CT urogram. His blood work today reveals a white blood cell count of 11.03, hemoglobin stable at 8.2, sodium 139, BUN of 21 creatinine 1.08. His blood glucose remains significantly elevated in the 300s. Patient will go for right BKA on 07/29. 07/28/2024 Patient is seen and evaluated in follow-up this morning currently sitting up in the chair with lower extremities elevated. Right surgical dressing is dry and intact and patient is scheduled to undergo BKA tomorrow with vascular surgery. Patient is continued on IV antibiotics with infectious disease following. Continue monitoring Accu-Cheks closely including 2 AMS patient will be n.p.o. at midnight and patient is a diabetic. Monitor for any concerns of hypoglycemia and continue with dextrose per protocol. Will follow-up on repeat labs and monitor kidney functions and electrolytes closely. Patient's potassium was 3.6 and will give 40 mEq today. 07/29/2024 Patient is seen in follow-up status post right BKA with vascular surgery. Patient continued on antibiotics with infectious disease following with right foot culture showing Finegoldia magna and blood cultures remain negative thus far. Patient for PT/OT therapy evaluation and continue wound care per vascular surgery. Patient is afebrile with no reports of chest pain or shortness of breath. Patient has been tolerating diet and recommended monitor blood sugars closely. REVIEW OF SYSTEMS: CONSTITUTIONAL: No fever, no malaise, no fatigue. HEENT: No recent visual problems or hearing problems. Denied any sore throat. CARDIOVASCULAR: No chest pain, orthopnea, PND, no palpitations, no syncope. PULMONARY: No shortness of breath, no cough, no hemoptysis. GASTROINTESTINAL: No diarrhea, no nausea, no vomiting, no abdominal pain. NEUROLOGICAL: No headaches, reports of generalized weakness, no numbness. PHYSICAL EXAMINATION: GENERAL: The patient is alert and oriented x3, not in any acute distress. Well developed, well nourished. Elderly appearing, thin built HEENT: Pupils are round and equally reacting to light. EOMI. No scleral icterus. No conjunctival pallor. Normocephalic, atraumatic. No pharyngeal erythema. No thyromegaly. CARDIOVASCULAR: S1 and S2 present. No murmurs, rubs, or gallops. PULMONARY: Chest is clear to auscultation, no wheezing or crackles. ABDOMEN: Soft, thin, nontender, nondistended, normoactive bowel sounds. No palpable organomegaly. MUSCULOSKELETAL: No joint swelling or deformity. Surgical dressing is dry and intact of the right lower extremity BKA EXTREMITIES: No cyanosis, clubbing, or pedal edema. Status post right foot am putation NEUROLOGICAL: Gross neurological examination did not reveal any focal deficits. Diffusely weak SKIN: No rashes. Assessment: Right foot pain with nonhealing wounds and an infected diabetic ulcer, wet gangrene Status post right lower extremity guillotine amputation. Status post right BKA on 07/29/2024 Leukocytosis, secondary to above, improving and trending down Severe left hydronephrosis noted on imaging, will have urology evaluate Osteomyelitis Significant hypokalemia, improved after replacement and will monitor closely Diabetes mellitus, type II, uncontrolled with hyperglycemia, hemoglobin A1c is 10.5 Hypertension History of MRSA infections History of previous gangrene of the right fifth toe status post amputation History of bone infection of the left foot with previous MRSA History of depression GI prophylaxis DVT prophylaxis Full code Plan: Patient is admitted with vascular surgery on consult and also infectious disease maintained on IV antibiotics and was sent in here from the wound care center from his previous vascular surgery Dr. Quiñones for further evaluation and possible amputation. Patient was evaluated by Dr. Rodriguez service as Dr. Quiñones is out of town. And is status post right lower extremity guillotine amputation as well as now status post right below the knee amputation today [address] angio with some incidental findings also noted to have severe left hydronephrosis. Kidney functions relatively stable with a mild HUONG, will have urology consulted and appreciate input and recommendations Continue with home medications as appropriate Continue monitoring Accu-Cheks AC and at bedtime along with sliding scale and long-acting and will adjust accordingly. Diabetes education as patient's hemoglobin A1c is 10.5. Monitor blood sugars closely and adjust insulins accordingly Replace potassium per protocol and follow-up with repeat labs. Recommend incentive spirometer at least 10 times every hour while awake Will need PT/OT therapy evaluation along with case management consult Patient reports would like to return home on discharge. Will await surgical clearance along with infectious disease clearance to discuss discharge planning The impression and plan of care has been dictated by Yesenia Ward, Nurse Practitioner as directed. Dr. Toño MD I have performed a history and examination and MDM of this patient, discussed the same with the dictator, and agree with the dictator's assessment and plan a s written ,documented as a scribe. Based on total visit time, I have performed more than 50% of the visit. Objective - Vital Signs Vital signs: Vital Signs Temp 98.3 F 07/30/24 07:31 Pulse 58 L 07/30/24 07:31 Resp 16 07/30/24 07:31 BP 126/71 07/30/24 07:31 Pulse Ox 99 07/30/24 07:31 FiO2 Intake & Output 07/29/24 07/30/24 07/30/24 18:59 06:59 18:59 Intake Total 1211 1080 180 Output Total 4750 1100 Balance -3539 -20 180 Intake: IV 901 Oral 1080 180 Blood Product 310 Rc As-1 Unit 310 [id number] Output: Urine 4650 1100 Estimated Blood Loss 100 Other: Voiding Method Bedside Commode Urinal Urinal # Voids 1 # Bowel Movements 2 - Labs CBC & Chem 7: 07/30/24 06:26 07/29/24 04:32 Labs: Abnormal Lab Results - Last 24 Hours (Table) 07/26/24 07/29/24 07/29/24 Range/Units 10:38 04:32 16:16 WBC (4.50-10.00) 10*3/uL RBC (4.40-5.60) 10*6/uL Hgb (13.0-17.0) g/dL Hct (39.6-50.0) % MPV (9.5-12.2) fL Immature Gran # (0.00-0.04) 10*3/uL Neutrophils # (1.80-7.70) 10*3/uL Monocytes # (0.20-1.00) 10*3/uL Chloride 110 H (96-109) mmol/L POC Glucose (mg/dL) 170 H (70-110) mg/dL Calcium 8.2 L (8.7-10.3) mg/dL Crossmatch See Detail 07/29/24 07/30/24 07/30/24 Range/Units 21:58 02:09 06:26 WBC 11.94 H (4.50-10.00) 10*3/uL RBC 2.97 L (4.40-5.60) 10*6/uL Hgb 8.3 L (13.0-17.0) g/dL Hct 25.5 L (39.6-50.0) % MPV 9.1 L (9.5-12.2) fL Immature Gran # 0.15 H (0.00-0.04) 10*3/uL Neutrophils # 8.38 H (1.80-7.70) 10*3/uL Monocytes # 1.03 H (0.20-1.00) 10*3/uL Chloride (96-109) mmol/L POC Glucose (mg/dL) 339 H 220 H (70-110) mg/dL Calcium (8.7-10.3) mg/dL Crossmatch 07/30/24 Range/Units 06:28 WBC (4.50-10.00) 10*3/uL RBC (4.40-5.60) 10*6/uL Hgb (13.0-17.0) g/dL Hct (39.6-50.0) % MPV (9.5-12.2) fL Immature Gran # (0.00-0.04) 10*3/uL Neutrophils # (1.80-7.70) 10*3/uL Monocytes # (0.20-1.00) 10*3/uL Chloride (96-109) mmol/L POC Glucose (mg/dL) 216 H (70-110) mg/dL Calcium (8.7-10.3) mg/dL Crossmatch Microbiology - Last 24 Hours (Table) 07/26/24 15:22 Anaerobic Culture - Final Foot - Right Finegoldia magna
[2024-07-30 11:37] LABS: Glucose,Whole Blood 351 mg/dL (70-110)
--- NOTE | 2024-07-30 13:22 | P.PN ---
Subjective Progress Note Date: 07/30/24 Principal diagnosis: Right lower extremity gangrene Patient is doing well. States BKA site is without significant pain. He has been exercising and states he did well with physical therapy and is planning on going to inpatient rehab. Objective - Vital Signs Vital signs: Vital Signs Temp 98.3 F 07/30/24 07:31 Pulse 58 L 07/30/24 07:31 Resp 16 07/30/24 07:31 BP 126/71 07/30/24 07:31 Pulse Ox 99 07/30/24 07:31 FiO2 Intake & Output 07/29/24 07/30/24 07/30/24 18:59 06:59 18:59 Intake Total 1211 1080 180 Output Total 4750 1100 Balance -3539 -20 180 Intake: IV 901 Oral 1080 180 Blood Product 310 Rc As-1 Unit 310 [id number] Output: Urine 4650 1100 Estimated Blood Loss 100 Other: Voiding Method Bedside Commode Urinal Urinal # Voids 1 # Bowel Movements 2 - Exam General appearance: The patient is alert, oriented, appears in no acute distress. HET: Head is normocephalic and atraumatic. Neck: Supple. Abdomen: Soft, nondistended. Extremities: Normal skin color and turgor. Right lower extremity BKA with dressing clean dry and intact. Neurological: No focal deficits. Alert and oriented. - Labs CBC & Chem 7: 07/30/24 06:26 07/30/24 06:26 Labs: Abnormal Lab Results - Last 24 Hours (Table) 07/26/24 07/29/24 07/29/24 Range/Units 10:38 16:16 21:58 WBC (4.50-10.00) 10*3/uL RBC (4.40-5.60) 10*6/uL Hgb (13.0-17.0) g/dL Hct (39.6-50.0) % MPV (9.5-12.2) fL Immature Gran # (0.00-0.04) 10*3/uL Neutrophils # (1.80-7.70) 10*3/uL Monocytes # (0.20-1.00) 10*3/uL Sodium (137-145) mmol/L Glucose (74-99) mg/dL POC Glucose (mg/dL) 170 H 339 H (70-110) mg/dL Calcium (8.4-10.2) mg/dL Crossmatch See Detail 07/30/24 07/30/24 07/30/24 Range/Units 02:09 06:26 06:26 WBC 11.94 H (4.50-10.00) 10*3/uL RBC 2.97 L (4.40-5.60) 10*6/uL Hgb 8.3 L (13.0-17.0) g/dL Hct 25.5 L (39.6-50.0) % MPV 9.1 L (9.5-12.2) fL Immature Gran # 0.15 H (0.00-0.04) 10*3/uL Neutrophils # 8.38 H (1.80-7.70) 10*3/uL Monocytes # 1.03 H (0.20-1.00) 10*3/uL Sodium 136 L (137-145) mmol/L Glucose 189 H (74-99) mg/dL POC Glucose (mg/dL) 220 H (70-110) mg/dL Calcium 7.9 L (8.4-10.2) mg/dL Crossmatch 07/30/24 07/30/24 Range/Units 06:28 11:36 WBC (4.50-10.00) 10*3/uL RBC (4.40-5.60) 10*6/uL Hgb (13.0-17.0) g/dL Hct (39.6-50.0) % MPV (9.5-12.2) fL Immature Gran # (0.00-0.04) 10*3/uL Neutrophils # (1.80-7.70) 10*3/uL Monocytes # (0.20-1.00) 10*3/uL Sodium (137-145) mmol/L Glucose (74-99) mg/dL POC Glucose (mg/dL) 216 H 351 H (70-110) mg/dL Calcium (8.4-10.2) mg/dL Crossmatch Microbiology - Last 24 Hours (Table) 07/26/24 15:22 Anaerobic Culture - Final Foot - Right Finegoldia magna Assessment and Plan Assessment: 1. Infected diabetic ulcer, wet gangrene with foot abscess tracking to the heel status post guillotine amputation and below knee amputation 2. Osteomyelitis 3. Hypokalemia 4. Diabetes mellitus 5. Hypertension Plan: Called prosthetic company for hard dressing to be placed today Continue pain control. Agree with physical therapy and inpatient rehab.
[2024-07-30 16:37] LABS: Glucose,Whole Blood 227 mg/dL (70-110)
[2024-07-30 20:37] LABS: Glucose,Whole Blood 328 mg/dL (70-110)
[2024-07-31 03:03] LABS: Glucose,Whole Blood 136 mg/dL (70-110)
[2024-07-31 06:18] LABS: Glucose,Whole Blood 183 mg/dL (70-110)
[2024-07-31 06:55] LABS: Glucose,Whole Blood 157 mg/dL (70-110)
[2024-07-31 07:22] LABS: Basophils # (A) 0.05 10*3/uL (0.00-0.10); Basophils % (A) 0.4 %; Eosinophils # (A) 0.24 10*3/uL (0.04-0.35); Eosinophils % (A) 2.1 %; HCT 26.1 % (39.6-50.0); HGB 8.5 g/dL (13.0-17.0); Lymphocytes # (A) 1.91 10*3/uL (0.90-5.00); MCH 28.2 pg (27.0-32.0); MCHC 32.6 g/dL (32.0-37.0); MCV 86.7 fL (80.0-97.0); Mean Platelet Volume 9.2 fL (9.5-12.2); Monocytes # (A) 0.93 10*3/uL (0.20-1.00); Monocytes % (A) 8.3 %; Neutrophils # (A) 7.96 10*3/uL (1.80-7.70); Platelet Count 378 10*3/uL (140-440); RBC 3.01 10*6/uL (4.40-5.60); RDW 14.3 % (11.5-14.5); WBC 11.22 10*3/uL (4.50-10.00)
[2024-07-31 07:35] LABS: African American GFR (CKD) >90 (>60 ml/min/1.73 sqM); Anion Gap 6 mmol/L; Blood Urea Nitrogen 12 mg/dL (9-20); Calcium 8.4 mg/dL (8.4-10.2); Carbon Dioxide 27 mmol/L (22-30); Chloride 105 mmol/L (98-107); Glucose 149 mg/dL (74-99); Non-African American GFR(CKD) 80 (>60 ml/min/1.73 sqM); Potassium 4.4 mmol/L (3.5-5.1); Sodium 138 mmol/L (137-145)
--- NOTE | 2024-07-31 07:42 | P.PN ---
Subjective Progress Note Date: 07/30/24 This is a pleasant 79-year-old male who presented to the emergency department with increasing pain and drainage of the right foot and has been progressively becoming more swollen and follows with Dr. Quiñones outpatient at the wound care center. Apparently patient had gone to the wound care center and was diagnosed with wet gangrene and wanted the patient to come here for further vascular surgery consult. Dr. Quiñones is currently out of town and this was discussed with vascular surgery, Dr. Adame's group and will be undergoing surgical intervention including great toe amputation on the right today. Patient also with infectious disease consulted as patient follows with him outpatient as well and there was concerns of osteomyelitis. Patient did previously have right 4th and 5th toes removed as well. Patient reports he follows with Dr. 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 Labs reviewed from ER admission with a white count of 15.48, hemoglobin 8.9, platelets 395, sodium 138, potassium 3.2, creatinine 1.37, BUN 28, random glucose elevated at 282, lactic acid 1.6. Patient did report some swelling and pain up into the calf and did undergo venous Doppler which shows right lower extremity negative for DVT and patency within the vessels. CT angiography performed of the abdomen pelvis revealing a right first metatarsal region extending to the plantar aspect of the foot along the medial right ankle and posterior right ankle with gas-forming infection that should be considered along with soft tissue swelling through the distal right calf and an occlusion of the vascular trifurcation vessels bilaterally. 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 In cidental finding of the left hydronephrosis and will consult urology and appreciate input and recommendations. Patient reports he is voiding with no difficulties and creatinine is stable at 1.37. Will follow-up on repeat labs and resume diet once cleared by surgery. Recommend tight glycemic control for healing as hemoglobin A1c is noted to be uncontrolled and elevated at 10.5. 07/27/2024 Patient is evaluated in follow-up with medical floor. He was still complaining of some mild pain of the right calf area however states that is nothing extensive and feels like he does not need any pain medication for this currently. He was complaining of some mild shortness of breath states that he uses albuterol inhaler at home and is requesting this. Patient is postoperative day 1 right lower foot amputation. He continues on antibiotics in the form of Daptomycin and Zosyn. Urology has evaluated patient for the incidental finding of the left sided hydronephrosis and planning to undergo CT urogram. His blood work today reveals a white blood cell count of 11.03, hemoglobin stable at 8.2, sodium 139, BUN of 21 creatinine 1.08. His blood glucose remains significantly elevated in the 300s. Patient will go for right BKA on 07/29. 07/28/2024 Patient is seen and evaluated in follow-up this morning currently sitting up in the chair with lower extremities elevated. Right surgical dressing is dry and intact and patient is scheduled to undergo BKA tomorrow with vascular surgery. Patient is continued on IV antibiotics with infectious disease following. Continue monitoring Accu-Cheks closely including 2 AMS patient will be n.p.o. at midnight and patient is a diabetic. Monitor for any concerns of hypoglycemia and continue with dextrose per protocol. Will follow-up on repeat labs and monitor kidney functions and electrolytes closely. Patient's potassium was 3.6 and will give 40 mEq today. 07/29/2024 Patient is seen in follow-up status post right BKA with vascular surgery. Patient continued on antibiotics with infectious disease following with right foot culture showing Finegoldia magna and blood cultures remain negative thus far. Patient for PT/OT therapy evaluation and continue wound care per vascular surgery. Patient is afebrile with no reports of chest pain or shortness of breath. Patient has been tolerating diet and recommended monitor blood sugars closely. 07/30/2024 Patient is seen in follow-up this morning being followed by vascular surgery along with infectious disease and patient is maintained on daptomycin and Zosyn as per ID recommendations and will continue for now. To discuss further regarding discharge planning regarding continued antibiotic therapy and the need for IV antibiotics on discharge and if requiring rehab services for continued PT/OT therapy as well as antibiotic therapy. Case management/social work consulted and following regarding discharge planning. Vascular surgery surgery following as well recommending close outpatient follow-up. Patient is afebrile with no reports of chest pain or shortness of breath. Patient has been t olerating diet with no reported nausea or vomiting. Continue monitoring Accu- Cheks and adjust accordingly as blood sugars have been mildly elevated. Will follow-up on repeat labs and replace electrolytes per protocol. REVIEW OF SYSTEMS: CONSTITUTIONAL: No fever, no malaise, no fatigue. HEENT: No recent visual problems or hearing problems. Denied any sore throat. CARDIOVASCULAR: No chest pain, orthopnea, PND, no palpitations, no syncope. PULMONARY: No shortness of breath, no cough, no hemoptysis. GASTROINTESTINAL: No diarrhea, no nausea, no vomiting, no abdominal pain. NEUROLOGICAL: No headaches, reports of generalized weakness, no numbness. PHYSICAL EXAMINATION: GENERAL: The patient is alert and oriented x3, not in any acute distress. Well developed, well nourished. Elderly appearing, thin built HEENT: Pupils are round and equally reacting to light. EOMI. No scleral icterus. No conjunctival pallor. Normocephalic, atraumatic. No pharyngeal erythema. No thyromegaly. CARDIOVASCULAR: S1 and S2 present. No murmurs, rubs, or gallops. PULMONARY: Chest is clear to auscultation, no wheezing or crackles. ABDOMEN: Soft, thin, nontender, nondistended, normoactive bowel sounds. No palpable organomegaly. MUSCULOSKELETAL: No joint swelling or deformity. Surgical dressing is dry and intact of the right lower extremity BKA EXTREMITIES: No cyanosis, clubbing, or pedal edema. Status post right BKA NEUROLOGICAL: Gross neurological examination did not reveal any focal deficits. Diffusely weak SKIN: No rashes. Assessment: Right foot pain with nonhealing wounds and an infected diabetic ulcer, wet gangrene Status post right lower extremity guillotine amputation. 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 Quiñones for further evaluation and possible amputation. Patient was evaluated by Dr. Rodriguez service as Dr. Quiñones is out of town. And is status post right lower extremity guillotine amputation as well as now status post right below the knee amputation 07/29/[address] angio with some incidental findings also noted to have severe left hydronephrosis. CT urogram was performed revealing no hydronephr osis although a parapelvic cyst and a nonobstructing left renal stone. Urology did evaluate with no plans or surgical intervention recommending outpatient follow-up as needed. Kidney functions relatively stable with a mild HUONG Continue with home medications as appropriate Continue monitoring Accu-Cheks AC and at bedtime along with sliding scale and long-acting and will adjust accordingly. Diabetes education as patient's hemoglobin A1c is 10.5. Monitor blood sugars closely and adjust insulins accordingly Replace electrolytes per protocol and follow-up with repeat labs. Recommend incentive spirometer at least 10 times every hour while awake Will need PT/OT therapy evaluation along with case management consult for the need of outpatient IV antibiotics as well as possible rehab. Patient would like to go home although is agreeable to rehab if needed Will await surgical clearance along with infectious disease clearance to discuss discharge planning The impression and plan of care has been dictated as a scribe by Yesenia aWrd, Nurse Practitioner as directed. Dr. Toño MD I have performed a history and examination and MDM of this patient, discussed the same with the dictator, and agree with the dictator's assessment and plan as written ,documented as a scribe. Based on total visit time, I have performed more than 50% of the visit. Objective - Vital Signs Vital signs: Vital Signs Temp 98.3 F 07/30/24 07:31 Pulse 58 L 07/30/24 07:31 Resp 16 07/30/24 07:31 BP 126/71 07/30/24 07:31 Pulse Ox 99 07/30/24 07:31 FiO2 Intake & Output 07/29/24 07/30/24 07/30/24 18:59 06:59 18:59 Intake Total 1211 1080 180 Output Total 4750 1100 Balance -3539 -20 180 Intake: IV 901 Oral 1080 180 Blood Product 310 Rc As-1 Unit 310 [id number] Output: Urine 4650 1100 Estimated Blood Loss 100 Other: Voiding Method Bedside Commode Urinal Urinal # Voids 1 # Bowel Movements 2 - Labs CBC & Chem 7: 07/31/24 06:46 07/31/24 06:46 Labs: Abnormal Lab Results - Last 24 Hours (Table) 07/26/24 07/29/24 07/29/24 Range/Units 10:38 04:32 16:16 WBC (4.50-10.00) 10*3/uL RBC (4.40-5.60) 10*6/uL Hgb (13.0-17.0) g/dL Hct (39.6-50.0) % MPV (9.5-12.2) fL Immature Gran # (0.00-0.04) 10*3/uL Neutrophils # (1.80-7.70) 10*3/uL Monocytes # (0.20-1.00) 10*3/uL Sodium (137-145) mmol/L Chloride 110 H (96-109) mmol/L Glucose (74-99) mg/dL POC Glucose (mg/dL) 170 H (70-110) mg/dL Calcium 8.2 L (8.7-10.3) mg/dL Crossmatch See Detail 07/29/24 07/30/24 07/30/24 Range/Units 21:58 02:09 06:26 WBC 11.94 H (4.50-10.00) 10*3/uL RBC 2.97 L (4.40-5.60) 10*6/uL Hgb 8.3 L (13.0-17.0) g/dL Hct 25.5 L (39.6-50.0) % MPV 9.1 L (9.5-12.2) fL Immature Gran # 0.15 H (0.00-0.04) 10*3/uL Neutrophils # 8.38 H (1.80-7.70) 10*3/uL Monocytes # 1.03 H (0.20-1.00) 10*3/uL Sodium (137-145) mmol/L Chloride (96-109) mmol/L Glucose (74-99) mg/dL POC Glucose (mg/dL) 339 H 220 H (70-110) mg/dL Calcium (8.7-10.3) mg/dL Crossmatch 07/30/24 07/30/24 Range/Units 06:26 06:28 WBC (4.50-10.00) 10*3/uL RBC (4.40-5.60) 10*6/uL Hgb (13.0-17.0) g/dL Hct (39.6-50.0) % MPV (9.5-12.2) fL Immature Gran # (0.00-0.04) 10*3/uL Neutrophils # (1.80-7.70) 10*3/uL Monocytes # (0.20-1.00) 10*3/uL Sodium 136 L (137-145) mmol/L Chloride (96-109) mmol/L Glucose 189 H (74-99) mg/dL POC Glucose (mg/dL) 216 H (70-110) mg/dL Calcium 7.9 L (8.7-10.3) mg/dL Crossmatch Microbiology - Last 24 Hours (Table) 07/26/24 15:22 Anaerobic Culture - Final Foot - Right Finedeniseia magna
[2024-07-31 11:40] LABS: Glucose,Whole Blood 235 mg/dL (70-110)
[2024-07-31 17:06] LABS: Glucose,Whole Blood 255 mg/dL (70-110)
--- NOTE | 2024-07-31 17:14 | P.PN ---
Subjective Progress Note Date: 07/31/24 Principal diagnosis: Reason for follow-up is right diabetic foot infection/osteomyelitis Patient is 79-year-old male with a past medical history significant for diabetes mellitus hypertension history of diabetic foot infection and previous right 4th and 5th amputation patient presented to [facility] ER concerning for worsening swelling redness and drainage to the right foot, patient was noticed to have extensive infection needing disarticulation at the ankle joint by vascular surgery. On today's evaluation that is 07/31/2024, Patient is afebrile patient is currently on room air and denies having any shortness of breath, the patient denies any chest pain or cough, the patient denies any nausea vomiting did not have any abdominal pain and no diarrhea, patient pain to the right BKA stump has decreased in intensity Patient white count is 11.22, creatinine 0.92 blood culture negative local culture with Finegoldia magna Objective - Vital Signs Vital signs: Vital Signs Temp 98.6 F 07/31/24 13:19 Pulse 72 07/31/24 13:19 Resp 16 07/31/24 13:19 BP 151/69 07/31/24 13:19 Pulse Ox 98 07/31/24 13:19 FiO2 Intake & Output 07/30/24 07/31/24 07/31/24 18:59 06:59 18:59 Intake Total 1740 420 Output Total 200 2500 Balance 1540 -2080 Intake: Oral 1740 420 Output: Urine 200 2500 Other: Voiding Method Urinal # Voids 1 1 # Bowel Movements 1 1 - Exam GENERAL DESCRIPTION: An elderly male lying in bed in no distress RESPIRATORY SYSTEM: Unlabored breathing , decreased breath sounds at bases HEART: S1 S2 regular rate and rhythm , ABDOMEN: Soft , no tenderness EXTREMITIES: Right lower leg disarticulation site is currently dressed - Labs CBC & Chem 7: 07/31/24 06:46 07/31/24 06:46 Labs: Abnormal Lab Results - Last 24 Hours (Table) 07/30/24 07/30/24 07/31/24 Range/Units 16:35 20:36 03:02 WBC (4.50-10.00) 10*3/uL RBC (4.40-5.60) 10*6/uL Hgb (13.0-17.0) g/dL Hct (39.6-50.0) % MPV (9.5-12.2) fL Immature Gran # (0.00-0.04) 10*3/uL Neutrophils # (1.80-7.70) 10*3/uL Glucose (74-99) mg/dL POC Glucose (mg/dL) 227 H 328 H 136 H (70-110) mg/dL 07/31/24 07/31/24 07/31/24 Range/Units 06:17 06:46 06:46 WBC 11.22 H (4.50-10.00) 10*3/uL RBC 3.01 L (4.40-5.60) 10*6/uL Hgb 8.5 L (13.0-17.0) g/dL Hct 26.1 L (39.6-50.0) % MPV 9.2 L (9.5-12.2) fL Immature Gran # 0.13 H (0.00-0.04) 10*3/uL Neutrophils # 7.96 H (1.80-7.70) 10*3/uL Glucose 149 H (74-99) mg/dL POC Glucose (mg/dL) 183 H (70-110) mg/dL 07/31/24 07/31/24 Range/Units 06:54 11:38 WBC (4.50-10.00) 10*3/uL RBC (4.40-5.60) 10*6/uL Hgb (13.0-17.0) g/dL Hct (39.6-50.0) % MPV (9.5-12.2) fL Immature Gran # (0.00-0.04) 10*3/uL Neutrophils # (1.80-7.70) 10*3/uL Glucose (74-99) mg/dL POC Glucose (mg/dL) 157 H 235 H (70-110) mg/dL Microbiology - Last 24 Hours (Table) 07/25/24 15:46 Blood Culture - Final Blood Assessment and Plan (1) Foot osteomyelitis, right Current Visit: Yes Status: Acute Code(s): M86.9 - OSTEOMYELITIS, UNSPECIFIED SNOMED Code(s): 0171792777064530 (2) Elevated serum creatinine Current Visit: Yes Status: Acute Code(s): R79.89 - OTHER SPECIFIED ABNORMAL FINDINGS OF BLOOD CHEMISTRY SNOMED Code(s): 933064108 (3) Diabetic infection of right foot Current Visit: No Status: Acute Code(s): E11.628 - TYPE 2 DIABETES MELLITUS WITH OTHER SKIN COMPLICATIONS; L08.9 - LOCAL INFECTION OF THE SKIN AND SUBCUTANEOUS TISSUE, UNSP SNOMED Code(s): 239284225 Plan: 1patient with a complicated history of multiple diabetic foot infection this patient did have previous amputation of the toes now presenting with extensive right diabetic foot infection with evidence of air on the CT concerning for gas- forming pathogen and will need to cover for the polymicrobial maricel associated with diabetic foot infection 2patient is status post disarticulation of the right ankle because of extensive infection and subsequently did have a right BKA on 07/29/2024 4patient local culture data grew Finegoldia magna however the infected part is removed with the blood culture negative daptomycin Zosyn has been discontinued and will monitor the patient closely off antibiotic therapy Dictation was produced using [employer] dictation software. please excuse any grammatical, word or spelling errors. Time with Patient: Less than 30
--- NOTE | 2024-07-31 17:14 | P.PN ---
Subjective Progress Note Date: 07/30/24 Principal diagnosis: Reason for follow-up is right diabetic foot infection/osteomyelitis Patient is 79-year-old male with a past medical history significant for diabetes mellitus hypertension history of diabetic foot infection and previous right 4th and 5th amputation patient presented to [facility] ER concerning for worsening swelling redness and drainage to the right foot, patient was noticed to have extensive infection needing disarticulation at the ankle joint by vascular surgery. On today's evaluation that is 07/31/2023, patient did have a temperature of 98 F this morning and denies having any chills, patient is on room air and breathing comfortably no chest pain or cough, the patient did not have any nausea vomiting abdominal pain or any diarrhea, pain to the right BKA is currently controlled Patient did have white count 11.94 creatinine 1.0 cultures so far negative Objective - Vital Signs Vital signs: Vital Signs Temp 98.3 F 07/30/24 07:31 Pulse 58 L 07/30/24 07:31 Resp 16 07/30/24 07:31 BP 126/71 07/30/24 07:31 Pulse Ox 99 07/30/24 07:31 FiO2 Intake & Output 07/29/24 07/30/24 07/30/24 18:59 06:59 18:59 Intake Total 1211 1080 180 Output Total 4750 1100 Balance -3539 -20 180 Intake: IV 901 Oral 1080 180 Blood Product 310 Rc As-1 Unit 310 [id number] Output: Urine 4650 1100 Estimated Blood Loss 100 Other: Voiding Method Bedside Commode Urinal Urinal # Voids 1 # Bowel Movements 2 - Exam GENERAL DESCRIPTION: An elderly male lying in bed in no distress RESPIRATORY SYSTEM: Unlabored breathing , decreased breath sounds at bases HEART: S1 S2 regular rate and rhythm , ABDOMEN: Soft , no tenderness EXTREMITIES: Right lower leg disarticulation site is currently dressed - Labs CBC & Chem 7: 07/31/24 06:46 07/31/24 06:46 Labs: Abnormal Lab Results - Last 24 Hours (Table) 07/26/24 07/29/24 07/29/24 Range/Units 10:38 16:16 21:58 WBC (4.50-10.00) 10*3/uL RBC (4.40-5.60) 10*6/uL Hgb (13.0-17.0) g/dL Hct (39.6-50.0) % MPV (9.5-12.2) fL Immature Gran # (0.00-0.04) 10*3/uL Neutrophils # (1.80-7.70) 10*3/uL Monocytes # (0.20-1.00) 10*3/uL Sodium (137-145) mmol/L Glucose (74-99) mg/dL POC Glucose (mg/dL) 170 H 339 H (70-110) mg/dL Calcium (8.4-10.2) mg/dL Crossmatch See Detail 07/30/24 07/30/24 07/30/24 Range/Units 02:09 06:26 06:26 WBC 11.94 H (4.50-10.00) 10*3/uL RBC 2.97 L (4.40-5.60) 10*6/uL Hgb 8.3 L (13.0-17.0) g/dL Hct 25.5 L (39.6-50.0) % MPV 9.1 L (9.5-12.2) fL Immature Gran # 0.15 H (0.00-0.04) 10*3/uL Neutrophils # 8.38 H (1.80-7.70) 10*3/uL Monocytes # 1.03 H (0.20-1.00) 10*3/uL Sodium 136 L (137-145) mmol/L Glucose 189 H (74-99) mg/dL POC Glucose (mg/dL) 220 H (70-110) mg/dL Calcium 7.9 L (8.4-10.2) mg/dL Crossmatch 07/30/24 07/30/24 Range/Units 06:28 11:36 WBC (4.50-10.00) 10*3/uL RBC (4.40-5.60) 10*6/uL Hgb (13.0-17.0) g/dL Hct (39.6-50.0) % MPV (9.5-12.2) fL Immature Gran # (0.00-0.04) 10*3/uL Neutrophils # (1.80-7.70) 10*3/uL Monocytes # (0.20-1.00) 10*3/uL Sodium (137-145) mmol/L Glucose (74-99) mg/dL POC Glucose (mg/dL) 216 H 351 H (70-110) mg/dL Calcium (8.4-10.2) mg/dL Crossmatch Microbiology - Last 24 Hours (Table) 07/26/24 15:22 Anaerobic Culture - Final Foot - Right Shakira coyle Assessment and Plan (1) Foot osteomyelitis, right Current Visit: Yes Status: Acute Code(s): M86.9 - OSTEOMYELITIS, UNSPECIFIED SNOMED Code(s): 0198089210638372 (2) Elevated serum creatinine Current Visit: Yes Status: Acute Code(s): R79.89 - OTHER SPECIFIED ABNORMAL FINDINGS OF BLOOD CHEMISTRY SNOMED Code(s): 121234390 (3) Diabetic infection of right foot Current Visit: No Status: Acute Code(s): E11.628 - TYPE 2 DIABETES MELLITUS WITH OTHER SKIN COMPLICATIONS; L08.9 - LOCAL INFECTION OF THE SKIN AND SUBCUTANEOUS TISSUE, UNSP SNOMED Code(s): 465958493 Plan: 1patient with a complicated history of multiple diabetic foot infection this patient did have previous amputation of the toes now presenting with extensive right diabetic foot infection with evidence of air on the CT concerning for gas- forming pathogen and will need to cover for the polymicrobial maricel associated with diabetic foot infection 2patient is status post disarticulation of the right ankle because of extensive infection and subsequently did have a right BKA on 07/29/2024 4patient to continue with with Zosyn and daptomycin perioperatively however will not need any antibiotics on discharge Dictation was produced using [employer] dictation software. please excuse any grammatical, word or spelling errors. Time with Patient: Less than 30
[2024-07-31 21:12] LABS: Glucose,Whole Blood 200 mg/dL (70-110)
--- NOTE | 2024-07-31 22:17 | P.PN ---
Subjective Progress Note Date: 07/31/24 This is a pleasant 79-year-old male who presented to the emergency department with increasing pain and drainage of the right foot and has been progressively becoming more swollen and follows with Dr. Quiñones outpatient at the wound care center. Apparently patient had gone to the wound care center and was diagnosed with wet gangrene and wanted the patient to come here for further vascular surgery consult. Dr. Quiñones is currently out of town and this was discussed with vascular surgery, Dr. Adame's group and will be undergoing surgical intervention including great toe amputation on the right today. Patient also with infectious disease consulted as patient follows with him outpatient as well and there was concerns of osteomyelitis. Patient did previously have right 4th and 5th toes removed as well. Patient reports he follows with Dr. 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 Labs reviewed from ER admission with a white count of 15.48, hemoglobin 8.9, platelets 395, sodium 138, potassium 3.2, creatinine 1.37, BUN 28, random glucose elevated at 282, lactic acid 1.6. Patient did report some swelling and pain up into the calf and did undergo venous Doppler which shows right lower extremity negative for DVT and patency within the vessels. CT angiography performed of the abdomen pelvis revealing a right first metatarsal region extending to the plantar aspect of the foot along the medial right ankle and posterior right ankle with gas-forming infection that should be considered along with soft tissue swelling through the distal right calf and an occlusion of the vascular trifurcation vessels bilaterally. 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 In cidental finding of the left hydronephrosis and will consult urology and appreciate input and recommendations. Patient reports he is voiding with no difficulties and creatinine is stable at 1.37. Will follow-up on repeat labs and resume diet once cleared by surgery. Recommend tight glycemic control for healing as hemoglobin A1c is noted to be uncontrolled and elevated at 10.5. 07/27/2024 Patient is evaluated in follow-up with medical floor. He was still complaining of some mild pain of the right calf area however states that is nothing extensive and feels like he does not need any pain medication for this currently. He was complaining of some mild shortness of breath states that he uses albuterol inhaler at home and is requesting this. Patient is postoperative day 1 right lower foot amputation. He continues on antibiotics in the form of Daptomycin and Zosyn. Urology has evaluated patient for the incidental finding of the left sided hydronephrosis and planning to undergo CT urogram. His blood work today reveals a white blood cell count of 11.03, hemoglobin stable at 8.2, sodium 139, BUN of 21 creatinine 1.08. His blood glucose remains significantly elevated in the 300s. Patient will go for right BKA on 07/29. 07/28/2024 Patient is seen and evaluated in follow-up this morning currently sitting up in the chair with lower extremities elevated. Right surgical dressing is dry and intact and patient is scheduled to undergo BKA tomorrow with vascular surgery. Patient is continued on IV antibiotics with infectious disease following. Continue monitoring Accu-Cheks closely including 2 AMS patient will be n.p.o. at midnight and patient is a diabetic. Monitor for any concerns of hypoglycemia and continue with dextrose per protocol. Will follow-up on repeat labs and monitor kidney functions and electrolytes closely. Patient's potassium was 3.6 and will give 40 mEq today. 07/29/2024 Patient is seen in follow-up status post right BKA with vascular surgery. Patient continued on antibiotics with infectious disease following with right foot culture showing Finegoldia magna and blood cultures remain negative thus far. Patient for PT/OT therapy evaluation and continue wound care per vascular surgery. Patient is afebrile with no reports of chest pain or shortness of breath. Patient has been tolerating diet and recommended monitor blood sugars closely. 07/30/2024 Patient is seen in follow-up this morning being followed by vascular surgery along with infectious disease and patient is maintained on daptomycin and Zosyn as per ID recommendations and will continue for now. To discuss further regarding discharge planning regarding continued antibiotic therapy and the need for IV antibiotics on discharge and if requiring rehab services for continued PT/OT therapy as well as antibiotic therapy. Case management/social work consulted and following regarding discharge planning. Vascular surgery surgery following as well recommending close outpatient follow-up. Patient is afebrile with no reports of chest pain or shortness of breath. Patient has been t olerating diet with no reported nausea or vomiting. Continue monitoring Accu- Cheks and adjust accordingly as blood sugars have been mildly elevated. Will follow-up on repeat labs and replace electrolytes per protocol. 07/31/2024 Patient seen and evaluated in follow-up today being followed by vascular surgery along with infectious disease. Patient was continued on IV antibiotics and cultures remain negative and antibiotics being discontinued and patient will be closely monitored off antibiotic therapy. Patient cleared by vascular surgery for inpatient rehab once antibiotic recommendations have been made. Patient to continue with local wound care and also evaluated by inpatient rehab and would make a good candidate although will require insurance authorization. Await PT/OT therapy evaluation on Thursday and case management to discuss discharge planning. Will attempt inpatient leg care on [facility] and/or to inpatient [facility] facilities in [place]. Patient is afebrile with no reports of chest pain or shortness of breath. Blood sugars have been elevated and will adjust insulin s accordingly and also recommend consistent carb diet. Await PT/OT therapy evaluation on Thursday REVIEW OF SYSTEMS: CONSTITUTIONAL: No fever, no malaise, no fatigue. HEENT: No recent visual problems or hearing problems. Denied any sore throat. CARDIOVASCULAR: No chest pain, orthopnea, PND, no palpitations, no syncope. PULMONARY: No shortness of breath, no cough, no hemoptysis. GASTROINTESTINAL: No diarrhea, no nausea, no vomiting, no abdominal pain. NEUROLOGICAL: No headaches, reports of generalized weakness, no numbness. PHYSICAL EXAMINATION: GENERAL: The patient is alert and oriented x3, not in any acute distress. Well developed, well nourished. Elderly appearing, thin built HEENT: Pupils are round and equally reacting to light. EOMI. No scleral icterus. No conjunctival pallor. Normocephalic, atraumatic. No pharyngeal erythema. No thyromegaly. CARDIOVASCULAR: S1 and S2 present. No murmurs, rubs, or gallops. PULMONARY: Chest is clear to auscultation, no wheezing or crackles. ABDOMEN: Soft, thin, nontender, nondistended, normoactive bowel sounds. No palpable organomegaly. MUSCULOSKELETAL: No joint swelling or deformity. Surgical dressing is dry and intact of the right lower extremity BKA EXTREMITIES: No cyanosis, clubbing, or pedal edema. Status post right BKA NEUROLOGICAL: Gross neurological examination did not reveal any focal deficits. Diffusely weak SKIN: No rashes. 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 Leukocytosis, secondary to above, improving and trending down Severe left hydronephrosis noted on imaging, ruled out, CT confirms no hydronephrosis although was noted to be a parapelvic cyst and a nonobstructing left renal stone Osteomyelitis Significant hypokalemia, improved after replacement and will monitor closely Diabetes mellitus, type II, uncontrolled with hyperglycemia, hemoglobin A1c is 10.5 Hypertension History of MRSA infections History of previous gangrene of the right fifth toe status post amputation 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 Quiñones for further evaluation and possible amputation. Patient was evaluated by Dr. Rodriguez service as Dr. Quiñones is out of town. And is status post right lower extremity guillotine amputation as well as now status post right below the knee amputation 07/29/2024 Cultures thus far remain negative and infectious disease following closely and antibiotics being discontinued and monitoring closely off antibiotic therapy Patient did undergo CT angio with some incidental findings also noted to have severe left hydronephrosis. CT urogram was performed revealing no hydronephrosis although a parapelvic cyst and a nonobstructing left renal stone. Urology did evaluate with no plans or surgical intervention recommending outpatient follow-up as needed. Kidney functions relatively stable with a mild HUONG Continue with home medications as appropriate Continue monitoring Accu-Cheks AC and at bedtime along with sliding scale and long-acting and will adjust accordingly. Diabetes education as patient's hemoglobin A1c is 10.5. Monitor blood sugars closely and will slightly adjust long-acting insulins accordingly Replace electrolytes per protocol and follow-up with repeat labs. Recommend incentive spirometer at least 10 times every hour while awake Will need PT/OT therapy evaluation Thursday along with case management and planning on inpatient rehab. Patient was evaluated by Paramjit Briscoe reporting he would be a good candidate and able to work with physical therapy aggressively. Other resources provided for [facility] inpatient rehabs and patient will require insurance authorization. Will need an updated note from physical therapy to submit for insurance authorization. Possible discharge planning in the next 24 to 48 hours The impression and plan of care has been dictated as a scribe by Yesenia Ward, Nurse Practitioner as directed. Dr. Toño MD I have performed a history and examination and MDM of this patient, discussed the same with the dictator, and agree with the dictator's assessment and plan as written ,documented as a scribe. Based on total visit time, I have performed more than 50% of the visit. Objective - Vital Signs Vital signs: Vital Signs Temp 98.5 F 07/31/24 07:16 Pulse 71 07/31/24 07:16 Resp 17 07/31/24 07:16 BP 155/73 07/31/24 07:16 Pulse Ox 96 07/31/24 07:16 FiO2 Intake & Output 07/30/24 07/31/24 07/31/24 18:59 06:59 18:59 Intake Total 1740 Output Total 200 1200 Balance 1540 -1200 Intake: Oral 1740 Output: Urine 200 1200 Other: # Voids 1 1 # Bowel Movements 1 1 - Labs CBC & Chem 7: 07/31/24 06:46 07/31/24 06:46 Labs: Abnormal Lab Results - Last 24 Hours (Table) 07/30/24 07/30/24 07/30/24 Range/Units 06:26 06:26 11:36 WBC 11.94 H (4.50-10.00) 10*3/uL RBC 2.97 L (4.40-5.60) 10*6/uL Hgb 8.3 L (13.0-17.0) g/dL Hct 25.5 L (39.6-50.0) % MPV 9.1 L (9.5-12.2) fL Immature Gran # 0.15 H (0.00-0.04) 10*3/uL Neutrophils # 8.38 H (1.80-7.70) 10*3/uL Monocytes # 1.03 H (0.20-1.00) 10*3/uL Sodium 136 L (137-145) mmol/L Glucose 189 H (74-99) mg/dL POC Glucose (mg/dL) 351 H (70-110) mg/dL Calcium 7.9 L (8.4-10.2) mg/dL 07/30/24 07/30/24 07/31/24 Range/Units 16:35 20:36 03:02 WBC (4.50-10.00) 10*3/uL RBC (4.40-5.60) 10*6/uL Hgb (13.0-17.0) g/dL Hct (39.6-50.0) % MPV (9.5-12.2) fL Immature Gran # (0.00-0.04) 10*3/uL Neutrophils # (1.80-7.70) 10*3/uL Monocytes # (0.20-1.00) 10*3/uL Sodium (137-145) mmol/L Glucose (74-99) mg/dL POC Glucose (mg/dL) 227 H 328 H 136 H (70-110) mg/dL Calcium (8.4-10.2) mg/dL 07/31/24 07/31/24 07/31/24 Range/Units 06:17 06:46 06:46 WBC 11.22 H (4.50-10.00) 10*3/uL RBC 3.01 L (4.40-5.60) 10*6/uL Hgb 8.5 L (13.0-17.0) g/dL Hct 26.1 L (39.6-50.0) % MPV 9.2 L (9.5-12.2) fL Immature Gran # 0.13 H (0.00-0.04) 10*3/uL Neutrophils # 7.96 H (1.80-7.70) 10*3/uL Monocytes # (0.20-1.00) 10*3/uL Sodium (137-145) mmol/L Glucose 149 H (74-99) mg/dL POC Glucose (mg/dL) 183 H (70-110) mg/dL Calcium (8.4-10.2) mg/dL 07/31/24 Range/Units 06:54 WBC (4.50-10.00) 10*3/uL RBC (4.40-5.60) 10*6/uL Hgb (13.0-17.0) g/dL Hct (39.6-50.0) % MPV (9.5-12.2) fL Immature Gran # (0.00-0.04) 10*3/uL Neutrophils # (1.80-7.70) 10*3/uL Monocytes # (0.20-1.00) 10*3/uL Sodium (137-145) mmol/L Glucose (74-99) mg/dL POC Glucose (mg/dL) 157 H (70-110) mg/dL Calcium (8.4-10.2) mg/dL Microbiology - Last 24 Hours (Table) 07/25/24 15:46 Blood Culture - Final Blood
[2024-07-31] MEDS: HEPARIN SODIUM,PORCINE 5,000 UNIT/ML 1 ML VIAL SQ SCH (23:55)
[2024-08-01 02:14] LABS: Glucose,Whole Blood 120 mg/dL (70-110)
[2024-08-01 06:09] LABS: Glucose,Whole Blood 138 mg/dL (70-110)
[2024-08-01 07:58] LABS: Basophils # (A) 0.03 X 10*3/uL (0.00-0.10); Basophils % (A) 0.3 %; Eosinophils # (A) 0.21 X 10*3/uL (0.04-0.35); Eosinophils % (A) 2.3 %; HCT 26.9 % (39.6-50.0); HGB 8.3 g/dL (13.0-17.0); Lymphocytes # (A) 1.83 X 10*3/uL (0.90-5.00); MCH 27.2 pg (27.0-32.0); MCHC 30.9 g/dL (32.0-37.0); MCV 88.2 FL (80.0-97.0); Mean Platelet Volume 9.7 FL (9.5-12.2); Monocytes # (A) 0.89 X 10*3/uL (0.20-1.00); Monocytes % (A) 9.7 %; NRBC Per 100 WBC 0 X 10*3/uL (0.00-0.01); Neutrophils # (A) 6.07 X 10*3/uL (1.80-7.70); Neutrophils % (A) 66.4 %; Platelet Count 377 X 10*3/uL (140-440); RBC 3.05 X 10*6/uL (4.40-5.60); RDW 14.5 % (11.5-14.5); WBC 9.15 X 10*3/uL (4.50-10.00)
[2024-08-01 09:04] LABS: Blood Urea Nitrogen 10.8 mg/dL (9.0-27.0); Calcium 8.4 mg/dL (8.7-10.3); Carbon Dioxide 26.8 mmol/L (21.6-31.8); Chloride 102 mmol/L (96-109); Glucose 130 mg/dL (70-110); Potassium 4.1 mmol/L (3.5-5.5); Sodium 140 mmol/L (135-145)
[2024-08-01] MEDS: INSULIN GLARGINE (LANTUS) 100 UNIT/ML SYR SQ SCH ×2 (09:42→20:42)
--- NOTE | 2024-08-01 11:09 | P.PN ---
Subjective Progress Note Date: 08/01/24 Principal diagnosis: Nonhealing infected right lower extremity wound Patient seen and examined today as a follow-up. He is postop day #3 for right lower extremity below the knee amputation. Pain has been very well-controlled. He has been working with physical therapy and getting up with assistance using the commode and getting to the chair. Plan is for inpatient rehab. [facility]ae with [facility] is at the bedside for stump boat hoist operator helper and rigid dressing. Objective - Vital Signs Vital signs: Vital Signs Temp 99.1 F 08/01/24 06:42 Pulse 62 08/01/24 06:42 Resp 18 08/01/24 06:42 BP 146/86 08/01/24 06:42 Pulse Ox 96 08/01/24 06:42 FiO2 Intake & Output 07/31/24 08/01/24 08/01/24 18:59 06:59 18:59 Intake Total 2217 Output Total 3400 1300 Balance -1183 -1300 Intake: Oral 2217 Output: Urine 3400 1300 Other: Voiding Method Urinal # Voids 1 # Bowel Movements 1 - Exam General appearance: The patient is alert, oriented, appears in no acute distress. HET: Head is normocephalic and atraumatic. Neck: Supple. Abdomen: Soft, nondistended. Extremities: Normal skin color and turgor. Right BKA incision site well- approximated with maddi, no drainage. Skin is warm, pink and dry. Stump boat hoist operator helper and rigid dressing applied. Neurological: No focal deficits. Alert and oriented. - Labs CBC & Chem 7: 08/01/24 03:42 08/01/24 03:42 Labs: Abnormal Lab Results - Last 24 Hours (Table) 07/31/24 07/31/24 07/31/24 Range/Units 11:38 17:04 21:11 RBC (4.40-5.60) X 10*6/uL Hgb (13.0-17.0) g/dL Hct (39.6-50.0) % MCHC (32.0-37.0) g/dL Immature Gran # (0.00-0.04) X 10*3/uL Glucose (70-110) mg/dL POC Glucose (mg/dL) 235 H 255 H 200 H (70-110) mg/dL Calcium (8.7-10.3) mg/dL 08/01/24 08/01/24 08/01/24 Range/Units 02:13 03:42 03:42 RBC 3.05 L (4.40-5.60) X 10*6/uL Hgb 8.3 L (13.0-17.0) g/dL Hct 26.9 L (39.6-50.0) % MCHC 30.9 L (32.0-37.0) g/dL Immature Gran # 0.12 H (0.00-0.04) X 10*3/uL Glucose 130 H (70-110) mg/dL POC Glucose (mg/dL) 120 H (70-110) mg/dL Calcium 8.4 L (8.7-10.3) mg/dL 08/01/24 Range/Units 06:07 RBC (4.40-5.60) X 10*6/uL Hgb (13.0-17.0) g/dL Hct (39.6-50.0) % MCHC (32.0-37.0) g/dL Immature Gran # (0.00-0.04) X 10*3/uL Glucose (70-110) mg/dL POC Glucose (mg/dL) 138 H (70-110) mg/dL Calcium (8.7-10.3) mg/dL Assessment and Plan Assessment: 1. Right infected diabetic ulcer, wet gangrene with foot abscess tracking to the heel status post right below the knee amputation 2. Osteomyelitis 3. Hypokalemia 4. Diabetes mellitus 5. Hypertension Plan: 1. Activity as tolerated 2. PT/OT on consult 3. Patient would like to go to inpatient rehab for discharge, case management following 4. Adaptic, Kerlix to right BKA site. Keep stump boat hoist operator helper and rigid dressing in place as well as knee immobilizer. 5. Patient is cleared from vascular surgery for discharge 6. Infectious disease following for antibiotic recommendations Thank you for this consultation, patient cleared from vascular surgery for discharge. Follow-up in 2 weeks. The impression and plan of care has been dictated as directed. Dr. Alex Santiago I performed a history and examination of this patient, discussed the same with the dictator. I agree with the dictator's note ,documented as a scribe. Any additional findings or plans will be noted.
[2024-08-01 11:21] LABS: Glucose,Whole Blood 270 mg/dL (70-110)
[2024-08-01 16:47] LABS: Glucose,Whole Blood 225 mg/dL (70-110)
[2024-08-01 20:45] LABS: Glucose,Whole Blood 144 mg/dL (70-110)
[2024-08-02 02:18] LABS: Glucose,Whole Blood 127 mg/dL (70-110)
--- NOTE | 2024-08-02 05:33 | P.PN ---
Subjective Progress Note Date: 08/01/24 This is a pleasant 79-year-old male who presented to the emergency department with increasing pain and drainage of the right foot and has been progressively becoming more swollen and follows with Dr. Quiñones outpatient at the wound care center. Apparently patient had gone to the wound care center and was diagnosed with wet gangrene and wanted the patient to come here for further vascular surgery consult. Dr. Quiñones is currently out of town and this was discussed with vascular surgery, Dr. Adame's group and will be undergoing surgical intervention including great toe amputation on the right today. Patient also with infectious disease consulted as patient follows with him outpatient as well and there was concerns of osteomyelitis. Patient did previously have right 4th and 5th toes removed as well. Patient reports he follows with Dr. 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 Labs reviewed from ER admission with a white count of 15.48, hemoglobin 8.9, platelets 395, sodium 138, potassium 3.2, creatinine 1.37, BUN 28, random glucose elevated at 282, lactic acid 1.6. Patient did report some swelling and pain up into the calf and did undergo venous Doppler which shows right lower extremity negative for DVT and patency within the vessels. CT angiography performed of the abdomen pelvis revealing a right first metatarsal region extending to the plantar aspect of the foot along the medial right ankle and posterior right ankle with gas-forming infection that should be considered along with soft tissue swelling through the distal right calf and an occlusion of the vascular trifurcation vessels bilaterally. 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 In cidental finding of the left hydronephrosis and will consult urology and appreciate input and recommendations. Patient reports he is voiding with no difficulties and creatinine is stable at 1.37. Will follow-up on repeat labs and resume diet once cleared by surgery. Recommend tight glycemic control for healing as hemoglobin A1c is noted to be uncontrolled and elevated at 10.5. 07/27/2024 Patient is evaluated in follow-up with medical floor. He was still complaining of some mild pain of the right calf area however states that is nothing extensive and feels like he does not need any pain medication for this currently. He was complaining of some mild shortness of breath states that he uses albuterol inhaler at home and is requesting this. Patient is postoperative day 1 right lower foot amputation. He continues on antibiotics in the form of Daptomycin and Zosyn. Urology has evaluated patient for the incidental finding of the left sided hydronephrosis and planning to undergo CT urogram. His blood work today reveals a white blood cell count of 11.03, hemoglobin stable at 8.2, sodium 139, BUN of 21 creatinine 1.08. His blood glucose remains significantly elevated in the 300s. Patient will go for right BKA on 07/29. 07/28/2024 Patient is seen and evaluated in follow-up this morning currently sitting up in the chair with lower extremities elevated. Right surgical dressing is dry and intact and patient is scheduled to undergo BKA tomorrow with vascular surgery. Patient is continued on IV antibiotics with infectious disease following. Continue monitoring Accu-Cheks closely including 2 AMS patient will be n.p.o. at midnight and patient is a diabetic. Monitor for any concerns of hypoglycemia and continue with dextrose per protocol. Will follow-up on repeat labs and monitor kidney functions and electrolytes closely. Patient's potassium was 3.6 and will give 40 mEq today. 07/29/2024 Patient is seen in follow-up status post right BKA with vascular surgery. Patient continued on antibiotics with infectious disease following with right foot culture showing Finegoldia magna and blood cultures remain negative thus far. Patient for PT/OT therapy evaluation and continue wound care per vascular surgery. Patient is afebrile with no reports of chest pain or shortness of breath. Patient has been tolerating diet and recommended monitor blood sugars closely. 07/30/2024 Patient is seen in follow-up this morning being followed by vascular surgery along with infectious disease and patient is maintained on daptomycin and Zosyn as per ID recommendations and will continue for now. To discuss further regarding discharge planning regarding continued antibiotic therapy and the need for IV antibiotics on discharge and if requiring rehab services for continued PT/OT therapy as well as antibiotic therapy. Case management/social work consulted and following regarding discharge planning. Vascular surgery surgery following as well recommending close outpatient follow-up. Patient is afebrile with no reports of chest pain or shortness of breath. Patient has been t olerating diet with no reported nausea or vomiting. Continue monitoring Accu- Cheks and adjust accordingly as blood sugars have been mildly elevated. Will follow-up on repeat labs and replace electrolytes per protocol. 07/31/2024 Patient seen and evaluated in follow-up today being followed by vascular surgery along with infectious disease. Patient was continued on IV antibiotics and cultures remain negative and antibiotics being discontinued and patient will be closely monitored off antibiotic therapy. Patient cleared by vascular surgery for inpatient rehab once antibiotic recommendations have been made. Patient to continue with local wound care and also evaluated by inpatient rehab and would make a good candidate although will require insurance authorization. Await PT/OT therapy evaluation on Thursday and case management to discuss discharge planning. Will attempt inpatient leg care on [facility] and/or to inpatient [facility] facilities in [place]. Patient is afebrile with no reports of chest pain or shortness of breath. Blood sugars have been elevated and will adjust insulin s accordingly and also recommend consistent carb diet. Await PT/OT therapy evaluation on Thursday08/01/2024 Patient is seen in follow-up today awaiting to work with physical therapy with case management following to submit insurance authorization for inpatient rehab. Verifying coverage for rehab services and patient has been accepted by [facility] pending insurance authorization. Vascular surgery evaluating and will be changing the dressing from surgery of the right BKA and will continue with local wound care per their recommendations. Patient being monitored off antibiotic therapy doing relatively well with infectious disease following closely. Patient is afebrile with no reports of chest pain or shortness of breath. Blood sugars being controlled and will continue current regimen and adjust accordingly. REVIEW OF SYSTEMS: CONSTITUTIONAL: No fever, no malaise, no fatigue. HEENT: No recent visual problems or hearing problems. Denied any sore throat. CARDIOVASCULAR: No chest pain, orthopnea, PND, no palpitations, no syncope. PULMONARY: No shortness of breath, no cough, no hemoptysis. GASTROINTESTINAL: No diarrhea, no nausea, no vomiting, no abdominal pain. NEUROLOGICAL: No headaches, reports of generalized weakness, no numbness. PHYSICAL EXAMINATION: GENERAL: The patient is alert and oriented x3, not in any acute distress. Well developed, well nourished. Elderly appearing, thin built HEENT: Pupils are round and equally reacting to light. EOMI. No scleral icterus. No conjunctival pallor. Normocephalic, atraumatic. No pharyngeal erythema. No thyromegaly. CARDIOVASCULAR: S1 and S2 present. No murmurs, rubs, or gallops. PULMONARY: Chest is clear to auscultation, no wheezing or crackles. ABDOMEN: Soft, thin, nontender, nondistended, normoactive bowel sounds. No palpable organomegaly. MUSCULOSKELETAL: No joint swelling or deformity. Surgical dressing is dry and intact of the right lower extremity BKA EXTREMITIES: No cyanosis, clubbing, or pedal edema. Status post right BKA NEUROLOGICAL: Gross neurological examination did not reveal any focal deficits. Diffusely weak SKIN: No rashes. 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 Leukocytosis, secondary to above, improving and trending down Severe left hydronephrosis noted on imaging, ruled out, CT confirms no hydronephrosis although was noted to be a parapelvic cyst and a nonobstructing left renal stone Osteomyelitis on admission of the right lower extremity Significant hypokalemia, improved after replacement and will monitor closely Diabetes mellitus, type II, uncontrolled with hyperglycemia, hemoglobin A1c is 10.5 Hypertension History of MRSA infections History of previous gangrene of the right fifth toe status post amputation 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 CT urogram was performed revealing no hydronephrosis although a parapelvic cyst and a nonobstructing left renal stone. Urology did evaluate with no plans or surgical intervention recommending outpatient follow-up as needed. Kidney functions relatively stable with a mild HUONG Continue with home medications as appropriate Continue monitoring Accu-Cheks AC and at bedtime along with sliding scale and long-acting and will adjust accordingly. Diabetes education as patient's hemoglobin A1c is 10.5. Monitor blood sugars closely and will slightly adjust long-acting insulins accordingly Replace electrolytes per protocol and follow-up with repeat labs. Recommend incentive spirometer at least 10 times every hour while awake Will need updated PT/OT therapy notes for case management to submit insurance authorization. Patient was evaluated by [facility] reporting he would be a good candidate and able to work with physical therapy aggressively. Other resources provided for [facility] inpatient rehabs and patient will require insurance authorization. Patient has been cleared by consultations to inpatient rehab or ECF with close outpatient follow-up Possible discharge planning in the next 24 to 48 hours The impression and plan of care has been dictated by Yesenia Ward, Nurse Practitioner as directed. Dr. Babar MD I have performed a history and examination and MDM of this patient, discussed the same with the dictator, and agree with the dictator's assessment and plan as written ,documented as a scribe. Based on total visit time, I have performed more than 50% of the visit. Objective - Vital Signs Vital signs: Vital Signs Temp 97.8 F 08/02/24 00:35 Pulse 64 08/02/24 00:35 Resp 16 08/02/24 00:35 BP 131/68 08/02/24 00:35 Pulse Ox 97 08/02/24 00:35 FiO2 Intake & Output 08/01/24 08/01/24 08/02/24 06:59 18:59 06:59 Intake Total 600 1620 Output Total 4301 896 1730 Balance -1300 300 220 Weight 78.018 kg Intake: Intake, IV Titration 600 Amount Sodium Chloride 0.9% 1, 600 000 ml @ 50 mls/hr IV . Q20H [facility] Rx#:[id number] Oral 1620 Output: Urine 0211 375 7830 Other: Voiding Method Urinal # Voids 1 # Bowel Movements 1 - Labs CBC & Chem 7: 08/01/24 03:42 08/01/24 03:42 Labs: Abnormal Lab Results - Last 24 Hours (Table) 08/01/24 08/01/24 08/01/24 Range/Units 03:42 03:42 06:07 RBC 3.05 L (4.40-5.60) X 10*6/uL Hgb 8.3 L (13.0-17.0) g/dL Hct 26.9 L (39.6-50.0) % MCHC 30.9 L (32.0-37.0) g/dL Immature Gran # 0.12 H (0.00-0.04) X 10*3/uL Glucose 130 H (70-110) mg/dL POC Glucose (mg/dL) 138 H (70-110) mg/dL Calcium 8.4 L (8.7-10.3) mg/dL 08/01/24 08/01/24 08/01/24 Range/Units 11:20 16:45 20:34 RBC (4.40-5.60) X 10*6/uL Hgb (13.0-17.0) g/dL Hct (39.6-50.0) % MCHC (32.0-37.0) g/dL Immature Gran # (0.00-0.04) X 10*3/uL Glucose (70-110) mg/dL POC Glucose (mg/dL) 270 H 225 H 144 H (70-110) mg/dL Calcium (8.7-10.3) mg/dL 08/02/24 Range/Units 02:16 RBC (4.40-5.60) X 10*6/uL Hgb (13.0-17.0) g/dL Hct (39.6-50.0) % MCHC (32.0-37.0) g/dL Immature Gran # (0.00-0.04) X 10*3/uL Glucose (70-110) mg/dL POC Glucose (mg/dL) 127 H (70-110) mg/dL Calcium (8.7-10.3) mg/dL
[2024-08-02 06:15] LABS: Glucose,Whole Blood 130 mg/dL (70-110)
[2024-08-02 11:24] LABS: Glucose,Whole Blood 398 mg/dL (70-110)
--- NOTE | 2024-08-02 13:41 | P.EN ---
PM&R Update Note Patient's request for inpatient rehab for [facility] has gone to peer to peer for insurance approval. 1:35 pm called insurance and left voicemail to schedule peer to peer. Patient's therapy notes reviewed, he is Mod A with LB dressing and toileting, Min to Mod A with gait 10 ft hopping with walker, Transfers Min A. Patient's case went to peer to peer because insurance felt patient was too functional. I highly disagree based on patient's current functional level and his prior level of independence. If patient gets denied during peer to peer, [facility] will write a formal appeal letter on behalf of the patient if he wishes. Una Schmidt PA-C
--- NOTE | 2024-08-02 14:48 | P.PN ---
Subjective Progress Note Date: 08/01/24 Principal diagnosis: Reason for follow-up is right diabetic foot infection/osteomyelitis Patient is 79-year-old male with a past medical history significant for diabetes mellitus hypertension history of diabetic foot infection and previous right 4th and 5th amputation patient presented to [facility] ER concerning for worsening swelling redness and drainage to the right foot, patient was noticed to have extensive infection needing disarticulation at the ankle joint by vascular surgery. On today's evaluation that is 08/01/2024, patient has been afebrile, patient is breathing comfortably and is currently on room air, patient denies having any chest pain and cough, patient denies nausea vomiting or diarrhea and no abdominal pain, pain to the right pinky is currently controlled. Patient white count is 9.15 creatinine 0.9 blood culture remains to be negative Objective - Vital Signs Vital signs: Vital Signs Temp 98 F 08/01/24 13:26 Pulse 73 08/01/24 13:26 Resp 18 08/01/24 13:26 BP 144/70 08/01/24 13:26 Pulse Ox 97 08/01/24 13:26 FiO2 Intake & Output 07/31/24 08/01/24 08/01/24 18:59 06:59 18:59 Intake Total 2217 Output Total 3400 1300 Balance -1183 -1300 Weight 78.018 kg Intake: Oral 2217 Output: Urine 3400 1300 Other: Voiding Method Urinal # Voids 1 # Bowel Movements 1 - Exam GENERAL DESCRIPTION: An elderly male lying in bed in no distress RESPIRATORY SYSTEM: Unlabored breathing , decreased breath sounds at bases HEART: S1 S2 regular rate and rhythm , ABDOMEN: Soft , no tenderness EXTREMITIES: Right lower leg disarticulation site is currently dressed - Labs CBC & Chem 7: 08/01/24 03:42 08/01/24 03:42 Labs: Abnormal Lab Results - Last 24 Hours (Table) 07/31/24 07/31/24 08/01/24 Range/Units 17:04 21:11 02:13 RBC (4.40-5.60) X 10*6/uL Hgb (13.0-17.0) g/dL Hct (39.6-50.0) % MCHC (32.0-37.0) g/dL Immature Gran # (0.00-0.04) X 10*3/uL Glucose (70-110) mg/dL POC Glucose (mg/dL) 255 H 200 H 120 H (70-110) mg/dL Calcium (8.7-10.3) mg/dL 08/01/24 08/01/24 08/01/24 Range/Units 03:42 03:42 06:07 RBC 3.05 L (4.40-5.60) X 10*6/uL Hgb 8.3 L (13.0-17.0) g/dL Hct 26.9 L (39.6-50.0) % MCHC 30.9 L (32.0-37.0) g/dL Immature Gran # 0.12 H (0.00-0.04) X 10*3/uL Glucose 130 H (70-110) mg/dL POC Glucose (mg/dL) 138 H (70-110) mg/dL Calcium 8.4 L (8.7-10.3) mg/dL 08/01/24 Range/Units 11:20 RBC (4.40-5.60) X 10*6/uL Hgb (13.0-17.0) g/dL Hct (39.6-50.0) % MCHC (32.0-37.0) g/dL Immature Gran # (0.00-0.04) X 10*3/uL Glucose (70-110) mg/dL POC Glucose (mg/dL) 270 H (70-110) mg/dL Calcium (8.7-10.3) mg/dL Assessment and Plan (1) Foot osteomyelitis, right Current Visit: Yes Status: Acute Code(s): M86.9 - OSTEOMYELITIS, UNSPECIFIED SNOMED Code(s): 0927334002127154 (2) Elevated serum creatinine Current Visit: Yes Status: Acute Code(s): R79.89 - OTHER SPECIFIED ABNORMAL FINDINGS OF BLOOD CHEMISTRY SNOMED Code(s): 413370096 (3) Diabetic infection of right foot Current Visit: No Status: Acute Code(s): E11.628 - TYPE 2 DIABETES MELLITUS WITH OTHER SKIN COMPLICATIONS; L08.9 - LOCAL INFECTION OF THE SKIN AND SUBCUTANEOUS TISSUE, UNSP SNOMED Code(s): 900478881 Plan: 1patient with a complicated history of multiple diabetic foot infection this patient did have previous amputation of the toes now presenting with extensive right diabetic foot infection with evidence of air on the CT concerning for gas- forming pathogen and will need to cover for the polymicrobial maricel associated with diabetic foot infection 2patient is 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 please excuse any grammatical, word or spelling errors. Time with Patient: Less than 30
--- NOTE | 2024-08-02 14:49 | P.PN ---
Subjective Progress Note Date: 08/02/24 Principal diagnosis: Reason for follow-up is right diabetic foot infection/osteomyelitis Patient is 79-year-old male with a past medical history significant for diabetes mellitus hypertension history of diabetic foot infection and previous right 4th and 5th amputation patient presented to [facility] ER concerning for worsening swelling redness and drainage to the right foot, patient was noticed to have extensive infection needing disarticulation at the ankle joint by vascular surgery. On today's evaluation that is 08/02/2024, Patient is afebrile this morning patient denies having any chest pain shortness of breath or cough, the patient is currently on room air, patient denies any abdominal pain no diarrhea no nausea no vomiting, the patient pain to the right leg is currently controlled No new lab has been obtained today blood culture remains to be negative Objective - Vital Signs Vital signs: Vital Signs Temp 98.3 F 08/02/24 14:00 Pulse 67 08/02/24 14:00 Resp 16 08/02/24 14:00 BP 145/62 08/02/24 14:00 Pulse Ox 98 08/02/24 14:00 FiO2 Intake & Output 08/01/24 08/02/24 08/02/24 18:59 06:59 18:59 Intake Total 600 1620 Output Total 300 1400 450 Balance 300 220 -450 Weight 78.018 kg Intake: Intake, IV Titration 600 Amount Sodium Chloride 0.9% 1, 600 000 ml @ 50 mls/hr IV . Q20H [facility] Rx#:[id number] Oral 1620 Output: Urine 300 1400 450 Other: Voiding Method Urinal # Voids 1 - Exam GENERAL DESCRIPTION: An elderly male lying in bed in no distress RESPIRATORY SYSTEM: Unlabored breathing , decreased breath sounds at bases HEART: S1 S2 regular rate and rhythm , ABDOMEN: Soft , no tenderness EXTREMITIES: Right lower leg disarticulation site is currently dressed - Labs CBC & Chem 7: 08/01/24 03:42 08/01/24 03:42 Labs: Abnormal Lab Results - Last 24 Hours (Table) 08/01/24 08/01/24 08/02/24 Range/Units 16:45 20:34 02:16 POC Glucose (mg/dL) 225 H 144 H 127 H (70-110) mg/dL 08/02/24 08/02/24 Range/Units 06:14 11:23 POC Glucose (mg/dL) 130 H 398 H (70-110) mg/dL Assessment and Plan (1) Foot osteomyelitis, right Current Visit: Yes Status: Acute Code(s): M86.9 - OSTEOMYELITIS, UNSPECIFIED SNOMED Code(s): 5915698620517418 (2) Elevated serum creatinine Current Visit: Yes Status: Acute Code(s): R79.89 - OTHER SPECIFIED ABNORMAL FINDINGS OF BLOOD CHEMISTRY SNOMED Code(s): 531423816 (3) Diabetic infection of right foot Current Visit: No Status: Acute Code(s): E11.628 - TYPE 2 DIABETES MELLITUS WITH OTHER SKIN COMPLICATIONS; L08.9 - LOCAL INFECTION OF THE SKIN AND SUBCUTANEOUS TISSUE, UNSP SNOMED Code(s): 291529274 Plan: 1patient with a complicated history of multiple diabetic foot infection this patient did have previous amputation of the toes now presenting with extensive right diabetic foot infection with evidence of air on the CT concerning for gas- forming pathogen and will need to cover for the polymicrobial maricel associated with diabetic foot infection 2patient is status post disarticulation of the right ankle because of extensive infection and subsequently did have a right BKA on 07/29/2024 3patient local culture data grew Finegoldia magna however the infected part is removed with the blood culture negative 4-patient remains to be afebrile and white count normalized as of yesterday, seems to be doing well and will monitor closely off antibiotic therapy Dictation was produced using [employer] dictation software. please excuse any grammatical, word or spelling errors. Time with Patient: Less than 30
[2024-08-02 16:46] LABS: Glucose,Whole Blood 209 mg/dL (70-110)
[2024-08-02 20:07] LABS: Glucose,Whole Blood 132 mg/dL (70-110)
[2024-08-03 03:58] LABS: Glucose,Whole Blood 78 mg/dL (70-110)
--- NOTE | 2024-08-03 05:27 | P.PN ---
Subjective Progress Note Date: 08/02/24 This is a pleasant 79-year-old male who presented to the emergency department with increasing pain and drainage of the right foot and has been progressively becoming more swollen and follows with Dr. Quiñones outpatient at the wound care center. Apparently patient had gone to the wound care center and was diagnosed with wet gangrene and wanted the patient to come here for further vascular surgery consult. Dr. Quiñones is currently out of town and this was discussed with vascular surgery, Dr. Adame's group and will be undergoing surgical intervention including great toe amputation on the right today. Patient also with infectious disease consulted as patient follows with him outpatient as well and there was concerns of osteomyelitis. Patient did previously have right 4th and 5th toes removed as well. Patient reports he follows with Dr. 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 Labs reviewed from ER admission with a white count of 15.48, hemoglobin 8.9, platelets 395, sodium 138, potassium 3.2, creatinine 1.37, BUN 28, random glucose elevated at 282, lactic acid 1.6. Patient did report some swelling and pain up into the calf and did undergo venous Doppler which shows right lower extremity negative for DVT and patency within the vessels. CT angiography performed of the abdomen pelvis revealing a right first metatarsal region extending to the plantar aspect of the foot along the medial right ankle and posterior right ankle with gas-forming infection that should be considered along with soft tissue swelling through the distal right calf and an occlusion of the vascular trifurcation vessels bilaterally. 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 In cidental finding of the left hydronephrosis and will consult urology and appreciate input and recommendations. Patient reports he is voiding with no difficulties and creatinine is stable at 1.37. Will follow-up on repeat labs and resume diet once cleared by surgery. Recommend tight glycemic control for healing as hemoglobin A1c is noted to be uncontrolled and elevated at 10.5. 07/27/2024 Patient is evaluated in follow-up with medical floor. He was still complaining of some mild pain of the right calf area however states that is nothing extensive and feels like he does not need any pain medication for this currently. He was complaining of some mild shortness of breath states that he uses albuterol inhaler at home and is requesting this. Patient is postoperative day 1 right lower foot amputation. He continues on antibiotics in the form of Daptomycin and Zosyn. Urology has evaluated patient for the incidental finding of the left sided hydronephrosis and planning to undergo CT urogram. His blood work today reveals a white blood cell count of 11.03, hemoglobin stable at 8.2, sodium 139, BUN of 21 creatinine 1.08. His blood glucose remains significantly elevated in the 300s. Patient will go for right BKA on 07/29. 07/28/2024 Patient is seen and evaluated in follow-up this morning currently sitting up in the chair with lower extremities elevated. Right surgical dressing is dry and intact and patient is scheduled to undergo BKA tomorrow with vascular surgery. Patient is continued on IV antibiotics with infectious disease following. Continue monitoring Accu-Cheks closely including 2 AMS patient will be n.p.o. at midnight and patient is a diabetic. Monitor for any concerns of hypoglycemia and continue with dextrose per protocol. Will follow-up on repeat labs and monitor kidney functions and electrolytes closely. Patient's potassium was 3.6 and will give 40 mEq today. 07/29/2024 Patient is seen in follow-up status post right BKA with vascular surgery. Patient continued on antibiotics with infectious disease following with right foot culture showing Finegoldia magna and blood cultures remain negative thus far. Patient for PT/OT therapy evaluation and continue wound care per vascular surgery. Patient is afebrile with no reports of chest pain or shortness of breath. Patient has been tolerating diet and recommended monitor blood sugars closely. 07/30/2024 Patient is seen in follow-up this morning being followed by vascular surgery along with infectious disease and patient is maintained on daptomycin and Zosyn as per ID recommendations and will continue for now. To discuss further regarding discharge planning regarding continued antibiotic therapy and the need for IV antibiotics on discharge and if requiring rehab services for continued PT/OT therapy as well as antibiotic therapy. Case management/social work consulted and following regarding discharge planning. Vascular surgery surgery following as well recommending close outpatient follow-up. Patient is afebrile with no reports of chest pain or shortness of breath. Patient has been t olerating diet with no reported nausea or vomiting. Continue monitoring Accu- Cheks and adjust accordingly as blood sugars have been mildly elevated. Will follow-up on repeat labs and replace electrolytes per protocol. 07/31/2024 Patient seen and evaluated in follow-up today being followed by vascular surgery along with infectious disease. Patient was continued on IV antibiotics and cultures remain negative and antibiotics being discontinued and patient will be closely monitored off antibiotic therapy. Patient cleared by vascular surgery for inpatient rehab once antibiotic recommendations have been made. Patient to continue with local wound care and also evaluated by inpatient rehab and would make a good candidate although will require insurance authorization. Await PT/OT therapy evaluation on Thursday and case management to discuss discharge planning. Will attempt inpatient leg care on [facility] and/or to inpatient [facility] facilities in [place]. Patient is afebrile with no reports of chest pain or shortness of breath. Blood sugars have been elevated and will adjust insulin s accordingly and also recommend consistent carb diet. Await PT/OT therapy evaluation on Thursday08/01/2024 Patient is seen in follow-up today awaiting to work with physical therapy with case management following to submit insurance authorization for inpatient rehab. Verifying coverage for rehab services and patient has been accepted by [facility] pending insurance authorization. Vascular surgery evaluating and will be changing the dressing from surgery of the right BKA and will continue with local wound care per their recommendations. Patient being monitored off antibiotic therapy doing relatively well with infectious disease following closely. Patient is afebrile with no reports of chest pain or shortness of breath. Blood sugars being controlled and will continue current regimen and adjust accordingly. 08/02/2024 Patient is seen in follow-up today continues to await insurance authorization to inpatient rehab. Case management following and reports authorization will likely be denied requesting [id number] as patient is doing relatively well. Patient was evaluated by inpatient rehab physician team and would be a great candidate for continued strength and mobility and more aggressive physical therapy status post BKA. Patient is motivated and has been willingly working with physical therapy. Recommend appeal process if patient's peer to peer is denied. Patient is afebrile with no reported chest pain or shortness of breath. Patient reports to tolerating diet with no reported nausea or vomiting. REVIEW OF SYSTEMS: CONSTITUTIONAL: No fever, no malaise, no fatigue. HEENT: No recent visual problems or hearing problems. Denied any sore throat. CARDIOVASCULAR: No chest pain, orthopnea, PND, no palpitations, no syncope. PULMONARY: No shortness of breath, no cough, no hemoptysis. GASTROINTESTINAL: No diarrhea, no nausea, no vomiting, no abdominal pain. NEUROLOGICAL: No headaches, reports of generalized weakness, no numbness. PHYSICAL EXAMINATION: GENERAL: The patient is alert and oriented x3. Well developed, well nourished. Elderly appearing, thin built HEENT: Pupils are round and equally reacting to light. EOMI. No scleral icterus. No conjunctival pallor. Normocephalic, atraumatic. No pharyngeal erythema. No thyromegaly. CARDIOVASCULAR: S1 and S2 present. No murmurs, rubs, or gallops. PULMONARY: Chest is clear to auscultation, no wheezing or crackles. ABDOMEN: Soft, thin, nontender, nondistended, normoactive bowel sounds. No palpable organomegaly. MUSCULOSKELETAL: No joint swelling or deformity. Surgical dressing is dry and intact of the right lower extremity BKA EXTREMITIES: No cyanosis, clubbing, or pedal edema. Status post right BKA NEUROLOGICAL: Gross neurological examination did not reveal any focal deficits. Diffusely weak SKIN: No rashes. 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 Leukocytosis, secondary to above, improving and trending down Severe left hydronephrosis noted on imaging, ruled out, CT confirms no hydronephrosis although was noted to be a parapelvic cyst and a nonobstructing left renal stone Osteomyelitis on admission of the right lower extremity Significant hypokalemia, improved after replacement and will monitor closely Diabetes mellitus, type II, uncontrolled with hyperglycemia, hemoglobin A1c is 10.5 Hypertension History of MRSA infections History of previous gangrene of the right fifth toe status post amputation 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 CT urogram was performed revealing no hydronephrosis although a parapelvic cyst and a nonobstructing left renal stone. Urology did evaluate with no plans or surgical intervention recommending outpatient follow-up as needed. Kidney functions relatively stable with a mild HUONG Continue with home medications as appropriate Continue monitoring Accu-Cheks AC and at bedtime along with sliding scale and long-acting and will adjust accordingly. Diabetes education as patient's hemoglobin A1c is 10.5. Monitor blood sugars closely and will slightly adjust long-acting insulins accordingly Replace electrolytes per protocol and follow-up with repeat labs. Recommend incentive spirometer at least 10 times every hour while awake Patient was evaluated by PT/OT therapy with case management following and ap parently insurance is denying recommended [id number] for inpatient rehab which will be performed by rehab staff which is pending at this time. Recommend appeal process if denied as patient is willing to work with physical therapy and is a good candidate for inpatient rehab. Await appeal decision at this time. Patient has been cleared by consultations to inpatient rehab or ECF with close outpatient follow-up Discharge planning pending appeal for inpatient rehab. The impression and plan of care has been dictated by Yesenia Ward, Nurse Practitioner as directed. Dr. Babar MD I have performed a history and examination and MDM of this patient, discussed the same with the dictator, and agree with the dictator's assessment and plan as written ,documented as a scribe. Based on total visit time, I have performed more than 50% of the visit. Objective - Vital Signs Vital signs: Vital Signs Temp 98.7 F 08/03/24 01:09 Pulse 69 08/03/24 01:09 Resp 16 08/03/24 01:09 BP 122/53 08/03/24 01:09 Pulse Ox 96 08/03/24 01:09 FiO2 Intake & Output 08/02/24 08/02/24 08/03/24 06:59 18:59 06:59 Intake Total 1620 150 Output Total 1400 450 800 Balance 220 -300 -800 Intake: Oral 1620 150 Output: Urine 1400 450 800 Other: Voiding Method Urinal Urinal # Voids 1 - Labs CBC & Chem 7: 08/01/24 03:42 08/01/24 03:42 Labs: Abnormal Lab Results - Last 24 Hours (Table) 08/02/24 08/02/24 08/02/24 Range/Units 06:14 11:23 16:44 POC Glucose (mg/dL) 130 H 398 H 209 H (70-110) mg/dL 08/02/24 Range/Units 20:06 POC Glucose (mg/dL) 132 H (70-110) mg/dL
[2024-08-03 06:08] LABS: Glucose,Whole Blood 114 mg/dL (70-110)
[2024-08-03 11:24] LABS: Glucose,Whole Blood 206 mg/dL (70-110)
--- NOTE | 2024-08-03 12:25 | P.PN ---
Subjective Progress Note Date: 08/03/24 Principal diagnosis: Reason for follow-up is right diabetic foot infection/osteomyelitis Patient is 79-year-old male with a past medical history significant for diabetes mellitus hypertension history of diabetic foot infection and previous right 4th and 5th amputation patient presented to [facility] ER concerning for worsening swelling redness and drainage to the right foot, patient was noticed to have extensive infection needing disarticulation at the ankle joint by vascular surgery. On today's evaluation that is 08/03/2024,the patient denies any fever or any chills, patient is breathing comfortably on room air, the patient denies chest pain shortness of breath and no significant cough, patient denies abdominal pain, no nausea vomiting or diarrhea. Pain to the right BKA stump is currently controlled. No new lab has been obtained today Objective - Vital Signs Vital signs: Vital Signs Temp 98.6 F 08/03/24 07:15 Pulse 61 08/03/24 07:15 Resp 17 08/03/24 07:15 BP 119/54 08/03/24 07:15 Pulse Ox 97 08/03/24 07:15 FiO2 Intake & Output 08/02/24 08/03/24 08/03/24 18:59 06:59 18:59 Intake Total 150 540 250 Output Total 450 1850 Balance -300 -1310 250 Intake: Oral 150 540 250 Output: Urine 450 1850 Other: Voiding Method Urinal # Voids 1 5 - Exam GENERAL DESCRIPTION: An elderly male lying in bed in no distress RESPIRATORY SYSTEM: Unlabored breathing , decreased breath sounds at bases HEART: S1 S2 regular rate and rhythm , ABDOMEN: Soft , no tenderness EXTREMITIES: Right lower leg disarticulation site is currently dressed - Labs CBC & Chem 7: 08/01/24 03:42 08/01/24 03:42 Labs: Abnormal Lab Results - Last 24 Hours (Table) 08/02/24 08/02/24 08/03/24 Range/Units 16:44 20:06 06:07 POC Glucose (mg/dL) 209 H 132 H 114 H (70-110) mg/dL 08/03/24 Range/Units 11:22 POC Glucose (mg/dL) 206 H (70-110) mg/dL Assessment and Plan (1) Foot osteomyelitis, right Current Visit: Yes Status: Acute Code(s): M86.9 - OSTEOMYELITIS, UNSPECIFIED SNOMED Code(s): 2313185661707574 (2) Elevated serum creatinine Current Visit: Yes Status: Acute Code(s): R79.89 - OTHER SPECIFIED ABNORMAL FINDINGS OF BLOOD CHEMISTRY SNOMED Code(s): 524240609 (3) Diabetic infection of right foot Current Visit: No Status: Acute Code(s): E11.628 - TYPE 2 DIABETES MELLITUS WITH OTHER SKIN COMPLICATIONS; L08.9 - LOCAL INFECTION OF THE SKIN AND SUBCUTANEOUS TISSUE, UNSP SNOMED Code(s): 070887778 Plan: 1patient with a complicated history of multiple diabetic foot infection this p atient did have previous amputation of the toes now presenting with extensive right diabetic foot infection with evidence of air on the CT concerning for gas- forming pathogen and will need to cover for the polymicrobial maricel associated with diabetic foot infection 2patient is 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 please excuse any grammatical, word or spelling errors. Time with Patient: Less than 30
[2024-08-03 16:52] LABS: Glucose,Whole Blood 301 mg/dL (70-110)
[2024-08-03 20:14] LABS: Glucose,Whole Blood 257 mg/dL (70-110)
[2024-08-04 02:03] LABS: Glucose,Whole Blood 123 mg/dL (70-110)
--- NOTE | 2024-08-04 05:35 | P.PN ---
Subjective Progress Note Date: 08/03/24 This is a pleasant 79-year-old male who presented to the emergency department with increasing pain and drainage of the right foot and has been progressively becoming more swollen and follows with Dr. Quiñones outpatient at the wound care center. Apparently patient had gone to the wound care center and was diagnosed with wet gangrene and wanted the patient to come here for further vascular surgery consult. Dr. Quiñones is currently out of town and this was discussed with vascular surgery, Dr. Adame's group and will be undergoing surgical intervention including great toe amputation on the right today. Patient also with infectious disease consulted as patient follows with him outpatient as well and there was concerns of osteomyelitis. Patient did previously have right 4th and 5th toes removed as well. Patient reports he follows with Dr. 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 Labs reviewed from ER admission with a white count of 15.48, hemoglobin 8.9, platelets 395, sodium 138, potassium 3.2, creatinine 1.37, BUN 28, random glucose elevated at 282, lactic acid 1.6. Patient did report some swelling and pain up into the calf and did undergo venous Doppler which shows right lower extremity negative for DVT and patency within the vessels. CT angiography performed of the abdomen pelvis revealing a right first metatarsal region extending to the plantar aspect of the foot along the medial right ankle and posterior right ankle with gas-forming infection that should be considered along with soft tissue swelling through the distal right calf and an occlusion of the vascular trifurcation vessels bilaterally. 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 In cidental finding of the left hydronephrosis and will consult urology and appreciate input and recommendations. Patient reports he is voiding with no difficulties and creatinine is stable at 1.37. Will follow-up on repeat labs and resume diet once cleared by surgery. Recommend tight glycemic control for healing as hemoglobin A1c is noted to be uncontrolled and elevated at 10.5. 07/27/2024 Patient is evaluated in follow-up with medical floor. He was still complaining of some mild pain of the right calf area however states that is nothing extensive and feels like he does not need any pain medication for this currently. He was complaining of some mild shortness of breath states that he uses albuterol inhaler at home and is requesting this. Patient is postoperative day 1 right lower foot amputation. He continues on antibiotics in the form of Daptomycin and Zosyn. Urology has evaluated patient for the incidental finding of the left sided hydronephrosis and planning to undergo CT urogram. His blood work today reveals a white blood cell count of 11.03, hemoglobin stable at 8.2, sodium 139, BUN of 21 creatinine 1.08. His blood glucose remains significantly elevated in the 300s. Patient will go for right BKA on 07/29. 07/28/2024 Patient is seen and evaluated in follow-up this morning currently sitting up in the chair with lower extremities elevated. Right surgical dressing is dry and intact and patient is scheduled to undergo BKA tomorrow with vascular surgery. Patient is continued on IV antibiotics with infectious disease following. Continue monitoring Accu-Cheks closely including 2 AMS patient will be n.p.o. at midnight and patient is a diabetic. Monitor for any concerns of hypoglycemia and continue with dextrose per protocol. Will follow-up on repeat labs and monitor kidney functions and electrolytes closely. Patient's potassium was 3.6 and will give 40 mEq today. 07/29/2024 Patient is seen in follow-up status post right BKA with vascular surgery. Patient continued on antibiotics with infectious disease following with right foot culture showing Finegoldia magna and blood cultures remain negative thus far. Patient for PT/OT therapy evaluation and continue wound care per vascular surgery. Patient is afebrile with no reports of chest pain or shortness of breath. Patient has been tolerating diet and recommended monitor blood sugars closely. 07/30/2024 Patient is seen in follow-up this morning being followed by vascular surgery along with infectious disease and patient is maintained on daptomycin and Zosyn as per ID recommendations and will continue for now. To discuss further regarding discharge planning regarding continued antibiotic therapy and the need for IV antibiotics on discharge and if requiring rehab services for continued PT/OT therapy as well as antibiotic therapy. Case management/social work consulted and following regarding discharge planning. Vascular surgery surgery following as well recommending close outpatient follow-up. Patient is afebrile with no reports of chest pain or shortness of breath. Patient has been t olerating diet with no reported nausea or vomiting. Continue monitoring Accu- Cheks and adjust accordingly as blood sugars have been mildly elevated. Will follow-up on repeat labs and replace electrolytes per protocol. 07/31/2024 Patient seen and evaluated in follow-up today being followed by vascular surgery along with infectious disease. Patient was continued on IV antibiotics and cultures remain negative and antibiotics being discontinued and patient will be closely monitored off antibiotic therapy. Patient cleared by vascular surgery for inpatient rehab once antibiotic recommendations have been made. Patient to continue with local wound care and also evaluated by inpatient rehab and would make a good candidate although will require insurance authorization. Await PT/OT therapy evaluation on Thursday and case management to discuss discharge planning. Will attempt inpatient leg care on [facility] and/or to inpatient [facility] facilities in [place]. Patient is afebrile with no reports of chest pain or shortness of breath. Blood sugars have been elevated and will adjust insulin s accordingly and also recommend consistent carb diet. Await PT/OT therapy evaluation on Thursday08/01/2024 Patient is seen in follow-up today awaiting to work with physical therapy with case management following to submit insurance authorization for inpatient rehab. Verifying coverage for rehab services and patient has been accepted by [facility] pending insurance authorization. Vascular surgery evaluating and will be changing the dressing from surgery of the right BKA and will continue with local wound care per their recommendations. Patient being monitored off antibiotic therapy doing relatively well with infectious disease following closely. Patient is afebrile with no reports of chest pain or shortness of breath. Blood sugars being controlled and will continue current regimen and adjust accordingly. 08/02/2024 Patient is seen in follow-up today continues to await insurance authorization to inpatient rehab. Case management following and reports authorization will likely be denied requesting [id number] as patient is doing relatively well. Patient was evaluated by inpatient rehab physician team and would be a great candidate for continued strength and mobility and more aggressive physical therapy status post BKA. Patient is motivated and has been willingly working with physical therapy. Recommend appeal process if patient's peer to peer is denied. Patient is afebrile with no reported chest pain or shortness of breath. Patient reports to tolerating diet with no reported nausea or vomiting. 08/03/2024 Patient is seen in follow-up today continues to await appeal process which could take up to 72 hours. Patient denies any specific complaints and has been workin g with physical therapy. Patient would benefit from inpatient rehab for aggressive PT/OT therapy outpatient as patient was quite independent prior to this BKA. Patient is afebrile and denies any chest pain or shortness of breath. Patient has been tolerating diet with no reported nausea or vomiting. Patient blood sugars have been variable and will continue current regimen adjust slightly if needed on the insulin regimen. REVIEW OF SYSTEMS: CONSTITUTIONAL: No fever, no malaise, no fatigue. HEENT: No recent visual problems or hearing problems. Denied any sore throat. CARDIOVASCULAR: No chest pain, orthopnea, PND, no palpitations, no syncope. PULMONARY: No shortness of breath, no cough, no hemoptysis. GASTROINTESTINAL: No diarrhea, no nausea, no vomiting, no abdominal pain. NEUROLOGICAL: No headaches, reports of generalized weakness, no numbness. PHYSICAL EXAMINATION: GENERAL: The patient is alert and oriented x3. Well developed, well nourished. Elderly appearing, thin built HEENT: Pupils are round and equally reacting to light. EOMI. No scleral icterus. No conjunctival pallor. Normocephalic, atraumatic. No pharyngeal erythema. No thyromegaly. CARDIOVASCULAR: S1 and S2 present. No murmurs, rubs, or gallops. PULMONARY: Chest is clear to auscultation, no wheezing or crackles. ABDOMEN: Soft, thin, nontender, nondistended, normoactive bowel sounds. No palpable organomegaly. MUSCULOSKELETAL: No joint swelling or deformity. Surgical dressing is dry and intact of the right lower extremity BKA EXTREMITIES: No cyanosis, clubbing, or pedal edema. Status post right BKA NEUROLOGICAL: Gross neurological examination did not reveal any focal deficits. Diffusely weak SKIN: No rashes. 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 Leukocytosis, secondary to above, improving and trending down Severe left hydronephrosis noted on imaging, ruled out, CT confirms no hydronephrosis although was noted to be a parapelvic cyst and a nonobstructing left renal stone Osteomyelitis on admission of the right lower extremity Significant hypokalemia, improved after replacement and will monitor closely Diabetes mellitus, type II, uncontrolled with hyperglycemia, hemoglobin A1c is 10.5 Hypertension History of MRSA infections History of previous gangrene of the right fifth toe status post amputation 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 CT urogram was performed revealing no hydronephrosis although a parapelvic cyst and a nonobstructing left renal stone. Urology did evaluate with no plans or surgical intervention recommending outpatient follow-up as needed. Kidney functions relatively stable with a mild HUONG Continue with home medications as appropriate Continue monitoring Accu-Cheks AC and at bedtime along with sliding scale and l oskar-acting and will adjust accordingly. Diabetes education as patient's hemoglobin A1c is 10.5. Monitor blood sugars closely and will slightly adjust long-acting insulins accordingly Continue using incentive spirometer at least 10 times every hour while awake Patient was evaluated by PT/OT therapy with case management following and apparently insurance is denying recommended [id number] for inpatient rehab which will be performed by rehab staff which is pending at this time. Recommend appeal process if denied as patient is willing to work with physical therapy and is a good candidate for inpatient rehab. Await appeal decision at this time. Per case management could take up to 72 hours Patient has been cleared by consultations to inpatient rehab or ECF with close outpatient follow-up Discharge planning pending appeal for inpatient rehab. The impression and plan of care has been dictated by Yesenia Ward, Nurse Practitioner as directed. Dr. Babar MD I have performed a history and examination and MDM of this patient, discussed the same with the dictator, and agree with the dictator's assessment and plan as written ,documented as a scribe. Based on total visit time, I have performed more than 50% of the visit. Objective - Vital Signs Vital signs: Vital Signs Temp 98.4 F 08/03/24 14:00 Pulse 69 08/03/24 14:00 Resp 17 08/03/24 14:00 BP 128/62 08/03/24 14:00 Pulse Ox 99 08/03/24 14:00 FiO2 Intake & Output 08/02/24 08/03/24 08/03/24 18:59 06:59 18:59 Intake Total 150 540 250 Output Total 450 1850 900 Balance -300 -1310 -650 Intake: Oral 150 540 250 Output: Urine 450 1850 900 Other: Voiding Method Urinal # Voids 1 5 - Labs CBC & Chem 7: 08/01/24 03:42 08/01/24 03:42 Labs: Abnormal Lab Results - Last 24 Hours (Table) 08/02/24 08/03/24 08/03/24 Range/Units 20:06 06:07 11:22 POC Glucose (mg/dL) 132 H 114 H 206 H (70-110) mg/dL 08/03/24 Range/Units 16:51 POC Glucose (mg/dL) 301 H (70-110) mg/dL
[2024-08-04 06:11] LABS: Glucose,Whole Blood 160 mg/dL (70-110)
--- NOTE | 2024-08-04 09:58 | P.PN ---
Subjective Progress Note Date: 08/04/24 Mr Gilman is a 79 y/o right handed male who lives with his significant other, Diamond, in a 2 story home with ramp entry, resides on 1st floor. Prior to admission, patient was independent with mobility and ADLs. He does have a knee scooter that he started using the week prior due to right leg wound. He drives. His s/o is supportive and his daughter lives next door. Patient presented to the hospital on 07/25/24 with complaints of worsening right foot wound. Patient has had a right foot wound since Fall 2023. He has been following with wound care. He went to an appointment with Dr Quiñones and it was determined that he had wet gangrene and he was directed to present to the hospital. 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 Doppler of RLE was negative for DVT. Vascular surgery was consulted. 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 He is planned to go for complete BKA later this afternoon. PM&R consulted for rehab recommendations. Patient was seen by therapy on 07/28 and was found to be min A with bathing, Mod assist with LB dressing, mod assist with toileting, Min assist for a couple of hop steps with RW. 07/29: Patient laying in bed this morning, going for his complete BKA later today. He reports overall he is feeling pretty good. He has been doing exercises in his bed that therapy taught him. He denies CP, SOB, and abdominal pain. He denies issues with bowel and bladder. He reports pain is controlled. He is highly motivated to get better and wants to pursue a prosthesis. 08/04: Peer to peer was performed for IPR and patient was denied, An appeal was filed, DW patient this can take up to 72 hrs to get approval. He reports that [facility] does not accept his insurance either and he will need an alternate prosthetic company. He is feeling great overall, getting stronger every day. He denies CP,SOB, and abdominal pain. LBM 2 days ago, denies constipation, no issues with urination. He reports phantom limb sensation but it is not painful. He only has pain in the leg when the wheat farmer is getting applied. Mod assist with LB dressing, Min assist with transfers, Mod assist with gait 10 ft hopping Objective - Vital Signs Vital signs: Vital Signs Temp 99 F 08/04/24 06:47 Pulse 72 08/04/24 06:47 Resp 18 08/04/24 06:47 BP 115/62 08/04/24 06:47 Pulse Ox 98 08/04/24 06:47 FiO2 Intake & Output 08/03/24 08/04/24 08/04/24 18:59 06:59 18:59 Intake Total 250 240 Output Total 900 2250 Intake: Oral 250 240 Output: Urine 900 2250 Other: Voiding Method Urinal # Voids 3 - Exam General: WDWN elderly male sitting up in chair, alert, NAD HEENT: head normocephalic, atraumatic; moist mucous membranes, external ears in tact with hearing intact to conversational speech, glasses on CV: No acute cardiac distress Lungs: even and non labored respirations on RA Abdomen: soft, NT, ND MSK: full ROM bilateral UE and LEs, right lower extremity BKA with wheat farmer and hard cover on as well as immobilizer MMT: B/L SABD/EF/EE/HG5/5 LLE HF,KE,DF,EHL 5/5; Right HF 5/5 Neuro: CN 2-12 grossly intact Sensation intact to light touch bilateral UE and LEs Psych: mood calm, affect appropriate, A&O x 4 Extremities: left calf supple, non tender Skin: intact where exposed except IV, right LE stump covered - Labs CBC & Chem 7: 08/01/24 03:42 08/01/24 03:42 Labs: Abnormal Lab Results - Last 24 Hours (Table) 08/03/24 08/03/24 08/03/24 Range/Units 11:22 16:51 20:13 POC Glucose (mg/dL) 206 H 301 H 257 H (70-110) mg/dL 08/04/24 08/04/24 Range/Units 02:02 06:09 POC Glucose (mg/dL) 123 H 160 H (70-110) mg/dL Assessment and Plan Assessment: #Impaired gait and ADLs secondary to 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 -08/04 patient no longer on abx, will need Alternate prosthetic company that accepts his insurance #Pain secondary to above -controlled #Diabetes Mellitus -insulin per APR #Pain Management -Baclofen 10 mg BID, Stevens 5/325 mg Q 6 hrs prn, Requip #Diet -Regular #DVT proph -per surgical recs #Comorbidities: history of shingles, HTN #Your medical dx and management Dispo: Patient's insurance appeal for IPR at [facility] is pending. Patient is still appropriate for IPR at this time. He is motivated and willing to participate with therapy. Thank you for consulting our services. Patient seen and examined in collaboration with Dr Robertson
[2024-08-04] MEDS ORDERED: ZINC OXIDE PASTE (Z-GUARD) 1 APPLIC TOPICAL PRN (10:40)
[2024-08-04 11:11] LABS: Glucose,Whole Blood 289 mg/dL (70-110)
[2024-08-04 16:42] LABS: Glucose,Whole Blood 304 mg/dL (70-110)
--- NOTE | 2024-08-04 16:42 | P.PN ---
Subjective Progress Note Date: 08/04/24 Principal diagnosis: Reason for follow-up is right diabetic foot infection/osteomyelitis Patient is 79-year-old male with a past medical history significant for diabetes mellitus hypertension history of diabetic foot infection and previous right 4th and 5th amputation patient presented to [facility] ER concerning for worsening swelling redness and drainage to the right foot, patient was noticed to have extensive infection needing disarticulation at the ankle joint by vascular surgery. On today's evaluation that is 08/04/2024,the patient remains to be afebrile, patient is on room air not requiring supplemental oxygen and denies any shortness of breath no chest pain or cough.Patient denies having any nausea or vomiting, no abdominal pain and no diarrhea, pain in the right BKA stump is currently controlled. No new lab has been obtained today blood culture remains to be negative Objective - Vital Signs Vital signs: Vital Signs Temp 98.5 F 08/04/24 13:13 Pulse 71 08/04/24 13:13 Resp 16 08/04/24 13:13 BP 132/69 08/04/24 13:13 Pulse Ox 100 08/04/24 13:13 FiO2 Intake & Output 08/03/24 08/04/24 08/04/24 18:59 06:59 18:59 Intake Total 250 240 Output Total 900 2250 - Intake: Oral 250 240 Output: Urine 900 2250 Other: Voiding Method Urinal # Voids 3 - Exam GENERAL DESCRIPTION: An elderly male lying in bed in no distress RESPIRATORY SYSTEM: Unlabored breathing , decreased breath sounds at bases HEART: S1 S2 regular rate and rhythm , ABDOMEN: Soft , no tenderness EXTREMITIES: Right lower leg disarticulation site is currently dressed - Labs CBC & Chem 7: 08/01/24 03:42 08/01/24 03:42 Labs: Abnormal Lab Results - Last 24 Hours (Table) 08/03/24 08/03/24 08/04/24 Range/Units 16:51 20:13 02:02 POC Glucose (mg/dL) 301 H 257 H 123 H (70-110) mg/dL 08/04/24 08/04/24 Range/Units 06:09 11:10 POC Glucose (mg/dL) 160 H 289 H (70-110) mg/dL Assessment and Plan (1) Foot osteomyelitis, right Current Visit: Yes Status: Acute Code(s): M86.9 - OSTEOMYELITIS, UNSPECIFIED SNOMED Code(s): 2841458529494560 (2) Elevated serum creatinine Current Visit: Yes Status: Acute Code(s): R79.89 - OTHER SPECIFIED ABNORMAL FINDINGS OF BLOOD CHEMISTRY SNOMED Code(s): 583166885 (3) Diabetic infection of right foot Current Visit: No Status: Acute Code(s): E11.628 - TYPE 2 DIABETES MELLITUS WITH OTHER SKIN COMPLICATIONS; L08.9 - LOCAL INFECTION OF THE SKIN AND SUBCUTANEOUS TISSUE, UNSP SNOMED Code(s): 270441511 Plan: 1patient with a complicated history of multiple diabetic foot infection this patient did have previous amputation of the toes now presenting with extensive right diabetic foot infection with evidence of air on the CT concerning for gas- forming pathogen and will need to cover for the polymicrobial maricel associated with diabetic foot infection 2patient is status post disarticulation of the right ankle because of extensive infection and subsequently did have a right BKA on 07/29/2024 3patient local culture data grew Finegoldia magna however the infected part is removed with the blood culture negative 4-patient remains to be afebrile and white count normalized, currently waiting for placement will not need any antibiotics on discharge Dictation was produced using [employer] dictation software. please excuse any grammatical, word or spelling errors. Time with Patient: Less than 30
[2024-08-04 20:26] LABS: Glucose,Whole Blood 230 mg/dL (70-110)
[2024-08-05 02:04] LABS: Glucose,Whole Blood 108 mg/dL (70-110)
--- NOTE | 2024-08-05 05:49 | P.PN ---
Subjective Progress Note Date: 08/04/24 This is a pleasant 79-year-old male who presented to the emergency department with increasing pain and drainage of the right foot and has been progressively becoming more swollen and follows with Dr. Quiñones outpatient at the wound care center. Apparently patient had gone to the wound care center and was diagnosed with wet gangrene and wanted the patient to come here for further vascular surgery consult. Dr. Quiñones is currently out of town and this was discussed with vascular surgery, Dr. Adame's group and will be undergoing surgical intervention including great toe amputation on the right today. Patient also with infectious disease consulted as patient follows with him outpatient as well and there was concerns of osteomyelitis. Patient did previously have right 4th and 5th toes removed as well. Patient reports he follows with Dr. 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 Labs reviewed from ER admission with a white count of 15.48, hemoglobin 8.9, platelets 395, sodium 138, potassium 3.2, creatinine 1.37, BUN 28, random glucose elevated at 282, lactic acid 1.6. Patient did report some swelling and pain up into the calf and did undergo venous Doppler which shows right lower extremity negative for DVT and patency within the vessels. CT angiography performed of the abdomen pelvis revealing a right first metatarsal region extending to the plantar aspect of the foot along the medial right ankle and posterior right ankle with gas-forming infection that should be considered along with soft tissue swelling through the distal right calf and an occlusion of the vascular trifurcation vessels bilaterally. 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 In cidental finding of the left hydronephrosis and will consult urology and appreciate input and recommendations. Patient reports he is voiding with no difficulties and creatinine is stable at 1.37. Will follow-up on repeat labs and resume diet once cleared by surgery. Recommend tight glycemic control for healing as hemoglobin A1c is noted to be uncontrolled and elevated at 10.5. 07/27/2024 Patient is evaluated in follow-up with medical floor. He was still complaining of some mild pain of the right calf area however states that is nothing extensive and feels like he does not need any pain medication for this currently. He was complaining of some mild shortness of breath states that he uses albuterol inhaler at home and is requesting this. Patient is postoperative day 1 right lower foot amputation. He continues on antibiotics in the form of Daptomycin and Zosyn. Urology has evaluated patient for the incidental finding of the left sided hydronephrosis and planning to undergo CT urogram. His blood work today reveals a white blood cell count of 11.03, hemoglobin stable at 8.2, sodium 139, BUN of 21 creatinine 1.08. His blood glucose remains significantly elevated in the 300s. Patient will go for right BKA on 07/29. 07/28/2024 Patient is seen and evaluated in follow-up this morning currently sitting up in the chair with lower extremities elevated. Right surgical dressing is dry and intact and patient is scheduled to undergo BKA tomorrow with vascular surgery. Patient is continued on IV antibiotics with infectious disease following. Continue monitoring Accu-Cheks closely including 2 AMS patient will be n.p.o. at midnight and patient is a diabetic. Monitor for any concerns of hypoglycemia and continue with dextrose per protocol. Will follow-up on repeat labs and monitor kidney functions and electrolytes closely. Patient's potassium was 3.6 and will give 40 mEq today. 07/29/2024 Patient is seen in follow-up status post right BKA with vascular surgery. Patient continued on antibiotics with infectious disease following with right foot culture showing Finegoldia magna and blood cultures remain negative thus far. Patient for PT/OT therapy evaluation and continue wound care per vascular surgery. Patient is afebrile with no reports of chest pain or shortness of breath. Patient has been tolerating diet and recommended monitor blood sugars closely. 07/30/2024 Patient is seen in follow-up this morning being followed by vascular surgery along with infectious disease and patient is maintained on daptomycin and Zosyn as per ID recommendations and will continue for now. To discuss further regarding discharge planning regarding continued antibiotic therapy and the need for IV antibiotics on discharge and if requiring rehab services for continued PT/OT therapy as well as antibiotic therapy. Case management/social work consulted and following regarding discharge planning. Vascular surgery surgery following as well recommending close outpatient follow-up. Patient is afebrile with no reports of chest pain or shortness of breath. Patient has been t olerating diet with no reported nausea or vomiting. Continue monitoring Accu- Cheks and adjust accordingly as blood sugars have been mildly elevated. Will follow-up on repeat labs and replace electrolytes per protocol. 07/31/2024 Patient seen and evaluated in follow-up today being followed by vascular surgery along with infectious disease. Patient was continued on IV antibiotics and cultures remain negative and antibiotics being discontinued and patient will be closely monitored off antibiotic therapy. Patient cleared by vascular surgery for inpatient rehab once antibiotic recommendations have been made. Patient to continue with local wound care and also evaluated by inpatient rehab and would make a good candidate although will require insurance authorization. Await PT/OT therapy evaluation on Thursday and case management to discuss discharge planning. Will attempt inpatient leg care on [facility] and/or to inpatient [facility] facilities in [place]. Patient is afebrile with no reports of chest pain or shortness of breath. Blood sugars have been elevated and will adjust insulin s accordingly and also recommend consistent carb diet. Await PT/OT therapy evaluation on Thursday08/01/2024 Patient is seen in follow-up today awaiting to work with physical therapy with case management following to submit insurance authorization for inpatient rehab. Verifying coverage for rehab services and patient has been accepted by [facility] pending insurance authorization. Vascular surgery evaluating and will be changing the dressing from surgery of the right BKA and will continue with local wound care per their recommendations. Patient being monitored off antibiotic therapy doing relatively well with infectious disease following closely. Patient is afebrile with no reports of chest pain or shortness of breath. Blood sugars being controlled and will continue current regimen and adjust accordingly. 08/02/2024 Patient is seen in follow-up today continues to await insurance authorization to inpatient rehab. Case management following and reports authorization will likely be denied requesting [id number] as patient is doing relatively well. Patient was evaluated by inpatient rehab physician team and would be a great candidate for continued strength and mobility and more aggressive physical therapy status post BKA. Patient is motivated and has been willingly working with physical therapy. Recommend appeal process if patient's peer to peer is denied. Patient is afebrile with no reported chest pain or shortness of breath. Patient reports to tolerating diet with no reported nausea or vomiting. 08/03/2024 Patient is seen in follow-up today continues to await appeal process which could take up to 72 hours. Patient denies any specific complaints and has been workin g with physical therapy. Patient would benefit from inpatient rehab for aggressive PT/OT therapy outpatient as patient was quite independent prior to this BKA. Patient is afebrile and denies any chest pain or shortness of breath. Patient has been tolerating diet with no reported nausea or vomiting. Patient blood sugars have been variable and will continue current regimen adjust slightly if needed on the insulin regimen. 08/04/2024 Patient is seen in follow-up today continues to await appeal for inpatient rehab status post left BKA. Blood sugars being monitored closely and will continue cu rrent regimen and adjust accordingly. Patient is working with physical therapy and recommend daily. Patient to continue with stump press feeder broomcorn and will have outpatient resources provided with close outpatient follow-up with vascular surgery. Patient denies chest pain or shortness of breath and reports is tolerating diet. Patient is afebrile and is being closely monitored off antibiotic therapy per infectious disease. REVIEW OF SYSTEMS: CONSTITUTIONAL: No fever, no malaise, no fatigue. HEENT: No recent visual problems or hearing problems. Denied any sore throat. CARDIOVASCULAR: No chest pain, orthopnea, PND, no palpitations, no syncope. PULMONARY: No shortness of breath, no cough, no hemoptysis. GASTROINTESTINAL: No diarrhea, no nausea, no vomiting, no abdominal pain. NEUROLOGICAL: No headaches, reports of generalized weakness, no numbness. PHYSICAL EXAMINATION: GENERAL: The patient is alert and oriented x3. Well developed, well nourished. Elderly appearing, thin built HEENT: Pupils are round and equally reacting to light. EOMI. No scleral icterus. No conjunctival pallor. Normocephalic, atraumatic. No pharyngeal erythema. No thyromegaly. CARDIOVASCULAR: S1 and S2 present. No murmurs, rubs, or gallops. PULMONARY: Chest is clear to auscultation, no wheezing or crackles. ABDOMEN: Soft, thin, nontender, nondistended, normoactive bowel sounds. No palpable organomegaly. MUSCULOSKELETAL: No joint swelling or deformity. Surgical dressing is dry and intact of the right lower extremity BKA, stump press feeder broomcorn noted EXTREMITIES: No cyanosis, clubbing, or pedal edema. Status post right BKA NEUROLOGICAL: Gross neurological examination did not reveal any focal deficits. Diffusely weak SKIN: No rashes. 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 Leukocytosis, secondary to above, improving and trending down Severe left hydronephrosis noted on imaging, ruled out, CT confirms no hydronephrosis although was noted to be a parapelvic cyst and a nonobstructing left renal stone Osteomyelitis on admission of the right lower extremity Significant hypokalemia, improved after replacement and will monitor closely Diabetes mellitus, type II, uncontrolled with hyperglycemia, hemoglobin A1c is 10.5 Hypertension History of MRSA infections History of previous gangrene of the right fifth toe status post amputation 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 CT urogram was performed revealing no hydronephrosis although a parapelvic cyst and a nonobstructing left renal stone. Urology did evaluate with no plans or surgical intervention recommending outpatient follow-up as needed. Kidney functions relatively stable with a mild HUONG Continue with home medications as appropriate Continue monitoring Accu-Cheks AC and at bedtime along with sliding scale and long-acting and will adjust accordingly. Diabetes education as patient's hemoglobin A1c is 10.5. Monitor blood sugars closely and will slightly adjust long-acting insulins accordingly Continue using incentive spirometer at least 10 times every hour while awake Patient was evaluated by PT/OT therapy with case management following and apparently insurance is denying recommended [id number] for inpatient rehab which will be performed by rehab staff which is pending at this time. Recommend appeal process if denied as patient is willing to work with physical therapy and is a good candidate for inpatient rehab. Await appeal decision at this time. Per case management could take up to 72 hours Patient has been cleared by consultations to inpatient rehab or ECF with close outpatient follow-up Discharge planning pending appeal for inpatient rehab. The impression and plan of care has been dictated by Yesenia Ward, Nurse Practitioner as directed. Dr. Babar MD I have performed a history and examination and MDM of this patient, discussed the same with the dictator, and agree with the dictator's assessment and plan as written ,documented as a scribe. Based on total visit time, I have performed more than 50% of the visit. Objective - Vital Signs Vital signs: Vital Signs Temp 99.2 F 08/05/24 00:00 Pulse 66 08/05/24 00:00 Resp 18 08/05/24 00:00 BP 135/62 08/05/24 00:00 Pulse Ox 96 08/05/24 00:00 FiO2 Intake & Output 08/04/24 08/04/24 08/05/24 06:59 18:59 06:59 Intake Total 240 Output Total 2250 2200 Balance -2009 Intake: Oral 240 Output: Urine 2250 2200 Other: Voiding Method Urinal Urinal # Voids 3 3 # Bowel Movements 1 - Labs CBC & Chem 7: 08/01/24 03:42 08/01/24 03:42 Labs: Abnormal Lab Results - Last 24 Hours (Table) 08/04/24 08/04/24 08/04/24 Range/Units 06:09 11:10 16:40 POC Glucose (mg/dL) 160 H 289 H 304 H (70-110) mg/dL 08/04/24 Range/Units 20:25 POC Glucose (mg/dL) 230 H (70-110) mg/dL
[2024-08-05 06:20] LABS: Glucose,Whole Blood 102 mg/dL (70-110)
[2024-08-05 11:07] LABS: Glucose,Whole Blood 217 mg/dL (70-110)
[2024-08-05 16:34] LABS: Glucose,Whole Blood 197 mg/dL (70-110)
--- NOTE | 2024-08-05 19:35 | P.PN ---
Subjective Progress Note Date: 08/05/24 Principal diagnosis: Reason for follow-up is right diabetic foot infection/osteomyelitis Patient is 79-year-old male with a past medical history significant for diabetes mellitus hypertension history of diabetic foot infection and previous right 4th and 5th amputation patient presented to [facility] ER concerning for worsening swelling redness and drainage to the right foot, patient was noticed to have extensive infection needing disarticulation at the ankle joint by vascular surgery. On today's evaluation that is 08/05/2024, the patient continues to be afebrile, the patient is on room air and breathing comfortably, the Pt denies having any chest pain or cough, the patient denies having any abdominal pain no vomiting or any diarrhea, pain to the right BKA stump is currently controlled. No new lab has been obtained today Objective - Vital Signs Vital signs: Vital Signs Temp 98.0 F 08/05/24 13:02 Pulse 80 08/05/24 13:02 Resp 20 08/05/24 13:02 BP 133/63 08/05/24 13:02 Pulse Ox 99 08/05/24 13:02 FiO2 Intake & Output 08/05/24 08/05/24 08/06/24 06:59 18:59 06:59 Output Total 2200 900 Balance -2200 -900 Output: Urine 2200 900 Other: Voiding Method Urinal Urinal - Labs CBC & Chem 7: 08/01/24 03:42 08/01/24 03:42 Labs: Abnormal Lab Results - Last 24 Hours (Table) 08/04/24 08/05/24 08/05/24 Range/Units 20:25 11:06 16:33 POC Glucose (mg/dL) 230 H 217 H 197 H (70-110) mg/dL Assessment and Plan (1) Foot osteomyelitis, right Current Visit: Yes Status: Acute Code(s): M86.9 - OSTEOMYELITIS, UNSPECIFIED SNOMED Code(s): 5708598134257876 (2) Elevated serum creatinine Current Visit: Yes Status: Acute Code(s): R79.89 - OTHER SPECIFIED ABNORMAL FINDINGS OF BLOOD CHEMISTRY SNOMED Code(s): 188552859 (3) Diabetic infection of right foot Current Visit: No Status: Acute Code(s): E11.628 - TYPE 2 DIABETES MELLITUS WITH OTHER SKIN COMPLICATIONS; L08.9 - LOCAL INFECTION OF THE SKIN AND SUBCUTANEOUS TISSUE, UNSP SNOMED Code(s): 024277331 Plan: 1patient with a complicated history of multiple diabetic foot infection this patient did have previous amputation of the toes now presenting with extensive right diabetic foot infection with evidence of air on the CT concerning for gas- forming pathogen and will need to cover for the polymicrobial maricel associated with diabetic foot infection 2patient is 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 please excuse any gr ammatical, word or spelling errors. Time with Patient: Less than 30
[2024-08-05 20:43] LABS: Glucose,Whole Blood 183 mg/dL (70-110)
[2024-08-06 00:29] LABS: Glucose,Whole Blood 111 mg/dL (70-110)
[2024-08-06 03:40] LABS: Glucose,Whole Blood 83 mg/dL (70-110)
[2024-08-06 06:32] LABS: Glucose,Whole Blood 116 mg/dL (70-110)
--- NOTE | 2024-08-06 06:43 | P.PN ---
Subjective Progress Note Date: 08/05/24 This is a pleasant 79-year-old male who presented to the emergency department with increasing pain and drainage of the right foot and has been progressively becoming more swollen and follows with Dr. Quiñones outpatient at the wound care center. Apparently patient had gone to the wound care center and was diagnosed with wet gangrene and wanted the patient to come here for further vascular surgery consult. Dr. Quiñones is currently out of town and this was discussed with vascular surgery, Dr. Adame's group and will be undergoing surgical intervention including great toe amputation on the right today. Patient also with infectious disease consulted as patient follows with him outpatient as well and there was concerns of osteomyelitis. Patient did previously have right 4th and 5th toes removed as well. Patient reports he follows with Dr. 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 Labs reviewed from ER admission with a white count of 15.48, hemoglobin 8.9, platelets 395, sodium 138, potassium 3.2, creatinine 1.37, BUN 28, random glucose elevated at 282, lactic acid 1.6. Patient did report some swelling and pain up into the calf and did undergo venous Doppler which shows right lower extremity negative for DVT and patency within the vessels. CT angiography performed of the abdomen pelvis revealing a right first metatarsal region extending to the plantar aspect of the foot along the medial right ankle and posterior right ankle with gas-forming infection that should be considered along with soft tissue swelling through the distal right calf and an occlusion of the vascular trifurcation vessels bilaterally. 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 In cidental finding of the left hydronephrosis and will consult urology and appreciate input and recommendations. Patient reports he is voiding with no difficulties and creatinine is stable at 1.37. Will follow-up on repeat labs and resume diet once cleared by surgery. Recommend tight glycemic control for healing as hemoglobin A1c is noted to be uncontrolled and elevated at 10.5. 07/27/2024 Patient is evaluated in follow-up with medical floor. He was still complaining of some mild pain of the right calf area however states that is nothing extensive and feels like he does not need any pain medication for this currently. He was complaining of some mild shortness of breath states that he uses albuterol inhaler at home and is requesting this. Patient is postoperative day 1 right lower foot amputation. He continues on antibiotics in the form of Daptomycin and Zosyn. Urology has evaluated patient for the incidental finding of the left sided hydronephrosis and planning to undergo CT urogram. His blood work today reveals a white blood cell count of 11.03, hemoglobin stable at 8.2, sodium 139, BUN of 21 creatinine 1.08. His blood glucose remains significantly elevated in the 300s. Patient will go for right BKA on 07/29. 07/28/2024 Patient is seen and evaluated in follow-up this morning currently sitting up in the chair with lower extremities elevated. Right surgical dressing is dry and intact and patient is scheduled to undergo BKA tomorrow with vascular surgery. Patient is continued on IV antibiotics with infectious disease following. Continue monitoring Accu-Cheks closely including 2 AMS patient will be n.p.o. at midnight and patient is a diabetic. Monitor for any concerns of hypoglycemia and continue with dextrose per protocol. Will follow-up on repeat labs and monitor kidney functions and electrolytes closely. Patient's potassium was 3.6 and will give 40 mEq today. 07/29/2024 Patient is seen in follow-up status post right BKA with vascular surgery. Patient continued on antibiotics with infectious disease following with right foot culture showing Finegoldia magna and blood cultures remain negative thus far. Patient for PT/OT therapy evaluation and continue wound care per vascular surgery. Patient is afebrile with no reports of chest pain or shortness of breath. Patient has been tolerating diet and recommended monitor blood sugars closely. 07/30/2024 Patient is seen in follow-up this morning being followed by vascular surgery along with infectious disease and patient is maintained on daptomycin and Zosyn as per ID recommendations and will continue for now. To discuss further regarding discharge planning regarding continued antibiotic therapy and the need for IV antibiotics on discharge and if requiring rehab services for continued PT/OT therapy as well as antibiotic therapy. Case management/social work consulted and following regarding discharge planning. Vascular surgery surgery following as well recommending close outpatient follow-up. Patient is afebrile with no reports of chest pain or shortness of breath. Patient has been t olerating diet with no reported nausea or vomiting. Continue monitoring Accu- Cheks and adjust accordingly as blood sugars have been mildly elevated. Will follow-up on repeat labs and replace electrolytes per protocol. 07/31/2024 Patient seen and evaluated in follow-up today being followed by vascular surgery along with infectious disease. Patient was continued on IV antibiotics and cultures remain negative and antibiotics being discontinued and patient will be closely monitored off antibiotic therapy. Patient cleared by vascular surgery for inpatient rehab once antibiotic recommendations have been made. Patient to continue with local wound care and also evaluated by inpatient rehab and would make a good candidate although will require insurance authorization. Await PT/OT therapy evaluation on Thursday and case management to discuss discharge planning. Will attempt inpatient leg care on [facility] and/or to inpatient [facility] facilities in [place]. Patient is afebrile with no reports of chest pain or shortness of breath. Blood sugars have been elevated and will adjust insulin s accordingly and also recommend consistent carb diet. Await PT/OT therapy evaluation on Thursday08/01/2024 Patient is seen in follow-up today awaiting to work with physical therapy with case management following to submit insurance authorization for inpatient rehab. Verifying coverage for rehab services and patient has been accepted by [facility] pending insurance authorization. Vascular surgery evaluating and will be changing the dressing from surgery of the right BKA and will continue with local wound care per their recommendations. Patient being monitored off antibiotic therapy doing relatively well with infectious disease following closely. Patient is afebrile with no reports of chest pain or shortness of breath. Blood sugars being controlled and will continue current regimen and adjust accordingly. 08/02/2024 Patient is seen in follow-up today continues to await insurance authorization to inpatient rehab. Case management following and reports authorization will likely be denied requesting [id number] as patient is doing relatively well. Patient was evaluated by inpatient rehab physician team and would be a great candidate for continued strength and mobility and more aggressive physical therapy status post BKA. Patient is motivated and has been willingly working with physical therapy. Recommend appeal process if patient's peer to peer is denied. Patient is afebrile with no reported chest pain or shortness of breath. Patient reports to tolerating diet with no reported nausea or vomiting. 08/03/2024 Patient is seen in follow-up today continues to await appeal process which could take up to 72 hours. Patient denies any specific complaints and has been workin g with physical therapy. Patient would benefit from inpatient rehab for aggressive PT/OT therapy outpatient as patient was quite independent prior to this BKA. Patient is afebrile and denies any chest pain or shortness of breath. Patient has been tolerating diet with no reported nausea or vomiting. Patient blood sugars have been variable and will continue current regimen adjust slightly if needed on the insulin regimen. 08/04/2024 Patient is seen in follow-up today continues to await appeal for inpatient rehab status post left BKA. Blood sugars being monitored closely and will continue cu rrent regimen and adjust accordingly. Patient is working with physical therapy and recommend daily. 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 Patient denies chest pain or shortness of breath and reports is tolerating diet. Patient is afebrile and is being closely monitored off antibiotic therapy per infectious disease. 08/05/2024 Patient seen in follow-up today and per case management was verified that patient's appeal remains pending at this time but was submitted by [facility]. Patient denies any chest pain or shortness of breath. Patient reports is going to bathroom with no difficulties and denies constipation. Blood sugars have been up and down and will continue to monitor closely. No recent labs drawn and will order repeat labs for further evaluation recommend to replace electrolytes per protocol. Patient reports his pain is currently controlled on current regimen and will continue to adjust as needed. Recommend PT/OT therapy daily for continued strength and mobility along with assistance due to recent right BKA. Patient would benefit greatly from inpatient rehab as this BKA is new on this admission. Patient is afebrile and being closely monitored off antibiotic therapy with infectious disease following closely. REVIEW OF SYSTEMS: CONSTITUTIONAL: No fever, no malaise, no fatigue. HEENT: No recent visual problems or hearing problems. Denied any sore throat. CARDIOVASCULAR: No chest pain, orthopnea, PND, no palpitations, no syncope. PULMONARY: No shortness of breath, no cough, no hemoptysis. GASTROINTESTINAL: No diarrhea, no nausea, no vomiting, no abdominal pain. NEUROLOGICAL: No headaches, reports of generalized weakness, no numbness. PHYSICAL EXAMINATION: GENERAL: The patient is alert and oriented x3. Well developed, well nourished. Elderly appearing, thin built HEENT: Pupils are round and equally reacting to light. EOMI. No scleral icterus. No conjunctival pallor. Normocephalic, atraumatic. No pharyngeal erythema. No thyromegaly. CARDIOVASCULAR: S1 and S2 present. No murmurs, rubs, or gallops. PULMONARY: Chest is clear to auscultation, no wheezing or crackles. ABDOMEN: Soft, thin, nontender, nondistended, normoactive bowel sounds. No palpable organomegaly. MUSCULOSKELETAL: No joint swelling or deformity. Surgical dressing is dry and intact of the right lower extremity BKA, stump greenstone polisher operator noted EXTREMITIES: No cyanosis, clubbing, or pedal edema. Status post right BKA NEUROLOGICAL: Gross neurological examination did not reveal any focal deficits. Diffusely weak SKIN: No rashes. 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 Leukocytosis, secondary to above, improved Severe left hydronephrosis noted on imaging, ruled out, CT confirms no hydronephrosis although was noted to be a parapelvic cyst and a nonobstructing left renal stone, patient is voiding with no difficulties Osteomyelitis on admission of the right lower extremity, per ID being monitored closely off antibiotic therapy as affected part was removed during surgery Significant hypokalemia, improved after replacement and will monitor closely Diabetes mellitus, type II, uncontrolled with hyperglycemia, hemoglobin A1c is 10.5 Hypertension History of MRSA infections History of previous gangrene of the right fifth toe status post amputation 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 CT urogram was performed revealing no hydronephrosis although a parapelvic cyst and a nonobstructing left renal stone. Urology did evaluate with no plans or surgical intervention recommending outpatient follow-up as needed. Kidney functions relatively stable with a mild HUONG Continue with home medications as appropriate Continue monitoring Accu-Cheks AC and at bedtime along with sliding scale and long-acting and will adjust accordingly. Diabetes education as patient's hemoglobin A1c is 10.5. Monitor blood sugars closely and will slightly adjust long-acting insulins accordingly Continue using incentive spirometer at least 10 times every hour while awake Patient was evaluated by PT/OT therapy with case management following and apparently insurance is denying recommended [id number] for inpatient rehab which will be performed by rehab staff which is pending at this time. Recommend appeal process if denied as patient is willing to work with physical therapy and is a good candidate for inpatient rehab. Await appeal decision at this time. Per case management could take up to 72 hours. Appeal remains pending at this time and if denied plan will be for submitting authorization for [facility]. [facility] has accepted in the event inpatient rehab is denied through the appeal process. Per case management [facility]'s authorization cannot be submitted until the appeal is denied Patient has been cleared by consultations to inpatient rehab or ECF with close outpatient follow-up Discharge planning pending appeal for inpatient rehab versus ECF at [facility]. The impression and plan of care has been dictated by Yesenia Ward, Nurse Practitioner as directed. Dr. Gabby MD I have performed a history and examination and MDM of this patient, discussed the same with the dictator, and agree with the dictator's assessment and plan as written ,documented as a scribe. Based on total visit time, I have performed more than 50% of the visit. Objective - Vital Signs Vital signs: Vital Signs Temp 98.1 F 08/06/24 00:26 Pulse 68 08/06/24 00:26 Resp 14 08/06/24 00:26 BP 120/52 08/06/24 00:26 Pulse Ox 96 08/06/24 00:26 FiO2 Intake & Output 08/05/24 08/05/24 08/06/24 06:59 18:59 06:59 Intake Total 540 Output Total 2200 900 1350 Balance -2200 -900 -810 Intake: Oral 540 Output: Urine 2200 900 1350 Other: Voiding Method Urinal Urinal Urinal - Labs CBC & Chem 7: 08/01/24 03:42 08/01/24 03:42 Labs: Abnormal Lab Results - Last 24 Hours (Table) 08/05/24 08/05/24 08/05/24 Range/Units 11:06 16:33 20:42 POC Glucose (mg/dL) 217 H 197 H 183 H (70-110) mg/dL 08/06/24 08/06/24 Range/Units 00:27 06:30 POC Glucose (mg/dL) 111 H 116 H (70-110) mg/dL
[2024-08-06 09:42] LABS: Basophils # (A) 0.07 X 10*3/uL (0.00-0.10); Basophils % (A) 1.2 %; Eosinophils # (A) 0.27 X 10*3/uL (0.04-0.35); Eosinophils % (A) 4.5 %; HCT 28.3 % (39.6-50.0); HGB 8.8 g/dL (13.0-17.0); Lymphocytes # (A) 1.58 X 10*3/uL (0.90-5.00); Lymphocytes % (A) 26.4 %; MCH 27.8 pg (27.0-32.0); MCHC 31.1 g/dL (32.0-37.0); MCV 89.3 FL (80.0-97.0); Mean Platelet Volume 9.9 FL (9.5-12.2); Monocytes # (A) 0.68 X 10*3/uL (0.20-1.00); Monocytes % (A) 11.4 %; NRBC Per 100 WBC 0 X 10*3/uL (0.00-0.01); Neutrophils # (A) 3.33 X 10*3/uL (1.80-7.70); Neutrophils % (A) 55.7 %; Platelet Count 398 X 10*3/uL (140-440); RBC 3.17 X 10*6/uL (4.40-5.60); RDW 14.6 % (11.5-14.5); WBC 5.98 X 10*3/uL (4.50-10.00)
[2024-08-06 09:44] LABS: BUN/Creat Ratio 23.89 Ratio (12.00-20.00); Blood Urea Nitrogen 21.5 mg/dL (9.0-27.0); Calcium 8.7 mg/dL (8.7-10.3); Carbon Dioxide 24.8 mmol/L (21.6-31.8); Chloride 103 mmol/L (96-109); Glucose 95 mg/dL (70-110); Magnesium 2.1 mg/dL (1.5-2.4); Potassium 4.4 mmol/L (3.5-5.5); Sodium 139 mmol/L (135-145)
[2024-08-06 11:16] LABS: Glucose,Whole Blood 313 mg/dL (70-110)
[2024-08-06 16:19] LABS: Glucose,Whole Blood 220 mg/dL (70-110)
--- NOTE | 2024-08-06 18:17 | P.PN ---
Subjective Progress Note Date: 08/06/24 This is a pleasant 79-year-old male who presented to the emergency department with increasing pain and drainage of the right foot and has been progressively becoming more swollen and follows with Dr. Quiñones outpatient at the wound care center. Apparently patient had gone to the wound care center and was diagnosed with wet gangrene and wanted the patient to come here for further vascular surgery consult. Dr. Quiñones is currently out of town and this was discussed with vascular surgery, Dr. Adame's group and will be undergoing surgical intervention including great toe amputation on the right today. Patient also with infectious disease consulted as patient follows with him outpatient as well and there was concerns of osteomyelitis. Patient did previously have right 4th and 5th toes removed as well. Patient reports he follows with Dr. 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 Labs reviewed from ER admission with a white count of 15.48, hemoglobin 8.9, platelets 395, sodium 138, potassium 3.2, creatinine 1.37, BUN 28, random glucose elevated at 282, lactic acid 1.6. Patient did report some swelling and pain up into the calf and did undergo venous Doppler which shows right lower extremity negative for DVT and patency within the vessels. CT angiography performed of the abdomen pelvis revealing a right first metatarsal region extending to the plantar aspect of the foot along the medial right ankle and posterior right ankle with gas-forming infection that should be considered along with soft tissue swelling through the distal right calf and an occlusion of the vascular trifurcation vessels bilaterally. 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 Inc idental finding of the left hydronephrosis and will consult urology and appreciate input and recommendations. Patient reports he is voiding with no difficulties and creatinine is stable at 1.37. Will follow-up on repeat labs and resume diet once cleared by surgery. Recommend tight glycemic control for healing as hemoglobin A1c is noted to be uncontrolled and elevated at 10.5. 07/27/2024 Patient is evaluated in follow-up with medical floor. He was still complaining of some mild pain of the right calf area however states that is nothing extensive and feels like he does not need any pain medication for this currently. He was complaining of some mild shortness of breath states that he uses albuterol inhaler at home and is requesting this. Patient is postoperative day 1 right lower foot amputation. He continues on antibiotics in the form of Daptomycin and Zosyn. Urology has evaluated patient for the incidental finding of the left sided hydronephrosis and planning to undergo CT urogram. His blood work today reveals a white blood cell count of 11.03, hemoglobin stable at 8.2, sodium 139, BUN of 21 creatinine 1.08. His blood glucose remains significantly elevated in the 300s. Patient will go for right BKA on 07/29. 07/28/2024 Patient is seen and evaluated in follow-up this morning currently sitting up in the chair with lower extremities elevated. Right surgical dressing is dry and intact and patient is scheduled to undergo BKA tomorrow with vascular surgery. Patient is continued on IV antibiotics with infectious disease following. Continue monitoring Accu-Cheks closely including 2 AMS patient will be n.p.o. at midnight and patient is a diabetic. Monitor for any concerns of hypoglycemia and continue with dextrose per protocol. Will follow-up on repeat labs and m onitor kidney functions and electrolytes closely. Patient's potassium was 3.6 and will give 40 mEq today. 07/29/2024 Patient is seen in follow-up status post right BKA with vascular surgery. Patient continued on antibiotics with infectious disease following with right foot culture showing Finegoldia magna and blood cultures remain negative thus far. Patient for PT/OT therapy evaluation and continue wound care per vascular surgery. Patient is afebrile with no reports of chest pain or shortness of breath. Patient has been tolerating diet and recommended monitor blood sugars closely. 07/30/2024 Patient is seen in follow-up this morning being followed by vascular surgery along with infectious disease and patient is maintained on daptomycin and Zosyn as per ID recommendations and will continue for now. To discuss further regarding discharge planning regarding continued antibiotic therapy and the need for IV antibiotics on discharge and if requiring rehab services for continued PT/OT therapy as well as antibiotic therapy. Case management/social work consulted and following regarding discharge planning. Vascular surgery surgery following as well recommending close outpatient follow-up. Patient is afebrile with no reports of chest pain or shortness of breath. Patient has been to lerating diet with no reported nausea or vomiting. Continue monitoring Accu- Cheks and adjust accordingly as blood sugars have been mildly elevated. Will follow-up on repeat labs and replace electrolytes per protocol. 07/31/2024 Patient seen and evaluated in follow-up today being followed by vascular surgery along with infectious disease. Patient was continued on IV antibiotics and cultures remain negative and antibiotics being discontinued and patient will be closely monitored off antibiotic therapy. Patient cleared by vascular surgery for inpatient rehab once antibiotic recommendations have been made. Patient to continue with local wound care and also evaluated by inpatient rehab and would make a good candidate although will require insurance authorization. Await PT/OT therapy evaluation on Thursday and case management to discuss discharge planning. Will attempt inpatient leg care on [facility] and/or to inpatient [facility] facilities in [place]. Patient is afebrile with no reports of chest pain or shortness of breath. Blood sugars have been elevated and will adjust insulins accordingly and also recommend consistent carb diet. Await PT/OT therapy evaluation on Thursday08/01/2024 Patient is seen in follow-up today awaiting to work with physical therapy with case management following to submit insurance authorization for inpatient rehab. Verifying coverage for rehab services and patient has been accepted by [facility] pending insurance authorization. Vascular surgery evaluating and will be changing the dressing from surgery of the right BKA and will continue with local wound care per their recommendations. Patient being monitored off antibiotic therapy doing relatively well with infectious disease following closely. Patient is afebrile with no reports of chest pain or shortness of breath. Blood sugars being controlled and will continue current regimen and adjust accordingly. 08/02/2024 Patient is seen in follow-up today continues to await insurance authorization to inpatient rehab. Case management following and reports authorization will likely be denied requesting [id number] as patient is doing relatively well. Patient was evaluated by inpatient rehab physician team and would be a great candidate for continued strength and mobility and more aggressive physical therapy status post BKA. Patient is motivated and has been willingly working with physical therapy. Recommend appeal process if patient's peer to peer is denied. Patient is afebrile with no reported chest pain or shortness of breath. Patient reports to tolerating diet with no reported nausea or vomiting. 08/03/2024 Patient is seen in follow-up today continues to await appeal process which could take up to 72 hours. Patient denies any specific complaints and has been working with physical therapy. Patient would benefit from inpatient rehab for aggressive PT/OT therapy outpatient as patient was quite independent prior to this BKA. Patient is afebrile and denies any chest pain or shortness of breath. Patient has been tolerating diet with no reported nausea or vomiting. Patient blood sugars have been variable and will continue current regimen adjust slightly if needed on the insulin regimen. 08/04/2024 Patient is seen in follow-up today continues to await appeal for inpatient rehab status post left BKA. Blood sugars being monitored closely and will continue current regimen and adjust accordingly. Patient is working with physical therapy and recommend daily. Patient to continue with stump conductor orchestra and will have outpatient resources provided with close outpatient follow-up with vascular surgery. Patient denies chest pain or shortness of breath and reports is tolerating diet. Patient is afebrile and is being closely monitored off antibiotic therapy per infectious disease. 08/05/2024 Patient seen in follow-up today and per case management was verified that patient's appeal remains pending at this time but was submitted by [facility]. Patient denies any chest pain or shortness of breath. Patient reports is going to bathroom with no difficulties and denies constipation. Blood sugars have been up and down and will continue to monitor closely. No recent labs drawn and will order repeat labs for further evaluation recommend to replace electrolytes per protocol. Patient reports his pain is currently controlled on current regimen and will continue to adjust as needed. Recommend PT/OT therapy daily for continued strength and mobility along with assistance due to recent right BKA. Patient would benefit greatly from inpatient rehab as this BKA is new on this admission. Patient is afebrile and being closely monitored off antibiotic therapy with infectious disease following closely. 08/06/2024 Patient evaluated today in follow up with no acute complaints. He is reporting minimal surgical pain and the leg immobilizer is in place. He is currently pending authorization for discharge to [facility]. Continues on normal saline at 50 mls/hr. Hemoglobin 8.8., sodium 139, potassium 4.4., BUN 21.5, creatinine 0.9. Magnesium 2.1. REVIEW OF SYSTEMS: CONSTITUTIONAL: No fever, no malaise, no fatigue. HEENT: No recent visual problems or hearing problems. Denied any sore throat. CARDIOVASCULAR: No chest pain, orthopnea, PND, no palpitations, no syncope. PULMONARY: No shortness of breath, no cough, no hemoptysis. GASTROINTESTINAL: No diarrhea, no nausea, no vomiting, no abdominal pain. NEUROLOGICAL: No headaches, reports of generalized weakness, no numbness. PHYSICAL EXAMINATION: GENERAL: The patient is alert and oriented x3. Well developed, well nourished. Elderly appearing, thin built HEENT: Pupils are round and equally reacting to light. EOMI. No scleral icterus. No conjunctival pallor. Normocephalic, atraumatic. No pharyngeal erythema. No thyromegaly. CARDIOVASCULAR: S1 and S2 present. No murmurs, rubs, or gallops. PULMONARY: Chest is clear to auscultation, no wheezing or crackles. ABDOMEN: Soft, thin, nontender, nondistended, normoactive bowel sounds. No palpable organomegaly. MUSCULOSKELETAL: No joint swelling or deformity. Surgical dressing is dry and intact of the right lower extremity BKA, stump conductor orchestra noted EXTREMITIES: No cyanosis, clubbing, or pedal edema. Status post right BKA NEUROLOGICAL: Gross neurological examination did not reveal any focal deficits. Diffusely weak SKIN: No rashes. 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 Leukocytosis, secondary to above, improved Severe left hydronephrosis noted on imaging, ruled out, CT confirms no hydronephrosis although was noted to be a parapelvic cyst and a nonobstructing left renal stone, patient is voiding with no difficulties Osteomyelitis on admission of the right lower extremity, per ID being monitored closely off antibiotic therapy as affected part was removed during surgery Significant hypokalemia, improved after replacement and will monitor closely Diabetes mellitus, type II, uncontrolled with hyperglycemia, hemoglobin A1c is 10.5 Hypertension History of MRSA infections History of previous gangrene of the right fifth toe status post amputation 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 CT urogram was performed revealing no hydronephrosis although a parapelvic cyst and a nonobstructing left renal stone. Urology did evaluate with no plans or surgical intervention recommending outpatient follow-up as needed. Kidney functions relatively stable with a mild HUONG Continue with home medications as appropriate Continue monitoring Accu-Cheks AC and at bedtime along with sliding scale and l oskar-acting and will adjust accordingly. Diabetes education as patient's hemoglobin A1c is 10.5. Monitor blood sugars closely and will slightly adjust long-acting insulins accordingly Continue using incentive spirometer at least 10 times every hour while awake Patient was evaluated by PT/OT therapy with case management following and apparently insurance is denying recommended [id number] for inpatient rehab which will be performed by rehab staff which is pending at this time. Recommend appeal process if denied as patient is willing to work with physical therapy and is a good candidate for inpatient rehab. Await appeal decision at this time. Per case management could take up to 72 hours. Appeal remains pending at this time and if denied plan will be for submitting authorization for [facility]. [facility] has accepted in the event inpatient rehab is denied through the appeal process. Per case management [facility]'s authorization cannot be submitted until the appeal is denied Patient has been cleared by consultations to inpatient rehab or ECF with close outpatient follow-up Discharge planning pending appeal for inpatient rehab versus ECF at [facility]. The impression and plan of care has been dictated by Dania Matthews, Nurse Practitioner as directed. Dr. Gabby MD I have performed a history and examination and MDM of this patient, discussed the same with the dictator, and agree with the dictator's assessment and plan as written ,documented as a scribe. Based on total visit time, I have performed more than 50% of the visit. Objective - Vital Signs Vital signs: Vital Signs Temp 98.0 F 08/06/24 13:37 Pulse 81 08/06/24 13:37 Resp 15 08/06/24 13:37 BP 150/71 08/06/24 13:37 Pulse Ox 99 08/06/24 13:37 FiO2 Intake & Output 08/05/24 08/06/24 08/06/24 18:59 06:59 18:59 Intake Total 540 Output Total 900 1350 1 Balance -900 -810 -1 Intake: Oral 540 Output: Urine 900 1350 Urine/Stool Mix 1 Other: Voiding Method Urinal Urinal Toilet Urinal # Voids 5 - Labs CBC & Chem 7: 08/06/24 05:26 08/06/24 05:26 Labs: Abnormal Lab Results - Last 24 Hours (Table) 08/05/24 08/06/24 08/06/24 Range/Units 20:42 00:27 05:26 RBC 3.17 L (4.40-5.60) X 10*6/uL Hgb 8.8 L (13.0-17.0) g/dL Hct 28.3 L (39.6-50.0) % MCHC 31.1 L (32.0-37.0) g/dL RDW 14.6 H (11.5-14.5) % Immature Gran # 0.05 H (0.00-0.04) X 10*3/uL BUN/Creatinine Ratio (12.00-20.00) Ratio POC Glucose (mg/dL) 183 H 111 H (70-110) mg/dL 08/06/24 08/06/24 08/06/24 Range/Units 05:26 06:30 11:12 RBC (4.40-5.60) X 10*6/uL Hgb (13.0-17.0) g/dL Hct (39.6-50.0) % MCHC (32.0-37.0) g/dL RDW (11.5-14.5) % Immature Gran # (0.00-0.04) X 10*3/uL BUN/Creatinine Ratio 23.89 H (12.00-20.00) Ratio POC Glucose (mg/dL) 116 H 313 H (70-110) mg/dL 08/06/24 Range/Units 16:18 RBC (4.40-5.60) X 10*6/uL Hgb (13.0-17.0) g/dL Hct (39.6-50.0) % MCHC (32.0-37.0) g/dL RDW (11.5-14.5) % Immature Gran # (0.00-0.04) X 10*3/uL BUN/Creatinine Ratio (12.00-20.00) Ratio POC Glucose (mg/dL) 220 H (70-110) mg/dL Assessment and Plan Time with Patient: Less than 30
--- NOTE | 2024-08-06 19:55 | P.PN ---
Subjective Progress Note Date: 08/06/24 Principal diagnosis: Reason for follow-up is right diabetic foot infection/osteomyelitis Patient is 79-year-old male with a past medical history significant for diabetes mellitus hypertension history of diabetic foot infection and previous right 4th and 5th amputation patient presented to [facility] ER concerning for worsening swelling redness and drainage to the right foot, patient was noticed to have extensive infection needing disarticulation at the ankle joint by vascular surgery. On today's evaluation that is 08/07/2023, patient did have a temperature of 98 F this morning and denies having any chills, patient is on room air and breathing comfortably no chest pain or cough, the patient did not have any nausea vomiting abdominal pain or any diarrhea, pain to the right BKA stump is currently controlled. Patient white count is 5.98, creatinine 0.9 Objective - Vital Signs Vital signs: Vital Signs Temp 98.0 F 08/06/24 13:37 Pulse 81 08/06/24 13:37 Resp 15 08/06/24 13:37 BP 150/71 08/06/24 13:37 Pulse Ox 99 08/06/24 13:37 FiO2 Intake & Output 08/05/24 08/06/24 08/06/24 18:59 06:59 18:59 Intake Total 540 Output Total 900 1350 1 Balance -900 -810 -1 Intake: Oral 540 Output: Urine 900 1350 Urine/Stool Mix 1 Other: Voiding Method Urinal Urinal Toilet Urinal # Voids 5 - Exam GENERAL DESCRIPTION: An elderly male lying in bed in no distress RESPIRATORY SYSTEM: Unlabored breathing , decreased breath sounds at bases HEART: S1 S2 regular rate and rhythm , ABDOMEN: Soft , no tenderness EXTREMITIES: Right lower leg disarticulation site is currently dressed - Labs CBC & Chem 7: 08/06/24 05:26 08/06/24 05:26 Labs: Abnormal Lab Results - Last 24 Hours (Table) 08/05/24 08/06/24 08/06/24 Range/Units 20:42 00:27 05:26 RBC 3.17 L (4.40-5.60) X 10*6/uL Hgb 8.8 L (13.0-17.0) g/dL Hct 28.3 L (39.6-50.0) % MCHC 31.1 L (32.0-37.0) g/dL RDW 14.6 H (11.5-14.5) % Immature Gran # 0.05 H (0.00-0.04) X 10*3/uL BUN/Creatinine Ratio (12.00-20.00) Ratio POC Glucose (mg/dL) 183 H 111 H (70-110) mg/dL 08/06/24 08/06/24 08/06/24 Range/Units 05:26 06:30 11:12 RBC (4.40-5.60) X 10*6/uL Hgb (13.0-17.0) g/dL Hct (39.6-50.0) % MCHC (32.0-37.0) g/dL RDW (11.5-14.5) % Immature Gran # (0.00-0.04) X 10*3/uL BUN/Creatinine Ratio 23.89 H (12.00-20.00) Ratio POC Glucose (mg/dL) 116 H 313 H (70-110) mg/dL 08/06/24 Range/Units 16:18 RBC (4.40-5.60) X 10*6/uL Hgb (13.0-17.0) g/dL Hct (39.6-50.0) % MCHC (32.0-37.0) g/dL RDW (11.5-14.5) % Immature Gran # (0.00-0.04) X 10*3/uL BUN/Creatinine Ratio (12.00-20.00) Ratio POC Glucose (mg/dL) 220 H (70-110) mg/dL Assessment and Plan (1) Foot osteomyelitis, right Current Visit: Yes Status: Acute Code(s): M86.9 - OSTEOMYELITIS, UNSPECIFIED SNOMED Code(s): 3250923037245762 (2) Elevated serum creatinine Current Visit: Yes Status: Acute Code(s): R79.89 - OTHER SPECIFIED ABNORMAL FINDINGS OF BLOOD CHEMISTRY SNOMED Code(s): 971000145 (3) Diabetic infection of right foot Current Visit: No Status: Acute Code(s): E11.628 - TYPE 2 DIABETES MELLITUS WITH OTHER SKIN COMPLICATIONS; L08.9 - LOCAL INFECTION OF THE SKIN AND S UBCUTANEOUS TISSUE, UNSP SNOMED Code(s): 661683532 Plan: 1patient with a complicated history of multiple diabetic foot infection this patient did have previous amputation of the toes now presenting with extensive right diabetic foot infection with evidence of air on the CT concerning for gas- forming pathogen and will need to cover for the polymicrobial maricel associated with diabetic foot infection 2patient is status post disarticulation of the right ankle because of extensive infection and subsequently did have a right BKA on 07/29/2024 3patient local culture data grew Finegoldia magna however the infected part is removed with the blood culture negative 4-patient remains to be afebrile and white count normalized,, currently waiting for placement/rehab will continue to monitor closely off antibiotic therapy daughter at the bedside, question concern answered Dictation was produced using [employer] dictation software. please excuse any grammatical, word or spelling errors. Time with Patient: Less than 30
[2024-08-06 21:11] LABS: Glucose,Whole Blood 280 mg/dL (70-110)
[2024-08-07 02:49] LABS: Glucose,Whole Blood 149 mg/dL (70-110)
[2024-08-07 06:47] LABS: Glucose,Whole Blood 202 mg/dL (70-110)
[2024-08-07 11:10] LABS: Glucose,Whole Blood 221 mg/dL (70-110)
[2024-08-07] MEDS: NYSTATIN 100,000 UNIT/GM OINT 30 GM TUBE TOPICAL SCH (12:00)
--- NOTE | 2024-08-07 14:10 | P.PN ---
Subjective Progress Note Date: 08/07/24 This is a pleasant 79-year-old male who presented to the emergency department with increasing pain and drainage of the right foot and has been progressively becoming more swollen and follows with Dr. Quiñones outpatient at the wound care center. Apparently patient had gone to the wound care center and was diagnosed with wet gangrene and wanted the patient to come here for further vascular surgery consult. Dr. Quiñones is currently out of town and this was discussed with vascular surgery, Dr. Adame's group and will be undergoing surgical intervention including great toe amputation on the right today. Patient also with infectious disease consulted as patient follows with him outpatient as well and there was concerns of osteomyelitis. Patient did previously have right 4th and 5th toes removed as well. Patient reports he follows with Dr. 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 Labs reviewed from ER admission with a white count of 15.48, hemoglobin 8.9, platelets 395, sodium 138, potassium 3.2, creatinine 1.37, BUN 28, random glucose elevated at 282, lactic acid 1.6. Patient did report some swelling and pain up into the calf and did undergo venous Doppler which shows right lower extremity negative for DVT and patency within the vessels. CT angiography performed of the abdomen pelvis revealing a right first metatarsal region extending to the plantar aspect of the foot along the medial right ankle and posterior right ankle with gas-forming infection that should be considered along with soft tissue swelling through the distal right calf and an occlusion of the vascular trifurcation vessels bilaterally. 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 Inc idental finding of the left hydronephrosis and will consult urology and appreciate input and recommendations. Patient reports he is voiding with no difficulties and creatinine is stable at 1.37. Will follow-up on repeat labs and resume diet once cleared by surgery. Recommend tight glycemic control for healing as hemoglobin A1c is noted to be uncontrolled and elevated at 10.5. 07/27/2024 Patient is evaluated in follow-up with medical floor. He was still complaining of some mild pain of the right calf area however states that is nothing extensive and feels like he does not need any pain medication for this currently. He was complaining of some mild shortness of breath states that he uses albuterol inhaler at home and is requesting this. Patient is postoperative day 1 right lower foot amputation. He continues on antibiotics in the form of Daptomycin and Zosyn. Urology has evaluated patient for the incidental finding of the left sided hydronephrosis and planning to undergo CT urogram. His blood work today reveals a white blood cell count of 11.03, hemoglobin stable at 8.2, sodium 139, BUN of 21 creatinine 1.08. His blood glucose remains significantly elevated in the 300s. Patient will go for right BKA on 07/29. 07/28/2024 Patient is seen and evaluated in follow-up this morning currently sitting up in the chair with lower extremities elevated. Right surgical dressing is dry and intact and patient is scheduled to undergo BKA tomorrow with vascular surgery. Patient is continued on IV antibiotics with infectious disease following. Continue monitoring Accu-Cheks closely including 2 AMS patient will be n.p.o. at midnight and patient is a diabetic. Monitor for any concerns of hypoglycemia and continue with dextrose per protocol. Will follow-up on repeat labs and m onitor kidney functions and electrolytes closely. Patient's potassium was 3.6 and will give 40 mEq today. 07/29/2024 Patient is seen in follow-up status post right BKA with vascular surgery. Patient continued on antibiotics with infectious disease following with right foot culture showing Finegoldia magna and blood cultures remain negative thus far. Patient for PT/OT therapy evaluation and continue wound care per vascular surgery. Patient is afebrile with no reports of chest pain or shortness of breath. Patient has been tolerating diet and recommended monitor blood sugars closely. 07/30/2024 Patient is seen in follow-up this morning being followed by vascular surgery along with infectious disease and patient is maintained on daptomycin and Zosyn as per ID recommendations and will continue for now. To discuss further regarding discharge planning regarding continued antibiotic therapy and the need for IV antibiotics on discharge and if requiring rehab services for continued PT/OT therapy as well as antibiotic therapy. Case management/social work consulted and following regarding discharge planning. Vascular surgery surgery following as well recommending close outpatient follow-up. Patient is afebrile with no reports of chest pain or shortness of breath. Patient has been to lerating diet with no reported nausea or vomiting. Continue monitoring Accu- Cheks and adjust accordingly as blood sugars have been mildly elevated. Will follow-up on repeat labs and replace electrolytes per protocol. 07/31/2024 Patient seen and evaluated in follow-up today being followed by vascular surgery along with infectious disease. Patient was continued on IV antibiotics and cultures remain negative and antibiotics being discontinued and patient will be closely monitored off antibiotic therapy. Patient cleared by vascular surgery for inpatient rehab once antibiotic recommendations have been made. Patient to continue with local wound care and also evaluated by inpatient rehab and would make a good candidate although will require insurance authorization. Await PT/OT therapy evaluation on Thursday and case management to discuss discharge planning. Will attempt inpatient leg care on [facility] and/or to inpatient [facility] facilities in [place]. Patient is afebrile with no reports of chest pain or shortness of breath. Blood sugars have been elevated and will adjust insulins accordingly and also recommend consistent carb diet. Await PT/OT therapy evaluation on Thursday08/01/2024 Patient is seen in follow-up today awaiting to work with physical therapy with case management following to submit insurance authorization for inpatient rehab. Verifying coverage for rehab services and patient has been accepted by [facility] pending insurance authorization. Vascular surgery evaluating and will be changing the dressing from surgery of the right BKA and will continue with local wound care per their recommendations. Patient being monitored off antibiotic therapy doing relatively well with infectious disease following closely. Patient is afebrile with no reports of chest pain or shortness of breath. Blood sugars being controlled and will continue current regimen and adjust accordingly. 08/02/2024 Patient is seen in follow-up today continues to await insurance authorization to inpatient rehab. Case management following and reports authorization will likely be denied requesting [id number] as patient is doing relatively well. Patient was evaluated by inpatient rehab physician team and would be a great candidate for continued strength and mobility and more aggressive physical therapy status post BKA. Patient is motivated and has been willingly working with physical therapy. Recommend appeal process if patient's peer to peer is denied. Patient is afebrile with no reported chest pain or shortness of breath. Patient reports to tolerating diet with no reported nausea or vomiting. 08/03/2024 Patient is seen in follow-up today continues to await appeal process which could take up to 72 hours. Patient denies any specific complaints and has been working with physical therapy. Patient would benefit from inpatient rehab for aggressive PT/OT therapy outpatient as patient was quite independent prior to this BKA. Patient is afebrile and denies any chest pain or shortness of breath. Patient has been tolerating diet with no reported nausea or vomiting. Patient blood sugars have been variable and will continue current regimen adjust slightly if needed on the insulin regimen. 08/04/2024 Patient is seen in follow-up today continues to await appeal for inpatient rehab status post left BKA. Blood sugars being monitored closely and will continue current regimen and adjust accordingly. Patient is working with physical therapy and recommend daily. Patient to continue with [facility] and will have outpatient resources provided with close outpatient follow-up with vascular surgery. Patient denies chest pain or shortness of breath and reports is tolerating diet. Patient is afebrile and is being closely monitored off antibiotic therapy per infectious disease. 08/05/2024 Patient seen in follow-up today and per case management was verified that patient's appeal remains pending at this time but was submitted by [facility]. Patient denies any chest pain or shortness of breath. Patient reports is going to bathroom with no difficulties and denies constipation. Blood sugars have been up and down and will continue to monitor closely. No recent labs drawn and will order repeat labs for further evaluation recommend to replace electrolytes per protocol. Patient reports his pain is currently controlled on current regimen and will continue to adjust as needed. Recommend PT/OT therapy daily for continued strength and mobility along with assistance due to recent right BKA. Patient would benefit greatly from inpatient rehab as this BKA is new on this admission. Patient is afebrile and being closely monitored off antibiotic therapy with infectious disease following closely. 08/06/2024 Patient evaluated today in follow up with no acute complaints. He is reporting minimal surgical pain and the leg immobilizer is in place. He is currently pending authorization for discharge to [facility]. Continues on normal saline at 50 mls/hr. Hemoglobin 8.8., sodium 139, potassium 4.4., BUN 21.5, creatinine 0.9. Magnesium 2.1. 08/07/2024 Patient is evaluated in follow-up in the medical floor. He is complaining of a rash on his buttock which appears fungal in nature and we will order nystatin ointment for this. He is off antibiotic therapy. He is postoperative right below-knee amputation. He is currently pending discharge planning for subacute rehab. REVIEW OF SYSTEMS: CONSTITUTIONAL: No fever, no malaise, no fatigue. HEENT: No recent visual problems or hearing problems. Denied any sore throat. CARDIOVASCULAR: No chest pain, orthopnea, PND, no palpitations, no syncope. PULMONARY: No shortness of breath, no cough, no hemoptysis. GASTROINTESTINAL: No diarrhea, no nausea, no vomiting, no abdominal pain. NEUROLOGICAL: No headaches, reports of generalized weakness, no numbness. PHYSICAL EXAMINATION: GENERAL: The patient is alert and oriented x3. Well developed, well nourished. Elderly appearing, thin built HEENT: Pupils are round and equally reacting to light. EOMI. No scleral icterus. No conjunctival pallor. Normocephalic, atraumatic. No pharyngeal erythema. No thyromegaly. CARDIOVASCULAR: S1 and S2 present. No murmurs, rubs, or gallops. PULMONARY: Chest is clear to auscultation, no wheezing or crackles. ABDOMEN: Soft, thin, nontender, nondistended, normoactive bowel sounds. No palpable organomegaly. MUSCULOSKELETAL: No joint swelling or deformity. Surgical dressing is dry and intact of the right lower extremity BKA, [facility] noted EXTREMITIES: No cyanosis, clubbing, or pedal edema. Status post right BKA NEUROLOGICAL: Gross neurological examination did not reveal any focal deficits. Diffusely weak SKIN: No rashes. 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 Leukocytosis, secondary to above, improved Severe left hydronephrosis noted on imaging, ruled out, CT confirms no hydronephrosis although was noted to be a parapelvic cyst and a nonobstructing left renal stone, patient is voiding with no difficulties Osteomyelitis on admission of the right lower extremity, per ID being monitored closely off antibiotic therapy as affected part was removed during surgery Significant hypokalemia, improved after replacement and will monitor closely Diabetes mellitus, type II, uncontrolled with hyperglycemia, hemoglobin A1c is 10.5 Hypertension History of MRSA infections History of previous gangrene of the right fifth toe status post amputation 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 CT urogram was performed revealing no hydronephrosis although a parapelvic cyst and a nonobstructing left renal stone. Urology did evaluate with no plans or surgical intervention recommending outpatient follow-up as needed. Kidney functions relatively stable with a mild HUONG Continue with home medications as appropriate Continue monitoring Accu-Cheks AC and at bedtime along with sliding scale and long-acting and will adjust accordingly. Diabetes education as patient's hemoglobin A1c is 10.5. Monitor blood sugars closely and will slightly adjust long-acting insulins accordingly Continue using incentive spirometer at least 10 times every hour while awake Patient was evaluated by PT/OT therapy with case management following and apparently insurance is denying recommended [id number] for inpatient rehab which will be performed by rehab staff which is pending at this time. Recommend appeal process if denied as patient is willing to work with physical therapy and is a good candidate for inpatient rehab. Await appeal decision at this time. Per case management could take up to 72 hours. Appeal remains pending at this time and if denied plan will be for submitting authorization for [facility]. [facility] has accepted in the event inpatient rehab is denied through the appeal process. Per case management [facility]'s authorization cannot be submitted until the appeal is denied Patient has been cleared by consultations to inpatient rehab or ECF with close outpatient follow-up Discharge planning pending appeal for inpatient rehab versus ECF at [facility]. The impression and plan of care has been dictated by Dania Matthews, Nurse Practitioner as directed. Dr. Gabby MD I have performed a history and examination and MDM of this patient, discussed the same with the dictator, and agree with the dictator's assessment and plan as written ,documented as a scribe. Based on total visit time, I have performed more than 50% of the visit. Objective - Vital Signs Vital signs: Vital Signs Temp 97.6 F 08/07/24 08:00 Pulse 83 08/07/24 08:00 Resp 16 08/07/24 08:00 BP 119/64 08/07/24 08:00 Pulse Ox 99 08/07/24 08:00 FiO2 Intake & Output 08/06/24 08/07/24 08/07/24 18:59 06:59 18:59 Intake Total 2700 Output Total 1 3375 Balance -1 -675 Intake: Oral 2700 Output: Urine 3375 Urine/Stool Mix 1 Other: Voiding Method Toilet Urinal # Voids 5 - Labs CBC & Chem 7: 08/06/24 05:26 08/06/24 05:26 Labs: Abnormal Lab Results - Last 24 Hours (Table) 08/06/24 08/06/24 08/06/24 Range/Units 11:12 16:18 21:09 POC Glucose (mg/dL) 313 H 220 H 280 H (70-110) mg/dL 08/07/24 08/07/24 Range/Units 02:47 06:46 POC Glucose (mg/dL) 149 H 202 H (70-110) mg/dL Assessment and Plan Time with Patient: Less than 30
[2024-08-07 16:45] LABS: Glucose,Whole Blood 191 mg/dL (70-110)
[2024-08-07 20:33] LABS: Glucose,Whole Blood 193 mg/dL (70-110)
[2024-08-07 22:19] LABS: Glucose,Whole Blood 76 mg/dL (70-110)
[2024-08-08 02:05] LABS: Glucose,Whole Blood 83 mg/dL (70-110)
[2024-08-08 06:20] LABS: Glucose,Whole Blood 189 mg/dL (70-110)
[2024-08-08 11:51] LABS: Glucose,Whole Blood 236 mg/dL (70-110)
[2024-08-08 16:52] LABS: Glucose,Whole Blood 204 mg/dL (70-110)
--- NOTE | 2024-08-08 17:05 | P.PN ---
Subjective Progress Note Date: 08/08/24 This is a pleasant 79-year-old male who presented to the emergency department with increasing pain and drainage of the right foot and has been progressively becoming more swollen and follows with Dr. Quiñones outpatient at the wound care center. Apparently patient had gone to the wound care center and was diagnosed with wet gangrene and wanted the patient to come here for further vascular surgery consult. Dr. Quiñones is currently out of town and this was discussed with vascular surgery, Dr. Adame's group and will be undergoing surgical intervention including great toe amputation on the right today. Patient also with infectious disease consulted as patient follows with him outpatient as well and there was concerns of osteomyelitis. Patient did previously have right 4th and 5th toes removed as well. Patient reports he follows with Dr. 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 Labs reviewed from ER admission with a white count of 15.48, hemoglobin 8.9, platelets 395, sodium 138, potassium 3.2, creatinine 1.37, BUN 28, random glucose elevated at 282, lactic acid 1.6. Patient did report some swelling and pain up into the calf and did undergo venous Doppler which shows right lower extremity negative for DVT and patency within the vessels. CT angiography performed of the abdomen pelvis revealing a right first metatarsal region extending to the plantar aspect of the foot along the medial right ankle and posterior right ankle with gas-forming infection that should be considered along with soft tissue swelling through the distal right calf and an occlusion of the vascular trifurcation vessels bilaterally. 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 Inc idental finding of the left hydronephrosis and will consult urology and appreciate input and recommendations. Patient reports he is voiding with no difficulties and creatinine is stable at 1.37. Will follow-up on repeat labs and resume diet once cleared by surgery. Recommend tight glycemic control for healing as hemoglobin A1c is noted to be uncontrolled and elevated at 10.5. 07/27/2024 Patient is evaluated in follow-up with medical floor. He was still complaining of some mild pain of the right calf area however states that is nothing extensive and feels like he does not need any pain medication for this currently. He was complaining of some mild shortness of breath states that he uses albuterol inhaler at home and is requesting this. Patient is postoperative day 1 right lower foot amputation. He continues on antibiotics in the form of Daptomycin and Zosyn. Urology has evaluated patient for the incidental finding of the left sided hydronephrosis and planning to undergo CT urogram. His blood work today reveals a white blood cell count of 11.03, hemoglobin stable at 8.2, sodium 139, BUN of 21 creatinine 1.08. His blood glucose remains significantly elevated in the 300s. Patient will go for right BKA on 07/29. 07/28/2024 Patient is seen and evaluated in follow-up this morning currently sitting up in the chair with lower extremities elevated. Right surgical dressing is dry and intact and patient is scheduled to undergo BKA tomorrow with vascular surgery. Patient is continued on IV antibiotics with infectious disease following. Continue monitoring Accu-Cheks closely including 2 AMS patient will be n.p.o. at midnight and patient is a diabetic. Monitor for any concerns of hypoglycemia and continue with dextrose per protocol. Will follow-up on repeat labs and m onitor kidney functions and electrolytes closely. Patient's potassium was 3.6 and will give 40 mEq today. 07/29/2024 Patient is seen in follow-up status post right BKA with vascular surgery. Patient continued on antibiotics with infectious disease following with right foot culture showing Finegoldia magna and blood cultures remain negative thus far. Patient for PT/OT therapy evaluation and continue wound care per vascular surgery. Patient is afebrile with no reports of chest pain or shortness of breath. Patient has been tolerating diet and recommended monitor blood sugars closely. 07/30/2024 Patient is seen in follow-up this morning being followed by vascular surgery along with infectious disease and patient is maintained on daptomycin and Zosyn as per ID recommendations and will continue for now. To discuss further regarding discharge planning regarding continued antibiotic therapy and the need for IV antibiotics on discharge and if requiring rehab services for continued PT/OT therapy as well as antibiotic therapy. Case management/social work consulted and following regarding discharge planning. Vascular surgery surgery following as well recommending close outpatient follow-up. Patient is afebrile with no reports of chest pain or shortness of breath. Patient has been to lerating diet with no reported nausea or vomiting. Continue monitoring Accu- Cheks and adjust accordingly as blood sugars have been mildly elevated. Will follow-up on repeat labs and replace electrolytes per protocol. 07/31/2024 Patient seen and evaluated in follow-up today being followed by vascular surgery along with infectious disease. Patient was continued on IV antibiotics and cultures remain negative and antibiotics being discontinued and patient will be closely monitored off antibiotic therapy. Patient cleared by vascular surgery for inpatient rehab once antibiotic recommendations have been made. Patient to continue with local wound care and also evaluated by inpatient rehab and would make a good candidate although will require insurance authorization. Await PT/OT therapy evaluation on Thursday and case management to discuss discharge planning. Will attempt inpatient leg care on [facility] and/or to inpatient [facility] facilities in [place]. Patient is afebrile with no reports of chest pain or shortness of breath. Blood sugars have been elevated and will adjust insulins accordingly and also recommend consistent carb diet. Await PT/OT therapy evaluation on Thursday08/01/2024 Patient is seen in follow-up today awaiting to work with physical therapy with case management following to submit insurance authorization for inpatient rehab. Verifying coverage for rehab services and patient has been accepted by [facility] pending insurance authorization. Vascular surgery evaluating and will be changing the dressing from surgery of the right BKA and will continue with local wound care per their recommendations. Patient being monitored off antibiotic therapy doing relatively well with infectious disease following closely. Patient is afebrile with no reports of chest pain or shortness of breath. Blood sugars being controlled and will continue current regimen and adjust accordingly. 08/02/2024 Patient is seen in follow-up today continues to await insurance authorization to inpatient rehab. Case management following and reports authorization will likely be denied requesting [id number] as patient is doing relatively well. Patient was evaluated by inpatient rehab physician team and would be a great candidate for continued strength and mobility and more aggressive physical therapy status post BKA. Patient is motivated and has been willingly working with physical therapy. Recommend appeal process if patient's peer to peer is denied. Patient is afebrile with no reported chest pain or shortness of breath. Patient reports to tolerating diet with no reported nausea or vomiting. 08/03/2024 Patient is seen in follow-up today continues to await appeal process which could take up to 72 hours. Patient denies any specific complaints and has been working with physical therapy. Patient would benefit from inpatient rehab for aggressive PT/OT therapy outpatient as patient was quite independent prior to this BKA. Patient is afebrile and denies any chest pain or shortness of breath. Patient has been tolerating diet with no reported nausea or vomiting. Patient blood sugars have been variable and will continue current regimen adjust slightly if needed on the insulin regimen. 08/04/2024 Patient is seen in follow-up today continues to await appeal for inpatient rehab status post left BKA. Blood sugars being monitored closely and will continue current regimen and adjust accordingly. Patient is working with physical therapy and recommend daily. Patient to continue with [employer] and will have outpatient resources provided with close outpatient follow-up with vascular surgery. Patient denies chest pain or shortness of breath and reports is tolerating diet. Patient is afebrile and is being closely monitored off antibiotic therapy per infectious disease. 08/05/2024 Patient seen in follow-up today and per case management was verified that patient's appeal remains pending at this time but was submitted by [facility]. Patient denies any chest pain or shortness of breath. Patient reports is going to bathroom with no difficulties and denies constipation. Blood sugars have been up and down and will continue to monitor closely. No recent labs drawn and will order repeat labs for further evaluation recommend to replace electrolytes per protocol. Patient reports his pain is currently controlled on current regimen and will continue to adjust as needed. Recommend PT/OT therapy daily for continued strength and mobility along with assistance due to recent right BKA. Patient would benefit greatly from inpatient rehab as this BKA is new on this admission. Patient is afebrile and being closely monitored off antibiotic therapy with infectious disease following closely. 08/06/2024 Patient evaluated today in follow up with no acute complaints. He is reporting minimal surgical pain and the leg immobilizer is in place. He is currently pending authorization for discharge to [facility]. Continues on normal saline at 50 mls/hr. Hemoglobin 8.8., sodium 139, potassium 4.4., BUN 21.5, creatinine 0.9. Magnesium 2.1. 08/07/2024 Patient is evaluated in follow-up in the medical floor. He is complaining of a rash on his buttock which appears fungal in nature and we will order nystatin ointment for this. He is off antibiotic therapy. He is postoperative right below-knee amputation. He is currently pending discharge planning for subacute rehab. 08/08/2024 Patient is evaluated today in follow up on the medical floor. Patients rash appears more of a foliculitis vs. yeast on his buttock. He has no other acute complaints. He is reporting minimal pain to the amputation site. REVIEW OF SYSTEMS: CONSTITUTIONAL: No fever, no malaise, no fatigue. HEENT: No recent visual problems or hearing problems. Denied any sore throat. CARDIOVASCULAR: No chest pain, orthopnea, PND, no palpitations, no syncope. PULMONARY: No shortness of breath, no cough, no hemoptysis. GASTROINTESTINAL: No diarrhea, no nausea, no vomiting, no abdominal pain. NEUROLOGICAL: No headaches, reports of generalized weakness, no numbness. PHYSICAL EXAMINATION: GENERAL: The patient is alert and oriented x3. Well developed, well nourished. Elderly appearing, thin built HEENT: Pupils are round and equally reacting to light. EOMI. No scleral icterus. No conjunctival pallor. Normocephalic, atraumatic. No pharyngeal erythema. No thyromegaly. CARDIOVASCULAR: S1 and S2 present. No murmurs, rubs, or gallops. PULMONARY: Chest is clear to auscultation, no wheezing or crackles. ABDOMEN: Soft, thin, nontender, nondistended, normoactive bowel sounds. No palpable organomegaly. MUSCULOSKELETAL: No joint swelling or deformity. Surgical dressing is dry and intact of the right lower extremity BKA, stump assembler sandal parts noted EXTREMITIES: No cyanosis, clubbing, or pedal edema. Status post right BKA NEUROLOGICAL: Gross neurological examination did not reveal any focal deficits. Diffusely weak SKIN: No rashes. 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 Leukocytosis, secondary to above, improved Severe left hydronephrosis noted on imaging, ruled out, CT confirms no hydronephrosis although was noted to be a parapelvic cyst and a nonobstructing left renal stone, patient is voiding with no difficulties Osteomyelitis on admission of the right lower extremity, per ID being monitored closely off antibiotic therapy as affected part was removed during surgery Significant hypokalemia, improved after replacement and will monitor closely Diabetes mellitus, type II, uncontrolled with hyperglycemia, hemoglobin A1c is 10.5 Foliculitis Hypertension History of MRSA infections History of previous gangrene of the right fifth toe status post amputation 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 CT urogram was performed revealing no hydronephrosis although a parapelvic cyst and a nonobstructing left renal stone. Urology did evaluate with no plans or surgical intervention recommending outpatient follow-up as needed. Kidney functions relatively stable with a mild HUONG Continue with home medications as appropriate Continue monitoring Accu-Cheks AC and at bedtime along with sliding scale and long-acting and will adjust accordingly. Diabetes education as patient's hemoglobin A1c is 10.5. Monitor blood sugars closely and will slightly adjust long-acting insulins accordingly Continue using incentive spirometer at least 10 times every hour while awake Patient was evaluated by PT/OT therapy with case management following and apparently insurance is denying recommended [id number] for inpatient rehab which will be performed by rehab staff which is pending at this time. Recommend appeal process if denied as patient is willing to work with physical therapy and is a good candidate for inpatient rehab. Await appeal decision at this time. Per case management could take up to 72 hours. Appeal remains pending at this time and if denied plan will be for submitting authorization for [facility]. [facility] has accepted in the event inpatient rehab is denied through the appeal process. Per case management [facility]'s authorization cannot be submitted until the appeal is denied Patient has been cleared by consultations to inpatient rehab or ECF with close outpatient follow-up Discharge planning pending appeal for inpatient rehab versus ECF at [facility]. The impression and plan of care has been dictated by Dania Matthews Nurse Practitioner as directed. Dr. Gabby MD I have performed a history and examination and MDM of this patient, discussed the same with the dictator, and agree with the dictator's assessment and plan as written ,documented as a scribe. Based on total visit time, I have performed more than 50% of the visit. Objective - Vital Signs Vital signs: Vital Signs Temp 98.1 F 08/08/24 13:27 Pulse 66 08/08/24 13:27 Resp 17 08/08/24 13:27 BP 124/51 08/08/24 13:27 Pulse Ox 98 08/08/24 13:27 FiO2 Intake & Output 08/07/24 08/08/24 08/08/24 18:59 06:59 18:59 Intake Total 2700 Output Total 4525 1390 Balance -1825 -1390 Intake: Oral 2700 Output: Urine 4525 1390 Other: Voiding Method Toilet Urinal # Voids 6 # Bowel Movements 1 1 - Labs CBC & Chem 7: 08/06/24 05:26 08/06/24 05:26 Labs: Abnormal Lab Results - Last 24 Hours (Table) 08/07/24 08/08/24 08/08/24 Range/Units 20:31 06:18 11:50 POC Glucose (mg/dL) 193 H 189 H 236 H (70-110) mg/dL 08/08/24 Range/Units 16:50 POC Glucose (mg/dL) 204 H (70-110) mg/dL Assessment and Plan Time with Patient: Less than 30
[2024-08-08] MEDS: TRIAMCINOLONE 0.1% CREAM 80 GM TUBE TOPICAL SCH (17:55)
[2024-08-08] MEDS: MUPIROCIN 2% OINT 22 GM TUBE TOPICAL SCH (17:56)
[2024-08-08 19:58] LABS: Glucose,Whole Blood 170 mg/dL (70-110)
[2024-08-09 02:17] LABS: Glucose,Whole Blood 121 mg/dL (70-110)
[2024-08-09 06:09] LABS: Glucose,Whole Blood 144 mg/dL (70-110)
[2024-08-09 11:59] LABS: Glucose,Whole Blood 309 mg/dL (70-110)
--- NOTE | 2024-08-09 13:14 | P.PN ---
Subjective Progress Note Date: 08/09/24 This is a pleasant 79-year-old male who presented to the emergency department with increasing pain and drainage of the right foot and has been progressively becoming more swollen and follows with Dr. Quiñones outpatient at the wound care center. Apparently patient had gone to the wound care center and was diagnosed with wet gangrene and wanted the patient to come here for further vascular surgery consult. Dr. Quiñones is currently out of town and this was discussed with vascular surgery, Dr. Adame's group and will be undergoing surgical intervention including great toe amputation on the right today. Patient also with infectious disease consulted as patient follows with him outpatient as well and there was concerns of osteomyelitis. Patient did previously have right 4th and 5th toes removed as well. Patient reports he follows with Dr. 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 Labs reviewed from ER admission with a white count of 15.48, hemoglobin 8.9, platelets 395, sodium 138, potassium 3.2, creatinine 1.37, BUN 28, random glucose elevated at 282, lactic acid 1.6. Patient did report some swelling and pain up into the calf and did undergo venous Doppler which shows right lower extremity negative for DVT and patency within the vessels. CT angiography performed of the abdomen pelvis revealing a right first metatarsal region extending to the plantar aspect of the foot along the medial right ankle and posterior right ankle with gas-forming infection that should be considered along with soft tissue swelling through the distal right calf and an occlusion of the vascular trifurcation vessels bilaterally. 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 Inc idental finding of the left hydronephrosis and will consult urology and appreciate input and recommendations. Patient reports he is voiding with no difficulties and creatinine is stable at 1.37. Will follow-up on repeat labs and resume diet once cleared by surgery. Recommend tight glycemic control for healing as hemoglobin A1c is noted to be uncontrolled and elevated at 10.5. 07/27/2024 Patient is evaluated in follow-up with medical floor. He was still complaining of some mild pain of the right calf area however states that is nothing extensive and feels like he does not need any pain medication for this currently. He was complaining of some mild shortness of breath states that he uses albuterol inhaler at home and is requesting this. Patient is postoperative day 1 right lower foot amputation. He continues on antibiotics in the form of Daptomycin and Zosyn. Urology has evaluated patient for the incidental finding of the left sided hydronephrosis and planning to undergo CT urogram. His blood work today reveals a white blood cell count of 11.03, hemoglobin stable at 8.2, sodium 139, BUN of 21 creatinine 1.08. His blood glucose remains significantly elevated in the 300s. Patient will go for right BKA on 07/29. 07/28/2024 Patient is seen and evaluated in follow-up this morning currently sitting up in the chair with lower extremities elevated. Right surgical dressing is dry and intact and patient is scheduled to undergo BKA tomorrow with vascular surgery. Patient is continued on IV antibiotics with infectious disease following. Continue monitoring Accu-Cheks closely including 2 AMS patient will be n.p.o. at midnight and patient is a diabetic. Monitor for any concerns of hypoglycemia and continue with dextrose per protocol. Will follow-up on repeat labs and m onitor kidney functions and electrolytes closely. Patient's potassium was 3.6 and will give 40 mEq today. 07/29/2024 Patient is seen in follow-up status post right BKA with vascular surgery. Patient continued on antibiotics with infectious disease following with right foot culture showing Finegoldia magna and blood cultures remain negative thus far. Patient for PT/OT therapy evaluation and continue wound care per vascular surgery. Patient is afebrile with no reports of chest pain or shortness of breath. Patient has been tolerating diet and recommended monitor blood sugars closely. 07/30/2024 Patient is seen in follow-up this morning being followed by vascular surgery along with infectious disease and patient is maintained on daptomycin and Zosyn as per ID recommendations and will continue for now. To discuss further regarding discharge planning regarding continued antibiotic therapy and the need for IV antibiotics on discharge and if requiring rehab services for continued PT/OT therapy as well as antibiotic therapy. Case management/social work consulted and following regarding discharge planning. Vascular surgery surgery following as well recommending close outpatient follow-up. Patient is afebrile with no reports of chest pain or shortness of breath. Patient has been to lerating diet with no reported nausea or vomiting. Continue monitoring Accu- Cheks and adjust accordingly as blood sugars have been mildly elevated. Will follow-up on repeat labs and replace electrolytes per protocol. 07/31/2024 Patient seen and evaluated in follow-up today being followed by vascular surgery along with infectious disease. Patient was continued on IV antibiotics and cultures remain negative and antibiotics being discontinued and patient will be closely monitored off antibiotic therapy. Patient cleared by vascular surgery for inpatient rehab once antibiotic recommendations have been made. Patient to continue with local wound care and also evaluated by inpatient rehab and would make a good candidate although will require insurance authorization. Await PT/OT therapy evaluation on Thursday and case management to discuss discharge planning. Will attempt inpatient leg care on [facility] [place] and/or to inpatient [facility] facilities in [place]. Patient is afebrile with no reports of chest pain or shortness of breath. Blood sugars have been elevated and will adjust insulins accordingly and also recommend consistent carb diet. Await PT/OT therapy evaluation on Thursday08/01/2024 Patient is seen in follow-up today awaiting to work with physical therapy with case management following to submit insurance authorization for inpatient rehab. Verifying coverage for rehab services and patient has been accepted by [facility] pending insurance authorization. Vascular surgery evaluating and will be changing the dressing from surgery of the right BKA and will continue with local wound care per their recommendations. Patient being monitored off antibiotic therapy doing relatively well with infectious disease following closely. Patient is afebrile with no reports of chest pain or shortness of breath. Blood sugars being controlled and will continue current regimen and adjust accordingly. 08/02/2024 Patient is seen in follow-up today continues to await insurance authorization to inpatient rehab. Case management following and reports authorization will likely be denied requesting [id number] as patient is doing relatively well. Patient was evaluated by inpatient rehab physician team and would be a great candidate for continued strength and mobility and more aggressive physical therapy status post BKA. Patient is motivated and has been willingly working with physical therapy. Recommend appeal process if patient's peer to peer is denied. Patient is afebrile with no reported chest pain or shortness of breath. Patient reports to tolerating diet with no reported nausea or vomiting. 08/03/2024 Patient is seen in follow-up today continues to await appeal process which could take up to 72 hours. Patient denies any specific complaints and has been working with physical therapy. Patient would benefit from inpatient rehab for aggressive PT/OT therapy outpatient as patient was quite independent prior to this BKA. Patient is afebrile and denies any chest pain or shortness of breath. Patient has been tolerating diet with no reported nausea or vomiting. Patient blood sugars have been variable and will continue current regimen adjust slightly if needed on the insulin regimen. 08/04/2024 Patient is seen in follow-up today continues to await appeal for inpatient rehab status post left BKA. Blood sugars being monitored closely and will continue current regimen and adjust accordingly. Patient is working with physical therapy and recommend daily. Patient to continue with stump cook vacuum kettle and will have outpatient resources provided with close outpatient follow-up with vascular surgery. Patient denies chest pain or shortness of breath and reports is tolerating diet. Patient is afebrile and is being closely monitored off antibiotic therapy per infectious disease. 08/05/2024 Patient seen in follow-up today and per case management was verified that patient's appeal remains pending at this time but was submitted by [facility]. Patient denies any chest pain or shortness of breath. Patient reports is going to bathroom with no difficulties and denies constipation. Blood sugars have been up and down and will continue to monitor closely. No recent labs drawn and will order repeat labs for further evaluation recommend to replace electrolytes per protocol. Patient reports his pain is currently controlled on current regimen and will continue to adjust as needed. Recommend PT/OT therapy daily for continued strength and mobility along with assistance due to recent right BKA. Patient would benefit greatly from inpatient rehab as this BKA is new on this admission. Patient is afebrile and being closely monitored off antibiotic therapy with infectious disease following closely. 08/06/2024 Patient evaluated today in follow up with no acute complaints. He is reporting minimal surgical pain and the leg immobilizer is in place. He is currently pending authorization for discharge to [facility]. Continues on normal saline at 50 mls/hr. Hemoglobin 8.8., sodium 139, potassium 4.4., BUN 21.5, creatinine 0.9. Magnesium 2.1. 08/07/2024 Patient is evaluated in follow-up in the medical floor. He is complaining of a rash on his buttock which appears fungal in nature and we will order nystatin ointment for this. He is off antibiotic therapy. He is postoperative right below-knee amputation. He is currently pending discharge planning for subacute rehab. 08/08/2024 Patient is evaluated today in follow up on the medical floor. Patients rash appears more of a foliculitis vs. yeast on his buttock. He has no other acute complaints. He is reporting minimal pain to the amputation site. 08/09/2024 Patient is evaluated in follow-up in the medical floor. Patient states that the rash to his buttock better and less itchy. He continues on mupirocin and Kenalog ointment. He has no other acute complaints. He is currently pending d ecision for an appeals to discharge to inpatient rehab versus subacute rehab. No updates per social work as of yet today. REVIEW OF SYSTEMS: CONSTITUTIONAL: No fever, no malaise, no fatigue. HEENT: No recent visual problems or hearing problems. Denied any sore throat. CARDIOVASCULAR: No chest pain, orthopnea, PND, no palpitations, no syncope. PULMONARY: No shortness of breath, no cough, no hemoptysis. GASTROINTESTINAL: No diarrhea, no nausea, no vomiting, no abdominal pain. NEUROLOGICAL: No headaches, reports of generalized weakness, no numbness. PHYSICAL EXAMINATION: GENERAL: The patient is alert and oriented x3. Well developed, well nourished. Elderly appearing, thin built HEENT: Pupils are round and equally reacting to light. EOMI. No scleral icterus. No conjunctival pallor. Normocephalic, atraumatic. No pharyngeal erythema. No thyromegaly. CARDIOVASCULAR: S1 and S2 present. No murmurs, rubs, or gallops. PULMONARY: Chest is clear to auscultation, no wheezing or crackles. ABDOMEN: Soft, thin, nontender, nondistended, normoactive bowel sounds. No palpable organomegaly. MUSCULOSKELETAL: No joint swelling or deformity. Surgical dressing is dry and intact of the right lower extremity BKA, stump cook vacuum kettle noted EXTREMITIES: No cyanosis, clubbing, or pedal edema. Status post right BKA NEUROLOGICAL: Gross neurological examination did not reveal any focal deficits. Diffusely weak SKIN: No rashes. 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 Leukocytosis, secondary to above, improved Severe left hydronephrosis noted on imaging, ruled out, CT confirms no hydronephrosis although was noted to be a parapelvic cyst and a nonobstructing left renal stone, patient is voiding with no difficulties Osteomyelitis on admission of the right lower extremity, per ID being monitored closely off antibiotic therapy as affected part was removed during surgery Significant hypokalemia, improved after replacement and will monitor closely Diabetes mellitus, type II, uncontrolled with hyperglycemia, hemoglobin A1c is 10.5 Foliculitis Hypertension History of MRSA infections History of previous gangrene of the right fifth toe status post amputation 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 Diabetes education as patient's hemoglobin A1c is 10.5. Continue using incentive spirometer at least 10 times every hour while awake Patient was evaluated by PT/OT therapy with case management following and apparently insurance is denying recommended [id number] for inpatient rehab which will be performed by rehab staff which is pending at this time. Recommend appeal process if denied as patient is willing to work with physical therapy and is a good candidate for inpatient rehab. Await appeal decision at this time. [facility] has accepted in the event inpatient rehab is denied through the appeal process. Per case management [facility]'s authorization cannot be submitted until the appeal is denied Patient has been cleared by consultations to inpatient rehab or ECF with close outpatient follow-up Discharge planning pending appeal for inpatient rehab versus ECF at [facility]. The impression and plan of care has been dictated by Dania Matthews, Nurse Practitioner as directed. Dr. Gabby MD I have performed a history and examination and MDM of this patient, discussed the same with the dictator, and agree with the dictator's assessment and plan as written ,documented as a scribe. Based on total visit time, I have performed more than 50% of the visit. Objective - Vital Signs Vital signs: Vital Signs Temp 98.2 F 08/09/24 07:19 Pulse 91 08/09/24 07:19 Resp 18 08/09/24 10:35 BP 111/55 08/09/24 07:19 Pulse Ox 98 08/09/24 07:19 FiO2 Intake & Output 08/08/24 08/09/24 08/09/24 18:59 06:59 18:59 Intake Total 360 400 Output Total 2014 2950 300 Balance -2014 100 Intake: Oral 360 400 Output: Urine 2014 2950 300 Other: Voiding Method Toilet Toilet Urinal Urinal # Voids 6 # Bowel Movements 1 1 - Labs CBC & Chem 7: 08/06/24 05:26 08/06/24 05:26 Labs: Abnormal Lab Results - Last 24 Hours (Table) 08/08/24 08/08/24 08/09/24 Range/Units 16:50 19:56 02:16 POC Glucose (mg/dL) 204 H 170 H 121 H (70-110) mg/dL 08/09/24 08/09/24 Range/Units 06:07 11:58 POC Glucose (mg/dL) 144 H 309 H (70-110) mg/dL Assessment and Plan Time with Patient: Less than 30
[2024-08-09 13:55] LABS: Glucose,Whole Blood 360 mg/dL (70-110)
[2024-08-09 16:59] LABS: Glucose,Whole Blood 90 mg/dL (70-110)
[2024-08-09 20:51] LABS: Glucose,Whole Blood 188 mg/dL (70-110)
[2024-08-10 04:07] LABS: Glucose,Whole Blood 150 mg/dL (70-110)
[2024-08-10 06:03] LABS: Glucose,Whole Blood 141 mg/dL (70-110)
[2024-08-10 08:05] LABS: HCT 30.3 % (39.6-50.0); HGB 9.6 g/dL (13.0-17.0); MCH 28.3 pg (27.0-32.0); MCHC 31.7 g/dL (32.0-37.0); MCV 89.4 FL (80.0-97.0); Mean Platelet Volume 10.1 FL (9.5-12.2); NRBC Per 100 WBC 0 X 10*3/uL (0.00-0.01); Platelet Count 369 X 10*3/uL (140-440); RBC 3.39 X 10*6/uL (4.40-5.60); RDW 15.7 % (11.5-14.5)
[2024-08-10 08:06] LABS: Basophils # (A) 0.07 X 10*3/uL (0.00-0.10); Eosinophils # (A) 0.31 X 10*3/uL (0.04-0.35); Eosinophils % (A) 4.6 %; Lymphocytes # (A) 1.72 X 10*3/uL (0.90-5.00); Lymphocytes % (A) 25.7 %; Monocytes # (A) 0.88 X 10*3/uL (0.20-1.00); Monocytes % (A) 13.1 %; Neutrophils # (A) 3.67 X 10*3/uL (1.80-7.70); Neutrophils % (A) 54.9 %
[2024-08-10 08:24] LABS: BUN/Creat Ratio 29.78 Ratio (12.00-20.00); Blood Urea Nitrogen 26.8 mg/dL (9.0-27.0); Calcium 9.2 mg/dL (8.7-10.3); Carbon Dioxide 25.5 mmol/L (21.6-31.8); Chloride 101 mmol/L (96-109); Glucose 138 mg/dL (70-110); Potassium 4.5 mmol/L (3.5-5.5); Sodium 136 mmol/L (135-145)
[2024-08-10 11:54] LABS: Glucose,Whole Blood 277 mg/dL (70-110)
--- NOTE | 2024-08-10 13:39 | P.DS ---
Providers Date of admission: 07/25/24 15:57 Expected date of discharge: 08/10/24 Attending physician: Hill Eckert Consults: 07/26/24 07:53 Consult Physician Routine Consulting Provider: Mckayla Burleson Consult Reason/Comments: Osteomyelitis Do you want consulting provider notified?: Yes 07/26/24 15:59 Consult Physician Urgent Consulting Provider: Wilber Davidson Consult Reason/Comments: severe left hydronephrosis noted on CT angiogram Do you want consulting provider notified?: Yes 07/28/24 13:58 Consult Physician Routine Consulting Provider: Irvin Robertson Consult Reason/Comments: evaluate for IPR after right BKA on 07/29/24 Do you want consulting provider notified?: Yes Primary care physician: Clay Jones Hospital Course: Final diagnosis Right foot pain with nonhealing wounds and an infected diabetic ulcer, wet gangrene 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 Leukocytosis, secondary to above, improved Severe left hydronephrosis noted on imaging, ruled out, CT confirms no hydronephrosis although was noted to be a parapelvic cyst and a nonobstructing left renal stone, patient is voiding with no difficulties Osteomyelitis on admission of the right lower extremity, per ID being monitored closely off antibiotic therapy as affected part was removed during surgery Significant hypokalemia, improved after replacement and will monitor closely Diabetes mellitus, type II, uncontrolled with hyperglycemia, hemoglobin A1c is 10.5 Foliculitis Hypertension History of MRSA infections History of previous gangrene of the right fifth toe status post 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 Patient will follow-up with Dr. Jones in the outpatient setting upon discharge. Patient is to continue with outpatient follow-up with vascular surgery as scheduled. Total time taken is greater than 35 minutes. Hospital course This is a 79-year-old male who was recently admitted with right foot pain and nonhealing wounds with an infected diabetic ulcer noted to have wet gangrene initially evaluated by vascular surgery and underwent guillotine amputation of the right foot. Further clinical evidence reported patient would benefit from BKA and is status post BKA with vascular surgery. 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 Patient attempted to go to inpatient rehab although insurance denied and denied the appeal although recommending SNF for continued strength and mobility status post recent BKA. Patient has received insurance authorization at [facility] and has been accepted today. Please refer to other consultation notes for further HPI. Patient is a diabetic and recommend to continue with tight glycemic control and continued Accu-Cheks AC and at bedtime and current insulin regimen adjusting as needed. Currently no reports of chest pain, shortness of breath, or palpitations. Patient is afebrile. No reports of nausea or vomiting and patient is tolerating diet. Patient will be going to [facility] on the [place] today. Guarded prognosis Physical exam: Gen: This is a 79-year-old male who is awake, alert and oriented x 3, well- developed, elderly appearing HEENT: Head is atraumatic, normocephalic. Pupils equal, round. Sclerae is anicteric. NECK: Supple. No JVD. No lymphadenopathy. No thyromegaly. LUNGS: Diminished breath sounds bilaterally otherwise clear to auscultation. No wheezes or rhonchi. No intercostal retractions. HEART: S1, S2 are muffled ABDOMEN: Soft. Bowel sounds are present. No masses. No tenderness. EXTREMITIES: No pedal edema. No calf tenderness. Right BKA noted NEUROLOGICAL: Patient is awake, alert and oriented x3. Cranial nerves 2 through 12 are grossly intact. Please refer to medication reconciliation sheet for a list of medications. The impression and plan of care has been dictated by Yesenia Ward, Nurse Practitioner as directed. Dr. Toño MD I have performed a history and examination and MDM of this patient, discussed the same with the dictator, and agree with the dictator's assessment and plan as written ,documented as a scribe. Based on total visit time, I have performed more than 50% of the visit. Patient Condition at Discharge: Fair Plan - Discharge Summary Discharge Rx Participant: No New Discharge Prescriptions: New Mupirocin 2% Oint [Bactroban 2% Oint] 1 applic TOPICAL TID each HYDROcodone/APAP 5-325MG [[place] 5-325] 1 each PO Q6HR PRN #4 tab PRN Reason: Pain Heparin Sodium,Porcine (1 ml) [Heparin Sodium] 5,000 unit SQ Q12HR each Triamcinolone 0.1% Cream [Kenalog 0.1% Cream] 1 applic TOPICAL TID each Sennosides [Senokot] 8.6 mg PO BID PRN tab PRN Reason: Constipation Albuterol Inhaler [Ventolin Hfa Inhaler] 2 puff INHALATION RT-QID PRN each PRN Reason: Shortness Of Breath Or Wheezing Continue Aspirin 81 mg PO PC-SUPPER Insulin Glargine,Hum.rec.anlog [[facility]] 18 units SQ PC-BRKFST lisinopriL [Zestril] 10 mg PO PC-SUPPER Calcium Phos/D3/Magnesium/Zinc [Wlntyox-Qhm-Ascx-Vitamin D3] 1 tab PO PC- BRKFST Pantoprazole [Protonix] 40 mg PO AC-BRKFST #30 tab Atorvastatin [Lipitor] 10 mg PO PC-SUPPER Insulin Aspart [NovoLOG Flexpen] See Protocol SQ ACHS PRN PRN Reason: Blood Sugar - High Megestrol [Megace] 400 mg PO AC-BRKFST Ferrous Sulfate [Iron (65 MG Elemental)] 325 mg PO PC-BRKFST glipiZIDE/METFORMIN HCL [glipiZIDE/METFORMIN HCL 5-500 mg] 1 tab PO AC-BID Mv-Min/Folic/K1/Lycopen/Lutein [Centrum Silver Men Tablet] 1 tab PO PC-BRKFST rOPINIRole HCL [Requip] 3 mg PO HS Fish Oil/Dha/Epa [Fish Oil 1,200 mg Fish Oil] 1 cap PO PC-SUPPER Baclofen [Lioresal] 10 mg PO PC-BID Tamsulosin [Flomax] 0.4 mg PO AC-SUPPER rOPINIRole HCL [Requip] 1 mg PO PC-BRKFST Melatonin 30 mg PO PC-SUPPER Docusate [Colace] 100 mg PO PC-BID Thiamine [Vitamin B-1] 100 mg PO PC-BRKFST Dandelion Root 3000mg 9,000 mg PO AC-BRKFST Insulin Glargine,Hum.rec.anlog [[facility] Includes [facility]] 17 units SQ PC-SUPPER Discontinued Collagenase [Santyl Ointment] 1 applic TOPICAL DAILY Discharge Medication List Aspirin 81 mg PO PC-SUPPER 12/27/15 [History] Insulin Glargine,Hum.rec.anlog [Randyo Salmaostrichy] 18 units SQ PC-BRKFST 07/18/16 [History] lisinopriL [Zestril] 10 mg PO PC-SUPPER 11/15/19 [History] Tamsulosin [Flomax] 0.4 mg PO AC-SUPPER 08/25/22 [History] Calcium Phos/D3/Magnesium/Zinc [Oivrzsz-Jjs-Ywdq-Vitamin D3] 1 tab PO PC-BRKFST 11/28/23 [History] rOPINIRole HCL [Requip] 1 mg PO PC-BRKFST 11/28/23 [History] Pantoprazole [Protonix] 40 mg PO AC-BRKFST #30 tab 12/02/23 [Rx] Atorvastatin [Lipitor] 10 mg PO PC-SUPPER 04/10/24 [History] Insulin Aspart [NovoLOG Flexpen] See Protocol SQ ACHS PRN 04/10/24 [History] Megestrol [Megace] 400 mg PO AC-BRKFST 04/10/24 [History] Melatonin 30 mg PO PC-SUPPER 04/10/24 [History] Baclofen [Lioresal] 10 mg PO PC-BID 07/25/24 [History] Dandelion Root 3000mg 9,000 mg PO AC-BRKFST 07/25/24 [History] Docusate [Colace] 100 mg PO PC-BID 07/25/24 [History] Ferrous Sulfate [Iron (65 MG Elemental)] 325 mg PO PC-BRKFST 07/25/24 [History] Fish Oil/Dha/Epa [Fish Oil 1,200 mg Fish Oil] 1 cap PO PC-SUPPER 07/25/24 [Histo ry] Insulin Glargine,Hum.rec.anlog [Toujanetto Solostar] 17 units SQ PC-SUPPER 07/25/24 [History] Mv-Min/Folic/K1/Lycopen/Lutein [Centrum Silver Men Tablet] 1 tab PO PC-BRKFST 07/25/24 [History] Thiamine [Vitamin B-1] 100 mg PO PC-BRKFST 07/25/24 [History] glipiZIDE/METFORMIN HCL [glipiZIDE/METFORMIN HCL 5-500 mg] 1 tab PO AC-BID 07/25/24 [History] rOPINIRole HCL [Requip] 3 mg PO HS 07/25/24 [History] Albuterol Inhaler [Ventolin Hfa Inhaler] 2 puff INHALATION RT-QID PRN each 08/10/24 [Rx] HYDROcodone/APAP 5-325MG [[place] 5-325] 1 each PO Q6HR PRN #4 tab 08/10/24 [Rx] Heparin Sodium,Porcine (1 ml) [Heparin Sodium] 5,000 unit SQ Q12HR each 08/10/24 [Rx] Mupirocin 2% Oint [Bactroban 2% Oint] 1 applic TOPICAL TID each 08/10/24 [Rx] Sennosides [Senokot] 8.6 mg PO BID PRN tab 08/10/24 [Rx] Triamcinolone 0.1% Cream [Kenalog 0.1% Cream] 1 applic TOPICAL TID each 08/10/24 [Rx] Follow up Appointment(s)/Referral(s): Clay Jones MD [Primary Care Provider] - 1-2 days Hillary Lucio DO [STAFF PHYSICIAN] - 2 Weeks Activity/Diet/Wound Care/Special Instructions: Activity as tolerated Patient is going to [facility] in the [place] Continue PT/OT Right BKA surgical site apply Adaptic, Kerlix and change as needed. 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 Knee immobilizer is to stay in place. [employer] will need to be used for the prosthetic fitting - they are the only company in network with patient's insurance. Discharge Disposition: TRANSFER TO SNF/ECF
[2024-08-10 15:09] VITALS: BP 137/58; PULSE 69; RESP 17; TEMP 98.1
--- NOTE | 2024-08-10 16:28 | P.PN ---
Subjective Progress Note Date: 08/07/24 Principal diagnosis: Reason for follow-up is right diabetic foot infection/osteomyelitis Patient is 79-year-old male with a past medical history significant for diabetes mellitus hypertension history of diabetic foot infection and previous right 4th and 5th amputation patient presented to [facility] ER concerning for worsening swelling redness and drainage to the right foot, patient was noticed to have extensive infection needing disarticulation at the ankle joint by vascular surgery. On today's evaluation that is 08/07/2024, Patient is afebrile patient is currently on room air and denies having any shortness of breath, the patient denies any chest pain or cough, the patient denies any nausea vomiting did not have any abdominal pain and no diarrhea pain to the right biggest time is currently controlled. No new lab has been obtained today Objective - Vital Signs Vital signs: Vital Signs Temp 98.3 F 08/07/24 14:00 Pulse 84 08/07/24 14:00 Resp 15 08/07/24 14:00 BP 128/69 08/07/24 14:00 Pulse Ox 100 08/07/24 14:00 FiO2 Intake & Output 08/06/24 08/07/24 08/07/24 18:59 06:59 18:59 Intake Total 2700 Output Total 1 3375 Balance -1 -675 Intake: Oral 2700 Output: Urine 3375 Urine/Stool Mix 1 Other: Voiding Method Toilet Urinal # Voids 5 - Labs CBC & Chem 7: 08/06/24 05:26 08/06/24 05:26 Labs: Abnormal Lab Results - Last 24 Hours (Table) 08/06/24 08/06/24 08/07/24 Range/Units 16:18 21:09 02:47 POC Glucose (mg/dL) 220 H 280 H 149 H (70-110) mg/dL 08/07/24 08/07/24 Range/Units 06:46 11:09 POC Glucose (mg/dL) 202 H 221 H (70-110) mg/dL Assessment and Plan (1) Foot osteomyelitis, right Current Visit: Yes Status: Acute Code(s): M86.9 - OSTEOMYELITIS, UNSPECIFIED SNOMED Code(s): 8584800010873253 (2) Elevated serum creatinine Current Visit: Yes Status: Acute Code(s): R79.89 - OTHER SPECIFIED ABNORMAL FINDINGS OF BLOOD CHEMISTRY SNOMED Code(s): 884607832 (3) Diabetic infection of right foot Current Visit: No Status: Acute Code(s): E11.628 - TYPE 2 DIABETES MELLITUS WITH OTHER SKIN COMPLICATIONS; L08.9 - LOCAL INFECTION OF THE SKIN AND SUBCUTANEOUS TISSUE, UNSP SNOMED Code(s): 911571808 Plan: 1patient with a complicated history of multiple diabetic foot infection this patient did have previous amputation of the toes now presenting with extensive right diabetic foot infection with evidence of air on the CT concerning for gas- forming pathogen and will need to cover for the polymicrobial maricel associated with diabetic foot infection 2patient is status post disarticulation of the right ankle because of extensive infection and subsequently did have a right BKA on 07/29/2024 3patient local culture data grew Finegoldia magna however the infected part is removed with the blood culture negative 4-patient remains to be afebrile and white count normalized,, patient has been monitored closely off antibiotic therapy and seem to be doing well recommending no antibiotic on discharge Dictation was produced using [employer] dictation software. please excuse any grammatical, word or spelling errors.
== END 2024-08-10 15:38 | DRG 240 ==
LOC: EC 14:14 → 4SSUR 15:57
PROVIDERS: ADMIT Hospitalist; ATTEND Hospitalist
PROC: 3E0T3BZ Introduction of Anesthetic Agent into Peripheral Nerves and Plexi, Percutaneous Approach (ICD-10-PCS; 2024-07-29)
PROC: 0Y6H0Z1 Detachment at Right Lower Leg, High, Open Approach (ICD-10-PCS; principal; 2024-07-29 07:30)
DX: E11.52 Type 2 diabetes mellitus with diabetic peripheral angiopathy with gangrene (principal); L02.611 Cutaneous abscess of right foot; N13.2 Hydronephrosis with renal and ureteral calculous obstruction; M86.8X7 Other osteomyelitis, ankle and foot; N17.9 Acute kidney failure, unspecified; E11.621 Type 2 diabetes mellitus with foot ulcer; I10 Essential (primary) hypertension; F32.A Depression, unspecified; E11.69 Type 2 diabetes mellitus with other specified complication; E11.628 Type 2 diabetes mellitus with other skin complications; E11.65 Type 2 diabetes mellitus with hyperglycemia; L97.519 Non-pressure chronic ulcer of other part of right foot with unspecified severity; E87.6 Hypokalemia; Z87.891 Personal history of nicotine dependence; Z86.14 Personal history of Methicillin resistant Staphylococcus aureus infection
CPT/HCPCS: 36415; 36430; 64445; 64447; 74178; 74400; 75635; 80048; 80053; 82565; 83036; 83605; 83735; 84132; 85025; 85610; 86850; 86900; 86901; 86920; 87040; 87070; 87075; 87205; 94640; 96365; 96367; 99285